=== PATIENT | female | born 1945 | race Caucasian/White ===

== ENCOUNTER 2017-08-09 11:50 | Observation (INO) | payer MEDICARE ==
[~2017-08-09] VITALS: Ht 165.1 cm; Wt 77.6 kg
[~2017-08-09 11:50] MED LIST: ALPRAZOLAM0.5 MG PO; ASPIRIN81 MG PO; CARVEDILOL12.5 MG PO; COUMADIN5 M1; DILTIAZEM 24HR120 MG PO; FISH OIL300 MG PO; FOSAMAX70 MG PO; GABAPENTIN300 MG PO; GLIPIZIDE5 MG PO; GLUCOPHAGE XR500 MG PO; IMDUR30 MG PO; LANOXIN125 MCG PO; METOCLOPRAMIDE10 MG PO; NITROSTAT0.4 MG SL; OMEPRAZOLE20 MG PO; PACERONE200 MG PO; PRAVASTATIN SOD40 MG PO; TOPAMAX50 MG PO; WARFARIN SODIUM3 MG PO
[2017-08-09] MEDS ORDERED: MECLIZINE HCL 12.5 MG TAB PO ONE (12:00)
[2017-08-09 12:20] LABS: BASOPHILS # (AUTO) 0.1 (0.0-0.1); BASOPHILS % 0.6 % (0.0-1.0); EOSINOPHILS # (AUTO) 0.1 (0.0-0.4); EOSINOPHILS % 0.6 % (0.0-6.0); HEMATOCRIT 47.3 % (34.2-44.1); HEMOGLOBIN 14.1 g/dL (12.0-16.0); LYMPHOCYTES # (AUTO) 2.5 (1.0-3.2); MEAN CORPUSCULAR HEMOGLOBIN 23.9 pg (28-32); MEAN CORPUSCULAR HGB CONC 29.8 g/dL (31-35); MEAN CORPUSCULAR VOLUME 80.3 fL (81-99); MONOCYTES # (AUTO) 0.9 (0.2-0.8); NEUTROPHILS # (AUTO) 9.1 (2.1-6.9); NEUTROPHILS % 71.5 % (38.7-80.0); PLATELET COUNT 412 x10e3/uL (140-360); RED BLOOD COUNT 5.89 x10e6/uL (3.6-5.1); RED CELL DISTRIBUTION WIDTH 23.4 % (11.7-14.4)
[2017-08-09 12:30] LABS: INR 1.88; PROTHROMBIN TIME 22.6 seconds (11.9-14.5)
[2017-08-09 12:37] LABS: ALBUMIN 3.6 g/dL (3.5-5.0); ALBUMIN/GLOBULIN RATIO 0.8 (0.8-2.0); ANION GAP 19.9 mmol/L (8-16); CALCIUM 9.1 mg/dL (8.4-10.2); CREATININE, SERUM 1.96 mg/dL (0.57-1.11)
--- NOTE | 2017-08-09 12:37 | Diagnostic Imaging Report ---
PROCEDURE: A single AP view of the chest. COMPARISON: Chest radiograph 12/02/2013 INDICATIONS: DIZZY FINDINGS: Lines/tubes: Left chest wall AICD with intact leads projecting over the right atrium and right ventricle. Lungs: The lungs are well inflated. Linear opacities in the left lung base likely represent atelectasis or scarring. There is no evidence of pneumonia or pulmonary edema. Pleura: There is no pleural effusion or pneumothorax. Heart and mediastinum: Multiple surgical clips overlie the right hilar region. Aortic arch calcifications. Stable borderline enlargement of the cardiac silhouette. Bones: No acute bony abnormality. Upper abdomen: No free air under the diaphragm. Stable elevation of the right hemidiaphragm. IMPRESSION: No acute cardiopulmonary disease. Dictated by: Serge Read M.D. on 08/09/2017 at 12:47 Electronically approved by: Serge Read M.D. on 08/09/2017 at 12:47
[2017-08-09 12:41] LABS: POTASSIUM 2.9 mmol/L (3.5-5.1)
--- NOTE | 2017-08-09 12:42 | Diagnostic Imaging Report ---
Exam: Head CT without contrast History: Dizziness, Comparison studies: None Technique: Axial images were obtained from the skull base to the vertex. Coronal and sagittal images reconstructed from the axial data. Intravenous contrast: None Findings: Scalp: No abnormalities. Bones: No fractures, blastic or lytic lesions. Brain sulci: Mildly prominent. Ventricles: Mild compensatory dilatation. No hydrocephalus. Extra-axial spaces: No masses, no fluid collection. Parenchyma: No mass, acute hemorrhage or acute or chronic cortical vascular insults. A few subtle hypodensities in the supratentorial white matter are nonspecific but most compatible with chronic small vessel ischemic changes. As a small chronic lacunar insult along the lateral margin of the left putamen superiorly. Sellar/suprasellar region: No abnormalities. Craniocervical junction: Patent foramen magnum. No Chiari one malformation. Incidental findings: Atherosclerotic calcifications in the carotid siphons. Small debris or cerumen in the bilateral external auditory canals. Mild chronic inflammatory changes in the right mastoids which are partially opacified. IMPRESSION: No acute abnormalities. Chronic findings: 1. Mild generalized volume loss. 2. Mild chronic microvascular ischemic changes. 3. Small chronic left putaminal lacunar infarct. Signed by: Dr. Yogesh Moore M.D. on 08/09/2017 12:38 PM
[2017-08-09] MEDS ORDERED: POTASSIUM CHLORIDE 10 MEQ TABCR PO NR (13:15)
[2017-08-09] MEDS ORDERED: SODIUM CHLORIDE 0.9% 1000ML 1,000 ML IV SCH (15:00)
[2017-08-09] MEDS ORDERED: MORPHINE SULFATE 2 MG/ML SYR IV PRN (16:00)
[2017-08-09] MEDS ORDERED: ONDANSETRON HCL INJ 2 MG/ML VIAL IV PRN (16:00)
[2017-08-09] MEDS ORDERED: DEXTROSE 50% SYRINGE 50 ML IV PRN (16:00)
[2017-08-09 16:08] LABS: BILIRUBIN,URINE NEGATIVE (NEGATIVE); CLARITY,URINE CLEAR (CLEAR); COLOR,URINE YELLOW (YELLOW); KETONES,URINE NEGATIVE (NEGATIVE); LEUKOCYTE ESTERASE ,URINE NEGATIVE (NEGATIVE); NITRITE,URINE NEGATIVE (NEGATIVE); PROTEIN,URINE DIPSTICK NEGATIVE (NEGATIVE); URINE UROBILINOGEN 0.2 mg/dL (0.2 - 1)
[2017-08-09 16:29] LABS: BACTERIA,URINE FEW /HPF; EPITHELIAL CELLS,URINE MODERATE /LPF
[2017-08-09] MEDS: INSULIN REGULAR, HUMAN 100 UNIT/1 ML 3ML VIAL SQ SCH ×2 (16:30→21:58)
--- OUTSIDE RECORDS SUMMARY | 2017-08-09 16:43 | XMS REPORT ---
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 Allergies, Adverse Reactions, Alerts This patient has no known allergies or adverse reactions. Medications This patient has no known medications. Results Test Description Test Time Test Comments Text Results Atomic Results Result Comments CHEST SINGLE (PORTABLE) [place] [address] Patient Name: MARGARITA EATON MR #: [id number] : 1945 Age/Sex: 71/F Req #: [id number] Adm Physician: Ordered by: GALLO MONTES MD Report #: [id number] Location: ER Room/Bed: Procedure: [id number] DX/CHEST SINGLE (PORTABLE) Exam Date: 08/09/17 Exam Time: 1215 REPORT STATUS: Signed PROCEDURE: A single AP view of the chest. COMPARISON: Chest radiograph 12/02/2013 INDICATIONS: DIZZY FINDINGS: Lines/tubes: Left chest wall AICD with intact leads projecting over the right atrium and right ventricle. Lungs: The lungs are well inflated. Linear opacities in the left lung base likely represent atelectasis or scarring. There is no evidence of pneumonia or pulmonary edema. Pleura: There is no pleural effusion or pneumothorax. Heart and mediastinum: Multiple surgical clips overlie the right hilar region. Aortic arch calcifications. Stable borderline enlargement of the cardiac silhouette. Bones: No acute bony abnormality. Upper abdomen: No free air under the diaphragm. Stable elevation of the right hemidiaphragm. IMPRESSION: No acute cardiopulmonary disease. Dictated by: Serge Beck M.D. on 2017 at 12:47 Electronically approved by: Serge Beck M.D. on 2017 at 12:47 Dictated By: SERGE BECK MD 124 Transcribed By: SASKIA on 08/09/17 1247 COPY TO: GALLO MONTES MD CT BRAIN WO [place] [address] Patient Name: MARGARITA EATON MR #: [id number] : 1945 Age/Sex: 71/F Req # : [id number] Adm Physician: Ordered by: GALLO MONTES MD Report #: [id number] Location: ER Room/Bed: Procedure: [id number] CT/CT BRAIN WO Exam Date: 08/09/17 Exam Time: 1215 REPORT STATUS: Signed Exam: Head CT without contrast History: Dizziness, Comparison studies: None Technique: Axial images were obtained from the skull base to the vertex. Coronal and sagittal images reconstructed from the axial data. Intravenous contrast: None Findings: Scalp: No abnormalities. Bones: No fractures, blastic or lytic lesions. Brain sulci: Mildly prominent. Ventricles: Mild compensatory dilatation. No hydrocephalus. Extra-axial spaces: No masses, no fluid collection. Parenchyma: No mass, acute hemorrhage or acute or chronic cortical vascular insults. A few subtle hypodensities in the supratentorial white matter are nonspecific but most compatible with chronic small vessel ischemic changes. As a small chronic lacunar insult along the lateral margin of the left putamen superiorly. Sellar/suprasellar region: No abnormalities. Craniocervical junction: Patent foramen magnum. No Chiari one malformation. Incidental findings: Atherosclerotic calcifications in the carotid siphons. Small debris or cerumen in the bilateral external auditory canals. Mild chronic inflammatory changes in the right mastoids which are partially opacified. IMPRESSION: No acute abnormalities. Chronic findings : 1. Mild generalized volume loss. 2. Mild chronic microvascular ischemic changes. 3. Small chronic left putaminal lacunar infarct. Signed by: Dr. Qasim Moore M.D. on 08/09/2017 12:38 PM Dictated By: QASIM MOORE MD 1238 Transcribed By: IZZY on 08/09/17 1238 COPY TO: GALLO MONTES MD
--- OUTSIDE RECORDS SUMMARY | 2017-08-09 16:43 | XMS REPORT | Continuity of Care Document ---
Author Author [facility] Organization 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 No 04/30/14 8:00pm If yes, is advance directive on file with [facility]? No 04/30/14 8:00pm If not on file with [facility] will patient provide a copy? No 01/17/17 8:35pm Do you have a Directive to Physician? No 08/09/17 11:54am Do you have a Medical Power of Claims Supervisor? No 08/09/17 11:54am Do you have an out of hospital Do Not Resuscitate Order? No 08/09/17 11:54am Do you have any special needs we should be aware of? No 08/09/17 11:54am Do you have a support person here with you today? Yes 08/09/17 11:54am Did patient receive Notice of Privacy Practices? Yes 08/09/17 11:54am Did patient receive patient rights and responsibilities? Yes 08/09/17 11:54am Problems Medical Problem Onset Date Status Abdominal pain 04/30/2014 Acute Dehydration Unknown Near syncope Unknown Medications Current Home Medications Medication Dose Units Route Directions Days Qty Instructions Start Date Alendronate Sodium (Fosamax) 70 Mg Tablet 70 Mg Oral Every Sunday Alprazolam 0.5 Mg Tablet 0.5 Mg Oral Every Evening Amiodarone Hcl (Pacerone) 200 Mg Tablet 200 Mg Oral Every Evening Carvedilol 12.5 Mg Tablet 12.5 Mg Oral Twice A Day Digoxin (Lanoxin) 125 Mcg Tablet 125 Mcg Oral Daily Diltiazem Hcl (Diltiazem 24HR Er) 120 Mg Cap.er.24h 120 Mg Oral Daily Gabapentin 300 Mg Capsule 300 Mg Oral Every Evening Glipizide 5 Mg Tablet 5 Mg Oral Daily Isosorbide Mononitrate (Imdur) 30 Mg Tabcr 30 Mg Oral Every Evening Metformin Hcl (Glucophage Xr) 500 Mg Tab.er.24h 500 Mg Oral Twice A Day Omeprazole 20 Mg Capsule.dr 20 Mg Oral Daily Pravastatin Sodium 40 Mg Tablet 40 Mg Oral Qhs Warfarin Sodium 3 Mg Tablet 3 Mg Oral Sun,Sun,Anjelica,Sat,Sun Warfarin Sodium 3 Mg Tablet 6 Mg Oral Every Wed & Fri Past Home Medications Medication Directions Ordered Status Aspirin 81 Mg Tab.chew, 81 Mg Oral Daily Discontinued Metoclopramide Hcl 10 Mg Tablet, 10 Mg Oral With Each Meal Discontinued Nitroglycerin (Nitrostat) 0.4 Mg Tab.subl, 0.4 Mg Sublingual As Needed Discontinued [place]-3 Fatty Acids (Fish Oil) 300 Mg Capsule, 300 Mg Oral Twice A Day Discontinued Topiramate (Topamax) 50 Mg Tablet, 50 Mg Oral Twice A Day Discontinued Warfarin Sodium (Coumadin) 5 Mg Vial, Discontinued Social History Social History Problem Response Recorded Date/Time Onset Date Status Hx Psychiatric Problems No 04/30/2014 8:00pm Not Applicable Not Applicable Hx Eating Disorder No 04/30/2014 8:00pm Not Applicable Not Applicable Hx Substance Use Disorder No 04/30/2014 8:00pm Not Applicable Not Applicable Hx Depression No 04/30/2014 8:00pm Not Applicable Not Applicable Hx Alcohol Use No 04/30/2014 8:00pm Not Applicable Not Applicable Hx Substance Use Treatment No 04/30/2014 8:00pm Not Applicable Not Applicable Hx Physical Abuse No 04/30/2014 8:00pm Not Applicable Not Applicable Smoking Status Start Date Stop Date Current every day smoker Hospital Discharge Instructions No hospital discharge instruction information available. Plan of Care Discharge Date 08/09/17 4:38pm Disposition ADMITTED Prescriptions See Medication Section Functional Status No functional status information available. Allergies, Adverse Reactions, Alerts Allergen Type Severity Reaction Status Last Updated Codeine Allergy Unknown VOMITING Active 01/17/17 Pineapple Allergy Unknown Active 01/17/17 coconut Allergy Unknown Active 08/09/17 Immunizations No immunization information available. Vital Signs Acute Vital Signs Vital Response Date/Time Temperature (Fahrenheit) 98.6 degrees F (97.6 - 99.5) 01/17/2017 9:31pm Pulse Pulse Rate (adult) 81 bpm (60 - 90) 08/09/2017 4:38pm Respiratory Rate 18 bpm (12 - 24) 08/09/2017 4:38pm Blood Pressure 152/74 mm Hg 01/17/2017 9:31pm Height 5 ft 5 in 08/09/2017 11:52am Weight 177 lb 08/09/2017 11:52am Body Mass Index 29.5 kg/m^2 08/09/2017 11:52am Results Laboratory Results Test Name Result Units Flags Reference Collection Date/Time Result Date/ Time Comments Urine Amorphous Sediment FEW FEW 01/17/2017 7:59pm 01/17/2017 8:21pm Urine Mucus RARE RARE 01/17/2017 7:59pm 01/17/2017 8:21pm White Blood Count 12.71 x10e3/uL H 4.8-10.8 08/09/2017 12:14pm 2017 12:33pm Red Blood Count 5.89 x10e6/uL H 3.6-5.1 08/09/2017 12:14pm 08/09/2017 12 :33pm Hemoglobin 14.1 g/dL 12.0-16.0 08/09/2017 12:14pm 08/09/2017 12:33pm Hematocrit 47.3 % H 34.2-44.1 08/09/2017 12:14pm 08/09/2017 12:33pm Mean Corpuscular Volume 80.3 fL L 81-99 08/09/2017 12:14pm 08/09/2017 12 :33pm Mean Corpuscular Hemoglobin 23.9 pg L 28-32 08/09/2017 12:14pm 2017 12:33pm Mean Corpuscular Hemoglobin Concent 29.8 g/dL L 31-35 08/09/2017 12:14pm 08/09/2017 12:33pm Red Cell Distribution Width 23.4 % H 11.7-14.4 08/09/2017 12:14pm 2017 12:33pm Platelet Count 412 x10e3/uL H 140-360 08/09/2017 12:14pm 08/09/2017 12: 33pm Neutrophils (%) (Auto) 71.5 % 38.7-80.0 08/09/2017 12:14pm 08/09/2017 12:33pm Lymphocytes (%) (Auto) 20.0 % 18.0-39.1 08/09/2017 12:14pm 08/09/2017 12:33pm Monocytes (%) (Auto) 7.0 % 4.4-11.3 08/09/2017 12:14pm 08/09/2017 12: 33pm Eosinophils (%) (Auto) 0.6 % 0.0-6.0 08/09/2017 12:14pm 08/09/2017 12: 33pm Basophils (%) (Auto) 0.6 % 0.0-1.0 08/09/2017 12:14pm 08/09/2017 12: 33pm IM GRANULOCYTES % 0.3 % 0.0-1.0 08/09/2017 12:14pm 08/09/2017 12:33pm Neutrophils # (Auto) 9.1 H 2.1-6.9 08/09/2017 12:14pm 08/09/2017 12: 33pm Lymphocytes # (Auto) 2.5 1.0-3.2 08/09/2017 12:14pm 08/09/2017 12: 33pm Monocytes # (Auto) 0.9 H 0.2-0.8 08/09/2017 12:14pm 08/09/2017 12: 33pm Eosinophils # (Auto) 0.1 0.0-0.4 08/09/2017 12:14pm 08/09/2017 12: 33pm Basophils # (Auto) 0.1 0.0-0.1 08/09/2017 12:14pm 08/09/2017 12:33pm Absolute Immature Granulocyte (auto 0.04 x10e3/uL 0-0.1 08/09/2017 12: 14pm 08/09/2017 12:33pm Prothrombin Time 22.6 seconds H 11.9-14.5 08/09/2017 12:14pm 08/09/2017 12:32pm Prothromb Time International Ratio 1.88 08/09/2017 12:14pm 2017 12:32pm Oral Anticoagulant Therapy INR Values: 1. Low Intensity Therapy 1.5 - 2.0 2. Moderate Intensity Therapy 2.0 - 3.0 3. High Intensity Therapy(1) 2.5 - 3.5 4. High Intensity Therapy(2) 3.0 - 4.0 5. Panic Value INR > 5.0 Activated Partial Thromboplast Time 34.0 seconds 23.8-35.5 08/09/2017 12 :14pm 08/09/2017 12:32pm Urine Color YELLOW YELLOW 08/09/2017 11:57am 08/09/2017 4:16pm Urine Clarity CLEAR CLEAR 08/09/2017 11:57am 08/09/2017 4:16pm Urine Specific [place] 1.010 1.010-1.025 08/09/2017 11:57am 2017 4:16pm Urine pH 5 5 - 7 08/09/2017 11:57am 08/09/2017 4:16pm Urine Leukocyte Esterase NEGATIVE NEGATIVE 08/09/2017 11:57am 2017 4:16pm Urine Nitrite NEGATIVE NEGATIVE 08/09/2017 11:57am 08/09/2017 4:16pm Urine Protein NEGATIVE NEGATIVE 08/09/2017 11:57am 08/09/2017 4:16pm Urine Glucose (UA) NEGATIVE NEGATIVE 08/09/2017 11:57am 08/09/2017 4: 16pm Urine Ketones NEGATIVE NEGATIVE 08/09/2017 11:57am 08/09/2017 4:16pm Urine Urobilinogen 0.2 mg/dL 0.2 - 1 08/09/2017 11:57am 08/09/2017 4: 16pm Urine Bilirubin NEGATIVE NEGATIVE 08/09/2017 11:57am 08/09/2017 4: 16pm Urine Blood NEGATIVE NEGATIVE 08/09/2017 11:57am 08/09/2017 4:16pm Urine WBC NONE /HPF 0-5 08/09/2017 11:57am 08/09/2017 4:29pm Urine RBC NONE /HPF 0-5 08/09/2017 11:57am 08/09/2017 4:29pm Urine Bacteria FEW /HPF NONE 08/09/2017 11:57am 08/09/2017 4:29pm Urine Epithelial Cells MODERATE /LPF NONE 08/09/2017 11:57am 2017 4:29pm Sodium Level 137 mmol/L 136-145 08/09/2017 12:14pm 08/09/2017 12:41pm Potassium Level 2.9 mmol/L *L 3.5-5.1 08/09/2017 12:14pm 08/09/2017 12: 41pm Results called to JANICE JON at 1240 on 08/09/17 by Aggie Lyles. RB OK. Chloride Level 92 mmol/L L 98-107 08/09/2017 12:14pm 08/09/2017 12:41pm Carbon Dioxide Level 28 mmol/L 22-29 08/09/2017 12:14pm 08/09/2017 12: 41pm Anion Gap 19.9 mmol/L H 8-16 08/09/2017 12:14pm 08/09/2017 12:41pm Blood Urea Nitrogen 23 mg/dL 7-26 08/09/2017 12:14pm 08/09/2017 12: 41pm Creatinine 1.96 mg/dL H 0.57-1.11 08/09/2017 12:14pm 08/09/2017 12:41pm BUN/Creatinine Ratio 12 6-25 08/09/2017 12:14pm 08/09/2017 12:41pm Estimat Glomerular Filtration Rate 25 ML/MIN L 60- 08/09/2017 12:14pm 12:41pm Ranges were taken from the National Kidney Disease Education Program and the National [employer] literature. Reference ranges: 60 or greater: Normal 16-59 (for 3 consecutive months): Chronic kidney disease 15 or less: Kidney failure Glucose Level 183 mg/dL H 74-118 08/09/2017 12:14pm 08/09/2017 12:41pm Calcium Level 9.1 mg/dL 8.4-10.2 08/09/2017 12:14pm 08/09/2017 12:41pm Total Bilirubin 0.4 mg/dL 0.2-1.2 08/09/2017 12:14pm 08/09/2017 12: 41pm Aspartate Amino Transf (AST/SGOT) 20 IU/L 5-34 08/09/2017 12:14pm 08/09 12:41pm Alanine Aminotransferase (ALT/SGPT) 18 IU/L 0-55 08/09/2017 12:14pm 01/2018 12:41pm Total Protein 8.0 g/dL 6.5-8.1 08/09/2017 12:14pm 08/09/2017 12:41pm Albumin 3.6 g/dL 3.5-5.0 08/09/2017 12:14pm 08/09/2017 12:41pm Globulin 4.4 g/dL H 2.3-3.5 08/09/2017 12:14pm 08/09/2017 12:41pm Albumin/Globulin Ratio 0.8 0.8-2.0 08/09/2017 12:14pm 08/09/2017 12: 41pm Alkaline Phosphatase 88 IU/L 40-150 08/09/2017 12:14pm 08/09/2017 12: 41pm Creatine Kinase 94 IU/L 29-168 08/09/2017 12:14pm 08/09/2017 12:41pm Creatine Kinase MB 2.00 ng/mL 0.00-5.00 08/09/2017 12:14pm 08/09/2017 12:45pm Troponin I 0.029 ng/mL 0-0.300 08/09/2017 12:14pm 08/09/2017 12:45pm Procedures Procedure Status Date Provider(s) CT of abdomen and pelvis without contrast Active 01/17/17 TRAE ENGLISH MD Computed tomography of brain without radiopaque contrast Active 08/09/17 GALLO MONTES MD Encounters Encounter Location Arrival/Admit Date Discharge/Depart Date Attending Provider Departed Emergency Room [facility] 08/09/17 11:50am 08/09 4:38pm GALLO MONTES MD Departed Emergency Room [facility] 01/17/17 6:55pm 10:00pm COLE COLLAZO MD
[2017-08-09 16:49] VITALS: BP 128/76
[2017-08-09] MEDS ORDERED: LASIX40 MG PO (16:51)
[2017-08-09] MEDS ORDERED: NITROGLYCERIN0.4 MG SL (16:51)
[2017-08-09] MEDS ORDERED: MULTI-VITAMIN1 EACH PO (16:51)
[2017-08-09] MEDS ORDERED: MONTELUKAST SOD10 MG PO (16:51)
[2017-08-09] MEDS ORDERED: ASPIRIN81 MG PO (16:51)
[2017-08-09] MEDS ORDERED: AMIODARONE HCL200 MG PO (16:51)
[2017-08-09] MEDS ORDERED: METOCLOPRAMIDE10 MG PO (16:51)
[2017-08-09] MEDS ORDERED: ZOFRAN ODT4 MG PO (16:51)
[2017-08-09] MEDS: SODIUM CHLORIDE 0.9% 1000ML 1,000 ML IV SCH (17:11)
[2017-08-09] MEDS ORDERED: SODIUM CHLORIDE 0.9% 1000ML 1,000 ML ONE (17:12)
[2017-08-09 18:16] VITALS: BP 130/60
[2017-08-09 19:20] VITALS: BP 133/60
[2017-08-09 19:50] VITALS: BP 133/60
[2017-08-10] VITALS: BP 149/70
[2017-08-10] MEDS ORDERED: SODIUM CHLORIDE 0.9% 1000ML 1,000 ML ONE (01:30)
[2017-08-10] MEDS: SODIUM CHLORIDE 0.9% 1000ML 1,000 ML IV SCH ×3 (01:33→15:54)
[2017-08-10 04:00] VITALS: BP 161/70
[2017-08-10 06:10] LABS: BASOPHILS # (AUTO) 0.1 (0.0-0.1); BASOPHILS % 0.7 % (0.0-1.0); EOSINOPHILS # (AUTO) 0.1 (0.0-0.4); EOSINOPHILS % 0.9 % (0.0-6.0); HEMATOCRIT 41.2 % (34.2-44.1); HEMOGLOBIN 12.4 g/dL (12.0-16.0); LYMPHOCYTES % 28.1 % (18.0-39.1); MEAN CORPUSCULAR HEMOGLOBIN 24.1 pg (28-32); MEAN CORPUSCULAR HGB CONC 30.1 g/dL (31-35); MEAN CORPUSCULAR VOLUME 80.2 fL (81-99); MONOCYTES # (AUTO) 0.8 (0.2-0.8); MONOCYTES % 7.8 % (4.4-11.3); NEUTROPHILS # (AUTO) 6.6 (2.1-6.9); NEUTROPHILS % 62.1 % (38.7-80.0); PLATELET COUNT 335 x10e3/uL (140-360); RED BLOOD COUNT 5.14 x10e6/uL (3.6-5.1); RED CELL DISTRIBUTION WIDTH 23.1 % (11.7-14.4)
[2017-08-10 06:53] LABS: ALBUMIN 3.1 g/dL (3.5-5.0); ALBUMIN/GLOBULIN RATIO 0.8 (0.8-2.0); ANION GAP 15.9 mmol/L (8-16); CALCIUM 8.4 mg/dL (8.4-10.2); CREATININE, SERUM 1.52 mg/dL (0.57-1.11)
[2017-08-10 07:05] LABS: POTASSIUM 2.9 mmol/L (3.5-5.1)
[2017-08-10] MEDS: INSULIN REGULAR, HUMAN 100 UNIT/1 ML 3ML VIAL SQ SCH ×3 (07:30→16:30)
[2017-08-10 08:13] VITALS: BP 143/61
[2017-08-10] MEDS ORDERED: POTASSIUM CHLORIDE 20 MEQ TAB CR PO NR (09:00)
[2017-08-10 11:00] VITALS: BP 143/61
[2017-08-10 12:29] VITALS: BP 131/63
[2017-08-10 16:41] VITALS: BP 128/58
== END 2017-08-10 17:20 | disposition home or self-care (01) ==
LOC: ER 11:50 → ERHOLD 16:00 → ER 16:38 → IMCU 16:39
PROVIDERS: ADMIT Internal Medicine; ATTEND Internal Medicine
DX: E86.0 Dehydration (principal); E11.22 Type 2 diabetes mellitus with diabetic chronic kidney disease; I12.9 Hypertensive chronic kidney disease with stage 1 through stage 4 chronic kidney disease, or unspecified chronic kidney disease; N18.3 Chronic kidney disease, stage 3 (moderate); F17.210 Nicotine dependence, cigarettes, uncomplicated; Z95.810 Presence of automatic (implantable) cardiac defibrillator
CPT/HCPCS: 36415 ×2; 70450; 71045; 80053 ×2; 81001; 82550; 82553; 82948 ×2; 83735; 84132; 84484; 85025 ×2; 85610; 85730; 87086; 93005; 99284; G0378 ×2; J7030 ×2

== ENCOUNTER 2017-12-05 16:14 | Inpatient (IN) | payer MEDICARE ==
[~2017-12-05] VITALS: Ht 165.1 cm; Wt 76.9 kg
[~2017-12-05 16:14] MED LIST changes: +AMIODARONE HCL200 MG PO; +LASIX40 MG PO; +MONTELUKAST SOD10 MG PO; +MULTI-VITAMIN1 EACH PO; +NITROGLYCERIN0.4 MG SL; +ZOFRAN ODT4 MG PO
--- OUTSIDE RECORDS SUMMARY | 2017-12-05 16:16 | XMS REPORT | Continuity of Care Document ---
Author Author [facility] Organization [facility] Address [address] [place] [address] Phone Unavailable Care Team Providers Care Emergency Medical Technician/Driver Name Role Phone WILLA LUIS MD PCP Insurance Providers Guarantor Harmony Cruz Address [address] [place] [address] Email N Payer [facility] Policy Number [id number] Subscriber's Name Harmony Cruz Relationship 18 Self / Same As Patient Group Number [id number] Group Name RETIRED Effective Date 17 Advance Directives Directive Response Recorded Date/Time Does the patient have an advance directive? No 08/09/17 5:01pm If yes, is advance directive on file with [facility]? No 08/09/17 5:01pm If not on file with [facility] will patient provide a copy? No 08/09/17 5:01pm Do you have a Directive to Physician? No 08/09/17 11:54am Do you have a Medical Power of Felt Checker? No 08/09/17 11:54am Do you have an [...] Mg Tablet 70 Mg Oral Every Sunday Amiodarone Hcl 200 Mg Tablet 200 Mg Oral Daily Aspirin 81 Mg Tab.chew 81 Mg Oral Daily Furosemide (Lasix) 40 Mg Tablet 40 Mg Oral Daily 30 Tab Metformin Hcl (Glucophage Xr) 500 Mg Tab.er.24h 500 Mg Oral Twice A Day Metoclopramide Hcl 10 Mg Tablet 10 Mg Oral Before Meals And At Bedtime Montelukast Sodium 10 Mg Tablet 10 Mg Oral Daily 30 Tab Multivitamin (Multi-Vitamin Daily) 1 Each Tablet 1 Tab Oral Daily Nitroglycerin 0.4 Mg Tab.subl 0.4 Mg Sublingual Every 5 Minutes Omeprazole 20 Mg Capsule.dr 20 Mg Oral Daily Ondansetron (Zofran Odt) 4 Mg Tab.rapdis 4 Mg Oral Every 6 Hours as needed for Nausea Pravastatin Sodium 40 Mg Tablet 40 Mg Oral Qhs Past Home Medications Medication Directions Ordered Status Alprazolam 0.5 Mg Tablet, 0.5 Mg Oral Every Evening Discontinued Amiodarone Hcl (Pacerone) 200 Mg Tablet, 200 Mg Oral Every Evening Discontinued Aspirin 81 Mg Tab.chew, 81 Mg Oral Daily Discontinued Carvedilol 12.5 Mg Tablet, 12.5 Mg Oral Twice A Day Discontinued Digoxin (Lanoxin) 125 Mcg Tablet, 125 Mcg Oral Daily Discontinued Diltiazem Hcl (Diltiazem 24HR Er) 120 Mg Cap.er.24h, 120 Mg Oral Daily Discontinued Gabapentin 300 Mg Capsule, 300 Mg Oral Every Evening Discontinued Glipizide 5 Mg Tablet, 5 Mg Oral Daily Discontinued Isosorbide Mononitrate (Imdur) 30 Mg Tabcr, 30 Mg Oral Every Evening Discontinued Metoclopramide Hcl 10 Mg Tablet, 10 Mg Oral With Each Meal Discontinued Nitroglycerin (Nitrostat) 0.4 Mg Tab.subl, 0.4 Mg Sublingual As Needed Discontinued Conway-3 Fatty Acids (Fish Oil) 300 Mg Capsule, 300 Mg Oral Twice A Day Discontinued Topiramate (Topamax) 50 Mg Tablet, 50 Mg Oral Twice A Day Discontinued Warfarin Sodium 3 Mg Tablet, 3 Mg Oral Mon,Tue,Anjelica,Sat,Sun Discontinued Warfarin Sodium 3 Mg Tablet, 6 Mg Oral Every Sun & Sun Discontinued Warfarin Sodium (Coumadin) 5 Mg Vial, Discontinued Social History Social History Problem Response Recorded Date/Time Onset Date Status Hx Psychiatric Problems No 08/09/2017 5:01pm Not Applicable Not Applicable Hx Eating Disorder No 08/09/2017 5:01pm Not Applicable Not Applicable Hx Substance Use Disorder No 08/09/2017 5:01pm Not Applicable Not Applicable Hx Depression No 08/09/2017 5:01pm Not Applicable Not Applicable Hx Alcohol Use No 08/09/2017 5:01pm Not Applicable Not Applicable Hx Substance Use Treatment No 08/09/2017 5:01pm Not Applicable Not Applicable Hx Physical Abuse No 08/09/2017 5:01pm Not Applicable Not Applicable Smoking Status Start Date Stop Date Current every day smoker Hospital Discharge Instructions No hospital discharge instruction information available. Plan of Care Discharge Date 08/10/17 5:20pm Disposition HOME, SELF-CARE Instructions/Education Provided Dehydration - Adult Prescriptions See Medication Section Referrals WILLA LUIS MD (Internal Medicine) Order Date: 1-2 Weeks Entered Date: 08/10/2017 4:48pm Address: [address] [place] [id number] Functional Status Query Response Date Recorded Assistive Devices None August 09, 2017 4:49pm Ambulation Ability Minimum Assistance August 09, 2017 4:49pm Toileting Ability Minimum Assistance August 09, 2017 4:49pm Allergies, Adverse Reactions, Alerts Allergen Type Severity Reaction Status Last Updated Codeine Allergy Unknown VOMITING Active 01/17/17 Pineapple Allergy Unknown Active 01/17/17 coconut Allergy Unknown Active 08/09/17 Immunizations No immunization information available. Vital Signs Acute Vital Signs Vital Response Date/Time Temperature (Fahrenheit) 98.6 degrees F (97.6 - 99.5) 08/10/2017 4:41pm Pulse Pulse Rate (adult) 72 bpm (60 - 90) 08/10/2017 4:41pm Respiratory Rate 18 bpm (12 - 24) 08/10/2017 4:41pm Blood Pressure 128/58 mm Hg 08/10/2017 4:41pm Height 5 ft 5 in 08/09/2017 11:52am Weight 171.01 lb 08/10/2017 8:14am Body Mass Index 28.5 kg/m^2 08/10/2017 8:14am Results Laboratory Results Test Name Result Units Flags Reference Collection Date/Time Result Date/ Time Comments Urine Amorphous Sediment FEW FEW 01/17/2017 7:59pm 01/17/2017 8:21pm Urine Mucus RARE RARE 01/17/2017 7:59pm 01/17/2017 8:21pm White Blood Count 10.67 x10e3/uL 4.8-10.8 08/10/2017 5:45am 08/10/2017 6:13am Red Blood Count 5.14 x10e6/uL H 3.6-5.1 08/10/2017 5:45am 08/10/2017 6: 13am Hemoglobin 12.4 g/dL 12.0-16.0 08/10/2017 5:45am 08/10/2017 6:13am Hematocrit 41.2 % 34.2-44.1 08/10/2017 5:45am 08/10/2017 6:13am Mean Corpuscular Volume 80.2 fL L 81-99 08/10/2017 5:45am 08/10/2017 6: 13am Mean Corpuscular Hemoglobin 24.1 pg L 28-32 08/10/2017 5:45am 2017 6:13am Mean Corpuscular Hemoglobin Concent 30.1 g/dL L 31-35 08/10/2017 5:45am 08/10/2017 6:13am Red Cell Distribution Width 23.1 % H 11.7-14.4 08/10/2017 5:45am 2017 6:13am Platelet Count 335 x10e3/uL 140-360 08/10/2017 5:45am 08/10/2017 6: 13am Neutrophils (%) (Auto) 62.1 % 38.7-80.0 08/10/2017 5:4508/10/2017 6: 13am Lymphocytes (%) (Auto) 28.1 % 18.0-39.1 08/10/2017 5:45am 08/10/2017 6: 13am Monocytes (%) (Auto) 7.8 % 4.4-11.3 08/10/2017 5:45am 08/10/2017 6: 13am Eosinophils (%) (Auto) 0.9 % 0.0-6.0 08/10/2017 5:4508/10/2017 6: 13am Basophils (%) (Auto) 0.7 % 0.0-1.0 08/10/2017 5:4508/10/2017 6:13am IM GRANULOCYTES % 0.4 % 0.0-1.0 08/10/2017 5:4508/10/2017 6:13am Neutrophils # (Auto) 6.6 2.1-6.9 08/10/2017 5:45am 08/10/2017 6:13am Lymphocytes # (Auto) 3.0 1.0-3.2 08/10/2017 5:45am 08/10/2017 6:13am Monocytes # (Auto) 0.8 0.2-0.8 08/10/2017 5:45am 08/10/2017 6:13am Eosinophils # (Auto) 0.1 0.0-0.4 08/10/2017 5:45am 08/10/2017 6:13am Basophils # (Auto) 0.1 0.0-0.1 08/10/2017 5:4508/10/2017 6:13am Absolute Immature Granulocyte (auto 0.04 x10e3/uL 0-0.1 08/10/2017 5: 4508/10/2017 6:13am Prothrombin Time 22.6 seconds H 11.9-14.5 08/09/2017 [...] CLEAR 08/09/2017 11:57am 08/09/2017 4:16pm Urine Specific Strong 1.010 1.010-1.025 08/09/2017 11:57am 2017 4:16pm Urine [...] NONE 08/09/2017 11:57am 2017 4:29pm Sodium Level 141 mmol/L 136-145 08/10/2017 5:52am 08/10/2017 7:05am Potassium Level 3.5 mmol/L # 3.5-5.1 08/10/2017 4:00pm 08/10/2017 4:15pm Chloride Level 99 mmol/L 98-107 08/10/2017 5:52am 08/10/2017 7:05am Carbon Dioxide Level 29 mmol/L 22-29 08/10/2017 5:52am 08/10/2017 7: 05am Anion Gap 15.9 mmol/L 8-16 08/10/2017 5:52am 08/10/2017 7:05am Blood Urea Nitrogen 20 mg/dL 7-26 08/10/2017 5:52am 08/10/2017 7:05am Creatinine 1.52 mg/dL H 0.57-1.11 08/10/2017 5:52am 08/10/2017 7:05am BUN/Creatinine Ratio 13 6-25 08/10/2017 5:52am 08/10/2017 7:05am Estimat Glomerular Filtration Rate 34 ML/MIN L 60- 08/10/2017 5:52am 03/2018 7:05am Ranges were taken from the National Kidney Disease Education Program and the National Kidney Foundation literature. Reference ranges: 60 or greater: Normal 16-59 (for 3 consecutive months): Chronic kidney disease 15 or less: Kidney failure Glucose Level 86 mg/dL 74-118 08/10/2017 5:52am 08/10/2017 7:05am Calcium Level 8.4 mg/dL 8.4-10.2 08/10/2017 5:52am 08/10/2017 7:05am Bedside Glucose 137 mg/dL H 70-120 08/10/2017 3:57pm 08/10/2017 4:15pm Meter ID: [id number] Magnesium Level 2.0 MG/DL 1.3-2.1 08/10/2017 5:52am 08/10/2017 7:05am Total Bilirubin 0.4 mg/dL 0.2-1.2 08/10/2017 5:52am 08/10/2017 7:05am Aspartate Amino Transf (AST/SGOT) 20 IU/L 5-34 08/10/2017 5:52am 2017 7:05am Alanine Aminotransferase (ALT/SGPT) 14 IU/L 0-55 08/10/2017 5:52am 03/2018 7:05am Total Protein 7.0 g/dL 6.5-8.1 08/10/2017 5:52am 08/10/2017 7:05am Albumin 3.1 g/dL L 3.5-5.0 08/10/2017 5:52am 08/10/2017 7:05am Globulin 3.9 g/dL H 2.3-3.5 08/10/2017 5:52am 08/10/2017 7:05am Albumin/Globulin Ratio 0.8 0.8-2.0 08/10/2017 5:52am 08/10/2017 7: 05am Alkaline Phosphatase 68 IU/L 40-150 08/10/2017 5:52am 08/10/2017 7: 05am Creatine Kinase 94 IU/L 29-168 08/09/2017 12:14pm [...] Location Arrival/Admit Date Discharge/Depart Date Attending Provider Discharged Inpatient (obs) [facility] 08/09/17 4:39pm 03/19 5:20pm WILLA LUIS MD Departed Emergency Room [facility] 01/17/17 6:55pm 10:00pm COLE COLLAZO MD
--- NOTE | 2017-12-05 17:15 | Diagnostic Imaging Report ---
PROCEDURE:HIP LEFT 2-3 VW (+/- PELVIS) COMPARISON:None. INDICATIONS:FALL, LEFT HIP PAIN TODAY FINDINGS: No acute displaced fracture or dislocation. Joint spaces are within normal limits. Pelvic phleboliths. Vascular calcifications. CONCLUSION: No acute fracture or dislocation of the left hip. Dictated by: Flex Cleveland M.D. on 12/05/2017 at 17:17 Electronically approved by: Flex Cleveland M.D. on 12/05/2017 at 17:17
--- NOTE | 2017-12-05 17:16 | Diagnostic Imaging Report ---
PROCEDURE: A single AP view of the chest. COMPARISON: 08/09/17 INDICATIONS: FALL TODAY, LEFT HIP PAIN FINDINGS: Lines/tubes: Stable left chest wall dual-lead cardiac device in place. Lungs: The lungs are well inflated and clear. There is no evidence of pneumonia or pulmonary edema. Mild left basilar atelectasis/scarring. Pleura: There is no pleural effusion or pneumothorax. Heart and mediastinum: The cardiac silhouette is mildly enlarged. Unchanged right hilar surgical clips. Aorta is calcified. Bones: No acute bony abnormality. IMPRESSION: 1. No acute cardiopulmonary disease. Dictated by: Flex Cleveland M.D. on 12/05/2017 at 17:19 Electronically approved by: Flex Cleveland M.D. on 12/05/2017 at 17:19
--- NOTE | 2017-12-05 18:52 | Diagnostic Imaging Report ---
PROCEDURE:CT PELVIS WITHOUT CONTRAST COMPARISON:Pelvic x-ray on the same day. INDICATIONS:POST FALL, LEFT HIP PAIN TECHNIQUE:CT images were created without intravenous contrast. DLP: 342.87 mGy-cm FINDINGS: Mildly displaced fracture of the left iliac crest (series 4, image 31). No evidence of left hip fracture. Visualized bowel loops showed no evidence of obstruction. Colonic diverticulosis without evidence of diverticulitis. No pelvic sidewall lymphadenopathy. Moderate aortoiliac atherosclerotic disease. Hysterectomy. Bladder is unremarkable. Pelvic phleboliths. CONCLUSION: Mildly displaced fracture of the left iliac crest. Dictated by: Flex Cleveland M.D. on 12/05/2017 at 18:54 Electronically approved by: Flex Cleveland M.D. on 12/05/2017 at 18:54
[2017-12-05 18:54] LABS: HEMATOCRIT 34.2 % (34.2-44.1); HEMOGLOBIN 10.9 g/dL (12.0-16.0); MEAN CORPUSCULAR HEMOGLOBIN 31.4 pg (28-32); MEAN CORPUSCULAR HGB CONC 31.9 g/dL (31-35); MEAN CORPUSCULAR VOLUME 98.6 fL (81-99); RED BLOOD COUNT 3.47 x10e6/uL (3.6-5.1); RED CELL DISTRIBUTION WIDTH 16.9 % (11.7-14.4)
[2017-12-05 18:55] LABS: BASOPHILS % 0.3 % (0.0-1.0); EOSINOPHILS % 0.2 % (0.0-6.0); LYMPHOCYTES # (AUTO) 1.7 (1.0-3.2); LYMPHOCYTES % 9.5 % (18.0-39.1); MONOCYTES % 5.1 % (4.4-11.3); NEUTROPHILS # (AUTO) 14.8 (2.1-6.9); NEUTROPHILS % 84.3 % (38.7-80.0); PLATELET COUNT 466 x10e3/uL (140-360)
[2017-12-05 18:56] LABS: BASOPHILS # (AUTO) 0.1 (0.0-0.1); INR 2.64; MONOCYTES # (AUTO) 0.9 (0.2-0.8); PARTIAL THROMBOPLASTIN TIME 35.3 seconds (23.8-35.5); PROTHROMBIN TIME 26.5 seconds (11.9-14.5)
[2017-12-05 19:16] LABS: ALBUMIN 2.6 g/dL (3.5-5.0); ALBUMIN/GLOBULIN RATIO 0.7 (0.8-2.0); ANION GAP 18.3 mmol/L (8-16); CALCIUM 8.8 mg/dL (8.4-10.2); CREATININE, SERUM 1.95 mg/dL (0.57-1.11); POTASSIUM 3.3 mmol/L (3.5-5.1)
[2017-12-05] MEDS ORDERED: MORPHINE SULFATE 2 MG/ML SYR IV STA (19:33)
[2017-12-05 19:44] LABS: COLOR,URINE YELLOW (YELLOW)
[2017-12-05 19:45] LABS: CLARITY,URINE SL CLOUDY (CLEAR); KETONES,URINE TRACE (NEGATIVE); LEUKOCYTE ESTERASE ,URINE TRACE (NEGATIVE); NITRITE,URINE POSITIVE (NEGATIVE); PROTEIN,URINE DIPSTICK TRACE (NEGATIVE); URINE UROBILINOGEN 0.2 mg/dL (0.2 - 1)
[2017-12-05] MEDS ORDERED: ONDANSETRON HCL 4 MG ORAL DISINTEGRATING TAB PO ONE (19:45)
[2017-12-05 19:46] LABS: BILIRUBIN,URINE 1+ (NEGATIVE)
[2017-12-05 20:07] LABS: EPITHELIAL CELLS,URINE RARE /LPF; RBC,URINE 0-5 /HPF (0-5); WBC,URINE (MAN) 21-50 /HPF (0-5)
[2017-12-05 20:08] LABS: BACTERIA,URINE MANY /HPF; HYALINE CASTS >15 (0-1)
[2017-12-05] MEDS ORDERED: ONDANSETRON HCL 4 MG ORAL DISINTEGRATING TAB PO PRN (20:15)
[2017-12-05] MEDS ORDERED: SODIUM CHLORIDE 0.9% 1000ML 1,000 ML ONE (20:18)
[2017-12-05] MEDS: CEFTRIAXONE SOD 1 GM VIAL IV SCH (20:27)
[2017-12-05] MEDS ORDERED: DEXTROSE 50% SYRINGE 50 ML IV PRN (20:30)
[2017-12-05] MEDS: SODIUM CHLORIDE 0.9% 1000ML 1,000 ML IV SCH (20:53)
[2017-12-05] MEDS: INSULIN REGULAR, HUMAN 100 UNIT/1 ML 3ML VIAL SQ SCH (20:53)
[2017-12-05 22:30] VITALS: BP 111/47
[2017-12-05] MEDS ORDERED: BENZONATATE 100 MG CAP PO PRN (23:15)
[2017-12-05] MEDS ORDERED: GUAIFENESIN/DEXTROMETHORPHAN LIQD 5 ML UDC NG PRN (23:15)
[2017-12-05 23:21] VITALS: BP 111/47
[2017-12-06] VITALS (7 sets, daily range): BP systolic 106–138; BP diastolic 47–60
[2017-12-06] MEDS ORDERED: GUAIFENESIN/DEXTROMETHORPHAN LIQD 5 ML UDC PO PRN (01:00)
[2017-12-06] MEDS ORDERED: WARFARIN SODIUM4 MG (01:28)
[2017-12-06] MEDS ORDERED: NITROGLYCERIN 0.4 MG SUBL SL SCH (04:45)
[2017-12-06] MEDS ORDERED: ONDANSETRON HCL 4 MG ORAL DISINTEGRATING TAB PO PRN (04:45)
[2017-12-06] MEDS: SODIUM CHLORIDE 0.9% 1000ML 1,000 ML IV SCH ×2 (06:34→15:57)
[2017-12-06] MEDS: INSULIN REGULAR, HUMAN 100 UNIT/1 ML 3ML VIAL SQ SCH ×4 (07:30→20:30)
[2017-12-06 07:34] LABS: BASOPHILS % 0.5 % (0.0-1.0); EOSINOPHILS # (AUTO) 0.1 (0.0-0.4); EOSINOPHILS % 1.4 % (0.0-6.0); HEMATOCRIT 29.4 % (34.2-44.1); HEMOGLOBIN 9.5 g/dL (12.0-16.0); LYMPHOCYTES # (AUTO) 2.2 (1.0-3.2); LYMPHOCYTES % 21.4 % (18.0-39.1); MEAN CORPUSCULAR HEMOGLOBIN 32.3 pg (28-32); MEAN CORPUSCULAR HGB CONC 32.3 g/dL (31-35); MONOCYTES # (AUTO) 0.7 (0.2-0.8); MONOCYTES % 7.4 % (4.4-11.3); NEUTROPHILS # (AUTO) 6.9 (2.1-6.9); PLATELET COUNT 384 x10e3/uL (140-360); RED BLOOD COUNT 2.94 x10e6/uL (3.6-5.1); RED CELL DISTRIBUTION WIDTH 16.9 % (11.7-14.4)
[2017-12-06 07:35] LABS: BASOPHILS # (AUTO) 0.1 (0.0-0.1)
[2017-12-06 07:42] LABS: ALBUMIN 2.2 g/dL (3.5-5.0); ALBUMIN/GLOBULIN RATIO 0.8 (0.8-2.0); CALCIUM 7.9 mg/dL (8.4-10.2); CREATININE, SERUM 1.51 mg/dL (0.57-1.11)
[2017-12-06] MEDS: METFORMIN HCL 500 MG TAB CR PO SCH ×2 (08:08→16:32)
[2017-12-06] MEDS: CEFTRIAXONE SOD 1 GM VIAL IV SCH ×2 (08:08→20:15)
[2017-12-06] MEDS: METOCLOPRAMIDE HCL 10 MG TAB PO SCH ×4 (08:08→20:30)
[2017-12-06] MEDS: AMIODARONE HCL 200 MG TAB PO SCH (08:08)
[2017-12-06] MEDS: ASPIRIN 81 MG CHEW TAB PO SCH (08:08)
[2017-12-06] MEDS: FUROSEMIDE 40 MG TAB PO SCH (08:09)
[2017-12-06] MEDS: PANTOPRAZOLE SOD 40 MG TABEC PO SCH (08:09)
[2017-12-06] MEDS: MULTIVITAMINS/MINERALS TAB PO SCH (08:09)
[2017-12-06] MEDS ORDERED: PANTOPRAZOLE SOD 40 MG TABEC PO SCH (09:00)
[2017-12-06] MEDS: MORPHINE SULFATE 2 MG/ML SYR IV PRN ×2 (13:18→20:31)
[2017-12-06] MEDS ORDERED: MORPHINE SULFATE 2 MG/ML SYR IV SCH (13:29)
[2017-12-06] MEDS ORDERED: MORPHINE SULFATE 2 MG/ML SYR IV ONE (15:45)
[2017-12-06] MEDS ORDERED: WARFARIN SOD 2 MG TAB PO SCH (17:00)
[2017-12-06] MEDS ORDERED: MONTELUKAST SODIUM 10 MG TAB PO SCH (21:00)
[2017-12-06] MEDS ORDERED: PRAVASTATIN 20 MG TAB PO SCH (21:00)
[2017-12-07 01:16] VITALS: BP 132/59
[2017-12-07] MEDS: SODIUM CHLORIDE 0.9% 1000ML 1,000 ML IV SCH ×2 (02:14→12:14)
[2017-12-07] MEDS: MORPHINE SULFATE 2 MG/ML SYR IV PRN ×3 (04:09→14:09)
[2017-12-07 06:07] VITALS: BP 121/56
[2017-12-07] MEDS: INSULIN REGULAR, HUMAN 100 UNIT/1 ML 3ML VIAL SQ SCH ×2 (07:30→11:30)
[2017-12-07 07:44] VITALS: BP 121/57
[2017-12-07 08:30] VITALS: BP 121/57
[2017-12-07] MEDS: PANTOPRAZOLE SOD 40 MG TABEC PO SCH (08:34)
[2017-12-07] MEDS: CEFTRIAXONE SOD 1 GM VIAL IV SCH (08:34)
[2017-12-07] MEDS: MULTIVITAMINS/MINERALS TAB PO SCH (08:34)
[2017-12-07] MEDS: METFORMIN HCL 500 MG TAB CR PO SCH (08:34)
[2017-12-07] MEDS: ASPIRIN 81 MG CHEW TAB PO SCH (08:34)
[2017-12-07] MEDS: AMIODARONE HCL 200 MG TAB PO SCH (08:34)
[2017-12-07] MEDS: FUROSEMIDE 40 MG TAB PO SCH (08:34)
[2017-12-07] MEDS: METOCLOPRAMIDE HCL 10 MG TAB PO SCH ×2 (08:34→11:30)
[2017-12-07 11:42] VITALS: BP 115/51
[2017-12-07 15:28] VITALS: BP 132/58
== END 2017-12-07 15:52 | DRG 536 ==
LOC: ER 16:14 → ERHOLD 20:14 → MED/SURG2 21:05
PROVIDERS: ADMIT Internal Medicine; ATTEND Internal Medicine
DX: S32.392A Other fracture of left ilium, initial encounter for closed fracture (principal); N39.0 Urinary tract infection, site not specified; I10 Essential (primary) hypertension; J44.9 Chronic obstructive pulmonary disease, unspecified; E11.9 Type 2 diabetes mellitus without complications; B96.20 Unspecified Escherichia coli [E. coli] as the cause of diseases classified elsewhere; W01.0XXA Fall on same level from slipping, tripping and stumbling without subsequent striking against object, initial encounter; Y93.01 Activity, walking, marching and hiking; Y92.019 Unspecified place in single-family (private) house as the place of occurrence of the external cause
CPT/HCPCS: 36415; 51700; 71045; 72192; 80053; 81001; 82550; 82553; 82948; 84484; 85025; 85610; 85730; 87086; 87186; 93005; 96361; 97139; 99285; J0696; J2270; J7030

== ENCOUNTER 2018-04-14 09:39 | Inpatient (IN) | payer MEDICARE ==
[~2018-04-14] VITALS: Ht 165.1 cm; Wt 65.5 kg
[2018-04-14] VITALS (34 sets, daily range): BP systolic 75–114; BP diastolic 35–74
[~2018-04-14 09:39] MED LIST changes: +WARFARIN SODIUM4 MG
[2018-04-14] MEDS: SODIUM CHLORIDE 0.9% 1000ML 1,000 ML IV SCH ×2 (10:08→17:57)
[2018-04-14] MEDS ORDERED: MIDAZOLAM HCL 2 MG/2 ML VIAL ONE (10:34)
[2018-04-14 10:37] LABS: BASOPHILS # (AUTO) 0.1 (0.0-0.1); BASOPHILS % 0.2 % (0.0-1.0); HEMATOCRIT 43.1 % (34.2-44.1); HEMOGLOBIN 13.6 g/dL (12.0-16.0); LYMPHOCYTES # (AUTO) 1.1 (1.0-3.2); LYMPHOCYTES % 5.1 % (18.0-39.1); MEAN CORPUSCULAR HEMOGLOBIN 30.4 pg (28-32); MEAN CORPUSCULAR HGB CONC 31.6 g/dL (31-35); MEAN CORPUSCULAR VOLUME 96.4 fL (81-99); MONOCYTES % 4.5 % (4.4-11.3); NEUTROPHILS # (AUTO) 19.7 (2.1-6.9); NEUTROPHILS % 88.9 % (38.7-80.0); PLATELET COUNT 382 x10e3/uL (140-360); RED BLOOD COUNT 4.47 x10e6/uL (3.6-5.1); RED CELL DISTRIBUTION WIDTH 17.2 % (11.7-14.4)
--- NOTE | 2018-04-14 10:37 | Diagnostic Imaging Report ---
EXAM: XR CHEST 1 VIEW DATE: 04/14/2018 10:19 AM INDICATION: Post code, intubated COMPARISON: None FINDINGS: Lines and Tubes: ET tube tip above keely. Left chest wall ICD present. Defibrillator pads obscure detail centrally. Heart and Mediastinum: Heart mildly enlarged. Aortic vascular calcifications. Lungs and Pleura: Mild edema. No definite pneumothorax within limitations of artifact. Bones and Soft Tissues: No acute findings. IMPRESSION: 1. Mild edema. 2. Lines and tubes as above. Signed by: Dr. Shalom Zamudio MD on 04/14/2018 10:33 AM
[2018-04-14 10:39] LABS: PARTIAL THROMBOPLASTIN TIME 83.2 seconds (23.8-35.5)
[2018-04-14 10:48] LABS: ALANINE AMINOTRANSFERASE 86 IU/L (0-55); ALBUMIN 2.7 g/dL (3.5-5.0); ALBUMIN/GLOBULIN RATIO 0.6 (0.8-2.0); ALKALINE PHOSPHATASE 111 IU/L (40-150); ANION GAP 47.1 mmol/L (8-16); BLOOD UREA NITROGEN 53 mg/dL (7-26); BUN/CREATININE RATIO 6 (6-25); CALCIUM 8.8 mg/dL (8.4-10.2); CHLORIDE 91 mmol/L (98-107); CREATINE KINASE 98 IU/L (29-168); CREATININE, SERUM 8.44 mg/dL (0.57-1.11); EST GLOMERULAR FILTRATION RATE 5 ML/MIN (60-); GLUCOSE 181 mg/dL (74-118); LIPASE 119 U/L (8-78); MAGNESIUM 2.8 MG/DL (1.3-2.1); POTASSIUM 5.1 mmol/L (3.5-5.1); SODIUM 138 mmol/L (136-145)
[2018-04-14 10:52] LABS: INR 15.5
[2018-04-14 10:57] LABS: CARBON DIOXIDE < 5 mmol/L (22-29)
[2018-04-14 11:02] LABS: B-TYPE NATRIURETIC PEPTIDE2 3438.6 pg/mL (0-100)
[2018-04-14] MEDS ORDERED: SODIUM CHLORIDE 0.9% 1000ML 1,000 ML ONE (11:05)
[2018-04-14 11:07] LABS: THYROID STIMULATING HORMONE 1.981 uIU/mL (0.350-4.940)
[2018-04-14] MEDS ORDERED: MIDAZOLAM HCL 2 MG/2 ML VIAL IV STA ×3 (11:08)
[2018-04-14] MEDS ORDERED: MIDAZOLAM HCL 2 MG/2 ML VIAL IV ONE (11:15)
[2018-04-14 11:19] LABS: BAND NEUTROPHILS % (MANUAL) 5 %; LYMPHOCYTES % (MANUAL) 7 % (19-48); MONOCYTES % (MANUAL) 4 % (3.4-9.0); NEUTROPHILS % (MANUAL) 84 % (40-74)
[2018-04-14 11:20] LABS: PLATELET ESTIMATE ADEQUATE; PLATELET MORPHOLOGY COMMENT NORMAL; RBC MORPHOLOGY COMMENT NORMAL
[2018-04-14] MEDS ORDERED: SODIUM CHLORIDE 0.9% 1000ML 1,000 ML IV STA (11:27)
--- NOTE | 2018-04-14 11:36 | Diagnostic Imaging Report ---
EXAMINATION: Head and cervical spine CT without contrast. HISTORY: Status post fall, altered mental status, weakness COMPARISON: Head CT 1 08/09/2017 TECHNIQUE: Multidetector axial images were obtained without contrast from the foramen magnum to the vertex and through the cervical spine. The images were reconstructed using brain and bone algorithms. Thin section brain images were reformatted into coronal and sagittal planes. Dose modulation, iterative reconstruction, and/or weight based adjustment of the mA/kV was utilized to reduce the radiation dose to as low as reasonably achievable. HEAD CT FINDINGS: Skull: No lytic or blastic lesions. No fractures. Parenchyma: Persistent mild chronic microvascular ischemic changes and a small chronic lacunar infarct in the left putamen. No mass, hemorrhage or CT evidence of acute vascular insult. Brain volume: Moderate generalized brain volume loss Ventricles: No hydrocephalus or displacement. Arteries: No density suggestive of thrombus. Dural sinuses: No abnormal density. Extra-axial spaces: No abnormal density. Foramen magnum: No mass, Chiari malformation, or basilar invagination. Sella: No obvious mass. Paranasal/mastoid sinuses: Imaged portions unremarkable. CERVICAL SPINE CT FINDINGS: Alignment:Normal alignment and lordosis. Minimal age indeterminate, likely chronic and degenerative anterolisthesis at C4-C5 and retrolisthesis at C6-C7. Soft tissues: Normal. Vertebrae: Normal height and density. No acute fracture, infection or neoplasm. Degenerative changes: C5-C6: Asymmetric to the right disc osteophyte, uncovertebral and facet arthrosis. Mild right foraminal stenoses. Otherwise no significant degenerative changes, no canal or foraminal stenosis. Incidental findings: Endotracheal tube is partially visualized IMPRESSION: Head CT: 1. No acute intracranial hemorrhage or cortical infarct. 2. Persistent mild chronic microvascular ischemic changes. Cervical spine CT: 1. No acute fractures or dislocations. 2. Mild chronic degenerative changes as described. Note: Acute post traumatic spinal cord, vascular or ligamentous injury cannot adequately be assessed with CT. Signed by: Dr. Janette Russell M.D. on 04/14/2018 11:31 AM
[2018-04-14] MEDS ORDERED: LACTATED RINGER'S 1,000 ML ONE (11:47)
[2018-04-14] MEDS ORDERED: PROPOFOL IV EMULSION 10MG/ML 100 ML ONE (11:47)
[2018-04-14] MEDS ORDERED: PROPOFOL IV EMULSION 10MG/ML 100 ML IV STA (12:02)
[2018-04-14] MEDS: LACTATED RINGER'S 1,000 ML IV SCH ×3 (12:05→21:55)
[2018-04-14 12:07] LABS: CLARITY,URINE CLOUDY (CLEAR); COLOR,URINE RED (YELLOW); KETONES,URINE TRACE (NEGATIVE); LEUKOCYTE ESTERASE ,URINE 1+ (NEGATIVE); NITRITE,URINE NEGATIVE (NEGATIVE); PROTEIN,URINE DIPSTICK 3+ (NEGATIVE)
[2018-04-14 12:08] LABS: BACTERIA,URINE MODERATE /HPF; BILIRUBIN,URINE 1+ (NEGATIVE); EPITHELIAL CELLS,URINE RARE /LPF; RBC,URINE >50 /HPF (0-5); URINE UROBILINOGEN 0.2 mg/dL (0.2 - 1)
[2018-04-14 12:09] LABS: ABG HCO3 9 mmol/L (23-28); ABG PCO2 22 mmHg (41-51); ABG PH 7.19 (7.31-7.41); ABG PO2 147 mmHg (80-105)
[2018-04-14 12:10] LABS: AMPHETAMINES SCREEN,URINE NEGATIVE (NEGATIVE); BENZODIAZEPINES SCREEN,URINE NEGATIVE (NEGATIVE); PHENCYCLIDINE SCREEN,URINE NEGATIVE (NEGATIVE)
[2018-04-14 12:30] LABS: ALBUMIN 2.2 g/dL (3.5-5.0); ALBUMIN/GLOBULIN RATIO 0.7 (0.8-2.0); ANION GAP 35.2 mmol/L (8-16); CALCIUM 7.4 mg/dL (8.4-10.2); CREATININE, SERUM 7.52 mg/dL (0.57-1.11); POTASSIUM 4.2 mmol/L (3.5-5.1)
[2018-04-14] MEDS ORDERED: VANCOMYCIN 1GM/NS 250 ML 250 ML IV STA (12:47)
[2018-04-14] MEDS: CEFTRIAXONE SOD 1 GM VIAL IV SCH (13:08)
--- NOTE | 2018-04-14 13:10 | Diagnostic Imaging Report ---
EXAM: CT Chest, Abdomen and Pelvis WITHOUT contrast INDICATION: Shortness of breath, abdominal pain COMPARISON: None. TECHNIQUE: Chest, Abdomen and Pelvis was scanned utilizing a multidetector helical scanner without the use of IV contrast. Coronal and sagittal reformations were obtained. Reformatted axial MIP images were obtained and reviewed. IV CONTRAST: None COMPLICATIONS: None RADIATION DOSE: Total DLP: 942 mGy*cm Estimated effective dose: (DLP x 0.015 x size factor) mSv CTDIvol has been reviewed. It is below the limits set by the Radiation Protocol Committee (RPC). Appropriate CT dose reduction techniques were utilized. FINDINGS: Chest: Lower Neck: ET tube present. Left chest wall ICD. Heart and Great Vessels: The aorta and main pulmonary artery measure 28 and 29 mm. respectively. No pericardial effusion. Advanced coronary artery vascular calcifications and probable PCI changes, poorly evaluated without contrast. Advanced aortic and left common carotid vascular calcifications. Lymph Nodes: Scattered small mediastinal lymph nodes, some of which are partially calcified. The hilar regions are sub-optimally evaluated given lack of IV contrast. Lungs: Scattered bilateral moderate areas of groundglass and alveolar opacities, most focally in the lingula and left lower lobe. Additional septal thickening present. There is biapical scarring with no pneumothorax or pleural effusion. Evaluation for small nodules limited by motion and underlying areas of consolidation. Mild emphysematous changes. Abdomen: Solid Organs: Cholecystectomy clips. Nonenhanced images of adrenals, spleen, and pancreas unremarkable. Nonobstructing calculus inferior left kidney measuring 4 mm. No hydroureter or hydronephrosis. Distal ureters poorly evaluated. Exophytic presumed simple cyst left kidney. Benign-appearing calcification right hepatic lobe. Upper GI Tract: No small bowel obstructive changes. Vascularity: Advanced aortic vascular calcifications. Lymph Nodes: No acute findings. Other: None. Pelvis: Bladder: Decompressed with Christine catheter. Other: Uterus absent. Colon: Moderate diverticulosis sigmoid colon with wall thickening. Minimal surrounding stranding possible. Bones: Superior endplate height loss L3 likely due to moderate to large Schmorl's node. Minimal superior height loss L2. IMPRESSION: 1. Scattered groundglass and alveolar opacities in the lungs, with most focal area of consolidation lingula and left lower lobe. Findings most consistent with multifocal pneumonia. Component of edema possible. 2. Moderate sigmoid diverticulosis with mild diverticulitis possible. 3. Nonobstructing left renal calculus. No definite ureteral calculus; however, distal ureters poorly evaluated. 4. Advanced vascular calcifications chest and abdomen as above. Signed by: Dr. Shalom Zamudio MD on 04/14/2018 1:07 PM
--- NOTE | 2018-04-14 13:10 | Diagnostic Imaging Report ---
EXAM: CT ABDOMEN/PELVIS WO DATE: 04/14/2018 12:05 PM INDICATION: \S\STONE PROTOCOL \[id number] \S\1244 \S\Y COMPARISON: None FINDINGS: Please see CT chest. IMPRESSION: As above. Signed by: Dr. Shalom Zamudio MD on 04/14/2018 1:07 PM
[2018-04-14] MEDS ORDERED: ONDANSETRON HCL INJ 2 MG/ML VIAL IV PRN (13:15)
[2018-04-14] MEDS ORDERED: PHYTONADIONE 10 MG/ML AMP SC ONE (14:00)
[2018-04-14] MEDS ORDERED: AZITHROMYCIN 500MG/NS 250 ML 250 ML IV SCH (14:30)
[2018-04-14 15:44] LABS: ALBUMIN 2.1 g/dL (3.5-5.0); ALBUMIN/GLOBULIN RATIO 0.6 (0.8-2.0); ANION GAP 31.2 mmol/L (8-16); CALCIUM 7.2 mg/dL (8.4-10.2); CREATININE, SERUM 7.13 mg/dL (0.57-1.11); POTASSIUM 4.2 mmol/L (3.5-5.1)
[2018-04-14] MEDS ORDERED: SODIUM BICARBONATE 8.4% INJ 50 ML SYR IV ONE (16:30)
[2018-04-14] MEDS ORDERED: SODIUM CHLORIDE 0.9% 250ML 250 ML ONE (16:39)
[2018-04-14] MEDS: SODIUM BICARBONATE 8.4% 150 ML in STERILE WATER IV SOLN 1,000 ML IV SCH (17:56)
[2018-04-14 19:41] LABS: ABG PCO2 30 mmHg (41-51); ABG PH 7.44 (7.31-7.41); ABG PO2 83 mmHg (80-105)
[2018-04-14 19:42] LABS: ABG HCO3 21 mmol/L (23-28)
[2018-04-14] MEDS ORDERED: ACETAMINOPHEN 1000 MG/100 ML IV PRN (20:00)
[2018-04-14] MEDS: AZITHROMYCIN 500MG/NS 250 ML 250 ML IV SCH (22:20)
[2018-04-15] VITALS (81 sets, daily range): BP systolic 73–119; BP diastolic 32–70
--- NOTE | 2018-04-15 00:17 | Consultation ---
DATE OF CONSULTATION: April 14, 2018 PULMONARY/CRITICAL CARE CONSULTATION CHIEF COMPLAINT: Diarrhea, decreased responsiveness, and malaise. HISTORY OF PRESENT ILLNESS: The patient is a 72-year-old woman. She has a history of COPD along with prior cardiac disease. She had a pacemaker previously. She was recently admitted to the hospital with a pelvic fracture and urinary tract infection, but was doing better and has been at home for the last 6 to 8 weeks. She came to the emergency department complaining of diarrhea for about 3 to 4 days. She had worsening malaise. Upon arrival in the emergency department, she was found to have a wide complex tachycardia. The emergency department used a magnet to neutralize her pacemaker and then cardioverted her. She returned to a narrow complex rhythm. Further evaluation showed new onset acute renal failure with BUN of 53 and creatinine of 8.44. Patient also had a lactic acid of 121. The patient subsequently went for a CT scan and was found to have multifocal pneumonia. Abdominal pelvic CT scan was negative and urinalysis was negative. PAST MEDICAL HISTORY 1. Coronary artery disease. 2. COPD. 3. Atrial fibrillation. PAST SURGICAL HISTORY 1. Status post pacemaker. 2. History of pelvic fracture. SOCIAL HISTORY: The patient was a prior smoker. She is not an active drinker. She lives with her fairly. ALLERGIES: SHE IS ALLERGIC TO CODEINE. FAMILY HISTORY: Noncontributory. REVIEW OF SYSTEMS: There is no history of fever or headache. She does not have neck pain. She did have some malaise. She had no chest pain. She did not complain of cough or phlegm production. She did not complain of difficulty breathing. She had some diarrhea, but no abdominal pain. She had no leg swelling or edema. She did not have any skin rashes. PHYSICAL EXAMINATION VITAL SIGNS: The patient is afebrile. Her blood pressure is now 105/51 with a pulse of 77. She is on an assist control mode of ventilation. HEENT: Shows no facial swelling or erythema. Oropharynx is normal. There is an endotracheal tube. LYMPHATIC: Shows no submandibular, cervical or supraclavicular adenopathy. CARDIAC: Exam reveals regular rate and rhythm with normal S1 and S2. LUNGS: Auscultation of lungs reveals decreased breath sounds at the bases. ABDOMEN: Soft and nontender. There is no rebound or guarding. EXTREMITIES: Shows no leg edema or calf tenderness. LABORATORY DATA: The BUN to creatinine ratio is 51 to 7.52 and the potassium is 5.2. Calcium is 7.4, and phosphorus is 14. The ALT is 430 and AST is 137. The BNP is 3438. Total protein is 5.5 and albumin is 2.2. The last blood gas is 7.19, 22, 147 . The PT and INR is 120 and 15.5. IMPRESSIONS 1. Multifocal pneumonia with septic shock. 2. Acute respiratory failure. 3. Acute renal failure. 4. Wide complex tachycardia of unclear etiology. 5. Hyperkalemia. 6. Chronic obstructive pulmonary disease. 7. Coagulopathy. PLAN 1. The patient will be started on antibiotics and pancultured. 2. Continue intravenous fluids. 3. Nephrology consultation. 4. Bicarb as needed. 5. Stool for C. diff. 6. Antral feedings. 7. Vitamin K for elevated INR. Continue to monitor INR. 8. Overall prognosis is guarded. Job#: [id number] VAS
[2018-04-15 01:23] LABS: CREATINE KINASE MB 2.8 ng/mL (0-5.0)
--- NOTE | 2018-04-15 02:04 | Consultation ---
DATE OF CONSULTATION: April 14, 2018 REQUESTING PHYSICIAN: Dr. Torres. REASON FOR CONSULTATION: Acute kidney disease. Thank you for allowing us to participate in Ms. Cruz's care. HISTORY OF PRESENT ILLNESS: This is a 72-year-old female, apparently has been somewhat debilitated lately after a pelvic fracture, originally did not even want physical therapy. She recently had a UTI, brought in apparently with weakness. During evaluation here, she went into ventricular tachycardia, she was shocked out of it. There is a history of prior pacemaker placement. Baseline creatinine appears to be between 1.5 to 1.8, so there may have been some underlying CKD. During evaluation here, it was noted that her serum CO2 was quite low at 8, creatinine was up to 7.5 and BUN of 51. Lactic acid level is elevated consistent with decreased perfusion. Her phosphorus was 14 and calcium was 7.4. BNP was elevated. CT scan of the chest is showing ground-glass opacities, pneumonia possibly versus fluid overload. Blood pressure remains low. She is currently intubated. Pressors have not yet been started. She is running lactated ringers at about 200 mL per minute. UA showed increased concentration of few wbc's and rbc's, 4+ blood and protein, this appears to be a catheterized specimen. Hemoglobin is 13, white count is 22,000, platelets are 382. PH was 7.19, pCO2 of 22, and pO2 of 147. PAST MEDICAL HISTORY 1. Prior baseline creatinines around 1.5 to 1.8. 2. Recent pelvic fracture. 3. Pacemaker placement. 4. Possibly dyspepsia. She is on omeprazole. 5. Dyslipidemia. 6. Atrial fibrillation. 7. Osteoporosis. HOME MEDICATIONS: Alendronate 70 mg a day, Lasix 40 mg a day, amiodarone 200 mg a day, metformin 500 mg b.i.d., metoprolol 10 mg h.s., nitroglycerin p.r.n., warfarin as directed by general medicine. SOCIAL HISTORY: Unable to obtain as she is intubated. REVIEW OF SYSTEMS: Unable to obtain as she is intubated. PHYSICAL EXAMINATION GENERAL: Lying in ICU bed. VITAL SIGNS: Last checked; temperature 99.3, pulse 78, blood pressure 105/51. HEENT: Orally intubated. NECK: Neck veins are flat. CHEST: Occasional rhonchi. CARDIAC: Normal heart tones. It sounds irregular. ABDOMEN: Appears soft and nontender. EXTREMITIES: No edema. SKIN: Dry. Skin is tenting. NEUROLOGIC: Appears sedated, occasionally will open her eyes (propofol is ongoing). : Christine catheter in place. CT scan is not showing any hydronephrosis, ground-glass opacities in the chest consistent with pneumonia. White count is elevated as noted above. Sodium 139, K 4.2, serum CO2 is up to 12, chloride of 100, creatinine 7.1 down from 7.5, BUN 51, calcium is 7.2, phosphorous is 14, albumin is 2.1. UA shows proteinuria. Urine drug screen was negative. ASSESSMENT 1. Possible CKD stage III, now with acute kidney injury, presumably she has acute tubular necrosis from the recent events and shock state. 2. Volume status appears decreased. 3. Severe metabolic acidosis. PLAN: Start with 2 amps of bicarb IV. Change IV fluids to sterile water with 150 mEq of sodium bicarbonate at 100 mL an hour. Monitor I's and O's. Get urine eosinophils and serum protein electrophoresis. Broad-spectrum antibiotics are ongoing. Await cardiology input. Hold the diuretics for now. At this point, we will try conservative management. If the renal function does not recover, we will need to consider dialysis. We will follow along. Job#: [id number] HIEU
[2018-04-15] MEDS: LACTATED RINGER'S 1,000 ML IV SCH (02:21)
[2018-04-15 03:49] LABS: BASOPHILS % 0.1 % (0.0-1.0); HEMATOCRIT 24.3 % (34.2-44.1); HEMOGLOBIN 8.2 g/dL (12.0-16.0); LYMPHOCYTES # (AUTO) 1.6 (1.0-3.2); LYMPHOCYTES % 11.5 % (18.0-39.1); MEAN CORPUSCULAR HEMOGLOBIN 30.5 pg (28-32); MEAN CORPUSCULAR HGB CONC 33.7 g/dL (31-35); MEAN CORPUSCULAR VOLUME 90.3 fL (81-99); MONOCYTES # (AUTO) 0.4 (0.2-0.8); MONOCYTES % 3.2 % (4.4-11.3); NEUTROPHILS # (AUTO) 11.4 (2.1-6.9); NEUTROPHILS % 83.5 % (38.7-80.0); PLATELET COUNT 228 x10e3/uL (140-360); RED BLOOD COUNT 2.69 x10e6/uL (3.6-5.1); RED CELL DISTRIBUTION WIDTH 16.3 % (11.7-14.4)
[2018-04-15 03:59] LABS: INR 2.99; PROTHROMBIN TIME 33.2 seconds (11.9-14.5)
[2018-04-15 04:06] LABS: ALBUMIN 2.4 g/dL (3.5-5.0); ALBUMIN/GLOBULIN RATIO 0.8 (0.8-2.0); ANION GAP 25.9 mmol/L (8-16); CALCIUM 7.1 mg/dL (8.4-10.2); CREATININE, SERUM 5.61 mg/dL (0.57-1.11)
[2018-04-15 04:16] LABS: POTASSIUM 2.9 mmol/L (3.5-5.1)
[2018-04-15 04:36] LABS: CREATINE KINASE MB 2.1 ng/mL (0-5.0)
[2018-04-15] MEDS ORDERED: POTASSIUM CHLORIDE 20MEQ/100ML 100 ML IV ONE (04:45)
[2018-04-15] MEDS: SODIUM BICARBONATE 8.4% 150 ML in STERILE WATER IV SOLN 1,000 ML IV SCH ×2 (04:54→16:00)
[2018-04-15] MEDS: SODIUM CHLORIDE 0.9% 1000ML 1,000 ML IV SCH (05:14)
[2018-04-15] MEDS ORDERED: POTASSIUM CHLORIDE 20MEQ/100ML 300 ML IV ONE (07:30)
--- NOTE | 2018-04-15 07:50 | Diagnostic Imaging Report ---
PROCEDURE: CHEST SINGLE (PORTABLE) COMPARISON: CT chest without contrast 04/14/2018, chest radiograph 04/14/2018. INDICATIONS: RESPIRATORY FAILURE, INTUBATED FINDINGS: Stable position of endotracheal tube. Stable position of left subclavian approach implantable cardiac device. . Patchy multifocal consolidations most notably affecting the perihilar left lung. No large pleural effusion. No acute osseous abnormality. Stable cardiomediastinal contour with post surgical changes of the right hilum and atherosclerotic calcification of the thoracic aorta. CONCLUSION: Stable position of endotracheal tube. Multifocal pneumonia predominantly affecting the left upper lobe seen to better advantage on comparison CT 04/14/2018. Dictated by: Yogesh Putnam M.D. on 04/15/2018 at 7:58 Electronically approved by: Yogesh Putnam M.D. on 04/15/2018 at 7:58
[2018-04-15] MEDS ORDERED: PROPOFOL IV EMULSION 10MG/ML 100 ML ONE (10:20)
--- NOTE | 2018-04-15 11:06 | Consultation ---
DATE OF CONSULTATION: April 14, 2018 CARDIOLOGY CONSULTATION REASON FOR CONSULTATION: Elevated troponin. HPI: This is a 72-year-old lady that presented with altered mental status. According to the family, she was not eating good for the last 4-5 days. She had diarrhea, shortness of breath and generalized weakness that she was brought to the emergency room for evaluation. In the ER, she was found to be in V-tach and she was shocked externally. She was also found to have elevated INR of 15. She received some vitamin K and FFP. She was transferred to the ICU intubated and sedated. Troponin was elevated, and EKG showed wide complex tachycardia. PAST MEDICAL HISTORY: AFib, hyperlipidemia, diabetes, COPD, [place], arthritis, osteoporosis, CKD, and pelvic fracture. PAST SURGICAL HISTORY: ICD placement and pelvic repair. FAMILY HISTORY: Noncontributory. SOCIAL HISTORY: She quit smoking and lives at home with family. MEDICATIONS: See med list. ALLERGIES: SHE IS ALLERGIC TO CODEINE, COCONUT AND PINEAPPLE. REVIEW OF SYSTEMS: Unable to obtain. She is intubated and sedated. PHYSICAL EXAMINATION VITAL SIGNS: Temperature 99, heart rate 70, blood pressure 90/61, respirations 16, oxygen saturation 97% on mechanical ventilator. GENERAL: She is sedated and intubated. HEENT: Mucous membranes dry. NECK: Supple. LUNGS: Bilateral with decreased breath sounds. CARDIOVASCULAR: Irregular. ABDOMEN: Soft. NEUROLOGICAL: She is intubated and sedated. EXTREMITIES: With no edema. LABS: Sodium 144, potassium 2.9, chloride 96, CO2 25, BUN 66, creatinine 5.61, glucose 93. White blood cells 13.6, hemoglobin 8.2, hematocrit 24.3, and platelets 228,000. PT 33.2, PTT 83.2, and INR 2.99. IMPRESSION 1. Altered mental status. 2. Respiratory distress. 3. Supratherapeutic INR. 4. Elevated troponin. 5. Coronary artery disease with implantable cardioverter defibrillator. 6. Ventricular tachycardia: Received some external shock. 7. Gastrointestinal bleed, lower. 8. Anemia. 9. History of atrial fibrillation. 10. Diabetic. 11. Chronic kidney disease. ASSESSMENT AND PLAN 1. She received some vitamin K and FFP for the elevated INR today. INR is 2.99. 2. She is intubated and sedated. 3. Will go ahead and interrogate the ICD since she received an external shock. 4. Will get an echocardiogram to assess the LV and the valve function. 5. For altered mental status, will get bilateral carotid Doppler. 6. Blood pressure is low. Will start low dose Levophed. 7. History of AFib. Heart rate is controlled. Potassium has been replaced. Renal is on board for the elevated creatinine. Further cardiac workup pending clinical course. Thank you for this consultation. DICTATED BY MANUEL QUEZADA NP Job#: [id number] EMERALD
[2018-04-15 12:34] LABS: CREATINE KINASE MB 1.5 ng/mL (0-5.0)
[2018-04-15] MEDS: CEFTRIAXONE SOD 1 GM VIAL IV SCH (12:49)
[2018-04-15] MEDS ORDERED: PROPOFOL IV EMULSION 10 MG/ML 50 ML VIAL IV PRN (13:00)
[2018-04-15] MEDS ORDERED: PROPOFOL IV EMULSION 10MG/ML 100 ML IV PRN (13:15)
[2018-04-15 14:52] LABS: BASOPHILS % 0.1 % (0.0-1.0); EOSINOPHILS % 0.1 % (0.0-6.0); HEMATOCRIT 23.5 % (34.2-44.1); HEMOGLOBIN 7.9 g/dL (12.0-16.0); LYMPHOCYTES # (AUTO) 1.4 (1.0-3.2); MEAN CORPUSCULAR HEMOGLOBIN 30.5 pg (28-32); MEAN CORPUSCULAR HGB CONC 33.6 g/dL (31-35); MEAN CORPUSCULAR VOLUME 90.7 fL (81-99); MONOCYTES # (AUTO) 0.3 (0.2-0.8); MONOCYTES % 2.7 % (4.4-11.3); NEUTROPHILS # (AUTO) 9.7 (2.1-6.9); NEUTROPHILS % 83.7 % (38.7-80.0); PLATELET COUNT 211 x10e3/uL (140-360); RED BLOOD COUNT 2.59 x10e6/uL (3.6-5.1); RED CELL DISTRIBUTION WIDTH 16.4 % (11.7-14.4)
[2018-04-15 14:55] LABS: INR 2.71; PROTHROMBIN TIME 30.7 seconds (11.9-14.5)
[2018-04-15 14:59] LABS: CREATININE, SERUM 4.68 mg/dL (0.57-1.11)
[2018-04-15 15:04] LABS: CALCIUM 6.9 mg/dL (8.4-10.2)
[2018-04-15] MEDS ORDERED: PROTONIX 200MG/SODIUM CHLORIDE 0.9% 250 ML BAG IV SCH (15:15)
[2018-04-15] MEDS ORDERED: SODIUM CHLORIDE 0.9% 1000ML 1,000 ML ONE (15:51)
[2018-04-15] MEDS ORDERED: SODIUM CHLORIDE 0.9% 50ML 50 ML ONE (16:08)
[2018-04-15] MEDS ORDERED: SODIUM CHLORIDE 0.9% 250ML 250 ML IV ONE (16:30)
--- NOTE | 2018-04-15 16:36 | Consultation ---
DATE OF CONSULTATION: April 15, 2018 GASTROENTEROLOGY CONSULTATION REASON FOR CONSULTATION: Possible GI bleed. HISTORY OF PRESENT ILLNESS: Patient is a 72-year-old female with a past medical history of AFib, hyperlipidemia, diabetes, COPD, arthritis, [place], osteoporosis, pelvic fracture and CKD, who was brought to the emergency room for altered mental status. According to the family, the patient had not been eating well and had been really weak. Family also stated that she had had some shortness of breath, some weakness and also some diarrhea, and she was also found to have a UTI. In the ER she was found to be in VTAC and she had undergone some shock treatments and also had an INR of 15. Currently she has been given some vitamin K and FFP and she is in the ICU, intubated and sedated. Her last Coumadin therapy was about 2 days ago. GI has been consulted because patient has been having dark stools. Fecal occult test was positive. Denies any hematemesis per nursing or any signs of abdominal pain. PAST MEDICAL HISTORY: See above. PAST SURGICAL HISTORY: Pelvic repair and ICD placement per records. FAMILY HISTORY: Noncontributory. SOCIAL HISTORY: Lives at home with family. Former smoker. No report on whether she currently drinks. MEDICATION LIST: See medical list in EMR. ALLERGIES: COCONUT, PINEAPPLE, CODEINE. REVIEW OF SYSTEMS: She is intubated, sedated. Unable to obtain. PHYSICAL EXAMINATION VITAL SIGNS: Temperature 98.7, pulse 69, respiratory rate 20, blood pressure 94/52, pulse ox 100. GENERAL: Intubated, sedated. HEENT: Mucous membranes dry. NECK: Nontender, supple. LUNGS: Decreased breath sounds bilaterally. CARDIOVASCULAR: Irregularly irregular rhythm. ABDOMEN: Soft, nontender. Bowel sounds active. NEUROLOGICAL: Disoriented. EXTREMITIES: No clubbing, no cyanosis, no edema. LABS: White count 13.6, hemoglobin 8.2. Creatinine 5.61, sodium 144, potassium 2.9. INR 2.9, PT 33.2. Platelets 228. IMAGING: Shows diverticulosis with possible mild diverticulitis. ASSESSMENT 1. Melena/rectal bleeding, rule out gastrointestinal bleed. 2. History of atrial fibrillation on blood thinners. 3. Supratherapeutic international normalized ratio. 4. Coronary artery disease. 5. Ventricular tachycardia. 6. Respiratory distress. PLAN 1. We will go ahead and repeat INR to check and see if it is therapeutic enough for possible EGD today. Consent has been ordered, and I have spoken to the family. 2. Protonix drip has been started. 3. We will go ahead and get cardiac clearance. Thank you for this consultation. We will continue to follow. Dictated by: Wanda Devlin PA-C Job#: [id number] EV
--- NOTE | 2018-04-15 16:49 | Operative Report ---
DATE OF PROCEDURE: April 15, 2018 PROCEDURE PERFORMED: Upper endoscopy. INDICATION: GI bleed. ANESTHESIA: IV general. POSTOPERATIVE DIAGNOSES 1. Reflux with hiatal hernia. 2. Gastritis. PROCEDURE IN DETAIL: Risks and benefits were discussed with the family prior to the procedure. The patient understands the risks of bleeding, infection, perforation and medication reaction. Consent was signed and secured. The patient is in the ICU. Procedure was done at bedside, and the patient was sedated comfortably. An Olympus gastroscope was inserted in the mouth. Evaluation of the vocal cords was normal. Evaluation of the esophagus showed evidence of nodularity likely secondary to reflux. Evaluation into the stomach in the forward and in the retroflex fashion showed evidence of hiatal hernia and also gastritis. Duodenum appeared to be normal. RECOMMENDATION: Follow H\T\H and laboratory as needed. Proton pump inhibitor at this point and consider colon when she is more stable. Job#: [id number] EV cc:WILLA LUIS MD
--- NOTE | 2018-04-15 17:16 | Progress Note ---
DATE: April 15, 2018 PULMONARY/CRITICAL CARE PROGRESS NOTE SUBJECTIVE: The patient received FFP last night. The patient also received some vitamin K. The patient remained on assist control mode of ventilation. This morning the patient's hemoglobin was 8. The nurse also noted some melanotic stool. GI was consulted. They did an upper endoscopy and noticed a gastritis. OBJECTIVE VITAL SIGNS: The blood pressure is 95/42, and the pulse is 71. The patient is on an assist control mode of ventilation. HEENT: Examination shows no facial swelling or erythema. The patient has an oral endotracheal tube in place. CARDIAC: Exam reveals a regular rate and rhythm with a normal S1 and S2. LUNGS: Auscultation reveals rhonchorous breath sounds bilaterally. There is no wheezing. ABDOMEN: Soft and nontender. There is no rebound or guarding. EXTREMITIES: Examination shows no leg edema or calf tenderness. There is no cyanosis or clubbing. SKIN: Examination shows no rashes. NEUROLOGICAL: Exam shows no focal abnormalities. LABORATORY DATA: The BAH-cm-vklkyusttw ratio is 56 to 4.68, and the sodium is 144. The chloride is 96, and the bicarb is 29. The lactic acid decreased to 37.5 yesterday. The white blood cell count is 11.6, and the hemoglobin is 7.9 with a platelet count of 211. RADIOGRAPHIC DATA: Chest x-ray shows findings consistent with multifocal pneumonia. IMPRESSION 1. Multifocal pneumonia with septic shock. 2. Acute respiratory failure. 3. Acute renal failure. 4. Ventricular tachycardia. 5. Hyperkalemia. 6. Coagulopathy. 7. Chronic obstructive pulmonary disease. PLAN 1. Patient will be continued on antibiotics. 2. Packed red blood cells. 3. Proton pump inhibitors for gastritis. 4. Pacemaker is to be interrogated and reprogrammed. 5. Continue to monitor INR. 6. Continue to monitor renal function. 7. Enteral feedings. 8. Case discussed with nursing staff, Dr. Jaimes and Dr. Antonio. 9. Case discussed with . 10. Greater than 35 minutes in direct critical care time. Job#: [id number] EV
[2018-04-15] MEDS: PANTOPRAZOL 40MG/SOD CHL 0.9% 50 ML IV SCH ×2 (17:28→20:48)
[2018-04-15] MEDS: AZITHROMYCIN 500MG/NS 250 ML 250 ML IV SCH (22:37)
[2018-04-16] VITALS (60 sets, daily range): BP systolic 88–131; BP diastolic 33–71
[2018-04-16] MEDS: PANTOPRAZOL 40MG/SOD CHL 0.9% 50 ML IV SCH ×5 (01:04→21:58)
[2018-04-16 05:10] LABS: BASOPHILS % 0.2 % (0.0-1.0); EOSINOPHILS % 0.3 % (0.0-6.0); HEMATOCRIT 26.7 % (34.2-44.1); LYMPHOCYTES # (AUTO) 1.3 (1.0-3.2); LYMPHOCYTES % 10.4 % (18.0-39.1); MEAN CORPUSCULAR HEMOGLOBIN 29.6 pg (28-32); MEAN CORPUSCULAR HGB CONC 33.7 g/dL (31-35); MEAN CORPUSCULAR VOLUME 87.8 fL (81-99); MONOCYTES # (AUTO) 0.5 (0.2-0.8); MONOCYTES % 4.1 % (4.4-11.3); NEUTROPHILS # (AUTO) 10.3 (2.1-6.9); NEUTROPHILS % 82.4 % (38.7-80.0); PLATELET COUNT 203 x10e3/uL (140-360); RED BLOOD COUNT 3.04 x10e6/uL (3.6-5.1); RED CELL DISTRIBUTION WIDTH 17.6 % (11.7-14.4)
[2018-04-16 05:25] LABS: INR 1.81; PROTHROMBIN TIME 22.4 seconds (11.9-14.5)
[2018-04-16 05:35] LABS: ALBUMIN 2.1 g/dL (3.5-5.0); ALBUMIN/GLOBULIN RATIO 0.7 (0.8-2.0); CREATININE, SERUM 3.35 mg/dL (0.57-1.11)
[2018-04-16 05:40] LABS: CALCIUM 6.8 mg/dL (8.4-10.2)
[2018-04-16 06:13] LABS: MAGNESIUM 1.3 MG/DL (1.3-2.1); PHOSPHORUS 2.7 MG/DL (2.3-4.7)
--- NOTE | 2018-04-16 06:39 | Diagnostic Imaging Report ---
EXAMINATION: CHEST SINGLE (PORTABLE) INDICATION: Respiratory failure COMPARISON: 04/15/2018 FINDINGS: TUBES and LINES: AICD is intact. Endotracheal tube 4.7 cm above the keely in good position. LUNGS: Lungs are not well inflated. Left lower lobe airspace opacity suggestive of pneumonia versus aspiration. Right hemithorax is clear. PLEURA: Trace of left pleural effusion. HEART AND MEDIASTINUM: Cardiac size is mildly enlarged. There are atherosclerotic calcifications within the aorta. BONES AND SOFT TISSUES: No acute osseous lesion. Soft tissues are unremarkable. UPPER ABDOMEN: No free air under the diaphragm. IMPRESSION: Left lower lobe airspace opacity is suspicious for developing pneumonia versus aspiration. Signed by: Dr. David Millard M.D. on 04/16/2018 6:35 AM
[2018-04-16 07:27] LABS: BAND NEUTROPHILS % (MANUAL) 1 %; EOSINOPHILS % (MANUAL) 1 % (0-7); LYMPHOCYTES % (MANUAL) 13 % (19-48); MONOCYTES % (MANUAL) 3 % (3.4-9.0); NEUTROPHILS % (MANUAL) 81 % (40-74); NUCLEATED RED BLOOD CELLS 1
[2018-04-16 07:28] LABS: PLATELET ESTIMATE ADEQUATE; PLATELET MORPHOLOGY COMMENT FEW LARGE; RBC MORPHOLOGY COMMENT ABNORMAL
[2018-04-16 07:29] LABS: ANISOCYTOSIS SLIGHT; POLYCHROMASIA FEW
[2018-04-16] MEDS: SODIUM BICARBONATE 8.4% 150 ML in STERILE WATER IV SOLN 1,000 ML IV SCH (07:47)
[2018-04-16 09:47] LABS: ABG HCO3 40 mmol/L (23-28); ABG PCO2 42 mmHg (41-51); ABG PH 7.59 (7.31-7.41); ABG PO2 80 mmHg (80-105)
[2018-04-16] MEDS: MUPIROCIN 2% OINT 22 GM TUBE TOP SCH (10:07)
[2018-04-16] MEDS ORDERED: SODIUM CHLORIDE 0.45% 1,000 ML IV ONE (10:45)
[2018-04-16] MEDS ORDERED: SODIUM CHLORIDE 0.9% 50ML 50 ML ONE (11:00)
[2018-04-16] MEDS ORDERED: CALCIUM CHLORIDE 13.6 MEQ in SODIUM CHLORIDE 0.9% 100 ML 100 ML IV ONE (11:15)
[2018-04-16] MEDS ORDERED: POTASSIUM CHLORIDE 20MEQ/100ML 100 ML IV ONE (11:45)
[2018-04-16] MEDS ORDERED: FUROSEMIDE INJ 10 MG/ML 2 ML VIAL IV NR (12:00)
[2018-04-16] MEDS: CEFTRIAXONE SOD 1 GM VIAL IV SCH (12:15)
[2018-04-16 13:54] LABS: BASOPHILS % 0.2 % (0.0-1.0); EOSINOPHILS % 0.3 % (0.0-6.0); HEMATOCRIT 28.1 % (34.2-44.1); HEMOGLOBIN 9.2 g/dL (12.0-16.0); LYMPHOCYTES # (AUTO) 1.7 (1.0-3.2); LYMPHOCYTES % 12.4 % (18.0-39.1); MEAN CORPUSCULAR HEMOGLOBIN 29.3 pg (28-32); MEAN CORPUSCULAR HGB CONC 32.7 g/dL (31-35); MEAN CORPUSCULAR VOLUME 89.5 fL (81-99); MONOCYTES # (AUTO) 0.5 (0.2-0.8); MONOCYTES % 3.9 % (4.4-11.3); NEUTROPHILS % 80.4 % (38.7-80.0); PLATELET COUNT 217 x10e3/uL (140-360); RED BLOOD COUNT 3.14 x10e6/uL (3.6-5.1); RED CELL DISTRIBUTION WIDTH 17.3 % (11.7-14.4)
--- NOTE | 2018-04-16 17:21 | Progress Note ---
DATE: April 16, 2018 PULMONARY CRITICAL CARE PROGRESS NOTE SUBJECTIVE: The patient underwent a spontaneous breathing trial. She did well but extubation was deferred because of the possibility of continued GI bleeding. Repeat hemoglobin has been stable. She remains on antibiotics. OBJECTIVE VITAL SIGNS: The patient is afebrile. The blood pressure is 114/53 and the pulse is 66. The saturation is 98%. HEENT: No facial swelling or erythema. The nasal mucosa is normal. There is an oral endotracheal tube in place. The patient is on assist-control ventilation. CARDIAC EXAM: Regular rate and rhythm with normal S1 and S2. There are no murmurs or rubs. LUNGS: Auscultation of the lungs reveals rhonchus breath sounds bilaterally. ABDOMEN: Soft and nontender. There is no rebound or guarding. EXTREMITIES: No leg edema or calf tenderness. No cyanosis or clubbing. SKIN: No rashes. LABORATORY DATA: The white blood cell count is 13.6, hemoglobin 9.2. The platelet count is 217,000. The potassium is 3 and the BUN to creatinine ratio is 48 to 3.35. AST is 453 and ALT is 215. Albumin is 2.1. Microbiological data: The sputum is growing out Klebsiella. Urine is growing out Enterobacter. Radiographic data: The chest x-ray shows persistent left lower lobe air space opacity consistent with pneumonia. IMPRESSION: 1. Klebsiella pneumonia with septic shock. 2. Acute respiratory failure. 3. Acute renal failure. 4. Coagulopathy. 5. Ventricular tachycardia. PLAN: 1. Continue current antibiotics. 2. Continued to monitor blood counts in the stools for any recurrent bleeding. 3. Repeat PT and INR in the a.m. 4. Continue enteral feedings. 5. Tentative extubation tomorrow. 6. The femoral line will need to be removed tomorrow and she will need peripheral access. Greater than 35 minutes in direct care. Case discussed with nursing and respiratory. Job#: [id number]
--- NOTE | 2018-04-16 17:25 | Diagnostic Imaging Report ---
EXAM: ABDOMEN-1VIEW (KUB), DATE: 04/16/2018 4:37 PM INDICATION: NG tube placement COMPARISON: Chest radiograph 04/16/2018 FINDINGS: LINES/TUBES: Nasogastric tube side hole and tip project below the expected gastroesophageal junction and over the expected gastric body. Partially visualized AICD leads project over the right atrium and right ventricle. BOWEL PATTERN: No evidence for obstruction. SOFT TISSUES: No abnormal calcifications. No mass effect. Cholecystectomy clips in the right upper quadrant. LUNG BASES: Persistent left basilar airspace opacity and trace left effusion. BONES: No acute findings. IMPRESSION: Nasogastric tube side port and tip project over the gastric body. Nonobstructive bowel gas pattern. Signed by: DR. Serge Read MD on 04/16/2018 5:22 PM
[2018-04-16] MEDS: AZITHROMYCIN 500MG/NS 250 ML 250 ML IV SCH (22:19)
[2018-04-17] VITALS (62 sets, daily range): BP systolic 78–139; BP diastolic 38–87
[2018-04-17] MEDS: PANTOPRAZOL 40MG/SOD CHL 0.9% 50 ML IV SCH ×2 (03:50→09:40)
[2018-04-17] MEDS: FLUCONAZOLE 200 MG/100 ML 100 ML IV SCH (05:00)
[2018-04-17 05:06] LABS: PHOSPHORUS 3.1 MG/DL (2.3-4.7)
[2018-04-17 05:11] LABS: BASOPHILS % 0.2 % (0.0-1.0); EOSINOPHILS # (AUTO) 0.1 (0.0-0.4); EOSINOPHILS % 0.6 % (0.0-6.0); HEMATOCRIT 28.2 % (34.2-44.1); HEMOGLOBIN 9.1 g/dL (12.0-16.0); LYMPHOCYTES # (AUTO) 1.5 (1.0-3.2); LYMPHOCYTES % 11.6 % (18.0-39.1); MEAN CORPUSCULAR HEMOGLOBIN 29.3 pg (28-32); MEAN CORPUSCULAR HGB CONC 32.3 g/dL (31-35); MEAN CORPUSCULAR VOLUME 90.7 fL (81-99); MONOCYTES # (AUTO) 0.6 (0.2-0.8); MONOCYTES % 4.4 % (4.4-11.3); NEUTROPHILS # (AUTO) 9.9 (2.1-6.9); NEUTROPHILS % 78.7 % (38.7-80.0); PLATELET COUNT 235 x10e3/uL (140-360); RED BLOOD COUNT 3.11 x10e6/uL (3.6-5.1); RED CELL DISTRIBUTION WIDTH 17.2 % (11.7-14.4)
--- NOTE | 2018-04-17 06:49 | Diagnostic Imaging Report ---
EXAMINATION: CHEST SINGLE (PORTABLE) INDICATION: Intubation COMPARISON: 04/16/2018 FINDINGS: TUBES and LINES: Interval placement of NG tube with tip beyond the films limited along the mediastinum. Endotracheal tube is stable. Left-sided ICD device is present LUNGS: Lungs are not well inflated. Predominantly left lung airspace opacity is stable. PLEURA: Small left pleural effusion. HEART AND MEDIASTINUM: Cardiac size is mildly enlarged. There are atherosclerotic calcifications within the aorta. BONES AND SOFT TISSUES: No acute osseous lesion. Soft tissues are unremarkable. UPPER ABDOMEN: No free air under the diaphragm. IMPRESSION: 1. Endotracheal, new NG tube and pacemaker/ICD are stable. 2. Stable airspace disease involving the left hemithorax suspicious for pneumonia versus aspiration Signed by: Dr. David Millard M.D. on 04/17/2018 6:45 AM
[2018-04-17 06:53] LABS: ALBUMIN 3.2 g/dL (3.5-5.0); ALBUMIN/GLOBULIN RATIO 1.2 (0.8-2.0); ANION GAP 17.3 mmol/L (8-16); CALCIUM 8.3 mg/dL (8.4-10.2); CREATININE, SERUM 1.02 mg/dL (0.57-1.11); POTASSIUM 4.3 mmol/L (3.5-5.1)
[2018-04-17] MEDS: MUPIROCIN 2% OINT 22 GM TUBE TOP SCH (09:00)
[2018-04-17] MEDS ORDERED: FUROSEMIDE INJ 10 MG/ML 2 ML VIAL IV ONE (11:15)
[2018-04-17 11:39] LABS: ABG HCO3 45 mmol/L (23-28); ABG PCO2 51 mmHg (41-51); ABG PH 7.54 (7.31-7.41); ABG PO2 66 mmHg (80-105)
[2018-04-17] MEDS: CEFTRIAXONE SOD 1 GM VIAL IV SCH (13:38)
[2018-04-17] MEDS ORDERED: ACETAZOLAMIDE SODIUM 500 MG/VIAL IV ONE (14:30)
--- NOTE | 2018-04-17 14:37 | Progress Note ---
DATE: April 17, 2018 PULMONARY/CRITICAL CARE PROGRESS NOTE SUBJECTIVE: The patient had a spontaneous breathing trial this morning. She tolerated a pressure support of 8 and CPAP of 3 well with a rapid shallow breathing index of 87. Her gas following the trial showed a severe metabolic alkalosis with incomplete respiratory compensation. The patient has not had any further bleeding. We were able to obtain a peripheral IV. The femoral line placed in the ER will be removed. OBJECTIVE VITAL SIGNS: The blood pressure is 129/53, and the temperature is 99.5. Patient is on an SIMV at a rate of 12 with a pressure support of 10. She tolerates this well. Her saturation is 99%. HEENT: Examination shows no facial swelling or erythema. There is an oral endotracheal tube in place. CARDIAC: Exam reveals a regular rate and rhythm with a normal S1 and S2. There are no murmurs or rubs. LUNGS: Auscultation reveals rhonchorous breath sounds bilaterally. There is no wheezing. ABDOMEN: Soft and nontender. There is no rebound or guarding. EXTREMITIES: There is no leg edema or calf tenderness. IMPRESSION 1. Klebsiella pneumoniae with septic shock. 2. Enterobacter urinary tract infection. 3. Acute respiratory failure. 4. Acute renal failure. 5. Coagulopathy. 6. Ventricular tachycardia. PLAN 1. Patient will receive Diamox now for the metabolic alkalosis. 2. She will remain on sedation overnight, and we will repeat the spontaneous breathing trial tomorrow with plans for extubation. 3. Continue enteral feedings. 4. Continue current antibiotics. Job#: [id number] EV
[2018-04-17] MEDS: PANTOPRAZOLE 40 MG 10ML VIAL IV SCH (18:50)
[2018-04-17] MEDS: AZITHROMYCIN 500MG/NS 250 ML 250 ML IV SCH (21:22)
[2018-04-18] VITALS (65 sets, daily range): BP systolic 79–165; BP diastolic 40–86
[2018-04-18 04:36] LABS: BASOPHILS # (AUTO) 0.1 (0.0-0.1); BASOPHILS % 0.5 % (0.0-1.0); EOSINOPHILS # (AUTO) 0.2 (0.0-0.4); EOSINOPHILS % 1.3 % (0.0-6.0); HEMATOCRIT 28.2 % (34.2-44.1); HEMOGLOBIN 9.3 g/dL (12.0-16.0); LYMPHOCYTES # (AUTO) 1.6 (1.0-3.2); LYMPHOCYTES % 13.2 % (18.0-39.1); MEAN CORPUSCULAR HEMOGLOBIN 29.8 pg (28-32); MEAN CORPUSCULAR VOLUME 90.4 fL (81-99); MONOCYTES # (AUTO) 0.6 (0.2-0.8); MONOCYTES % 4.6 % (4.4-11.3); NEUTROPHILS # (AUTO) 9.5 (2.1-6.9); NEUTROPHILS % 76.5 % (38.7-80.0); PLATELET COUNT 273 x10e3/uL (140-360); RED BLOOD COUNT 3.12 x10e6/uL (3.6-5.1); RED CELL DISTRIBUTION WIDTH 16.8 % (11.7-14.4)
[2018-04-18 04:56] LABS: ALBUMIN/GLOBULIN RATIO 0.6 (0.8-2.0); ANION GAP 15.8 mmol/L (8-16); CALCIUM 8.7 mg/dL (8.4-10.2)
[2018-04-18 05:03] LABS: CREATININE, SERUM 1.72 mg/dL (0.57-1.11); POTASSIUM 2.8 mmol/L (3.5-5.1)
[2018-04-18 05:07] LABS: MAGNESIUM 1.4 MG/DL (1.3-2.1); PHOSPHORUS 2.5 MG/DL (2.3-4.7)
[2018-04-18] MEDS: FLUCONAZOLE 200 MG/100 ML 100 ML IV SCH (05:13)
[2018-04-18] MEDS ORDERED: POTASSIUM CHLORIDE 20 MEQ TAB CR PO STA (05:24)
[2018-04-18] MEDS ORDERED: POTASSIUM CHLORIDE 20 MEQ TAB CR PO ONE ×2 (05:30→09:00)
[2018-04-18] MEDS: PANTOPRAZOLE 40 MG 10ML VIAL IV SCH ×2 (07:47→16:51)
[2018-04-18] MEDS ORDERED: POTASSIUM CHLORIDE 20MEQ/15ML UDC NG ONE (08:10)
[2018-04-18 08:25] LABS: ABG HCO3 41 mmol/L (23-28); ABG PCO2 49 mmHg (41-51); ABG PH 7.53 (7.31-7.41); ABG PO2 81 mmHg (80-105)
[2018-04-18] MEDS: MUPIROCIN 2% OINT 22 GM TUBE TOP SCH (11:31)
[2018-04-18] MEDS: CEFTRIAXONE SOD 1 GM VIAL IV SCH (11:41)
[2018-04-18] MEDS ORDERED: ACETAZOLAMIDE SODIUM 500 MG/VIAL ONE (12:13)
[2018-04-18] MEDS ORDERED: SODIUM CHLORIDE 0.9% 1000ML 1,000 ML ONE (12:14)
[2018-04-18] MEDS ORDERED: ACETAZOLAMIDE SODIUM 500 MG/VIAL IV ONE ×3 (12:20→22:00)
[2018-04-18] MEDS ORDERED: SODIUM CHLORIDE 0.9% 500ML 500 ML IV ONE (12:20)
[2018-04-18] MEDS: BALSAM PERU/CASTOR OIL 60 GM OINT...G. TP SCH (16:51)
[2018-04-18] MEDS: AZITHROMYCIN 500MG/NS 250 ML 250 ML IV SCH (21:54)
[2018-04-19] VITALS (36 sets, daily range): BP systolic 115–171; BP diastolic 54–86
[2018-04-19 04:40] LABS: BASOPHILS # (AUTO) 0.1 (0.0-0.1); BASOPHILS % 0.6 % (0.0-1.0); EOSINOPHILS # (AUTO) 0.3 (0.0-0.4); EOSINOPHILS % 1.7 % (0.0-6.0); HEMOGLOBIN 10.3 g/dL (12.0-16.0); LYMPHOCYTES # (AUTO) 1.7 (1.0-3.2); LYMPHOCYTES % 11.1 % (18.0-39.1); MEAN CORPUSCULAR HGB CONC 30.3 g/dL (31-35); MEAN CORPUSCULAR VOLUME 95.8 fL (81-99); MONOCYTES # (AUTO) 0.7 (0.2-0.8); MONOCYTES % 4.5 % (4.4-11.3); NEUTROPHILS # (AUTO) 11.8 (2.1-6.9); NEUTROPHILS % 78.4 % (38.7-80.0); PLATELET COUNT 308 x10e3/uL (140-360); RED BLOOD COUNT 3.55 x10e6/uL (3.6-5.1); RED CELL DISTRIBUTION WIDTH 17.4 % (11.7-14.4)
[2018-04-19 05:00] LABS: ANION GAP 15.3 mmol/L (8-16); CALCIUM 8.9 mg/dL (8.4-10.2); CREATININE, SERUM 1.43 mg/dL (0.57-1.11); MAGNESIUM 1.5 MG/DL (1.3-2.1); PHOSPHORUS 2.2 MG/DL (2.3-4.7); POTASSIUM 3.3 mmol/L (3.5-5.1)
[2018-04-19] MEDS: FLUCONAZOLE 200 MG/100 ML 100 ML IV SCH (05:25)
--- NOTE | 2018-04-19 06:48 | Diagnostic Imaging Report ---
EXAMINATION: CHEST SINGLE (PORTABLE) INDICATION: Pneumonia follow-up COMPARISON: 04/16/2018 FINDINGS: TUBES and LINES: AICD is intact. NG tube is visualized with tip at the level of the gastric body. Endotracheal tube has been removed LUNGS: Lungs are not well inflated. Interval improvement in left lung airspace opacity . Persistent left lower lobe atelectasis PLEURA: Trace of right and a small left pleural effusion HEART AND MEDIASTINUM: Cardiac size is mildly enlarged. There are atherosclerotic calcifications within the aorta. BONES AND SOFT TISSUES: No acute osseous lesion. Soft tissues are unremarkable. UPPER ABDOMEN: No free air under the diaphragm. IMPRESSION: 1. Findings are compatible with improvement of left lung pneumonia. 2. Persistent left lower lobe atelectasis and pleural effusion. 3. Endotracheal tube has been removed. Signed by: Dr. David Millard M.D. on 04/19/2018 6:45 AM
[2018-04-19 07:40] LABS: ALBUMIN 2.2 g/dL (3.5-5.0); ALBUMIN/GLOBULIN RATIO 0.6 (0.8-2.0); ANION GAP 18.4 mmol/L (8-16); CALCIUM 8.9 mg/dL (8.4-10.2); CREATININE, SERUM 1.45 mg/dL (0.57-1.11); POTASSIUM 3.4 mmol/L (3.5-5.1)
[2018-04-19] MEDS ORDERED: POTASSIUM CHLORIDE 10MEQ EA PO ONE (09:00)
[2018-04-19] MEDS ORDERED: BALSAM PERU/CASTOR OIL 60 GM OINT...G. TP SCH (09:00)
[2018-04-19] MEDS: MUPIROCIN 2% OINT 22 GM TUBE TOP SCH (09:40)
[2018-04-19] MEDS: PANTOPRAZOLE 40 MG 10ML VIAL IV SCH ×2 (09:40→18:16)
[2018-04-19] MEDS: BALSAM PERU/CASTOR OIL 60 GM OINT...G. TP SCH ×2 (09:40→18:01)
[2018-04-19] MEDS ORDERED: DEXTROSE 5%/0.225% SOD CHL 1,000 ML IV SCH (12:00)
[2018-04-19] MEDS ORDERED: POTASSIUM PHOSPHATE 20 MM in SODIUM CHLORIDE 0.9% 250ML 250 ML IV ONE (12:30)
[2018-04-19] MEDS: CEFTRIAXONE SOD 1 GM VIAL IV SCH (12:33)
[2018-04-19] MEDS: AZITHROMYCIN 500MG/NS 250 ML 250 ML IV SCH (22:11)
[2018-04-20] VITALS (9 sets, daily range): BP systolic 119–142; BP diastolic 55–75
[2018-04-20 05:27] LABS: MAGNESIUM 1.4 MG/DL (1.3-2.1); PHOSPHORUS 2.8 MG/DL (2.3-4.7)
[2018-04-20] MEDS: FLUCONAZOLE 200 MG/100 ML 100 ML IV SCH (05:28)
[2018-04-20 06:38] LABS: BASOPHILS # (AUTO) 0.1 (0.0-0.1); BASOPHILS % 0.7 % (0.0-1.0); EOSINOPHILS # (AUTO) 0.4 (0.0-0.4); EOSINOPHILS % 3.1 % (0.0-6.0); HEMATOCRIT 35.4 % (34.2-44.1); LYMPHOCYTES # (AUTO) 2.2 (1.0-3.2); LYMPHOCYTES % 18.4 % (18.0-39.1); MEAN CORPUSCULAR HEMOGLOBIN 29.8 pg (28-32); MEAN CORPUSCULAR HGB CONC 31.1 g/dL (31-35); MEAN CORPUSCULAR VOLUME 95.9 fL (81-99); MONOCYTES # (AUTO) 0.9 (0.2-0.8); MONOCYTES % 7.6 % (4.4-11.3); NEUTROPHILS % 66.5 % (38.7-80.0); PLATELET COUNT 321 x10e3/uL (140-360); RED BLOOD COUNT 3.69 x10e6/uL (3.6-5.1); RED CELL DISTRIBUTION WIDTH 17.7 % (11.7-14.4)
[2018-04-20 06:51] LABS: ALBUMIN 2.2 g/dL (3.5-5.0); ALBUMIN/GLOBULIN RATIO 0.6 (0.8-2.0); ANION GAP 16.6 mmol/L (8-16); CALCIUM 8.8 mg/dL (8.4-10.2); CREATININE, SERUM 1.31 mg/dL (0.57-1.11); POTASSIUM 3.6 mmol/L (3.5-5.1)
[2018-04-20 07:08] LABS: INR 1.1; PROTHROMBIN TIME 15.2 seconds (11.9-14.5)
[2018-04-20 07:11] LABS: ANISOCYTOSIS SLIGHT; EOSINOPHILS % (MANUAL) 2 % (0-7); LYMPHOCYTES % (MANUAL) 27 % (19-48); MONOCYTES % (MANUAL) 7 % (3.4-9.0); NEUTROPHILS % (MANUAL) 62 % (40-74); NUCLEATED RED BLOOD CELLS 2; PLATELET ESTIMATE ADEQUATE; PLATELET MORPHOLOGY COMMENT NORMAL; RBC MORPHOLOGY COMMENT ABNORMAL
[2018-04-20] MEDS: MUPIROCIN 2% OINT 22 GM TUBE TOP SCH (09:00)
[2018-04-20] MEDS: PANTOPRAZOLE 40 MG 10ML VIAL IV SCH ×2 (09:00→18:51)
[2018-04-20] MEDS ORDERED: POTASSIUM CHLORIDE 20 MEQ TAB CR PO NR ×2 (11:30→12:52)
[2018-04-20] MEDS: BALSAM PERU/CASTOR OIL 60 GM OINT...G. TP SCH ×2 (11:33→18:51)
[2018-04-20] MEDS: CEFTRIAXONE SOD 1 GM VIAL IV SCH (12:15)
[2018-04-20] MEDS: AZITHROMYCIN 500MG/NS 250 ML 250 ML IV SCH (21:49)
[2018-04-21] VITALS (8 sets, daily range): BP systolic 118–131; BP diastolic 51–63
[2018-04-21 04:33] LABS: BASOPHILS # (AUTO) 0.1 (0.0-0.1); BASOPHILS % 0.7 % (0.0-1.0); EOSINOPHILS # (AUTO) 0.3 (0.0-0.4); EOSINOPHILS % 2.6 % (0.0-6.0); HEMATOCRIT 32.8 % (34.2-44.1); HEMOGLOBIN 10.5 g/dL (12.0-16.0); LYMPHOCYTES # (AUTO) 2.9 (1.0-3.2); LYMPHOCYTES % 22.8 % (18.0-39.1); MEAN CORPUSCULAR HEMOGLOBIN 30.2 pg (28-32); MEAN CORPUSCULAR VOLUME 94.3 fL (81-99); MONOCYTES # (AUTO) 1.1 (0.2-0.8); MONOCYTES % 8.6 % (4.4-11.3); NEUTROPHILS # (AUTO) 7.8 (2.1-6.9); PLATELET COUNT 379 x10e3/uL (140-360); RED BLOOD COUNT 3.48 x10e6/uL (3.6-5.1); RED CELL DISTRIBUTION WIDTH 17.6 % (11.7-14.4)
[2018-04-21] MEDS: FLUCONAZOLE 200 MG/100 ML 100 ML IV SCH (05:18)
[2018-04-21] MEDS: PANTOPRAZOLE 40 MG 10ML VIAL IV SCH ×2 (08:06→16:12)
[2018-04-21] MEDS: BALSAM PERU/CASTOR OIL 60 GM OINT...G. TP SCH ×2 (08:07→16:02)
[2018-04-21] MEDS: MUPIROCIN 2% OINT 22 GM TUBE TOP SCH (08:07)
[2018-04-21] MEDS: ASPIRIN 81 MG CHEW TAB PO SCH (08:11)
[2018-04-21] MEDS: ATORVASTATIN 20 MG TAB PO SCH (20:25)
[2018-04-21] MEDS ORDERED: SODIUM CHLORIDE 0.9% 250ML 250 ML ONE (21:11)
[2018-04-22] VITALS (17 sets, daily range): BP systolic 111–142; BP diastolic 53–79
[2018-04-22] MEDS ORDERED: MAGNESIUM SULFATE 2GM/50ML 50 ML IV ONE (04:15)
[2018-04-22] MEDS: FLUCONAZOLE 200 MG/100 ML 100 ML IV SCH (04:36)
[2018-04-22 06:13] LABS: BASOPHILS # (AUTO) 0.1 (0.0-0.1); BASOPHILS % 0.7 % (0.0-1.0); EOSINOPHILS # (AUTO) 0.3 (0.0-0.4); EOSINOPHILS % 2.4 % (0.0-6.0); HEMATOCRIT 31.2 % (34.2-44.1); HEMOGLOBIN 10.2 g/dL (12.0-16.0); LYMPHOCYTES # (AUTO) 2.5 (1.0-3.2); LYMPHOCYTES % 23.2 % (18.0-39.1); MEAN CORPUSCULAR HEMOGLOBIN 29.8 pg (28-32); MEAN CORPUSCULAR HGB CONC 32.7 g/dL (31-35); MEAN CORPUSCULAR VOLUME 91.2 fL (81-99); MONOCYTES % 8.9 % (4.4-11.3); NEUTROPHILS # (AUTO) 6.7 (2.1-6.9); NEUTROPHILS % 62.7 % (38.7-80.0); PLATELET COUNT 386 x10e3/uL (140-360); RED BLOOD COUNT 3.42 x10e6/uL (3.6-5.1); RED CELL DISTRIBUTION WIDTH 17.9 % (11.7-14.4)
[2018-04-22 06:26] LABS: INR 0.98; PROTHROMBIN TIME 13.9 seconds (11.9-14.5)
[2018-04-22 06:35] LABS: ANION GAP 14.4 mmol/L (8-16); CALCIUM 8.6 mg/dL (8.4-10.2); CREATININE, SERUM 1.18 mg/dL (0.57-1.11); POTASSIUM 3.4 mmol/L (3.5-5.1)
[2018-04-22] MEDS ORDERED: HEPARIN SOD/SOD CHLORIDE 2,000 ML ONE (07:01)
[2018-04-22] MEDS ORDERED: LIDOCAINE HCL 1% LOCAL INJ 20 ML VIAL ONE (07:02)
[2018-04-22] MEDS ORDERED: IOPAMIDOL 370 MG/ML 200 ML INFUS..BTL INJ ONE (07:02)
[2018-04-22] MEDS ORDERED: MIDAZOLAM HCL 2 MG/2 ML VIAL ONE (07:08)
[2018-04-22] MEDS ORDERED: FENTANYL CITRATE/PF 100MCG/2 ML INJ ONE (07:09)
[2018-04-22] MEDS ORDERED: SODIUM CHLORIDE 0.9% 1000ML 1,000 ML ONE (07:13)
[2018-04-22] MEDS ORDERED: IOPAMIDOL 300MG/ML 50ML INFUS..BTL IV ONE (07:36)
[2018-04-22] MEDS ORDERED: POTASSIUM CHLORIDE 20MEQ/15ML UDC PO NR (10:30)
[2018-04-22] MEDS: MUPIROCIN 2% OINT 22 GM TUBE TOP SCH (11:30)
[2018-04-22] MEDS: BALSAM PERU/CASTOR OIL 60 GM OINT...G. TP SCH ×2 (11:30→17:07)
[2018-04-22] MEDS: SODIUM BICARBONATE 8.4% SYRING 150 ML in DEXTROSE 5% 1,000 ML IV SCH ×2 (11:55→23:32)
[2018-04-22] MEDS: ASPIRIN 81 MG CHEW TAB PO SCH (11:55)
[2018-04-22] MEDS: PANTOPRAZOLE 40 MG 10ML VIAL IV SCH ×2 (11:55→17:07)
--- NOTE | 2018-04-22 20:17 | Operative Report ---
DATE OF PROCEDURE: April 22, 2018 PROCEDURES PERFORMED 1. Left heart catheterization. 2. Selective coronary angiogram. 3. Arch aortogram. 4. Selective carotid angiogram. INDICATIONS: Elevated troponin, ventricular tachycardia, carotid stenosis, CHF. DESCRIPTION OF PROCEDURE: After informed consent, patient was brought to the cardiac catheterization laboratory and placed on the table. Both groins were painted and draped in a sterile fashion. Lidocaine was injected to the right groin for local anesthesia. The right femoral artery was accessed by Seldinger technique and a 5-[place] sheath was placed in the right femoral artery. The left main artery was cannulated using a JL-4.5-[place] catheter. Coronary angiogram was performed. Images were obtained in multiple views. The right coronary artery was cannulated using a 3DRC 5-[place] catheter. Coronary angiogram was performed. Images were obtained in multiple views. A pigtail catheter was introduced into the left ventricle. Patient had a short burst of nonsustained ventricular tachycardia and the catheter was removed. An arch aortogram was performed using a pigtail catheter. The right carotid artery was selectively engaged using a [employer] catheter. Carotid angiogram was performed. Images were obtained in multiple views. Attempts were made to cannulate the left common carotid artery using a [employer] Architect catheter, but not selectively engaged the common carotid artery. So, a 3DRC catheter was used to engage the left common carotid artery. Carotid angiogram was performed. Images were obtained in multiple views. The patient tolerated the procedure without any complications. REPORT: LEFT MAIN: Normal caliber with luminal irregularities. LEFT ANTERIOR DESCENDING: Normal caliber. It is tortuous with luminal irregularities and a 40% mid lesion. LEFT CIRCUMFLEX: Normal caliber. It has diffuse luminal irregularities with calcified 30% to 40% proximal lesion and 30% mid lesion. RIGHT CORONARY ARTERY: Normal caliber. It is tortuous with about 40% to 50% mid lesion. Ascending aortogram shows mild atherosclerotic plaquing of the aorta. CAROTID ANGIOGRAM: RIGHT SIDE COMMON CAROTID: No significant stenosis noted. INTERNAL CAROTID: Has severely calcified proximal lesion of about 50%. EXTERNAL CAROTID ARTERY: No significant stenosis noted. LEFT SIDE COMMON CAROTID ARTERY: Has no significant stenosis. INTERNAL CAROTID ARTERY: Has luminal irregularities. EXTERNAL CAROTID ARTERY: No significant stenosis. PLAN: Medical management. Job#: [id number] GE
[2018-04-22] MEDS: ATORVASTATIN 20 MG TAB PO SCH (21:00)
[2018-04-23] VITALS (7 sets, daily range): BP systolic 120–131; BP diastolic 52–60
[2018-04-23] MEDS: FLUCONAZOLE 200 MG/100 ML 100 ML IV SCH (05:47)
[2018-04-23 06:38] LABS: ANION GAP 12.6 mmol/L (8-16); CALCIUM 8.3 mg/dL (8.4-10.2); CREATININE, SERUM 1.15 mg/dL (0.57-1.11); POTASSIUM 3.6 mmol/L (3.5-5.1)
[2018-04-23] MEDS: BALSAM PERU/CASTOR OIL 60 GM OINT...G. TP SCH ×2 (08:20→17:01)
[2018-04-23] MEDS: TRIMETHOPRIM/SULFAMETHOXAZOLE 160-800 MG TAB PO SCH ×2 (08:20→20:30)
[2018-04-23] MEDS: ASPIRIN 81 MG CHEW TAB PO SCH (08:20)
[2018-04-23] MEDS: PANTOPRAZOLE 40 MG 10ML VIAL IV SCH ×2 (08:20→17:01)
--- NOTE | 2018-04-23 11:02 | Diagnostic Imaging Report ---
PROCEDURE: Frontal and lateral views of the chest. COMPARISON: Chest radiograph 04/19/18. INDICATIONS: PNEUMONIA, ACUTE RENAL FAILURE FINDINGS: TUBES and LINES: Left sided AICD is in unchanged position. Enteric tube has been removed. Clips project over the right hilum. LUNGS: Moderate lung volumes. Improving opacities in the left lung. Mild central vascular congestion without justus edema. PLEURA: Improving small left pleural effusion. No evidence of pneumothorax. HEART AND MEDIASTINUM: Cardiac size is mildly enlarged. There are atherosclerotic calcifications within the aorta. BONES AND SOFT TISSUES: No acute osseous lesion. Soft tissues are unremarkable. UPPER ABDOMEN: No free air under the diaphragm. IMPRESSION: Improving left lung opacities and decreased small left pleural effusion. No new consolidation. Dictated by: RASHAWN PEREZ M.D. on 04/23/2018 at 11:11 Electronically approved by: RASHAWN PEREZ M.D. on 04/23/2018 at 11:11
[2018-04-23] MEDS: SODIUM BICARBONATE 8.4% SYRING 150 ML in DEXTROSE 5% 1,000 ML IV SCH ×2 (11:15→22:37)
[2018-04-23] MEDS: ATORVASTATIN 20 MG TAB PO SCH (20:30)
[2018-04-24] VITALS (7 sets, daily range): BP systolic 113–131; BP diastolic 56–86
[2018-04-24 05:36] LABS: BASOPHILS # (AUTO) 0.1 (0.0-0.1); BASOPHILS % 0.8 % (0.0-1.0); EOSINOPHILS # (AUTO) 0.2 (0.0-0.4); EOSINOPHILS % 1.9 % (0.0-6.0); HEMATOCRIT 29.1 % (34.2-44.1); HEMOGLOBIN 9.4 g/dL (12.0-16.0); LYMPHOCYTES # (AUTO) 2.5 (1.0-3.2); LYMPHOCYTES % 27.3 % (18.0-39.1); MEAN CORPUSCULAR HEMOGLOBIN 29.6 pg (28-32); MEAN CORPUSCULAR HGB CONC 32.3 g/dL (31-35); MEAN CORPUSCULAR VOLUME 91.5 fL (81-99); MONOCYTES # (AUTO) 0.7 (0.2-0.8); MONOCYTES % 7.9 % (4.4-11.3); NEUTROPHILS # (AUTO) 5.6 (2.1-6.9); NEUTROPHILS % 61.4 % (38.7-80.0); PLATELET COUNT 346 x10e3/uL (140-360); RED BLOOD COUNT 3.18 x10e6/uL (3.6-5.1); RED CELL DISTRIBUTION WIDTH 18.1 % (11.7-14.4)
[2018-04-24 06:14] LABS: ANION GAP 10.4 mmol/L (8-16); CALCIUM 8.2 mg/dL (8.4-10.2); CREATININE, SERUM 1.22 mg/dL (0.57-1.11); MAGNESIUM 1.6 MG/DL (1.3-2.1); POTASSIUM 3.4 mmol/L (3.5-5.1)
[2018-04-24] MEDS ORDERED: POTASSIUM CHLORIDE 20 MEQ TAB CR PO ONE (08:25)
[2018-04-24] MEDS: PANTOPRAZOLE 40 MG 10ML VIAL IV SCH ×2 (09:24→17:56)
[2018-04-24] MEDS: TRIMETHOPRIM/SULFAMETHOXAZOLE 160-800 MG TAB PO SCH (09:24)
[2018-04-24] MEDS: BALSAM PERU/CASTOR OIL 60 GM OINT...G. TP SCH ×2 (09:24→17:56)
[2018-04-24] MEDS: ASPIRIN 81 MG CHEW TAB PO SCH (09:24)
[2018-04-24] MEDS: SODIUM BICARBONATE 8.4% SYRING 150 ML in DEXTROSE 5% 1,000 ML IV SCH (14:00)
[2018-04-24] MEDS ORDERED: METOPROLOL TARTRATE 25 MG TAB PO SCH (17:00)
[2018-04-24] MEDS: VANCOMYCIN 250MG/5ML ORAL SOLN PO SCH ×2 (18:53→23:35)
[2018-04-24] MEDS: ATORVASTATIN 20 MG TAB PO SCH (20:11)
[2018-04-24] MEDS: METRONIDAZOLE 500 MG TAB PO SCH (20:11)
[2018-04-25] VITALS (7 sets, daily range): BP systolic 112–129; BP diastolic 53–60
[2018-04-25] MEDS: VANCOMYCIN 250MG/5ML ORAL SOLN PO SCH ×4 (05:26→23:06)
[2018-04-25] MEDS: BALSAM PERU/CASTOR OIL 60 GM OINT...G. TP SCH ×2 (09:20→17:56)
[2018-04-25] MEDS: PANTOPRAZOLE 40 MG 10ML VIAL IV SCH ×2 (09:20→17:56)
[2018-04-25] MEDS: METRONIDAZOLE 500 MG TAB PO SCH ×3 (09:20→21:00)
[2018-04-25] MEDS: ASPIRIN 81 MG CHEW TAB PO SCH (09:20)
[2018-04-25] MEDS: ATORVASTATIN 20 MG TAB PO SCH (21:00)
[2018-04-26] VITALS: BP 119/53
[2018-04-26 04:00] VITALS: BP 115/75
[2018-04-26] MEDS: VANCOMYCIN 250MG/5ML ORAL SOLN PO SCH (05:23)
[2018-04-26 06:23] LABS: BASOPHILS # (AUTO) 0.1 (0.0-0.1); BASOPHILS % 0.9 % (0.0-1.0); EOSINOPHILS # (AUTO) 0.2 (0.0-0.4); EOSINOPHILS % 2.3 % (0.0-6.0); HEMATOCRIT 31.3 % (34.2-44.1); LYMPHOCYTES % 25.3 % (18.0-39.1); MEAN CORPUSCULAR HEMOGLOBIN 29.9 pg (28-32); MEAN CORPUSCULAR HGB CONC 31.9 g/dL (31-35); MEAN CORPUSCULAR VOLUME 93.4 fL (81-99); MONOCYTES # (AUTO) 0.6 (0.2-0.8); MONOCYTES % 7.7 % (4.4-11.3); NEUTROPHILS % 63.4 % (38.7-80.0); PLATELET COUNT 389 x10e3/uL (140-360); RED BLOOD COUNT 3.35 x10e6/uL (3.6-5.1); RED CELL DISTRIBUTION WIDTH 18.2 % (11.7-14.4)
[2018-04-26 06:51] LABS: ANION GAP 11.6 mmol/L (8-16); CALCIUM 8.9 mg/dL (8.4-10.2); CREATININE, SERUM 1.46 mg/dL (0.57-1.11); MAGNESIUM 1.7 MG/DL (1.3-2.1); POTASSIUM 4.6 mmol/L (3.5-5.1)
[2018-04-26 08:00] VITALS: BP 121/57
[2018-04-26] MEDS: METRONIDAZOLE 500 MG TAB PO SCH (08:41)
[2018-04-26] MEDS: ASPIRIN 81 MG CHEW TAB PO SCH (08:41)
[2018-04-26] MEDS: PANTOPRAZOLE 40 MG 10ML VIAL IV SCH (08:41)
[2018-04-26] MEDS ORDERED: FLAGYL500 MG (08:44)
[2018-04-26] MEDS ORDERED: CIPRO500 MG PO (08:45)
[2018-04-26] MEDS ORDERED: FLAGYL500 MG PO (08:45)
[2018-04-26 08:58] VITALS: BP 121/57
--- NOTE | 2018-05-17 23:27 | Discharge Summary ---
DISCHARGE DIAGNOSES 1. Sepsis secondary to urinary tract infection. 2. Sepsis secondary to pneumonia. 3. Acute renal failure on chronic kidney disease stage 3. 4. Metabolic acidosis. 5. Respiratory failure with ventilatory support. 6. Chronic obstructive pulmonary disease. 7. Anemia. HISTORY OF PRESENT ILLNESS AND HOSPITAL COURSE: See hospital chart for full details since this discharge summary is not all encompassing. Patient is a 72-year-old lady who presented with severe sepsis, metabolic acidosis, acute renal failure on chronic kidney disease, pneumonia, and from pneumonia, UTI, which required intubation and ventilatory support. She was seen by multiple sub-specialists where we did correction of her renal function and metabolic acidosis with IV antibiotics and IV fluids. She did have some evidence of diarrhea near the time of discharge that was positive for C. diff colitis. She was placed on Flagyl, which helped and that improved tremendously at the time of discharge. She was discharged home with Cipro for the pneumonia and UTI and then Flagyl for the C. diff colitis and to follow up with me in 1-2 weeks. Patient did refuse going to a longterm facility. Please see hospital chart for full details. Job#: [id number] RO
== END 2018-04-26 10:16 | disposition home or self-care (01) | DRG 871 ==
LOC: ER 09:39 → ERHOLD 13:14 → ICU 14:57 → IMCU 04-19 17:45 → MED/SURG3 04-21 20:56
PROVIDERS: ADMIT Internal Medicine; ATTEND Internal Medicine
PROC: 0DJ08ZZ Inspection of Upper Intestinal Tract, Via Natural or Artificial Opening Endoscopic (ICD-10-PCS; 2018-04-15)
PROC: 4A023N8 Measurement of Cardiac Sampling and Pressure, Bilateral, Percutaneous Approach (ICD-10-PCS; principal; 2018-04-22)
PROC: B3101ZZ Fluoroscopy of Thoracic Aorta using Low Osmolar Contrast (ICD-10-PCS; 2018-04-22)
PROC: B2151ZZ Fluoroscopy of Left Heart using Low Osmolar Contrast (ICD-10-PCS; 2018-04-22)
PROC: B2111ZZ Fluoroscopy of Multiple Coronary Arteries using Low Osmolar Contrast (ICD-10-PCS; 2018-04-22)
PROC: B3151ZZ Fluoroscopy of Bilateral Common Carotid Arteries using Low Osmolar Contrast (ICD-10-PCS; 2018-04-22)
DX: A41.89 Other specified sepsis (principal); J18.9 Pneumonia, unspecified organism; J96.21 Acute and chronic respiratory failure with hypoxia; N17.9 Acute kidney failure, unspecified; K92.2 Gastrointestinal hemorrhage, unspecified; I47.2 Ventricular tachycardia; D68.9 Coagulation defect, unspecified; E87.2 Acidosis; R65.20 Severe sepsis without septic shock; D64.9 Anemia, unspecified; J44.9 Chronic obstructive pulmonary disease, unspecified; I25.10 Atherosclerotic heart disease of native coronary artery without angina pectoris; E11.22 Type 2 diabetes mellitus with diabetic chronic kidney disease; I12.9 Hypertensive chronic kidney disease with stage 1 through stage 4 chronic kidney disease, or unspecified chronic kidney disease; N18.9 Chronic kidney disease, unspecified; I48.2 Chronic atrial fibrillation; Z79.01 Long term (current) use of anticoagulants; K29.70 Gastritis, unspecified, without bleeding; K44.9 Diaphragmatic hernia without obstruction or gangrene; B95.2 Enterococcus as the cause of diseases classified elsewhere; B96.89 Other specified bacterial agents as the cause of diseases classified elsewhere; B96.1 Klebsiella pneumoniae [K. pneumoniae] as the cause of diseases classified elsewhere
CPT/HCPCS: 36200; 36415; 36600; 43235; 51700; 70450; 71045; 71046; 71250; 72125; 74018; 74176; 80048; 80053; 80307; 81001; 81015; 82270; 82550; 82553; 82805; 82948; 83605; 83690; 83735; 83880; 84100; 84165; 84166; 84443; 84484; 85025; 85379; 85610; 85730; 86850; 86900; 86920; 87040; 87070; 87071; 87086; 87186; 87205; 87449; 87493; 93005; 93306; 93454; 93880; 94002; 94003; 94640; 96361; 97139; 99285; J0456; J0696; J1450; J1940; J2001; J2250; J3370; J3430; J3475; J3480; J7030; J7050; J7070; J7120; P9016; P9017; Q9967

== ENCOUNTER 2019-08-30 18:57 | Observation (INO) | payer MEDICARE ==
[~2019-08-30] VITALS: Ht 165.1 cm; Wt 65.3 kg
[~2019-08-30 18:57] MED LIST changes: +CIPRO500 MG PO; +FLAGYL500 MG; +FLAGYL500 MG PO; -WARFARIN SODIUM4 MG; +WARFARIN SODIUM4 MG PO
--- OUTSIDE RECORDS SUMMARY | 2019-08-30 19:01 | XMS REPORT ---
Author Author [facility] Address Unknown Phone Unavailable Care Team Providers Care [employer] Operator Name Role Phone WILLA LUIS Unavailable Unavailable Jake DENISE Unavailable Unavailable Jessica MONTES Unavailable Unavailable Problems This patient has no known problems. Allergies, Adverse Reactions, Alerts This patient has no known allergies or adverse reactions. Medications This patient has no known medications. Results Test Description Test Time Test Comments Text Results Atomic Results Result Comments CHEST 2 VIEWS 2018-04-23 11:11:00 [place] [address] Patient Name: MARGARITA EATON MR #: [id number] : 1945 Age/Sex: 72/F Req #: [id number] Adm Physician: WILLA LUIS MD Ordered by: DEONDRE ZIMMERMAN MD Report #: [id number] Location: MED/SURG3 Room/Bed: 293 Procedure: [id number] DX/CHEST 2 VIEWS Exam Date: 04/23/18 Exam Time: 1020 REPORT STATUS: Signed PROCEDURE: Frontal and lateral views of the chest. CO MPARISON: Chest radiograph 04/19/18. INDICATIONS: PNEUMONIA, ACUTE RENAL FAILURE FINDINGS: TUBES and LINES: Left sided AICD is in unchanged position. Enteric tube has been removed. Clips project over the right hilum. LUNGS: Moderate lung volumes. Improving opacities in the left lung. Mild central vascular congestion without justus edema. PLEURA: Improving small left pleural effusion. No evidence of pneumothorax. HEART AND MEDIASTINUM: Cardiac size is mildly enlarged. There are atherosclerotic calcifications within the aorta. BONES AND SOFT TISSUES: No acute osseous lesion. Soft tissues are unremarkable. UPPER ABDOMEN: No free air under the diaphragm. IMPRESSION: Improving left lung opacities and decreased small left pleural effusion. No new consolidation. Dictated by: RASHAWN PEREZ M.D. on 04/23/2018 at 11:11 Electronically approved by: RASHAWN PEREZ M.D. on 04/23/2018 at 11:11 Dictated By: RASHAWN PEREZ MD 1111 Transcribed By: SASKIA on 04/23/18 1111 COPY TO: DEONDRE ZIMMERMAN MD CHEST SINGLE (PORTABLE) 2018-04-19 06:43:00 [place] [address] Patient Name: MARGARITA EATON MR #: [id number] : 1945 Age/Sex: 72/F Req #: [id number] Adm Physician: WILLA LUIS MD Ordered by: SUSANNA CERDA MD Report #: [id number] Location: ICU Room/Bed: ICU [facility] Procedure: [id number] DX/CHEST SINGLE (PORTABLE) Exam Date: Exam Time: REPORT STATUS: Signed EXAMINATION: CHEST SINGLE (PORTABLE) INDICATION: Pneumonia follow-up COMPARISON: 04/16/2018 FINDINGS: TUBES and LINES: AICD is intact. NG tube is visualized with tip at the level of the gastric body. Endotracheal tube has been removed LUNGS: Lungs are not well inflated. Interval improvement in left lung airspace opacity . Persistent left lower lobe atelectasis PLEURA: Trace of right and a small left pleural effusion HEART AND MEDIASTINUM: Cardiac size is mildly enlarged. There are atherosclerotic calcifications within the aorta. BONES AND SOFT TISSUES: No acute osseous lesion. Soft tissues are unremarkable. UPPER ABDOMEN: No free air under the diaphragm. IMPRESSION: 1. Findings are compatible with improvement of left lung pneumonia. 2. Persistent left lower lobe atelectasis and pleural effusion. 3. Endotracheal tube has been removed. Signed by: Dr. David Millard M.D. on 04/19/2018 6:45 AM Dictated By: DAVID RANDALL MD 4 Transcribed By: IZZY on 04/19/18644 COPY TO: SUSANNA CERDA MD CHEST SINGLE (PORTABLE) 2018-04-17 06:43:00 [place] [address] Patient Name: MARGARITA EATON MR #: [id number] : 1945 Age/Sex: 72/F Req #: [id number] Adm Physician: WILLA LUIS MD Ordered by: WILLA LUIS MD Report #: [id number] Location: ICU Room/Bed: ICU [facility] Procedure: [id number] DX/CHEST SINGLE (PORTABLE) Exam Date: 04/17/18 Exam Time: 0515 REPORT STATUS: Signed EXAMINATION: CHEST SINGLE (PORTABLE) INDIC ATION: Intubation COMPARISON: 04/16/2018 FINDINGS: TUBES and LINES: Interval placement of NG tube with tip beyond the films limited along the mediastinum. Endotracheal tube is stable. Left-sided ICD device is present LUNGS: Lungs are not well inflated. Predominantly left lung airspace opacity is stable. PLEURA: Small left pleural effusion. HEART AND MEDIASTINUM: Cardiac size is mildly enlarged. There are atherosclerotic calcifications within the aorta. BONES AND SOFT TISSUES: No acute osseous lesion. Soft tissues are unremarkable. UPPER ABDOMEN: No free air under the diaphragm. IMPRESSION: 1. Endotracheal, new NG tube and pacemaker/ICD are stable. 2. Stable airspace disease involving the left hemithorax suspicious for pneumonia versus aspiration Signed by: Dr. David Millard M.D. on 04/17/2018 6:45 AM Dictated By: DAVID RANDALL MD 4 Transcribed By: IZZY on 04/17/18644 COPY TO: WILLA LUIS MD ABDOMEN-1VIEW (KUB) 2018-04-16 17:19:00 [place] [address] Patient Name: MARGARITA EATON MR #: [id number] : 1945 Age/Sex: 72/F Req #: [id number] Adm Physician: WILLA LUIS MD Ordered by: DEONDRE ZIMMERMAN MD Report #: [id number] Location: ICU Room/Bed: ICU [facility] Procedure: [id number] DX/ABDOMEN-1VIEW (KUB) Exam Date: 04/16/18 Exam Time: 1700 REPORT STATUS: Signed EXAM: ABDOMEN-1VIEW (KU), DATE: 04/16/2018 4:37 PM INDICATION: NG tube placement COMPARISON: Chest radiograph 04/16/2018 FINDINGS: LINES/TUBES: Nasogastric tube side hole and tip project below the expected gastroesophageal junction and over the expected gastric body. Partially visualized AICD leads project over the right atrium and right ventricle. BOWEL PATTERN: No evidence for obstruction. SOFT TISSUES: No abnormal calcifications. No mass effect. Cholecystectomy clips in the right upper quadrant. LUNG BASES: Persistent left basilar airspace opacity and trace left effusion. BONES: No acute findings. IMPRESSION: Nasogastric tube side port and tip project over the gastric body. Nonobstructive bowel gas pattern. Signed by: DR. Serge eBck MD on 04/16/2018 5:22 PM Dictated By: SERGE BECK MD 21 Transcribed By: IZZY on 04/16/181721 COPY TO: DEONDRE ZIMMERMAN MD CHEST SINGLE (PORTABLE) 2018-04-16 06:34:00 [place] [address] Patient Name: MARGARITA EATON MR #: [id number] : 1945 Age/Sex: 72/F Req #: [id number] Adm Physician: WILLA LUIS MD Ordered by: DEONDRE ZIMMERMAN MD Report #: [id number] Location: ICU Room/Bed: ICU [facility] Procedure: [id number] DX/CHEST SINGLE (PORTABLE) Exam Date: Exam Time: REPORT STATUS: Signed EXAMINATION: CHEST SINGLE (PORTABLE) INDICATION: Respiratory failure COMPARISON: 04/15/2018 FINDINGS: TUBES and LINES: AICD is intact. Endotracheal tube 4.7 cm above the keely in good position. LUNGS: Lungs are not well inflated. Left lower lobe airspace opacity suggestive of pneumonia versus aspiration. Right hemithorax is clear. PLEURA: Trace of left pleural effusion. HEART AND MEDIASTINUM: Cardiac size is mildly enlarged. There are atherosclerotic calcifications within the aorta. BONES AND SOFT TISSUES: No acute osseous lesion. Soft tissues are unremarkable. UPPER ABDOMEN: No free air under the diaphragm. IMPRESSION: Left lower lobe airspace opacity is suspicious for developing pneumonia versus aspiration. Signed by: Dr. David Millard M.D. on 04/16/2018 6:35 AM Dictated By: DAVID RANDALL MD 4 Transcribed By: IZZY on 04/16/18634 COPY TO: DEONDRE ZIMMERMAN MD CHEST SINGLE (PORTABLE) 2018-04-15 07:58:00 [place] [address] Patient Name: MARGARITA EATON MR #: [id number] : 1945 Age/Sex: 72/F Req #: [id number] Adm Physician: WILLA LUIS MD Ordered by: DEONDRE ZIMMERMAN MD Report #: [id number] Location: ICU Room/Bed: [place] [address] Procedure: [id number] DX/CHEST SINGLE (PORTABLE) Exam Date: 04/15/18 Exam Time: 0720 REPORT STATUS: Signed PROCEDURE: CHEST SINGLE (PORTABLE) COMPARISON: CT chest without contrast 04/14/2018, chest radiograph 04/14/2018. INDICATIONS: RESPIRATORY FAILURE, INTUBATED FINDINGS: Stable position of endotracheal tube. Stable position of left subclavian approach implantable cardiac device. . Patchy multifocal consolidations most notably affecting the perihilar left lung. No large pleural effusion. No acute osseous abnormality. Stable cardiomediastinal contour with post surgical changes of the right hilum and atherosclerotic calcification of the thoracic aorta. CONCLUSION: Stable position of endotracheal tube. Multifocal pneumonia predominantly affecting the left upper lobe seen to better advantage on comparison CT 04/14/2018. Dictated by: Qasim Putnam M.D. on 04/15/2018 at 7:58 Electronically approved by: Qasim Putnam M.D. on 04/15/2018 at 7:58 Dictated By: QASIM PUTNAM MD 7 Transcribed By: SASKIA on 04/15/18757 COPY TO: DEONDRE ZIMMERMAN MD CT ABDOMEN/PELVIS WO 2018-04-14 13:07:00 [place] [address] Patient Name: MARGARITA EATON MR #: [id number] : 1945 Age/Sex: 72/F Req #: [id number] Adm Physician: Ordered by: ASTRID AMTIAS MD Report #: [id number] Location: ER Room/Bed: Procedure: [id number] CT/CT ABDOMEN/PELVIS WO Exam Date: 04/14/18 Exam Time: 1244 REPORT STATUS: Signed EXAM: CT ABDOMEN/PELVIS WO DATE: 04/14/2018 12:05 PM INDICATION: COMPARISON: None FINDINGS: Please see CT chest. IMPRESSION: As above. Signed by: Dr. Gloria Zamudio MD on 04/14/2018 1:07 PM Dictated By: GLORIA ZAMUDIO MD 06 Transcribed By: IZZY on 04/14/181306 COPY TO: ASTRID MATIAS MD CT CHEST WO 2018-04-14 13:01:00 [place] [address] Patient Name: MARGARITA EATON MR #: [id number] : 1945 Age/Sex: 72/F Req #: [id number] [facility] Physician: Ordered by: ASTRID MATIAS MD Report #: [id number] Location: ER Room/Bed: Procedure: [id number] CT/CT CHEST WO Exam Date: 04/14/18 Exam Time: 1244 REPORT STATUS: Signed EXAM: CT Chest, Abdomen and Pelvis WITHOUT contrast INDICATION: Shortness of breath, abdominal pain COMPARISON: None. TECHNIQUE: Chest, Abdomen and Pelvis was scanned utilizing a multidetector helical scanner without the use of IV contrast. Coronal and sagittal reformations were obtained. Reformatted axial MIP images were obtained and reviewed. IV CONTRAST: None COMPLICATIONS: None RADIATION DOSE: Total DLP: 942 mGy*cm Estimated effective dose: (DLP x 0.015 x size factor) mSv CTDIvol has been reviewed. It is below the limits set by the Radiation Protocol Committee (RPC). Appropriate CT dose reduction techniques were utilized. FINDINGS: Chest: Lower Neck: ET tube present. Left chest wall ICD. Heart and Great Vessels: The aorta and main pulmonary artery measure 28 and 29 mm. respectively. No pericardial effusion. Advanced coronary artery vascular calcifications and probable PCI changes, poorly evaluated without contrast. Advanced aortic and left common carotid vascular calcifications. Lymph Nodes: Scattered small mediastinal lymph nodes, some of which are partially calcified. The hilar regions are sub-optimally evaluated given lack of IV contrast. Lungs: Scattered bilateral moderate areas of groundglass and alveolar opacities, most focally in the lingula and left lower lobe. Additional septal thickening present. There is biapical scarring with no pneumothorax or pleural effusion. Evaluation for small nodules limited by motion and underlying areas of consolidation. Mild emphysematous changes. Abdomen: Solid Organs: Cholecystectomy clips. Nonenhanced images of adrenals, spleen, and pancreas unremarkable. Nonobstructing calculus inferior left kidney measuring 4 mm. No hydroureter or hydronephrosis. Distal ureters poorly evaluated. Exophytic presumed simple cyst left kidney. Benign-appearing calcification right hepatic lobe. Upper GI Tract: No small bowel obstructive changes. Vascularity: Advanced aortic vascular calcifications. Lymph Nodes: No acute findings. Other: None. Pelvis: Bladder: Decompressed with Christine catheter. Other: Uterus absent. Colon: Moderate diverticulosis sigmoid colon with wall thickening. Minimal surrounding stranding possible. Bones: Superior endplate height loss L3 likely due to moderate to large Schmorl's node. Minimal superior height loss L2. IMPRESSION: 1. Scattered groundglass and alveolar opacities in the lungs, with most focal area of consolidation lingula and left lower lobe. Findings most consistent with multifocal pneumonia. Component of edema possible. 2. Moderate sigmoid diverticulosis with mild diverticulitis possible. 3. Nonobstructing left renal calculus. No definite ureteral calculus; however, distal ureters poorly evaluated. 4. Advanced vascular calcifications chest and abdomen as above. Signed by: Dr. Gloria Zamudio MD on 04/14/2018 1:07 PM Dictated By: GLORIA ZAMUDIO MD 06 Transcribed By: IZZY on 04/14/181306 COPY TO: ASTRID MATIAS MD CT CERVICAL SPINE WO 2018-04-14 11:27:00 [place] [address] Patient Name: MARGARITA EATON MR #: [id number] : 1945 Age/Sex: 72/F Req #: [id number] Adm Physician: Ordered by: ABHISHEK MENA DENTURE TECHNICIAN Report #: [id number] Location: ER Room/Bed: Procedure: [id number] CT/CT CERVICAL SPINE WO Exam Date: 04/14/18 Exam Time: 1030 REPORT STATUS: Signed EXAMINATION: Head and cervical spine CT without contrast. HISTORY: Status post fall, altered mental status, weakness COMPARISON: Head CT 1 08/09/2017 TECHNIQUE: Multidetector axial images were obtained without contrast from the foramen magnum to the vertex and through the cervical spine. The images were reconstructed using brain and bone algorithms. Thin section brain images were reformatted into coronal and sagittal planes. Dose modulation, iterative reconstruction, and/or weight based adjustment of the mA/kV was utilized to reduce the radiation dose to as low as reasonably achievable. HEAD CT FINDINGS: Skull: No lytic or blastic lesions. No fractures. Parenchyma: Persistent mild chronic microvascular ischemic changes and a small chronic lacunar infarct in the left putamen. No mass, hemorrhage or CT evidence of acute vascular insult. Brain volume: Moderate generalized brain volume loss Ventricles: No hydrocephalus or displacement. Arteries: No density suggestive of thrombus. Dural sinuses: No abnormal density. Extra-axial spaces: No abnormal density. Foramen magnum: No mass, Chiari malformation, or basilar invagination. Sella: No obvious mass. Paranasal/mastoid sinuses: Imaged portions unremarkable. CERVICAL SPINE CT FINDINGS: Alignment:Normal alignment and lordosis. Minimal age indeterminate, likely chronic and degenerative anterolisthesis at C4-C5 and retrolisthesis at C6-C7. Soft tissues: Normal. Vertebrae: Normal height and density. No acute fracture, infection or neoplasm. Degenerative changes: C5-C6: Asymmetric to the right disc osteophyte, uncovertebral and facet arthrosis. Mild right foraminal stenoses. Otherwise no significant degenerative changes, no canal or foraminal stenosis. Incidental findings: Endotracheal tube is partially visualized IMPRESSION: Head CT: 1. No acute intracranial hemorrhage or cortical infarct. 2. Persistent mild chronic microvascular ischemic changes. Cervical spine CT: 1. No acute fractures or dislocations. 2. Mild chronic degenerative changes as described. Note: Acute post traumatic spinal cord, vascular or ligamentous injury cannot adequately be assessed with CT. Signed by: Dr. Celia Russell M.D. on 04/14/2018 11:31 AM Dictated By: CELIA RUSSELL MD 1131 Transcribed By: IZZY on 04/14/18 1131 COPY TO: ABHISHEK MENA NP CT BRAIN WO 2018-04-14 11:27:00 [facility] [address] [place] [address] Patient Name: MARGARITA EATON MR #: [id number] : 1945 Age/Sex: 72/F Req #: [id number] Adm Physician: Ordered by: ABHISHEK MENA NP Report #: [id number] Location: ER Room/Bed: Procedure: [id number] CT/CT BRAIN WO Exam Date: 04/14/18 Exam Time: 1030 REPORT STATUS: Signed EXAMINATION: Head and cervical spine CT without contrast. HISTORY: Status post fall, altered mental status, weakness COMPARISON: Head CT 1 08/09/2017 TECHNIQUE: Multidetector axial images were obtained without contrast from the foramen magnum to the vertex and through the cervical spine. The images were reconstructed using brain and bone algorithms. Thin section brain images were reformatted into coronal and sagittal planes. Dose modulation, iterative reconstruction, and/or weight based adjustment of the mA/kV was utilized to reduce the radiation dose to as low as reasonably achievable. HEAD CT FINDINGS: Skull: No lytic or blastic lesions. No fractures. Parenchyma: Persistent mild chronic microvascular ischemic changes and a small chronic lacunar infarct in the left putamen. No mass, hemorrhage or CT evidence of acute vascular insult. Brain volume: Moderate generalized brain volume loss Ventricles: No hydrocephalus or displacement. Arteries: No density suggestive of thrombus. Dural sinuses: No abnormal density. Extra-axial spaces: No abnormal density. Foramen magnum: No mass, Chiari malformation, or basilar invagination. Sella: No obvious mass. Paranasal/mastoid sinuses: Imaged portions unremarkable. CERVICAL SPINE CT FINDINGS: Alignment:Normal alignment and lordosis. Minimal age indeterminate, likely chronic and degenerative anterolisthesis at C4-C5 and retrolisthesis at C6-C7. Soft tissues: Normal. Vertebrae: Normal height and density. No acute fracture, infection or neoplasm. Degenerative changes: C5-C6: Asymmetric to the right disc osteophyte, uncovertebral and facet arthrosis. Mild right foraminal stenoses. Otherwise no significant degenerative changes, no canal or foraminal stenosis. Incidental findings: Endotracheal tube is partially visualized IMPRESSION: Head CT: 1. No acute intracranial hemorrhage or cortical infarct. 2. Persistent mild chronic microvascular ischemic changes. Cervical spine CT: 1. No acute fractures or dislocations. 2. Mild chronic degenerative changes as described. Note: Acute post traumatic spinal cord, vascular or ligamentous injury cannot adequately be assessed with CT. Signed by: Dr. Celia Russell M.D. on 04/14/2018 11:31 AM Dictated By: CELIA RUSSELL MD 1131 Transcribed By: IZZY on 04/14/18 1131 COPY TO: ABHISHEK MENA DENTURE TECHNICIAN CHEST SINGLE (PORTABLE) 2018-04-14 10:33:00 [place] [address] Patient Name: MARGARITA EATON MR #: [id number] : 1945 Age/Sex: 72/F Req #: [id number] Adm Physician: Ordered by: ABHISHEK MENA DENTURE TECHNICIAN Report #: [id number] Location: ER Room/Bed: Procedure: [id number] DX/CHEST SINGLE (PORTABLE) Exam Date: 04/14/18 Exam Time: 1020 REPORT STATUS: Signed EXAM: XR CHEST 1 VIEW DATE: 04/14/2018 10:19 AM INDICATION: Post code, intubated COMPARISON: None FINDINGS: Lines and Tubes: ET tube tip above keely. Left chest wall ICD present. Defibrillator pads obscure detail centrally. Heart and Mediastinum: Heart mildly enlarged. Aortic vascular calcifications. Lungs and Pleura: Mild edema. No definite pneumothorax within limitations of artifact. Bones and Soft Tissues: No acute findings. IMPRESSION: 1. Mild edema. 2. Lines and tubes as above. Signed by: Dr. Gloria Zamudio MD on 04/14/2018 10:33 AM Dictated By: GLORIA ZAMUDIO MD 1033 Transcribed By: IZZY on 04/14/18 1033 COPY TO: ABHISHEK MENA NP CT PELVIS WO 2017-12-05 18:54:00 [place] [address] Patient Name: MARGARITA EATON MR #: [id number] : 1945 Age/Sex: 71/F Req #: [id number] Adm Physician: Ordered by: ABHISHEK MENA DENTURE TECHNICIAN Report #: [id number] Location: ER Room/Bed: Procedure: [id number] CT/CT PELVIS WO Exam Date: Exam Time: REPORT STATUS: Signed PROCEDURE: CT PELVIS WITHOUT CONTRAST COMPARISON: Pelvic x-ray on the same day. INDICATIONS: POST FALL, LEFT HIP PAIN TECHNIQUE: CT images were created without intravenous contrast. DLP: 342.87 mGy-cm FINDINGS: Mildly displaced fracture of the left iliac crest (series 4, image 31). No evidence of left hip fracture. Visualized bowel loops showed no evidence of obstruction. Colonic diverticulosis without evidence of diverticulitis. No pelvic sidewall lymphadenopathy. Moderate aortoiliac atherosclerotic disease. Hysterectomy. Bladder is unremarkable. Pelvic phleboliths. CONCLUSION: Mildly displaced fracture of the left iliac crest. Dictated by: Flex Villarreal M.D. on 12/05/2017 at 18:54 Electronically approved by: Flex Villarreal M.D. on 12/05/2017 at 18:54 Dictated By: FLEX VILLARREAL MD 53 Transcribed By: SASKIA on 12/05/171853 COPY TO: ABHISHEK MENA DENTURE TECHNICIAN CHEST SINGLE (PORTABLE) 2017-12-05 17:19:00 [place] [address] Patient Name: MARGARITA EATON MR #: [id number] : 1945 Age/Sex: 71/F Req #: [id number] Adm Physician: Ordered by: ABHISHEK MENA DENTURE TECHNICIAN Report #: [id number] Location: ER Room/Bed: Procedure: [id number] DX/CHEST SINGLE (PORTABLE) Exam Date: 12/05/17 Exam Time: 1630 REPORT STATUS: Signed PROCEDURE: A single AP view of the chest. COMPARISON: 08/09/17 INDICATIONS: FALL TODAY, LEFT HIP PAIN FINDINGS: Lines/tubes: Stable left chest wall dual-lead cardiac device in place. Lungs: The lungs are well inflated and clear. There is no evidence of pneumonia or pulmonary edema. Mild left basilar atelectasis/scarring. Pleura: There is no pleural effusion or pneumothorax. Heart and mediastinum: The cardiac silhouette is mildly enlarged. Unchanged right hilar surgical clips. Aorta is calcified. Bones: No acute bony abnormality. IMPRESSION: 1. No acute cardiopulmonary disease. Dictated by: Flex Villarreal M.D. on 12/05/2017 at 17:19 Electronically approved by: Flex Villarreal M.D. on 12/05/2017 at 17:19 Dictated By: FLEX VILLARREAL MD 18 Transcribed By: SASKIA on 12/05/171718 COPY TO: ABHISHEK MENA DENTURE TECHNICIAN HIP LEFT 2-3 VW (+/- PELVIS) 2017-12-05 17:17:00 [place] [address] Patient Name: MARGARITA EATON MR #: [id number] : 1945 Age/Sex: 71/F Req #: [id number] Adm Physician: Ordered by: ABHISHEK MENA DENTURE TECHNICIAN Report #: [id number] Location: ER Room/Bed: Procedure: [id number] DX/HIP LEFT 2-3 VW (+/- PELVIS) Exam Date: Exam Time: REPORT STATUS: Signed PROCEDURE: HIP LEFT 2-3 VW (+/- PELVIS) COMPARISON: None. INDICATIONS: FALL, LEFT HIP PAIN TODAY FINDINGS: No acute displaced fracture or dislocation. Joint spaces are within normal limits. Pelvic phleboliths. Vascular calcifications. CONCLUSION: No acute fracture or dislocation of the left hip. Dictated by: Flex Villarreal M.D. on 12/05/2017 at 17:17 Electronically approved by: Flex Villarreal M.D. on 12/05/2017 at 17:17 Dictated By: FLEX VILLARREAL MD 16 Transcribed By: SASKIA on 12/05/171716 COPY TO: ABHISHEK MENA NP CHEST SINGLE (PORTABLE) [place] [address] Patient Name: MARGARITA EATON MR #: [id number] : 1945 Age/Sex: 71/F Req #: [id number] Adm Physician: Ordered by: GALLO MONTES MD Report #: [id number] Location: ER Room/Bed: Procedure: [id number] DX/CHEST SINGLE (PORTABLE) Exam Date: 08/09/17 Exam [...] disease. Dictated by: Serge Beck M.D. on 08/09/2017 at 12:47 Electronically approved by: Serge Beck M.D. on 08/09/2017 at 12:47 Dictated By: SERGE BECK MD 1247 Transcribed By: SASKIA on 08/09/17 1247 COPY TO: GALLO MONTES MD CT BRAIN WO [place] [address] Patient Name: MARGAIRTA EATON MR #: [id number] : 1945 Age/Sex: 71/F Req #: [id number] Adm Physician: Ordered by: GALLO MONTES MD Report #: [id number] Location: ER Room/Bed: Procedure: [id number] CT/CT BRAIN WO Exam Date: 08/09/17 Exam [...] partially opacified. IMPRESSION: No acute abnormalities. Chronic findings: 1. Mild generalized volume loss. 2. Mild chronic microvascular ischemic changes. 3. Small chronic left putaminal lacunar infarct. Signed by: Dr. Qasim Bridges M.D. on 08/09/2017 12:38 PM Dictated By: QASIM BRIDGES MD 1238 Transcribed By: IZZY on 08/09/17 1238 COPY TO: GALLO MONTES MD
[2019-08-30] MEDS ORDERED: METOPROLOL SUCC50 MG PO (19:36)
[2019-08-30 19:44] LABS: BASOPHILS # (AUTO) 0.1 (0.0-0.1); BASOPHILS % 0.6 % (0.0-1.0); EOSINOPHILS # (AUTO) 0.3 (0.0-0.4); EOSINOPHILS % 1.7 % (0.0-6.0); HEMATOCRIT 33.2 % (34.2-44.1); HEMOGLOBIN 10.9 g/dL (12.0-16.0); LYMPHOCYTES # (AUTO) 4.2 (1.0-3.2); LYMPHOCYTES % 28.1 % (18.0-39.1); MEAN CORPUSCULAR HEMOGLOBIN 29.8 pg (28-32); MEAN CORPUSCULAR HGB CONC 32.8 g/dL (31-35); MEAN CORPUSCULAR VOLUME 90.7 fL (81-99); MONOCYTES # (AUTO) 0.9 (0.2-0.8); MONOCYTES % 5.9 % (4.4-11.3); NEUTROPHILS # (AUTO) 9.5 (2.1-6.9); NEUTROPHILS % 63.4 % (38.7-80.0); PLATELET COUNT 470 x10e3/uL (140-360); RED BLOOD COUNT 3.66 x10e6/uL (3.6-5.1); RED CELL DISTRIBUTION WIDTH 18.1 % (11.7-14.4)
--- NOTE | 2019-08-30 19:49 | Diagnostic Imaging Report ---
Examination: Single AP view of the chest. COMPARISON: 04/19/2018 INDICATION: Chest pain DISCUSSION: The lungs are well inflated. No focal consolidation, pleural effusion, or pneumothorax. Left subclavian approach implantable cardiac device body and leads are unchanged in position. Stable cardiomediastinal contour including atherosclerotic calcification of the thoracic aorta and borderline enlargement of the cardiac silhouette. Right hilar surgical clips are unchanged. No acute osseous abnormalities. IMPRESSION: 1. Borderline cardiomegaly without vascular decompensation. Signed by: Dr. Yogesh Putnam M.D. on 08/30/2019 7:46 PM
[2019-08-30 19:58] LABS: ALBUMIN 3.5 g/dL (3.5-5.0); ALBUMIN/GLOBULIN RATIO 0.9 (0.8-2.0); ANION GAP 14.8 mmol/L (8-16); CALCIUM 9.8 mg/dL (8.4-10.2); CREATININE, SERUM 2.34 mg/dL (0.57-1.11); POTASSIUM 3.8 mmol/L (3.5-5.1)
[2019-08-30 20:05] LABS: CREATINE KINASE MB 1.4 ng/mL (0-5.0)
[2019-08-30] MEDS ORDERED: CEFTRIAXONE SOD 1 GM/NS 50 ML 50 ML IV ONE (21:30)
[2019-08-30 21:36] LABS: CLARITY,URINE CLEAR (CLEAR); COLOR,URINE YELLOW (YELLOW)
[2019-08-30 21:37] LABS: BACTERIA,URINE FEW /HPF; BILIRUBIN,URINE NEGATIVE (NEGATIVE); EPITHELIAL CELLS,URINE FEW /LPF; KETONES,URINE NEGATIVE (NEGATIVE); LEUKOCYTE ESTERASE ,URINE NEGATIVE (NEGATIVE); NITRITE,URINE NEGATIVE (NEGATIVE); PROTEIN,URINE DIPSTICK TRACE (NEGATIVE); URINE UROBILINOGEN 0.2 mg/dL (0.2 - 1); WBC,URINE (MAN) 0-5 /HPF (0-5)
--- NOTE | 2019-08-30 23:51 | NUR ---
RECEIVED PATIENT FROM ED AT THIS TIME VIA STRETCHER, PATIENT AMBULATED WITH ASSISTANCE TO HOSPITAL BED. PATIENT USES WALKER AT HOME, THERE IS A WALKER AT BEDSIDE. PATIENT A&OX3. NO CHEST PAIN REPORTED AT THIS TIME, NO OTHER PAIN REPORTED. LUNG SOUNDS, EXP WHEEZING, ABSENT RUL D/T LOBECTOMY. TELE ACTIVE, RUNNING SR. BOWEL SOUNDS ACTIVE, LAST BM 08/29. NO EDEMA NOTED. PEDAL PULSES PALPABLE. SKIN INTACT. PATIENT VERBALIZED SHE WOULD CALL FOR ASSISTANCE TO TOILET, BED ALARM ACTIVE. NO S&S OF DISTRESS NOTED. BED LOCKED IN LOWEST POSITION, SIDE RAILS UPX2, CALL LIGHT IN REACH.
[2019-08-31] VITALS (9 sets, daily range): BP systolic 92–147; BP diastolic 53–67
--- NOTE | 2019-08-31 01:02 | NUR ---
PAGED MD HANCOCK CONCERNING PATIENT'S CHEST PAIN, 01/08. AWAITING CALL BACK.
[2019-08-31 06:40] LABS: CHOL/HDL RATIO 3.7 (3.0-3.6)
[2019-08-31] MEDS ORDERED: SODIUM CHLORIDE 0.9% 500ML 500 ML IV ONE (08:00)
--- NOTE | 2019-08-31 08:00 | NUR ---
PT RESTING QUIETLY ON ROUNDS
[2019-08-31 08:30] LABS: INR 1.07; PROTHROMBIN TIME 14.6 seconds (11.9-14.5)
[2019-08-31] MEDS ORDERED: FUROSEMIDE 40 MG TAB PO SCH (09:00)
[2019-08-31] MEDS ORDERED: AMIODARONE HCL 200 MG TAB PO SCH (09:00)
--- NOTE | 2019-08-31 09:10 | NUR ---
PT C/O CHEST PAIN. STAT EKG DONE AND RESULTS CALL TO DR WILKERSON. REORDERS RECEIVED.
--- NOTE | 2019-08-31 10:49 | History and Physical ---
CHIEF COMPLAINT: The patient came in with chest pain. HISTORY OF PRESENTING ILLNESS: Ms. Harmony Cruz with history of coronary artery disease, history of hypertension, diabetes, was in usual state of health until the patient experienced some chest pain yesterday, came to the emergency room, was admitted to the hospital to rule out acute coronary artery syndrome. The patient was also found to have acute elevated white count and also acute renal failure. PAST MEDICAL HISTORY: History of osteoporosis, history of atrial fibrillation, history of diabetes mellitus, history of hypertension, history of reflux esophagitis, history of coronary artery disease, history of hyperlipidemia. PAST SURGICAL HISTORY: History of hysterectomy, laparoscopic cholecystectomy, left knee replacement, history of right upper lobectomy of the lung and also history of defibrillator and pacemaker placement. The patient also has two stents placed in. The patient has a history of right eye glaucoma. FAMILY HISTORY: Positive for coronary artery disease, history of heart disease in the family. SOCIAL HISTORY: No EtOH. Positive for smoker. Smokes about a pack a day. No alcohol abuse or intake. REVIEW OF SYSTEMS: Positive for chest pain. Positive for some shortness of breath. No nausea, no vomiting. No diarrhea. No constipation. No rectal bleeding. No hematochezia. No hematemesis. Positive for some upper abdominal pain. ALLERGIES: THE PATIENT IS ALLERGIC TO COCONUT, CODEINE AND PINEAPPLE. PHYSICAL EXAMINATION: VITAL SIGNS: Temperature is 96.2, pulse of 78, respirations of 18, blood pressure is 147/67, pulse oximeter of 99%. HEENT: Normocephalic, atraumatic. Pupils are reactive to light and accommodation. CVS: S1 and S2. Regular. LUNGS: Decreased air entry. Positive for few inspiratory wheezes. ABDOMEN: Suprapubic tenderness present, otherwise nonspecific. EXTREMITIES: No clubbing, no cyanosis, no edema. LABORATORY VALUES: White count is 14,000, hemoglobin of 10.9, hematocrit of 33.2. Chemistry shows 138, sodium 130, potassium 3.9, BUN of 31, creatinine of 2.34. HDL, LDL are pending. The patient's CK, CK-MB x2 were negative. MICROBIOLOGY: Blood cultures are pending. Chest x-ray shows borderline cardiomegaly without vascular decompensation. ASSESSMENT: Ms. Harmony Cruz with chest pain, rule out acute coronary artery syndrome. PLAN: 1. Echocardiogram. Also Cardiology consult. 2. Acute renal failure, fluid resuscitation gently. Check a creatinine and hold off on metformin at this time. 3. History of atrial fibrillation. We will continue on warfarin. Check her PT and INRs daily. 4. History of smoking. The patient advised nonsmoking. 5. Coronary artery disease. Cardiology consult. 6. Hyperlipidemia and reflux esophagitis. Continue same. Further recommendation per clinical course. Consult with Cardiology and Renal will be done. We will continue to monitor the patient. MD FRANSICO LoJ/MODL /[id number]
--- NOTE | 2019-08-31 12:43 | NUR ---
CALL TO DR. HANCOCK REGARDING PT'S LOC STATUS. PT IS NOT MEETING INPT CRITERIA; OBS AT THIS POINT. SERIAL CARDIAC ENZYMES ALL NEG. NOTED WBC 14, BLD CULTURES PENDING. ALSO INFORMED DR. DAV THOMPSON [employer] [facility] PATIENTS. AWAITING CALL BACK.
--- NOTE | 2019-08-31 13:01 | NUR ---
Cardiology note dictated Impression: chest pain with h/o CAD Recs: check echo and stress test
[2019-08-31] MEDS: ONDANSETRON HCL 4 MG ORAL DISINTEGRATING TAB PO PRN (13:30)
--- NOTE | 2019-08-31 13:30 | NUR ---
DR WILKERSON TO SEE PT. NEW ORDERS RECEIVED.
[2019-08-31] MEDS ORDERED: SODIUM CHLORIDE 0.9% 1000ML 1,000 ML ONE (14:07)
--- NOTE | 2019-08-31 14:25 | Consultation ---
DATE OF CONSULTATION: 08/31/2019 Nephrology Consultation REQUESTING PHYSICIAN: Adan Dubon M.D. REASON FOR CONSULTATION: Acute kidney injury. HISTORY OF PRESENT ILLNESS: Thank you for allowing us to participate in Ms. Cruz's care. This is a 73-year-old female, who came with chest pain. During the evaluation it was noticed that baseline creatinine, which was about 1.4 about 2 years ago, is now up to 2.34. She has no swelling. Chest x-ray does not show any fluid overload. Potassium is 3.8 and serum CO2 of 27. She was not on any NSAIDs. She did not have any trouble urinating. She does have a history of type 2 diabetes and the metformin has now been stopped. It appears she was on Lasix at home, which she is not able to recall this. Denies any swelling in the legs. Currently, denying chest pain. Currently, denying any trouble breathing. PAST MEDICAL HISTORY: 1. CKD, stage 3. 2. History of prior acute kidney injury, possibly ATN about 2 years ago. She recalls having urinary tract infection at that time when the creatinine peaked around 4-5mg% 3. Underlying type 2 diabetes. 4. Hypertension. 5. Presumably, she has heart failure, although she is not entirely sure. 6. Coronary artery disease, with heart cath last year suggesting medical management. MEDICATIONS: 1. Alendronate 70 mg a day. 2. Amiodarone 200 daily. 3. Aspirin 81 mg daily. 4. Lasix 40 mg daily. 5. Metformin 500 b.i.d. 6. Reglan p.r.n. 7. Metoprolol 50 mg daily. 8. Multivitamin supplements. 9. Omeprazole 20 mg a day. 10. Pravastatin 40 at bedtime. 11. Warfarin, which appears to be on hold at this point. SOCIAL HISTORY: She lives with her . Not smoking or using alcohol. REVIEW OF SYSTEMS: CONSTITUTIONAL: Denies any fever or chills. CARDIAC: Chest pain is better. GI: Denying nausea or vomiting at this time. VASCULAR: No leg swelling. NEUROLOGIC: Denies headaches or seizures. ENDOCRINE: Not sure if she has lost or gained any weight. She thinks it is about stable, however. SKIN: Dry. Rest of review is negative. PHYSICAL EXAMINATION: GENERAL: Lying in bed, in no distress. VITAL SIGNS: Temperature 96.2, pulse 78, and blood pressure 147/67. HEENT: Atraumatic. NECK: No JVD. CHEST: Clear bilaterally. Breath sounds equal. CARDIAC: Normal heart tones. Rhythm sounds irregular. ABDOMEN: Benign. NEUROLOGIC: Alert, appropriate. Speech is normal. LABORATORY DATA: Sodium 138, K of 3.8, serum CO2 of 27, creatinine 2.3, BUN 31, lactic acid level is 0.8. She had serum protein electrophoresis done in 2018, which was negative. No TSH available. UA here shows trace protein, negative for blood, negative for cells. Hemoglobin is 10.9, white count 14,000, and platelets 470. ASSESSMENT: 1. Acute kidney injury, possibly from volume depletion, rule out obstruction. Underlying CKD stage 3 from diabetic/ hypertensive end-organ damage and potential nephrosclerosis from the last episode of acute kidney injury. 2. Satisfactory electrolytes. PLAN: Limited IV fluids. Recheck chemistries. Get renal ultrasound. Check urine eosinophils. She is on a PPI additionally. Avoid NSAIDs and other nephrotoxins. MD RADHA Eugene/ASH /[id number]
[2019-08-31] MEDS: HYDROCODONE/APAP 5MG-325MG TAB PO PRN ×2 (14:59→20:25)
--- NOTE | 2019-08-31 15:05 | Consultation ---
DATE OF CONSULTATION: Cardiology Consultation REASON FOR CONSULTATION: Chest pain. HISTORY OF PRESENT ILLNESS: This is a 73-year-old woman, who presented with chest discomfort. Her pain is centrally located and at one time, radiated to the right arm, moderate to severe in intensity, occasionally worse with food, not related to exertion. No other nausea, vomiting, or diaphoresis. She has a history of coronary artery disease, status post stent in 2011 along with a pacemaker placement. REVIEW OF SYSTEMS: A 12-point review of system was conducted, is negative except as stated above in the HPI. PAST MEDICAL HISTORY: Hypertension, coronary artery disease, atrial fibrillation, permanent pacemaker, gastroesophageal reflux disease. PAST SURGICAL HISTORY: Permanent pacemaker implantation and percutaneous coronary intervention. PAST FAMILY HISTORY: Significant history of coronary artery disease. SOCIAL HISTORY: Current smoker. No alcohol or drug abuse. ALLERGIES: CODEINE. MEDICATIONS: See medications reconciliation form. PHYSICAL EXAMINATION: VITAL SIGNS: Temperature is 96.2, heart rate 77, respiratory rate is 16, blood pressure is 115/57, oxygen saturation 98% on 2 L nasal cannula. GENERAL: Well-appearing elderly woman, lying comfortably in bed, no apparent distress. Alert and oriented x3. HEENT: Head is normocephalic and atraumatic. Eyes, extraocular muscles intact. Conjunctivae clear. NECK: No JVD. No bruits. CARDIOVASCULAR: She has regular rate and rhythm with ectopy. Tenderness with palpation over the precordium. LUNGS: Clear to auscultation. ABDOMEN: Soft, nontender, nondistended. EXTREMITIES: No clubbing, cyanosis or edema. VASCULAR: 2+ pulses. SKIN: Warm, dry and intact. NEUROLOGIC: No focal deficits noted. Cranial nerves grossly intact. PSYCHIATRIC: Normal mood and affect. LABORATORY DATA: Reviewed. Cardiac enzymes are within normal limits. A 12-lead electrocardiogram showed normal sinus rhythm with PACs. IMPRESSION: 1. Precordial pain. 2. Coronary artery disease. 3. Atrial fibrillation. 4. Paroxysmal atrial fibrillation. 5. Presence of a permanent pacemaker. 6. Tobacco abuse. 7. Hyperlipidemia. 8. Gastroesophageal reflux disease. RECOMMENDATIONS: The patient is ruled out for acute myocardial infarction. Check a 2D echocardiogram. We will keep her n.p.o. for a stress test in the morning to evaluate for ischemia. We will continue to follow along with you. Resume all current cardiovascular medications including anticoagulation. DO SIRIA Pineda /[id number]
[2019-08-31] MEDS: ASPIRIN 81 MG CHEW TAB PO SCH (16:30)
[2019-08-31] MEDS: MULTIVITAMINS/MINERALS TAB PO SCH (16:30)
[2019-08-31] MEDS: METOPROLOL SUCCINATE 50 MG TAB XL PO SCH (16:30)
[2019-08-31] MEDS: PANTOPRAZOLE SOD 40 MG TABEC PO SCH (16:30)
[2019-08-31] MEDS: MONTELUKAST SODIUM 10 MG TAB PO SCH (16:30)
[2019-08-31] MEDS: WARFARIN SOD 3 MG TAB PO SCH (16:35)
[2019-08-31] MEDS: METFORMIN HCL 500 MG TAB CR PO SCH (16:36)
--- NOTE | 2019-08-31 17:15 | NUR ---
PT UP TO TO BATHROOM WITH WALKER. MEDICATION GIVEN ORDERS.
--- NOTE | 2019-08-31 19:05 | NUR ---
REPORT GIVEN TO ON SHIFT NO NEW CHANGES AT THIS TIME.
--- NOTE | 2019-08-31 19:28 | Diagnostic Imaging Report ---
EXAM: Renal Ultrasound INDICATION: ^ARF ^[id number] ^[id number] COMPARISON: CT abdomen and pelvis 04/14/2018 TECHNIQUE: Transverse and longitudinal images of the kidneys and bladder were obtained. FINDINGS: Right Kidney: Size: 9.2 cm Echogenicity: Normal Parenchymal thickness: Normal Collecting system: No hydronephrosis Stones: None Cyst/Mass: None Left Kidney: Size: 8.1 cm Echogenicity: Normal Parenchymal thickness: Normal Collecting system: No hydronephrosis Stones: None. Left renal calculus described on the comparison CT is not visualized by sonography. Cyst/Mass: None Bladder: Collapsed and poorly evaluated. Ureteral jets not identified. IMPRESSION: Unremarkable sonographic appearance of the kidneys. Suboptimal evaluation of the bladder as above. Signed by: Dr. Yogesh Putnam M.D. on 08/31/2019 7:25 PM
--- NOTE | 2019-08-31 20:22 | NUR ---
SPOKE TO MD LUIS CONCERNING SCHEDULED PRAVASTATIN AND ATORVASTATIN AT BEDTIME, TOLD TO GIVE ATORVASTATIN ONLY.
[2019-08-31] MEDS ORDERED: PRAVASTATIN 20 MG TAB PO SCH (21:00)
[2019-08-31] MEDS: ATORVASTATIN 20 MG TAB PO SCH (21:17)
[2019-09-01] VITALS (8 sets, daily range): BP systolic 121–147; BP diastolic 56–65
[2019-09-01 05:48] LABS: BASOPHILS # (AUTO) 0.1 (0.0-0.1); BASOPHILS % 0.5 % (0.0-1.0); EOSINOPHILS # (AUTO) 0.2 (0.0-0.4); EOSINOPHILS % 1.6 % (0.0-6.0); HEMATOCRIT 32.7 % (34.2-44.1); LYMPHOCYTES # (AUTO) 2.7 (1.0-3.2); LYMPHOCYTES % 22.8 % (18.0-39.1); MEAN CORPUSCULAR HEMOGLOBIN 26.3 pg (28-32); MEAN CORPUSCULAR HGB CONC 30.6 g/dL (31-35); MEAN CORPUSCULAR VOLUME 86.1 fL (81-99); MONOCYTES # (AUTO) 0.7 (0.2-0.8); MONOCYTES % 5.5 % (4.4-11.3); NEUTROPHILS # (AUTO) 8.1 (2.1-6.9); NEUTROPHILS % 69.3 % (38.7-80.0); PLATELET COUNT 423 x10e3/uL (140-360)
[2019-09-01 05:59] LABS: INR 1.11
[2019-09-01 06:09] LABS: ANION GAP 14.1 mmol/L (8-16); CALCIUM 9.5 mg/dL (8.4-10.2); CREATININE, SERUM 2.03 mg/dL (0.57-1.11); POTASSIUM 4.1 mmol/L (3.5-5.1)
[2019-09-01] MEDS: METFORMIN HCL 500 MG TAB CR PO SCH ×2 (08:00→17:00)
[2019-09-01] MEDS: MULTIVITAMINS/MINERALS TAB PO SCH (08:29)
[2019-09-01] MEDS: ASPIRIN 81 MG CHEW TAB PO SCH (08:29)
[2019-09-01] MEDS: PANTOPRAZOLE SOD 40 MG TABEC PO SCH (08:29)
[2019-09-01] MEDS: MONTELUKAST SODIUM 10 MG TAB PO SCH (08:29)
[2019-09-01] MEDS: METOPROLOL SUCCINATE 50 MG TAB XL PO SCH (08:29)
--- NOTE | 2019-09-01 10:35 | NUR ---
pt sent for stress test
--- NOTE | 2019-09-01 11:23 | Progress Note ---
DATE: SUBJECTIVE: No dyspnea. No chest pain. Awaiting stress test. PHYSICAL EXAMINATION: GENERAL: No distress. VITAL SIGNS: Temperature 96.4, pulse 74, blood pressure 138/65. CHEST: Clear at this time. EXTREMITIES: No edema. SKIN: Remains dry. LABORATORY DATA: UA as noted was bland at admission. Creatinine 2.03, BUN 28. ASSESSMENT: 1. Acute kidney injury. 2. Chronic kidney disease stage 3, presumed nephrosclerosis, possible diabetic end-organ damage. 3. Volume depletion is improved and the acute kidney injury is improving. PLAN: Continue oral hydration. A.m. labs. No emergent. Avoid nephrotoxins. If renal function further recovers we could safely add back the metformin if needed. We will follow along. MD SHADIA EugeneK/MODL /[id number]
--- NOTE | 2019-09-01 11:50 | NUR ---
pt returned from stress test, unable to have test done due to nuclear med protocols. pt is upset, rasing her voice, stating she is hungry. at bedside talking in a voice raised that pt is hungry and demands for test to be done now. explain to pt and her why nuclear med is waiting on dr to approve test
--- NOTE | 2019-09-01 12:05 | NUR ---
pt states she is having chest pain in middle of chest, rates pain 8. pt states she takes nitro at home and it helps. nitro sl given times 3. pt states pain decreased to 1. pt appears more calmer and verbalizes understanding of why stress test has not been done yet
[2019-09-01] MEDS: NITROGLYCERIN 0.4 MG SUBL SL SCH ×3 (12:13→12:23)
[2019-09-01] MEDS ORDERED: PERFLUTREN LIPID MICROSPHERES 2 ML VIAL IV ONE (13:30)
[2019-09-01] MEDS ORDERED: REGADENOSON 0.4 MG/5 ML SYR IV ONE (14:59)
[2019-09-01] MEDS: WARFARIN SOD 3 MG TAB PO SCH (17:00)
[2019-09-01] MEDS: ONDANSETRON HCL 4 MG ORAL DISINTEGRATING TAB PO PRN (17:11)
--- NOTE | 2019-09-01 17:25 | NUR ---
pt returned from stress test, pt stated she vomited during the test and vomited, zofran given
--- NOTE | 2019-09-01 18:11 | NUR ---
pt sleeping in bed
--- NOTE | 2019-09-01 20:00 | NUR ---
REPORT RECEIVED FROM DAY NURSE. PT IS ALERT AND ORIENTED X3. PT CALLING FOR ASSISTANCE TO BATHROOM UNSTEADY AT TIMES. PT REPORTS SHE HAS GROWTH ON HER HEAL WHICH CAUSES PAIN WHEN SHE WALKS. RESPIRATIONS ARE EVEN AND UNLABORED.O2 AT 2L PER D/C. TELE ON. DENIES CHEST PAIN. VOIDING WITHOUT DIFFICULTY. 20 G SL IN LEFT AC INTACT BUT LEAK WHEN FLUSH. PT REFUSED TO HAVE RESTARTED.CALL LIGHT WITHIN REACH.BED IN LOW POSITION. WILL CONTINUE TO MONITOR FOR PAIN.
[2019-09-01] MEDS: ATORVASTATIN 20 MG TAB PO SCH (20:50)
--- NOTE | 2019-09-01 21:36 | Myoview Stress Test ---
DATE OF STUDY: 09/01/2019 09:10:00 Stress Test - Treadmill ONLY PROCEDURE TITLE: Rest/stress single isotope SPECT imaging with pharmacologic stress and gated SPECT imaging. INDICATION: Chest pain. PROCEDURE IN DETAIL: Pharmacologic stress testing was performed with regadenoson per protocol. The heart rate was 87 beats per minute at rest and increased to 109 beats per minute during the regadenoson infusion. The resting blood pressure was 151/56 mmHg and decreased to 91/65 mmHg, which is a normal response. The resting electrocardiogram demonstrated normal sinus rhythm with PACs. There were no ST-segment changes suggestive of myocardial ischemia. Myocardial perfusion imaging was performed at rest following the injection of 9.3 mCi of tetrofosmin. At peak pharmacologic effect, the patient was injected with 29 mCi of tetrofosmin. Gated post-stress tomographic imaging was performed. FINDINGS: The overall quality of study is fair. Left ventricular cavity is noted to be enlarged on rest and stress studies. SPECT images demonstrate a large severe perfusion defect in the distal anterior, distal septal, and distal inferior viera and apex on rest and stress. Gated SPECT imaging reveals akinesis of the distal inferior, distal septal, distal anterior wall and apex. The left ventricular ejection fraction was calculated to be 34%. IMPRESSION: Myocardial perfusion imaging is abnormal. There is a large area of transmural scar in the distal inferior, distal septal, distal anterior wall and apex. Overall, left ventricular systolic function was abnormal with regional wall motion abnormalities as above. Heavenly Baltazar MD ABS/MODL /[id number]
--- NOTE | 2019-09-01 21:41 | Progress Note ---
DATE: 09/01/2019 Cardiology Progress Note SUBJECTIVE: The patient continues to complain of chest pain. She denies any shortness of breath. OBJECTIVE: VITAL SIGNS: Temperature 97.8 degrees, pulse 78, respiratory rate 18, blood pressure 142/63, and oxygen saturation 98%. GENERAL: Chronically ill-appearing woman, awake and alert, no acute distress. LUNGS: Clear to auscultation bilaterally. No wheezes or crackles. CARDIOVASCULAR: Normal rate regular rhythm. No murmur. Normal S1, S2. Tender to palpation over the left chest. ABDOMEN: Soft, nontender, nondistended. EXTREMITIES: No edema. CARDIAC MEDICATIONS: Atorvastatin 20 mg p.o. at bedtime, warfarin 3 mg p.o. daily, metoprolol succinate 50 mg p.o. daily, aspirin 81 mg p.o. daily. LABORATORY DATA: WBC 11.76, hemoglobin 10, hematocrit 32.7, platelets 423. Sodium 141, potassium 4.1, chloride 102, CO2 29, BUN 28, creatinine 2.03. Telemetry was personally reviewed, interpreted revealing normal sinus rhythm. ASSESSMENT: 1. Chest pain. 2. Coronary artery disease. 3. Paroxysmal atrial fibrillation. 4. Status post permanent pacemaker. 5. Hyperlipidemia. 6. Tobacco abuse. RECOMMENDATIONS: The patient has ruled out for myocardial infarction with serial troponin. Her echocardiogram revealed severe systolic heart failure with evidence of prior myocardial infarction in the LAD territory. Her nuclear stress test corroborates this finding with a large severe perfusion defect in the distal anteroseptal inferior wall and apex without evidence of ischemia. Continue patient on optimal medical therapy. Start EDUAR if renal function tolerates and agreeable with Nephrology. Resume anticoagulation if no procedures are planned. Thank you for this consult. We will continue to follow. Heavenly Baltazar MD ABS/MODL /[id number]
[2019-09-02 00:17] VITALS: BP 136/62
[2019-09-02 04:00] VITALS: BP 129/63
[2019-09-02 06:04] LABS: BASOPHILS # (AUTO) 0.1 (0.0-0.1); BASOPHILS % 0.4 % (0.0-1.0); EOSINOPHILS # (AUTO) 0.1 (0.0-0.4); EOSINOPHILS % 0.9 % (0.0-6.0); HEMATOCRIT 31.5 % (34.2-44.1); HEMOGLOBIN 9.9 g/dL (12.0-16.0); LYMPHOCYTES # (AUTO) 2.4 (1.0-3.2); LYMPHOCYTES % 21.5 % (18.0-39.1); MEAN CORPUSCULAR HGB CONC 31.4 g/dL (31-35); MEAN CORPUSCULAR VOLUME 85.8 fL (81-99); MONOCYTES # (AUTO) 0.7 (0.2-0.8); NEUTROPHILS % 70.8 % (38.7-80.0); PLATELET COUNT 416 x10e3/uL (140-360); RED BLOOD COUNT 3.67 x10e6/uL (3.6-5.1); RED CELL DISTRIBUTION WIDTH 15.1 % (11.7-14.4)
[2019-09-02 06:12] LABS: ANION GAP 11.8 mmol/L (8-16); CALCIUM 9.2 mg/dL (8.4-10.2); CREATININE, SERUM 2.22 mg/dL (0.57-1.11); POTASSIUM 3.8 mmol/L (3.5-5.1)
[2019-09-02 07:30] VITALS: BP 137/58
[2019-09-02 08:11] VITALS: BP 137/58
[2019-09-02] MEDS: PANTOPRAZOLE SOD 40 MG TABEC PO SCH (09:09)
[2019-09-02] MEDS: MONTELUKAST SODIUM 10 MG TAB PO SCH (09:09)
[2019-09-02] MEDS: METFORMIN HCL 500 MG TAB CR PO SCH (09:09)
[2019-09-02] MEDS: MULTIVITAMINS/MINERALS TAB PO SCH (09:09)
[2019-09-02] MEDS: ASPIRIN 81 MG CHEW TAB PO SCH (09:09)
[2019-09-02] MEDS: METOPROLOL SUCCINATE 50 MG TAB XL PO SCH (09:10)
--- NOTE | 2019-09-02 11:21 | Progress Note ---
DATE: 09/02/2019 Cardiology Progress Note SUBJECTIVE: The patient denies chest pain or shortness of breath. OBJECTIVE: VITAL SIGNS: Temperature 97.4 degrees, pulse 81, respiratory rate 18, blood pressure 127/50, and oxygen saturation 93% on room air. GENERAL: Awake, alert, elderly, chronically ill-appearing woman, in no acute distress, frail. LUNGS: Clear to auscultation bilaterally. No wheezes or crackles. CARDIOVASCULAR: Normal rate. Regular rhythm. No murmur. Normal S1 and S2. ABDOMEN: Soft, nontender, and nondistended. EXTREMITIES: No edema. CARDIAC MEDICATIONS: Metoprolol succinate 50 mg p.o. daily, aspirin 81 mg p.o. daily, atorvastatin 20 mg p.o. at bedtime, and warfarin 3 mg p.o. daily. LABORATORY DATA: WBC 11.25, hemoglobin 9.9, hematocrit 31.5, and platelets 416. Sodium 138, potassium 3.8, chloride 101, CO2 29, BUN 29, and creatinine 2.22. Telemetry was personally reviewed and interpreted, revealing normal sinus rhythm. IMPRESSION: 1. Chest pain. 2. Coronary artery disease. 3. Paroxysmal atrial fibrillation. 4. Status post permanent pacemaker. 5. Hyperlipidemia. 6. Tobacco abuse. RECOMMENDATIONS: The patient ruled out for myocardial infarction with serial cardiac biomarkers. Echocardiogram revealed severe systolic heart failure with evidence of prior myocardial infarction in the LAD territory. Nuclear stress test corroborates this finding with a large severe transmural scar in the distal anteroseptal inferior wall and apex without evidence of ischemia. Continue the patient on optimal medical therapy. Not on EDUAR due to renal dysfunction and if stable, consider initiation of EDUAR inhibitor as outpatient. Resume anticoagulation if no procedures are planned. Thank you for this consult. We will continue to follow. Heavenly Baltazar MD ABS/MODL /[id number]
[2019-09-02 12:13] VITALS: BP 123/58
--- NOTE | 2019-09-02 12:46 | NUR ---
Nutrition Screen Note RD Recommendation for Physician: - Add 1800 ADA to current diet Plan of Care: RD following, monitoring for tolerance and adequacy Nutrition reason for involvement: Nutrition Risk Trigger- uncoded food allergies Primary Diagnose(s): chest pain PMH: Afib, DM, pacemaker, CAD refluc esophagitis, CAD, HTN, HLD Ht: 65 in Wt: 144 lb BMI: 24 kg/m2 IBW: [address] Assessment: (09/02/19) 73 YOF admitted for chest pain, seen today per food allergy screen for coconut and pineapple. Pt denies allergy to coconut in regards to food or medication, reports skin reaction to coconut scented sunscreen. Pt reports difficulty breathing if she consumes pineapple, states "I just take 2 benadryl if that happens" and denies any anaphylactic reaction. Food allergies confirmed in [facility] and reactions updated in [facility]. Pt reports good appetite and intake, current within UBW range of 141-146#, and denies any N/V/C/D. Chart reviewed. Labs and meds reviewed. Will continue to monitor. Current Diet: Cardiac Malnutrition Evaluation (09/02/19) The patient does not meet criteria for a specified degree of malnutrition at this time. Will re-evaluate at follow-up as appropriate. Diet Education Needs Assessment: Diet education not indicated. Diet tolerance: tolerating po Nutrition Care Level: low Signed: Meme Gama RD, LD, [facility]
--- NOTE | 2019-09-02 15:10 | NUR ---
aware discontinued metformin. Discharge orders received
--- NOTE | 2019-09-02 15:15 | NUR ---
Left AC IV discontinued. No signs of infiltration noted. 2x2 gauze and coban placed. Taken via wheelchair to personal car by PCT. Accompanied by daughter and . AAOX4 to time, person, place, situation. Respirations even and unlabored. Denies pain. Discharge instructions and all personal belongings taken with patient. No rx available.
--- NOTE | 2019-09-06 14:52 | Discharge Summary ---
DISCHARGE DIAGNOSES: 1. Chest pain, rule out myocardial infarction. 2. Chronic kidney disease stage 3. 3. Diabetes. 4. Chronic obstructive pulmonary disease. 5. Yltqt-li-uklbops systolic heart failure. HISTORY OF PRESENT ILLNESS AND HOSPITAL COURSE: The patient is a lady, well known to me, presented with some chest pain, who has risk factor with old AL, who continues to smoke despite my many concerns to get her to quit, who presented with chest pain. She was ruled out by serial enzymes. She had an echo done showed EF of 45%. She had a stress test done that showed negative new ischemic changes, but she did have old scarring, so she is medical management which I have discussed the patient and once again encouraged the patient that she needs to quit smoking. She is to continue with her home medication at the time of discharge. She said she was feeling good. No further chest pain. So, she was discharged, will follow up in 1 to 2 weeks with me. Please see hospital chart for full details. MD QUINN Carver/ASH /[id number]
== END 2019-09-02 15:15 | disposition home or self-care (01) ==
LOC: ER 18:57 → ERHOLD 22:48 → INTOOBSV 22:48 → MED/SURG 23:55
PROVIDERS: ADMIT Internal Medicine; ATTEND Internal Medicine
DX: R07.2 Precordial pain (principal); I13.0 Hypertensive heart and chronic kidney disease with heart failure and stage 1 through stage 4 chronic kidney disease, or unspecified chronic kidney disease; I50.23 Acute on chronic systolic (congestive) heart failure; N17.9 Acute kidney failure, unspecified; I25.10 Atherosclerotic heart disease of native coronary artery without angina pectoris; M81.0 Age-related osteoporosis without current pathological fracture; I48.91 Unspecified atrial fibrillation; K21.0 Gastro-esophageal reflux disease with esophagitis; E78.5 Hyperlipidemia, unspecified; Z95.0 Presence of cardiac pacemaker; I48.0 Paroxysmal atrial fibrillation; Z72.0 Tobacco use; K21.9 Gastro-esophageal reflux disease without esophagitis; E11.22 Type 2 diabetes mellitus with diabetic chronic kidney disease; N18.3 Chronic kidney disease, stage 3 (moderate); I25.2 Old myocardial infarction; I50.20 Unspecified systolic (congestive) heart failure
CPT/HCPCS: 36415 ×4; 71045; 76770; 78452; 80048 ×2; 80053; 80061; 81001; 81015; 82550 ×2; 82553 ×2; 82948 ×3; 83605; 84484 ×2; 85025 ×3; 85610 ×2; 87040; 93005; 93017; 93041; 93306; 99284; A9502; G0378 ×4; J0696; J2785; J7030; Q0162 ×2; Q9957; S0164 ×2

== ENCOUNTER 2019-10-16 11:05 | Observation (INO) | payer MEDICARE ==
[~2019-10-16] VITALS: Ht 165.1 cm; Wt 62.6 kg
[~2019-10-16 11:05] MED LIST changes: +METOPROLOL SUCC50 MG PO
--- OUTSIDE RECORDS SUMMARY | 2019-10-16 11:10 | XMS REPORT ---
Author Author [facility] Address Unknown Phone Unavailable Care Team Providers Care Sport Shoe Spike Assembler Name Role Phone WILLA LUIS MD PP WILLA LUIS Unavailable Unavailable Jake DENISE Unavailable Unavailable Jessica MONTES Unavailable Unavailable Payers Payer Name Policy Type Policy Number Effective Date Expiration Date Njuice [id number] 2017 00:00:00 Njuice [id number] 2017 00:00:00 Njuice [id number] 2017 00:00:00 Problems Condition Name Condition Details Condition Category Status Onset Date Resolution Date Last Treatment Date Treating Clinician Comments Abdominal pain Abdominal pain Problem Active 2014-04-30 00:00:00 Dehydration Dehydration Problem Active Pre-syncope Near syncope Problem Active Fracture of pelvis Pelvic fracture Problem Active Urinary tract infection Urinary tract infection Problem Active Acute renal failure Acute renal failure Problem Active Chest pain Chest pain Problem Active Diarrhea Diarrhea Problem Active Lactic acidosis Lactic acid acidosis Problem Active Sustained ventricular tachycardia Ventricular tachycardia, sustained Problem Active Allergies, Adverse Reactions, Alerts Allergy Name Allergy Type Status Severity Reaction(s) Onset Date Inactive Date Treating Clinician Comments 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 Ordering Clinician Indication Dosage Frequency Signature (SIG) Comments Components Alendronate Sodium (Fosamax) 70 Mg Tablet Alendronate Sodium (Fosamax) 70 Mg Tablet Yes 70 Every Sunday Aspirin 81 Mg Tab.chew Aspirin 81 Mg Tab.chew Yes 81 Daily Furosemide (Lasix) 40 Mg Tablet Furosemide (Lasix) 40 Mg Tablet Yes 40 Daily Metoprolol Succinate 50 Mg Tab.er.24h Metoprolol Succinate 50 Mg Tab.er.24h Yes 50 Daily Montelukast Sodium 10 Mg Tablet Montelukast Sodium 10 Mg Tablet Yes 10 Daily Multivitamin (Multi-Vitamin Daily) 1 Each Tablet Multivitamin (Multi-Vitamin Daily) 1 Each Tablet Yes 1 Daily Nitroglycerin 0.4 Mg Tab.subl Nitroglycerin 0.4 Mg Tab.subl Yes .4 Every 5 Minutes Omeprazole 20 Mg Capsule. Omeprazole 20 Mg Capsule. Yes 20 Daily Ondansetron (Zofran Odt) 4 Mg Tab.rapdis Ondansetron (Zofran Odt) 4 Mg Tab.rapdis Yes 4 Every 6 Hours as needed for Nausea Pravastatin Sodium 40 Mg Tablet Pravastatin Sodium 40 Mg Tablet Yes 40 Qhs Warfarin Sodium 4 Mg Tablet Warfarin Sodium 4 Mg Tablet Yes 3 Daily@1700 Metformin Hcl (Glucophage Xr) 500 Mg Tab.er.24h, 500 Mg Oral Metformin Hcl (Glucophage Xr) 500 Mg Tab.er.24h, 500 Mg Oral 2019-09-02 00:00:00 No 500 Twice A Day Amiodarone Hcl 200 Mg Tablet, 200 Mg Oral Amiodarone Hcl 200 Mg Tablet, 200 Mg Oral 2019-08-31 00:00:00 No 200 Daily Metoclopramide Hcl 10 Mg Tablet, 10 Mg Oral Metoclopramide Hcl 10 Mg Tablet, 10 Mg Oral 2019-08-31 00:00:00 No 10 Before Meals And At Bedtime Ciprofloxacin Hcl (Cipro) 500 Mg Tablet, 500 Mg Oral Ciprofloxacin Hcl (Cipro) 500 Mg Tablet, 500 Mg Oral 2019-08-30 00:00:00 No 500 Every 12 Hours Metronidazole (Flagyl) 500 Mg Tablet, Metronidazole (Flagyl) 500 Mg Tablet, 2019-08-30 00:00:00 No Metronidazole (Flagyl) 500 Mg Tablet, Oral Metronidazole (Flagyl) 500 Mg Tablet, Oral 2019-08-30 00:00:00 No Three Times A Day Alprazolam 0.5 Mg Tablet, 0.5 Mg Oral Alprazolam 0.5 Mg Tablet, 0.5 Mg Oral 2017-08-09 00:00:00 No .5 Every Evening Amiodarone Hcl (Pacerone) 200 Mg Tablet, 200 Mg Oral Amiodarone Hcl (Pacerone) 200 Mg Tablet, 200 Mg Oral 2017-08-09 00:00:00 No 200 Every Evening Carvedilol 12.5 Mg Tablet, 12.5 Mg Oral Carvedilol 12.5 Mg Tablet, 12.5 Mg Oral 2017-08-09 00:00:00 No 12.5 Twice A Day Digoxin (Lanoxin) 125 Mcg Tablet, 125 Mcg Oral Digoxin (Lanoxin) 125 Mcg Tablet, 125 Mcg Oral 2017-08-09 00:00:00 No 125 Daily Diltiazem Hcl (Diltiazem 24HR Er) 120 Mg Cap.er.24h, 120 Mg Oral Diltiazem Hcl (Diltiazem 24HR Er) 120 Mg Cap.er.24h, 120 Mg Oral 2017-08-09 00:00:00 No 120 Daily Gabapentin 300 Mg Capsule, 300 Mg Oral Gabapentin 300 Mg Capsule, 300 Mg Oral 2017-08-09 00:00:00 No 300 Every Evening Glipizide 5 Mg Tablet, 5 Mg Oral Glipizide 5 Mg Tablet, 5 Mg Oral 2017-08-09 00:00:00 No 5 Daily Isosorbide Mononitrate (Imdur) 30 Mg Tabcr, 30 Mg Oral Isosorbide Mononitrate (Imdur) 30 Mg Tabcr, 30 Mg Oral 2017-08-09 00:00:00 No 30 Every Evening Warfarin Sodium 3 Mg Tablet, 3 Mg Oral Warfarin Sodium 3 Mg Tablet, 3 Mg Oral 2017-08-09 00:00:00 No 3 Mon,Tue,Anjelica,Sat,Sun Warfarin Sodium 3 Mg Tablet, 6 Mg Oral Warfarin Sodium 3 Mg Tablet, 6 Mg Oral 2017-08-09 00:00:00 No 6 Every Sun & Sun Metoclopramide Hcl 10 Mg Tablet, 10 Mg Oral Metoclopramide Hcl 10 Mg Tablet, 10 Mg Oral 2014-04-30 00:00:00 No 10 With Each Meal Aspirin 81 Mg Tab.chew, 81 Mg Oral Aspirin 81 Mg Tab.chew, 81 Mg Oral 2013-09-03 00:00:00 No 81 Daily Nitroglycerin (Nitrostat) 0.4 Mg Tab.subl, 0.4 Mg Sublingual Nitroglycerin (Nitrostat) 0.4 Mg Tab.subl, 0.4 Mg Sublingual 2013-09-03 00:00:00 No .4 As Needed [place]-3 Fatty Acids (Fish Oil) 300 Mg Capsule, 300 Mg Oral [place]-3 Fatty Acids (Fish Oil) 300 Mg Capsule, 300 Mg Oral 2013-09-03 00:00:00 No 300 Twice A Day Topiramate (Topamax) 50 Mg Tablet, 50 Mg Oral Topiramate (Topamax) 50 Mg Tablet, 50 Mg Oral 2013-09-03 00:00:00 No 50 Twice A Day Warfarin Sodium (Coumadin) 5 Mg Vial, Warfarin Sodium (Coumadin) 5 Mg Vial, 2013-02-09 00:00:00 No Procedures and Interventions Procedure Date / Time Performed Performing Clinician Ultrasound, renal 2019-08-31 00:00:00 SUSANNA CERDA Encounters Start Date/Time End Date/Time Encounter Type Admission Type Attending [facility] Care Facility Care Department Encounter ID 2019-08-30 22:48:00 2019-09-02 15:15:00 Discharged Inpatient (obs) 1 WILLA LUIS [facility] [id number] 2017-12-05 20:14:00 2017-12-07 15:52:00 Discharged Inpatient 1 JAKUB DENISE [facility] [id number] 2017-08-09 16:39:00 2017-08-10 17:20:00 Discharged Inpatient (obs) ER GALLO MONTES [facility] [id number] 2017-01-17 18:55:00 2017-01-17 22:00:00 Departed Emergency Room [facility] [id number] Results Test Description Test Time Test Comments Text Results Atomic Results Result Comments Sodium Level 2019-09-02 06:16:00 Sodium Level (test fgnk=3495-0) 138 136-145 Potassium Kioic3769-07-40 06:16:00* Test Item Value Reference Range Comments Potassium Level (test cgss=7318-7) 3.8 3.5-5.1 Chloride Qqzsx4976-05-35 06:16:00* Test Item Value Reference Range Comments Chloride Level (test srht=0007-2) 101 98-107 Carbon Dioxide Tduyf7623-12-66 06:16:00* Test Item Value Reference Range Comments Carbon Dioxide Level (test zlhp=1997-2) 29 22-29 Anion Yjk2627-40-88 06:16:00* Test Item Value Reference Range Comments Anion Gap (test qieo=16957-8) 11.8 8-16 Blood Urea Tbmmbryi9940-06-19 06:16:00* Test Item Value Reference Range Comments Blood Urea Nitrogen (test dcxb=9971-7) 29 7-26 Hausyoidjh9764-14-89 06:16:00* Test Item Value Reference Range Comments Creatinine (test bqjs=8949-3) 2.22 0.57-1.11 BUN/Creatinine Dtdpv9224-83-99 06:16:00* Test Item Value Reference Range Comments BUN/Creatinine Ratio (test ijql=3452-1) 13 6-25 Estimat Glomerular Filtration Rymj0903-39-35 06:16:00* Test Item Value Reference Range Comments Estimat Glomerular Filtration Rate (test kscj=293716504) 22 >60 Ranges were taken from the National Kidney Disease Education Program and the [facility] literature.Reference ranges:60 or greater: Mcerrk64-67 ( for 3 consecutive months): Chronic kidney disease 15 or less: Kidney failure Glucose Ofhss0200-64-79 06:16:00* Test Item Value Reference Range Comments Glucose Level (test cftf=HBU9217) 168 74-118 Calcium Szriy2634-61-11 06:16:00* Test Item Value Reference Range Comments Calcium Level (test agqi=82674-0) 9.2 8.4-10.2 White Blood Gedag6476-45-94 06:07:00* Test Item Value Reference Range Comments White Blood Count (test cykz=6669-9) 11.25 4.8-10.8 Red Blood Uawph4643-87-38 06:07:00* Test Item Value Reference Range Comments Red Blood Count (test ddlc=029-2) 3.67 3.6-5.1 Mpbpshpyvf5989-22-54 06:07:00* Test Item Value Reference Range Comments Hemoglobin (test uylq=78747-4) 9.9 12.0-16.0 Srreaxkldu9555-09-95 06:07:00* Test Item Value Reference Range Comments Hematocrit (test bayn=6401-0) 31.5 34.2-44.1 Mean Corpuscular Xksgjj2985-36-90 06:07:00* Test Item Value Reference Range Comments Mean Corpuscular Volume (test bdfu=170-1) 85.8 81-99 Mean Corpuscular Ckpczcnzte3107-34-37 06:07:00* Test Item Value Reference Range Comments Mean Corpuscular Hemoglobin (test nuba=261-1) 27.0 28-32 Mean Corpuscular Hemoglobin Lnwtqag1722-17-85 06:07:00* Test Item Value Reference Range Comments Mean Corpuscular Hemoglobin Concent (test zird=580-8) 31.4 31-35 Red Cell Distribution Nburv2956-16-65 06:07:00* Test Item Value Reference Range Comments Red Cell Distribution Width (test srju=61969-1) 15.1 11.7-14.4 Platelet Yqpus9482-40-17 06:07:00* Test Item Value Reference Range Comments Platelet Count (test gyku=696-5) 416 140-360 Neutrophils (%) (Auto)2019-09-02 06:07:00* Test Item Value Reference Range Comments Neutrophils (%) (Auto) (test ffio=97741-6) 70.8 38.7-80.0 Lymphocytes (%) (Auto)2019-09-02 06:07:00* Test Item Value Reference Range Comments Lymphocytes (%) (Auto) (test xyzi=574-2) 21.5 18.0-39.1 Monocytes (%) (Auto)2019-09-02 06:07:00* Test Item Value Reference Range Comments Monocytes (%) (Auto) (test qjxw=7009-1) 6.0 4.4-11.3 Eosinophils (%) (Auto)2019-09-02 06:07:00* Test Item Value Reference Range Comments Eosinophils (%) (Auto) (test jrnn=347-6) 0.9 0.0-6.0 Basophils (%) (Auto)2019-09-02 06:07:00* Test Item Value Reference Range Comments Basophils (%) (Auto) (test zqpd=453-4) 0.4 0.0-1.0 IM GRANULOCYTES %2019-09-02 06:07:00* Test Item Value Reference Range Comments IM GRANULOCYTES % (test code=IM GRANULOCYTES %) 0.4 0.0-1.0 Neutrophils # (Auto)2019-09-02 06:07:00* Test Item Value Reference Range Comments Neutrophils # (Auto) (test pflm=316-5) 8.0 2.1-6.9 Lymphocytes # (Auto)2019-09-02 06:07:00* Test Item Value Reference Range Comments Lymphocytes # (Auto) (test fssl=19364-0) 2.4 1.0-3.2 Monocytes # (Auto)2019-09-02 06:07:00* Test Item Value Reference Range Comments Monocytes # (Auto) (test pfxr=548-3) 0.7 0.2-0.8 Eosinophils # (Auto)2019-09-02 06:07:00* Test Item Value Reference Range Comments Eosinophils # (Auto) (test znde=371-2) 0.1 0.0-0.4 Basophils # (Auto)2019-09-02 06:07:00* Test Item Value Reference Range Comments Basophils # (Auto) (test fmgj=850-0) 0.1 0.0-0.1 Absolute Immature Granulocyte (bwvq3286-43-35 06:07:00* Test Item Value Reference Range Comments Absolute Immature Granulocyte (auto (test code=Absolute Immature Granulocyte (auto) 0.05 0-0.1 Blood Gnneziv4033-23-88 21:14:00* Test Item Value Reference Range Comments Blood Culture (test fyur=63870067) NO GROWTH AFTER 48 HOURS Bedside Kolcdhj8592-43-17 19:59:00* Test Item Value Reference Range Comments Bedside Glucose (test ipnv=18830-2) 133 70-120 Meter ID: [id number] Test - Treadmill TELD9426-09-32 18:25:00 [facility] [address] [address] Patient Name : MARGARITA EATON MR #: [id number] : 1945 Age/Sex: 73/F Adm Physician : WILLA LUIS MD Admit Date : 08/30/19 Location : MED/SURG [place] [facility] [place] [facility] [place] REPORT: Melani dallas Stress Test DATE OF STUDY: 09/01/2019 09:10:00 Stress Test - Treadmi ll ONLY PROCEDURE TITLE: Rest/stress single isotope SPECT imaging with ph armacologic stress and gated SPECT imaging. INDICATION: Chest pain. PROCEDURE IN DETAIL: Pharmacologic stress testing was performed with regade noson per protocol. The heart rate was 87 beats per minute at rest and increa sed to 109 beats per minute during the regadenoson infusion. The resting bloo d pressure was 151/56 mmHg and decreased to 91/65 mmHg, which is a normal resp onse. The resting electrocardiogram demonstrated normal sinus rhythm with PAC s. There were no ST-segment changes suggestive of myocardial ischemia. Myocardial perfusion imaging was performed at rest following the injection of 9 .3 mCi of tetrofosmin. At peak pharmacologic effect, the patient was injected with 29 mCi of tetrofosmin. Gated post-stress tomographic imaging was perfor med. FINDINGS: The overall quality of study is fair. Left ventricular c avity is noted to be enlarged on rest and stress studies. SPECT images demons trate a large severe perfusion defect in the distal anterior, distal septal, a nd distal inferior viera and apex on rest and stress. Gated SPECT imaging rev eals akinesis of the distal inferior, distal septal, distal anterior wall and apex. The left ventricular ejection fraction was calculated to be 34%. IMPRESSION: Myocardial perfusion imaging is abnormal. There is a large area of transmural scar in the distal inferior, distal septal, distal anterior wall and apex. Overall, left ventricular systolic function was abnormal with region al wall motion abnormalities as above. Oscar Baltazar MD ABS/ASH T: 0 09/01/2019 21:21:11 /[id number] Signature Date Dictated By: OSCAR BALTAZAR MD Transcribed By: MODL on 09/01/19 < Electronically signed by OSCAR BALTAZAR MD><<Signature on File>>09/30/19 5857 COPY TO: Prothrombin Yhkk2532-45-62 05:59:00* Test Item Value Reference Range Comments Prothrombin Time (test uapr=0662-4) 15.0 11.9-14.5 Prothromb Time International Acfcr3010-56-11 05:59:00* Test Item Value Reference Range Comments Prothromb Time International Ratio (test wmda=9439-4) 1.11 Oral Anticoagulant Therapy INR Values:1. Low Intensity Therapy 1.5 - 2.02 . Moderate Intensity Therapy 2.0 - 3.03. High Intensity Therapy(1) 2.5 - 3. 54. High Intensity Therapy(2) 3.0 - 4.05. Panic Value INR > 5.0 US RENAL RETROPERITONEAL FSQX2129-81-66 19:24:[address] [address] Patient Name: MARGARITA EATON MR #: [id number] : 1945 Age/Sex: 73/F Req #: [id number] Adm Physician: WICHO HANCOCK MD Ordered by: SUSANNA CERDA MD Report #: [id number] Location: MED/SURG Room/Bed: [facility] [place] [facility] [place] Procedure: [id number] US/ US RENAL RETROPERITONEAL COMP Exam Date: 08/31/19 Ex am Time: 1826 REPORT STATUS: Signed EXAM: Renal Ultrasound INDICATION: [id number] COMPARISON: CT abdomen and pelvis 04/14/2018 TECHNIQUE: Transverse and longit udinal images of the kidneys and bladder were obtained. FINDINGS: Right Kidney: Size: 9.2 cm Echogenicity: Normal Pa renchymal thickness: Normal Collecting system: No hydronephrosis Stones: None Cyst/Mass: None Left Kidney: Size: 8.1 cm Echogenicity: Normal Parenchymal thickness: Normal Collecting system: No hydronephrosis Stones: None. Left renal calculus described on the comparison CT is not visualized by sonography. Cyst/Mass: None Bladder: Collapsed and poorly evaluated. Ureteral jets not identified. IMPRESSION: Unremarkable sonographic appearance of the kidneys. Subopti mal evaluation of the bladder as above. Signed by: Dr. Qasim Putnam M.D. on 08/31/2019 7:25 PM Dictated By: QASIM PUTNAM MD Electronically S igned By: QASIM PUTNAM MD on 08/31/191924 Transcribed By: IZZY on 08/31/191924 COPY TO: SUSANNA CERDA MD Urine Nitttfkzhwq9269-75-52 15:39:00 * Test Item Value Reference Range Comments Urine Eosinophils (test xadu=87865-7) NONE SEEN NONE SEEN Creatine Kinase NO5561-28-59 14:34:00* Test Item Value Reference Range Comments Creatine Kinase MB (test ddeq=41580-6) 1.00 0-5.0 Troponin P5750-00-85 14:34:00* Test Item Value Reference Range Comments Troponin I (test yokp=SMH1894) 0.016 0-0.300 Creatine Gnrarc1441-28-93 14:28:00* Test Item Value Reference Range Comments Creatine Kinase (test srey=2074-6) 32 29-168 Triglycerides Bibwa5259-94-21 06:56:00* Test Item Value Reference Range Comments Triglycerides Level (test ayzb=0651-0) 167 0-149 Cholesterol Uommg5847-33-23 06:56:00* Test Item Value Reference Range Comments Cholesterol Level (test invi=9104-5) 85 0-199 Less than 200 mg/dL Low Lmrz410 - 239 mg/dL Borderline Rwaj540 m g/dl and greater High Risk LDL Oioclwpgcgf2146-19-92 06:56:00* Test Item Value Reference Range Comments LDL Cholesterol (test zpyc=8064-1) 29 60-130 HDL Juzbgvhlhbp9379-67-53 06:56:00* Test Item Value Reference Range Comments HDL Cholesterol (test exsw=1022-3) 23 40-60 Cholesterol/HDL Duidv1371-11-35 06:56:00* Test Item Value Reference Range Comments Cholesterol/HDL Ratio (test gmhh=4794-0) 3.7 3.0-3.6 Urine Ngnfy4232-39-93 21:37:00* Test Item Value Reference Range Comments Urine Color (test eafo=7511-5) YELLOW YELLOW Urine Xxxejtu9372-54-85 21:37:00* Test Item Value Reference Range Comments Urine Clarity (test glwv=51813-0) CLEAR CLEAR Urine Specific Jnbubto0069-30-87 21:37:00* Test Item Value Reference Range Comments Urine Specific [place] (test fodl=7511-1) 1.015 1.010-1.025 Urine rS4899-54-46 21:37:00* Test Item Value Reference Range Comments Urine pH (test jbzo=84864-9) 7.5 5-7 Urine Leukocyte Dwswfxje1715-16-55 21:37:00* Test Item Value Reference Range Comments Urine Leukocyte Esterase (test doaq=7355-5) NEGATIVE NEGATIVE Urine Huhyixj3684-23-50 21:37:00* Test Item Value Reference Range Comments Urine Nitrite (test qkwf=13869-3) NEGATIVE NEGATIVE Urine Siqkzoh9530-83-77 21:37:00* Test Item Value Reference Range Comments Urine Protein (test hstt=6775-8) TRACE NEGATIVE Urine Glucose (UA)2019-08-30 21:37:00* Test Item Value Reference Range Comments Urine Glucose (UA) (test mtzo=5589-9) NEGATIVE NEGATIVE Urine Kxhucoc2216-14-37 21:37:00* Test Item Value Reference Range Comments Urine Ketones (test sjca=91013-5) NEGATIVE NEGATIVE Urine Wtumfthylczj0678-97-28 21:37:00* Test Item Value Reference Range Comments Urine Urobilinogen (test romx=66113-7) 0.2 0.2-1 Urine Pytmxyxyh2014-69-73 21:37:00* Test Item Value Reference Range Comments Urine Bilirubin (test yaxc=1489-2) NEGATIVE NEGATIVE Urine Mfxmu8499-69-07 21:37:00* Test Item Value Reference Range Comments Urine Blood (test ydhw=95389-4) NEGATIVE NEGATIVE Urine RUF8622-25-43 21:37:00* Test Item Value Reference Range Comments Urine WBC (test zcjf=1122-3) 0-5 0-5 Urine FOX9970-04-95 21:37:00* Test Item Value Reference Range Comments Urine RBC (test xdye=91556-2) NONE 0-5 Urine Hfkwiops8462-54-61 21:37:00* Test Item Value Reference Range Comments Urine Bacteria (test kjnr=98630-2) FEW NONE Urine Epithelial Hbxit9769-95-44 21:37:00* Test Item Value Reference Range Comments Urine Epithelial Cells (test yeym=56891-5) FEW NONE Lactic Acid Vnkrp1571-57-24 21:25:00* Test Item Value Reference Range Comments Lactic Acid Level (test code=Lactic Acid Level) 0.8 0.5-2.0 Total Mshqsvbjx0796-95-82 20:17:00* Test Item Value Reference Range Comments Total Bilirubin (test hfoi=8189-4) 0.3 0.2-1.2 Aspartate Amino Transf (AST/SGOT)2019-08-30 20:17:00* Test Item Value Reference Range Comments Aspartate Amino Transf (AST/SGOT) (test code=Aspartate Amino Transf (AST/SGOT)) 17 5-34 Alanine Aminotransferase (ALT/SGPT)2019-08-30 20:17:00* Test Item Value Reference Range Comments Alanine Aminotransferase (ALT/SGPT) (test qrfl=0662-3) 8 0-55 Total Tlbedev1143-03-48 20:17:00* Test Item Value Reference Range Comments Total Protein (test kvvn=3869-9) 7.6 6.5-8.1 Swondty7073-73-05 20:17:00* Test Item Value Reference Range Comments Albumin (test uqlg=9951-8) 3.5 3.5-5.0 Beizkkme9781-09-54 20:17:00* Test Item Value Reference Range Comments Globulin (test libn=14031-3) 4.1 2.3-3.5 Albumin/Globulin Ljszl4626-87-20 20:17:00* Test Item Value Reference Range Comments Albumin/Globulin Ratio (test ekdt=4492-0) 0.9 0.8-2.0 Alkaline Xfkexwwbrsc1543-10-41 20:17:00* Test Item Value Reference Range Comments Alkaline Phosphatase (test qbyy=6918-2) 103 40-150 CHEST SINGLE (PORTABLE)2019-08-30 19:44:00 [address] [address] Patient Name: MARGARITA EATON MR #: [id number] : 1945 Age/Sex: 73/F Req #: [id number] Adm Physician: Ordered by: CB CISNEROS DO Report #: [id number] Location: ER Room/Bed: Procedure: [id number] DX/CHEST SINGLE (PORTABLE) Exam Date: 08/30/19 Exam Time: 1929 REPORT STATUS: Signed Examination: Single AP view of the chest. COMPARISON: 04/19/2018 IND ICATION: Chest pain DISCUSSION: The lungs are well inflated. No focal consolidation, pleural effusion, or pneumothorax. Left subclavian approach implantable cardiac device body and leads are unchanged in position. Stable cardiomediastinal contour including atherosclerotic calcification of t he thoracic aorta and borderline enlargement of the cardiac silhouette. Right hilar surgical clips are unchanged. No acute osseous abnormalities. I MPRESSION: 1. Borderline cardiomegaly without vascular decompensation. Signed by: Dr. Qasim Putnam M.D. on 08/30/2019 7:46 PM Dictated By: QASIM PUTNAM MD 45 T ranscribed By: IZZY on 08/30/191945 COPY TO: STEPHENCLARENCE KYMDO CHRISTINA CHEST 2 AGOPU9605-32-06 11:11:00 [address] [address] Patient Name: MARGARITA EATON MR #: [id number] : 1945 Age/Sex: 72/F Req #: [id number] Adm Physician: WILLA LUIS MD Ordered by: DEONDRE ZIMMERMAN MD Report #: [id number] Location: MED/SURG3 Room/Bed: [facility] Procedure: [id number] DX/C HEST 2 VIEWS Exam Date: 04/23/18 Exam Time: 1020 REPORT STATUS: Signed PROCEDURE: Frontal and lateral views of the chest. COMPARISON: Chest radiograph 04/19. INDICATIONS: PNEUMONIA, ACUTE RENAL FAILURE FINDINGS: T UBES and LINES: Left sided AICD is in unchanged position. Enteric tube has be en removed. Clips project over the right hilum. LUNGS: Moderate lung volu mes. Improving opacities in the left lung. Mild central vascular congestion w ithout justus edema. PLEURA: Improving small left pleural effusion. No ron dence of pneumothorax. HEART AND MEDIASTINUM: Cardiac size is mildly e nlarged. There are atherosclerotic calcifications within the aorta. BONE S AND SOFT TISSUES: No acute osseous lesion. Soft tissues are unremarkable. UPPER ABDOMEN: No free air under the diaphragm. IMPRESSION: Improving left lung opacities and decreased small left pleural effusion. No new conso lidation. Dictated by: RASHAWN PREEZ M.D. on 04/23/2018 at 11:11 Electronically approved by: RASHAWN PEREZ M.D. on 04/23/2018 at 11:11 Dictated By: RASHAWN PEREZ MD 1111 Transcribed By: SASKIA on 04/23/18 1111 COPY TO: FEDE ZIMMERMAN MD CHEST SINGLE (PORTABLE)2018-04-19 06:43:00 [address] [address] Patient Name: MARGARITA EATON MR #: [id number] : 1945 Age/Sex: 72/F Req #: [id number] Adm Physician: WILLA LUIS MD Ordered by: SUSANNA CERDA MD Report #: [id number] Location: ICU Room/Bed: [address] [address] Procedure: [id number] DX/CH EST SINGLE (PORTABLE) Exam Date: Exam Time: REPORT STATUS: Signed EXAMINATION: CH EST SINGLE (PORTABLE) INDICATION: Pneumonia follow-up C OMPARISON: 04/16/2018 FINDINGS: TUBES and LINES: AICD is intact. N G tube is visualized with tip at the level of the gastric body. Endotracheal t ube has been removed LUNGS: Lungs are not well inflated. Interval improve ment in left lung airspace opacity . Persistent left lower lobe atelectasis PLEURA: Trace of right and a small left pleural effusion HEART AND ME DIASTINUM: Cardiac size is mildly enlarged. There are atherosclerotic calcifi cations within the aorta. BONES AND SOFT TISSUES: No acute osseous lesion. Soft tissues are unremarkable. UPPER ABDOMEN: No free air under the david phragm. IMPRESSION: 1. Findings are compatible with improvement of left lung pneumonia. 2. Persistent left lower lobe atelectasis and pleural ef fusion. 3. Endotracheal tube has been removed. Signed by: Dr. David grimm M.D. on 04/19/2018 6:45 AM Dictated By: DAVID RANDALL MD El ectronically Signed By: DAVID RANDALL MD on 04/19/18644 Transcribed By : IZZY on 04/19/18644 COPY TO: SUSANNA CERDA MD CHEST SINGLE (PORTABLE)2018-04-17 06:43:00 [address] [address] Patient Name: MARGARITA EATON MR #: [id number] : 1945 Age/Sex: 72/F Req #: [id number] Adm Physician: WILLA LUIS MD Ordered by: WILLA LUIS MD Report #: [id number] Location: ICU Room/Bed: [place] [address] Procedure: [id number] DX/ CHEST SINGLE (PORTABLE) Exam Date: 04/17/18 Exam Marcelino e: 0515 REPORT STATUS: Signed EX AMINATION: CHEST SINGLE (PORTABLE) INDICATION: Intubation COMPARISON: 04/16/2018 FINDINGS: TUBES and LINES: Interval dwayne cement of NG tube with tip beyond the films limited along the mediastinum. End otracheal tube is stable. Left-sided ICD device is present LUNGS: Lungs are not well inflated. Predominantly left lung airspace opacity is stable. PLEURA: Small left pleural effusion. HEART AND MEDIASTINUM: Card iac size is mildly enlarged. There are atherosclerotic calcifications within t he aorta. BONES AND SOFT TISSUES: No acute osseous lesion. Soft tissues a re unremarkable. UPPER ABDOMEN: No free air under the diaphragm. IMPRESSION: 1. Endotracheal, new NG tube and pacemaker/ICD are stable. 2. Stable airspace disease involving the left hemithorax suspicious for pneumonia versus aspiration Signed by: Dr. David Millard M.D. on 04/17/2018 6:45 AM Dictated By: DAVID RANDALL MD 4 Transcribed By: IZZY on 04/17/18644 COPY TO: WILLA LUIS MD ABDOMEN-1VIEW (KUB)2018-04-16 17:19:00 [place] [address] Patient Name: MARGARITA EATON MR #: [id number] : 1945 Age/Sex: 72/F Req #: [id number] Adm Physician: WILLA LUIS MD Ordered by: DEONDRE ZIMMERMAN MD Report #: [id number] Location: ICU Room/Bed: [place] [address] Procedure: [id number] DX/A BDOMEN-1VIEW (KUB) Exam Date: 04/16/18 Exam Time: 17 00 REPORT STATUS: Signed EXAM: ABDOMEN-1VIEW (KUB), DATE: 04/16/2018 4:37 PM INDICATION: NG tube plac ement COMPARISON: Chest radiograph 04/16/2018 FINDINGS: LINES/TUBES: Na sogastric tube side hole and tip project below the expected gastroesophageal j unction and over the expected gastric body. Partially visualized AICD leads pr oject over the right atrium and right ventricle. BOWEL PATTERN: No evidence for obstruction. SOFT TISSUES: No abnormal calcifications. No mass effect. Cholecystectomy clips in the right upper quadrant. LUNG BASES: Persistent left basilar airspace opacity and trace left effusion. BONES: No acute fi ndings. IMPRESSION: Nasogastric tube side port and tip project over the g astric body. Nonobstructive bowel gas pattern. Signed by: DR. Serge Beck MD on 04/16/2018 5:22 PM Dictated By: SREGE BECK MD E lectronically Signed By: SERGE BECK MD on 04/16/181721 Transcribed By: SANDRA HELLER on 04/16/181721 COPY TO: DEONDRE ZIMMERMAN MD CHEST SINGLE (PORTABLE)2018-04-16 06:34:00 [facility] [address] [place] [address] Patient Name: MARGARITA EATON MR #: [id number] : 1945 Age/Sex: 72/F Req #: [id number] Adm Physician: WILLA LUIS MD Ordered by: DEONDRE ZIMMERMAN MD Report #: [id number] Location: ICU Room/Bed: [place] [address] Procedure: [id number] DX/C HEST SINGLE (PORTABLE) Exam Date: Exam Time: REPORT STATUS: Signed EXAMINATION: C HEST SINGLE (PORTABLE) INDICATION: Respiratory failure COMPARISON: 04/15/2018 FINDINGS: TUBES and LINES: AICD is intact. Endotracheal tube 4.7 cm above the keely in good position. LUNGS: Lungs are not well inflated. Left lower lobe airspace opacity suggestive of pneumo rosalia versus aspiration. Right hemithorax is clear. PLEURA: Trace of left pleural effusion. HEART AND MEDIASTINUM: Cardiac size is mildly enlarged. There are atherosclerotic calcifications within the aorta. BONES AND SOFT TISSUES: No acute osseous lesion. Soft tissues are unremarkable. UPPER ABDOMEN: No free air under the diaphragm. IMPRESSION: Left lower lo be airspace opacity is suspicious for developing pneumonia versus aspiration. Signed by: Dr. David Millard M.D. on 04/16/2018 6:35 AM Dictated B y: DAVID RANDALL MD 4 Transcribed By: IZZY on 04/16/18634 COPY TO: DEONDRE ZIMMERMAN MD CHEST SINGLE (PORTABLE)2018-04-15 07:58:00 [place] [address] Patient Name: MARGARITA EATON MR #: [id number] : 1945 Age/Sex: 72/F Req #: [id number] Adm Physician: WILLA LUIS MD Ordered by: DEONDRE ZIMMERMAN MD Report #: [id number] Location: ICU Room/Bed: [place] [address] Procedure: [id number] DX/TEVIN ST SINGLE (PORTABLE) Exam Date: 04/15/18 Exam Time: 0720 REPORT STATUS: Signed PROCEDURE: CHEST SINGLE (PORTABLE) COMPARI SON: CT chest without contrast 04/14/2018, chest radiograph 04/14/2018. IND ICATIONS: RESPIRATORY FAILURE, INTUBATED FINDINGS: Stable position of endotracheal tube. Stable position of left subclavian approach implantable cardiac device. . Patchy multifocal consolidations most notably affect ing the perihilar left lung. No large pleural effusion. No acute osseou s abnormality. Stable cardiomediastinal contour with post surgical changes of the right hilum and atherosclerotic calcification of the thoracic aorta. CONCLUSION: Stable position of endotracheal tube. Multifocal pn eumonia predominantly affecting the left upper lobe seen to better advantage on comparison CT 04/14/2018. Dictated by: Qasim Putnam M.D. on 04/15/2018 at 7:58 Electronically approved by: Qasim Putnam M.D. on 04/15/2018 at 7 :58 Dictated By: QASIM PUTNAM MD 7 Transcribed By: SASKIA on 04/15/18757 COPY TO: DEONDRE ZMIMERMAN MD CT ABDOMEN/PELVIS [id number] 13:07:00 [place] [address] Patient Name: MARGARITA EATON MR #: [id number] : 1945 Age/Sex: 72/F Req #: [id number] Adm Physician: Ordered by: ASTRID MATIAS MD Report #: [id number] Location: ER Room/Bed: Procedure: [id number] CT/CT ABDOMEN/PELVIS WO E xam Date: 04/14/18 Exam Time: 1244 REPORT STATU S: Signed EXAM: CT ABDOMEN/PELVIS WO DATE: 04/14/2018 12:05 PM IND ICATION: COMPARISON: None FINDINGS: Please see CT [facility]. IMPRESSION: As above. Signed by: Dr. Gloria Zamudio MD on 2017 1:07 PM Dictated By: GLORIA ZAMUDIO MD 06 Transcribed By: IZZY on 04/14/181306 COPY TO: ASTRID MATIAS MD CT CHEST [id number] 13:01:00 [place] [address] Patient Name: MARGARITA EATON MR #: [id number] : 1945 Age/Sex: 72/F Req #: [id number] [facility] Physician: Ordered by: ASTIRD MATIAS MD Report #: [id number] Location: ER Room /Bed: Procedure: [id number] CT/CT CHEST WO Exam Date: 04/14/18 Exam Time: 1244 REPORT STATUS: Signed EXAM: CT Chest, Abdomen and Pelvis WITHOUT contrast INDICATION: Short ness of breath, abdominal pain COMPARISON: None. TECHNIQUE: Chest, Abdomen and Pelvis was scanned utilizing a multidetector helical scanner witho ut the use of IV contrast. Coronal and sagittal reformations were obtained. Re formatted axial MIP images were obtained and reviewed. IV CONTR AST: None COMPLICATIONS: None RADIATION DOSE: Total DLP: 942 mGy*cm Estimated effective dose: (DLP x 0.015 x size fact or) mSv CTDIvol has been reviewed. It is below the limits set by the Radi ation Protocol Committee (RPC). Appropriate CT dose reduction techniques were utilized. FINDINGS: Chest: Lower Neck: ET tube present. Le ft chest wall ICD. Heart and Great Vessels: The aorta and main pulmonary ar lj measure 28 and 29 mm. respectively. No pericardial effusion. Advanced co ronary artery vascular calcifications and probable PCI changes, poorly evaluat ed without contrast. Advanced aortic and left common carotid vascular calcific ations. Lymph Nodes: Scattered small mediastinal lymph nodes, some of whic h are partially calcified. The hilar regions are sub-optimally evaluated given lack of IV contrast. Lungs: Scattered bilateral moderate areas of groun dglass and alveolar opacities, most focally in the lingula and left lower lobe . Additional septal thickening present. There is biapical scarring with no pne umothorax or pleural effusion. Evaluation for small nodules limited by motion and underlying areas of consolidation. Mild emphysematous changes. Ab domen: Solid Organs: Cholecystectomy clips. Nonenhanced images of adren als, spleen, and pancreas unremarkable. Nonobstructing calculus inferior left kidney measuring 4 mm. No hydroureter or hydronephrosis. Distal ureters poorly evaluated. Exophytic presumed simple cyst left kidney. Benign-appearing barak cification right hepatic lobe. Upper GI Tract: No small bowel obstructive c hanges. Vascularity: Advanced aortic vascular calcifications. Lymph No gil: No acute findings. Other: None. Pelvis: Bladder: Deco mpressed with Christine catheter. Other: Uterus absent. Colon: Moderate di verticulosis sigmoid colon with wall thickening. Minimal surrounding stranding possible. Bones: Superior endplate height loss L3 likely due to moderate to large Schmorl's node. Minimal superior height loss L2. IMPRESSION: 1. Scattered groundglass and alveolar opacities in the lungs, with most focal area of consolidation lingula and left lower lobe. Findings most consistent with multifocal pneumonia. Component of edema possible. 2. Moderate sigmo id diverticulosis with mild diverticulitis possible. 3. Nonobstructing lef t renal calculus. No definite ureteral calculus; however, distal ureters poorl y evaluated. 4. Advanced vascular calcifications chest and abdomen as abov e. Signed by: Dr. Gloria Zamudio MD on 04/14/2018 1:07 PM Dictated By : GLORIA ZAMUDIO MD 130 7 Transcribed By: IZZY on 04/14/18 1307 COPY TO: ASTRID MATIAS MD CT CERVICAL SPINE [id number] 11:27:00 [place] [address] Patient Name: MARGARITA EATON MR #: [id number] : 1945 Age/Sex: 72/F Req #: [id number] Adm Physician: Ordered by: ABHISHEK MENA [employer]FINING [employer]ER Report #: [id number] Location: ER Room/Bed: Procedure: [id number] CT/CT CERVICAL SPINE WO Ex am Date: 04/14/18 Exam Time: 1030 REPORT STATUS : Signed EXAMINATION: Head and cervical spine CT without contrast. HIS TORY: Status post fall, altered mental status, weakness COMPARISON: Head CT 1 08/09/2017 TECHNIQUE: Multidetector axial images were obtained without contrast from the foramen magnum to the vertex and through the cervical spine. The imag es were reconstructed using brain and bone algorithms. Thin section brain blanche ges were reformatted into coronal and sagittal planes. Dose modulation, i terative reconstruction, and/or weight based adjustment of the mA/kV was utili zed to reduce the radiation dose to as low as reasonably achievable. H EAD CT FINDINGS: Skull: No lytic or blastic lesions. No fractures. Parenchyma: Persistent mild chronic microvascular ischemic changes and a sm all chronic lacunar infarct in the left putamen. No mass, hemorrhage or CT ron dence of acute vascular insult. Brain volume: Moderate generalized brai n volume loss Ventricles: No hydrocephalus or displacement. Art eries: No density suggestive of thrombus. Dural sinuses: No abnormal den sity. Extra-axial spaces: No abnormal density. Foramen magnum: N o mass, Chiari malformation, or basilar invagination. Sella: No obvious mass. Paranasal/mastoid sinuses: Imaged portions unremarkable. CE RVICAL SPINE CT FINDINGS: Alignment:Normal alignment and lordosis. Minimal age indeterminate, likely chronic and degenerative anterolisthesis at C4-C5 a nd retrolisthesis at C6-C7. Soft tissues: Normal. Vertebrae: Normal height and density. No acute fracture, infection or neoplasm. Degener ative changes: C5-C6: Asymmetric to the right disc osteophyte, uncovertebra l and facet arthrosis. Mild right foraminal stenoses. Otherwise no significant degenerative changes, no canal or foraminal stenosis. Incidental findi ngs: Endotracheal tube is partially visualized IMPRESSION: Head CT: 1. No acute intracranial hemorrhage or cortical infarct. 2. Persistent mild chronic microvascular ischemic changes. Cervical spine CT: 1. No acut e fractures or dislocations. 2. Mild chronic degenerative changes as describe d. Note: Acute post traumatic spinal cord, vascular or ligamentous injur y cannot adequately be assessed with CT. Signed by: Dr. Janette Russell M.D. on 04/14/2018 11:31 AM Dictated By: JANETTE RUSSELL MD 30 Transcribed By: IZZY on 04/14/18 113 COPY TO: ABHISHEK MENA [employer] REFINING FIRER CT BRAIN [id number] 11:27:00 [place] [address] Patient Name: MARGARITA EATON MR #: [id number] : 1945 Age/Sex: 72/F Req #: [id number] Adm Physician: Ordered by: ABHISHEK MEAN [employer]ER Report #: [id number] Location: ER Room/ Bed: Procedure: [id number] CT/CT BRAIN WO Exam Date: 04/14/18 Exam Time: 1030 REPORT STATUS: Signed EXAMINATION: Head and cervical spine CT without contrast. HISTORY: Sta tus post fall, altered mental status, weakness COMPARISON: [...] adjustment of the mA/kV was utilized to re duce the radiation dose to as low as reasonably achievable. HEAD CT FI NDINGS: Skull: No lytic or blastic lesions. No fractures. Parenc hyma: Persistent mild chronic microvascular ischemic changes and a small chron ic lacunar infarct in the left putamen. No mass, hemorrhage or CT evidence of acute vascular insult. Brain volume: Moderate generalized brain volume loss Ventricles: No hydrocephalus or displacement. Arteries: No density suggestive of thrombus. Dural sinuses: No abnormal density. Extra-axial spaces: No abnormal density. Foramen magnum: No mass, C hiari malformation, or basilar invagination. Sella: No obvious mass. Paranasal/mastoid sinuses: Imaged portions unremarkable. CERVICAL SP INE CT FINDINGS: Alignment:Normal alignment and lordosis. Minimal age inde terminate, likely chronic and degenerative anterolisthesis at C4-C5 and retrol isthesis at C6-C7. Soft tissues: Normal. Vertebrae: Normal height a nd density. No acute fracture, infection or neoplasm. Degenerative gal nges: C5-C6: Asymmetric to the right disc osteophyte, uncovertebral and fac et arthrosis. Mild right foraminal stenoses. Otherwise no significant degenera tive changes, no canal or foraminal stenosis. Incidental findings: Endo tracheal tube is partially visualized IMPRESSION: Head CT: 1. No ac kaitlin intracranial hemorrhage or cortical infarct. 2. Persistent mild chronic m icrovascular ischemic changes. Cervical spine CT: 1. No acute fractur es or dislocations. 2. Mild chronic degenerative changes as described. Note: Acute post traumatic spinal cord, vascular or ligamentous injury cannot adequately be assessed with CT. Signed by: Dr. Janette Russell M.D. on 04/14 11:31 AM Dictated By: JANETTE RUSSELL MD 113 Transcribed By: IZYZ on 04/14/18 1131 JIG FILLER Y TO: ABHISHEK MENA NP CHEST SINGLE (PORTABLE)2018-04-14 10:33:00 [place] [address] Patient Name: MARGARITA EATON MR #: [id number] : 1945 Age/Sex: 72/F Req #: [id number] Adm Physician: Ordered by: ABHISHEK MENA NP Report #: [id number] Location: ER Room/ Bed: Procedure: [id number] DX/CHEST SINGLE (PORTABLE) Exam Date: 04/14/18 Exam Time: 1020 REPORT STA TUS: Signed EXAM: XR CHEST 1 VIEW DATE: 04/14/2018 10:19 AM INDICAT ION: Post code, intubated COMPARISON: None FINDINGS: Lines and T ubes: ET tube tip above keely. Left chest wall ICD present. Defibrillator pad s obscure detail centrally. Heart and Mediastinum: Heart mildly enlarged. A ortic vascular calcifications. Lungs and Pleura: Mild edema. No definite pn eumothorax within limitations of artifact. Bones and Soft Tissues: No acu te findings. IMPRESSION: 1. Mild edema. 2. Lines and tubes as abo ve. Signed by: Dr. Gloria Zamudio MD on 04/14/2018 10:33 AM Dictated By: GLORIA ZAMUDIO MD 1 033 Transcribed By: IZZY on 04/14/18 1033 COPY TO: ABHISHEK MENA N P CT PELVIS [id number] 18:54:00 [place] [address] Patient Name: MARGARITA EATON MR #: [id number] : 1945 Age/Sex: 71/F Req #: [id number] Adm Physician: Ordered by: ABHISHEK MENA [employer]ER Report #: [id number] Location: ER Room/Bed: Procedure: CT/CT PELVIS WO Exam Date: Exam Time: REPORT STATUS: Signed PROCEDUR E: CT PELVIS WITHOUT CONTRAST COMPARISON: Pelvic x-ray on the same day . INDICATIONS: POST FALL, LEFT HIP PAIN TECHNIQUE: CT images wer e created without intravenous contrast. DLP: 342.87 mGy-cm FINDINGS: Mildly displaced fracture of the left iliac crest (series 4, image 31). No e vidence of left hip fracture. Visualized bowel loops [...] SASKIA on 12/05/171853 COPY TO: ABHISHEK MENA [employer]FINING FIRER CHEST SINGLE (PORTABLE)2017-12-05 17:19:00 [place] [address] Patient Name: MARGARITA EATON MR #: [id number] : 1945 Age/Sex: 71/F Req #: [id number] Adm Physician: Ordered by: ABHISHEK MENA NP Report #: [id number] Location: ER Room/Bed: Procedure: DX/CHEST SINGLE (PORTABLE) Exam Date: 12/05/17 Exam Time: 1630 REPORT STA TUS: Signed PROCEDURE: A single AP view of the chest. COMPARISON: 08/09 INDICATIONS: FALL TODAY, LEFT HIP PAIN FINDINGS: Lines/t ubes: Stable left chest wall dual-lead cardiac device in place. Lungs: Th e lungs are well inflated and clear. There is no evidence of pneumonia or pul monary edema. Mild left basilar atelectasis/scarring. Pleura: There is no pleural effusion or pneumothorax. Heart and mediastinum: The cardiac alexandra houette is mildly enlarged. Unchanged right hilar surgical clips. Aorta is ca lcified. Bones: No acute bony abnormality. IMPRESSION: 1. N o acute cardiopulmonary disease. Dictated by: Flex Villarreal M.D. on 12/05 at 17:19 Electronically approved by: Flex Villarreal M.D. on 018 at 17:19 Dictated By: FLEX VILLARREAL MD Electronically Sig jose By: FLEX VILLARREAL MD on 12/05/17 1719 Transcribed By: SASKIA on 12/05/17 171 9 COPY TO: ABHISHEK MENA [employer]ING [employer]ER HIP LEFT 2-3 VW (+/- PELVIS) 2017-12-05 17:17:00 [place] [address] Patient Name: MARGARITA EATON MR #: [id number] : 1945 Age/Sex: 71/F Req #: [id number] Adm Physician: Ordered by: ABHISHEK MENA [employer]FINING [employer]ER Report #: [id number] Location: ER Room/Bed: Procedure: DX/HIP LEFT 2-3 VW (+/- PEL VIS) Exam Date: Exam Time: REPORT STATUS: Si gned PROCEDURE: HIP LEFT 2-3 VW (+/- PELVIS) COMPARISON: None. INDICATIONS: FALL, LEFT HIP PAIN TODAY FINDINGS: No acute displac ed fracture or dislocation. Joint spaces are within normal limits. Pelvic p hleboliths. Vascular calcifications. CONCLUSION: No acute fractu re or dislocation of the left hip. Dictated by: Flex Villarreal M.D. o n 12/05/2017 at 17:17 Electronically approved by: Flex Villarreal M.D. on 12/05/2017 at 17:17 Dictated By: FLEX VILLARREAL MD Electronical ly Signed By: FLEX VILLARREAL MD on 12/05/171716 Transcribed By: SASKIA on 1716 COPY TO: ABHISHEK MENA [employer] REFINING FIRER CHEST SINGLE (PORTABLE) [place] [address] Patient Name: MARGARITA EATON MR #: [id number] : 1945 Age/Sex: 71/F Req #: [id number] Adm Physician: Ordered by: GALLO MONTES MD Report #: [id number] Location: [facility]/Bed: Procedure: [id number] DX/CHEST SINGLE (PORTABLE ) Exam Date: 08/09/17 Exam Time: 1215 REPORT S TATUS: Signed PROCEDURE: A single AP view of the chest. COMPARISON: C hest radiograph 12/02/2013 INDICATIONS: DIZZY FINDINGS: Lines/ tubes: Left chest wall AICD with intact leads projecting over the right atri um and right ventricle. Lungs: The lungs are well inflated. Linear opaci ties in the left lung base likely represent atelectasis or scarring. There is no evidence of pneumonia or pulmonary edema. Pleura: There is no pleu ral effusion or pneumothorax. Heart and mediastinum: Multiple surgical cl ips overlie the right hilar region. Aortic arch calcifications. Stable border line enlargement of the cardiac silhouette. Bones: No acute bony abno rmality. Upper abdomen: No free air under the diaphragm. Stable elevation of the right hemidiaphragm. IMPRESSION: No acute cardiopulmonary di sease. Dictated by: Serge Beck M.D. on 08/09/2017 at 12:47 Electronically approved by: Serge Beck M.D. on 08/09/2017 at 12:47 Dictated By: SEGRE BECK MD 1247 Transcribed By: SASKIA on 08/09/17 1247 COPY TO: GALLO OSBORNE MD CT BRAIN WO [place] [address] Patient Name: MARGARITA EATON MR #: [id number] : 1945 Age/Sex: 71/F Req #: [id number] Adm Physician: Ordered by: GALLO MONTES MD Report #: [id number] Location: ER Room/Bed: Procedure: [id number] CT/CT BRAIN WO Exam Date : 08/09/17 Exam Time: 1215 REPORT STATUS: Iva d Exam: Head CT without contrast History: Dizziness, Comparison studies: None Technique: Axial images were obtained from the skull base to the v ertex. Coronal and sagittal images reconstructed from the axial data. Intrav enous contrast: None Findings: Scalp: No abnormalities. Bones: No fr actures, blastic or lytic lesions. Brain sulci: Mildly prominent. Ventric les: Mild compensatory dilatation. No hydrocephalus. Extra-axial spaces: No ma sses, no fluid collection. Parenchyma: No mass, acute hemorrhage or acu te or chronic cortical vascular insults. A few subtle hypodensities in the sup ratentorial white matter are nonspecific but most compatible with chronic smal l vessel ischemic changes. As a small chronic lacunar insult along the lateral margin of the left putamen superiorly. Sellar/suprasellar region: No abnor malities. Craniocervical junction: Patent foramen magnum. No Chiari one malfor mation. Incidental findings: Atherosclerotic calcifications in the carot id siphons. Small debris or cerumen in the [...]
[2019-10-16] MEDS ORDERED: CEFEPIME HCL 1 GM VIAL IV SCH (11:30)
[2019-10-16] MEDS ORDERED: SODIUM CHLORIDE 0.9% 1000ML 1,000 ML IV STA (11:30)
[2019-10-16 12:08] LABS: BASOPHILS # (AUTO) 0.1 (0.0-0.1); BASOPHILS % 0.4 % (0.0-1.0); EOSINOPHILS # (AUTO) 0.2 (0.0-0.4); EOSINOPHILS % 1.5 % (0.0-6.0); HEMATOCRIT 36.6 % (34.2-44.1); HEMOGLOBIN 11.7 g/dL (12.0-16.0); LYMPHOCYTES # (AUTO) 3.3 (1.0-3.2); MEAN CORPUSCULAR HEMOGLOBIN 26.7 pg (28-32); MEAN CORPUSCULAR VOLUME 83.6 fL (81-99); MONOCYTES # (AUTO) 0.7 (0.2-0.8); MONOCYTES % 5.2 % (4.4-11.3); NEUTROPHILS # (AUTO) 9.4 (2.1-6.9); NEUTROPHILS % 68.5 % (38.7-80.0); PLATELET COUNT 361 x10e3/uL (140-360); RED BLOOD COUNT 4.38 x10e6/uL (3.6-5.1); RED CELL DISTRIBUTION WIDTH 18.6 % (11.7-14.4)
[2019-10-16 12:34] LABS: ALBUMIN 3.4 g/dL (3.5-5.0); ALBUMIN/GLOBULIN RATIO 0.8 (0.8-2.0); ANION GAP 13.9 mmol/L (8-16); CALCIUM 10.5 mg/dL (8.4-10.2); CREATININE, SERUM 2.14 mg/dL (0.57-1.11)
[2019-10-16] MEDS: CEFEPIME 1GM/NS 0.9% 50 ML 50 ML IV SCH (12:40)
[2019-10-16 12:41] LABS: POTASSIUM 2.9 mmol/L (3.5-5.1)
[2019-10-16] MEDS ORDERED: ONDANSETRON HCL INJ 2MG/ML 2ML 2 MG/ML VIAL IV STA (12:53)
[2019-10-16] MEDS ORDERED: KETOROLAC TROMETHAMINE 30 MG/ML VIAL IV STA (12:53)
[2019-10-16] MEDS ORDERED: POTASSIUM CHLORIDE 20 MEQ TAB CR PO STA (12:53)
[2019-10-16] MEDS ORDERED: POTASSIUM CHLORIDE 20MEQ/100ML 200 ML IV ONE (13:00)
[2019-10-16 14:02] LABS: BILIRUBIN,URINE NEGATIVE (NEGATIVE); CLARITY,URINE CLEAR (CLEAR); COLOR,URINE YELLOW (YELLOW); KETONES,URINE NEGATIVE (NEGATIVE); LEUKOCYTE ESTERASE ,URINE NEGATIVE (NEGATIVE); NITRITE,URINE NEGATIVE (NEGATIVE); PROTEIN,URINE DIPSTICK NEGATIVE (NEGATIVE); URINE UROBILINOGEN 0.2 mg/dL (0.2 - 1)
[2019-10-16 14:23] LABS: BACTERIA,URINE FEW /HPF; EPITHELIAL CELLS,URINE FEW /LPF
[2019-10-16] MEDS: SODIUM CHLORIDE 0.9% 1000ML 1,000 ML IV SCH (14:48)
--- NOTE | 2019-10-16 15:03 | Consultation ---
DATE OF CONSULTATION: 10/16/2019 HISTORY OF PRESENT ILLNESS: Ms. Harmony Cruz is known to our Nephrology Service, 73-year-old female, underlying history of chronic kidney disease stage 3, had a tele appointment with our office after her discharge in July that is because we right now have COVID-19 situation in the city. She presented with four-day history of pain in her left flank. She has had a prior pyelonephritis in the past with involving the same kidneys. She states she is familiar with the pain. She went to see her primary doctor, Brian, apparently had urine sample done, but there was some confusion as far as whether the sample was enough and was actually tested or not. Regardless, she contacted our office, my associates started her on cefuroxime twice a day, which she started on Sunday, but presents today because of pain. She is currently lying supine. She denies fever or chills, though denies any dysuria. She occasionally throws up if the pain is severe. She says her white count here is found to be 13.6, hemoglobin is 11.7, potassium is 2.9, bicarbonate 31, creatinine 2.4, lactic acid 1.4, calcium 10.5. Her albumin is 3.4. ALLERGIES: SHE IS ALLERGIC TO COCONUT, CODEINE, AND PINEAPPLE. CURRENT MEDICATIONS: Not reconciled yet and she is still in the process of being worked up, started on cefepime 1 g IV q.12 hours. She received one time dose of Ketoralac. She is on ondansetron p.r.n., received potassium supplement. SOCIAL HISTORY: The patient has quit smoking. Lives with . Denies any alcohol use. PAST MEDICAL HISTORY: History of chronic kidney disease stage 3, history of underlying COPD, hypertension, prior history of pyelonephritis. CT of abdomen and pelvis pending. PHYSICAL EXAMINATION: GENERAL: Awake, alert, oriented, lying supine, thin-build female, poor muscle mass. VITAL SIGNS: With a blood pressure of 130/56, pulse is 77, afebrile. HEAD AND NECK: Cornea clear. Mucosa moist. LUNGS: Rhonchi and expiratory bilateral. HEART: S1, S2 audible. ABDOMEN: Otherwise soft, nontender. EXTREMITIES: Lower extremity examination shows no edema. Some amount of tenderness noted in the left flank area. Past history; history of coronary artery disease, permanent pacemaker placement, history of PCI and stenting, history of atrial fibrillation, hypertension, coronary artery disease. History of chronic kidney disease stage 3 most likely, history of tobacco addiction in the past, history of COPD, GERD, hyperlipidemia, history of atrial fibrillation. IMPRESSION AND PLAN: Left-sided flank pain. CT scan pending. Must rule out kidney stone. Must rule out UTI. I have asked the nurse to straight cath and send the urine for culture and sensitivity. In the meantime, plan gentle IV hydration. Kidney ultrasound. Monitor the patient's kidney function, urine output with you. Further recommendations to follow. MD GERA Buckley/ASH /[id number]
--- NOTE | 2019-10-16 15:11 | NUR ---
Patient to CT scan via stretcher.
--- NOTE | 2019-10-16 15:46 | Diagnostic Imaging Report ---
EXAM: US RENAL RETROPERITONEAL COMP DATE: 10/16/2019 12:00 AM INDICATION: Acute kidney injury COMPARISON: 08/31/2019 FINDINGS: The right kidney is normal in size measuring 10.5 x 3.8 x 3.3 centers with cortical thickness of 1.2 cm. Cortical echogenicity is within normal limits. There is no evidence for solid renal mass, hydronephrosis, or shadowing calculi. The left kidney is normal in size measuring 9.9 x 4.7 x 3.7 cm with cortical thickness of 1.3 cm. Cortical echogenicity is within normal limits. There is no evidence for solid renal mass, hydronephrosis, or shadowing calculi. The partially distended urinary bladder demonstrates no significant abnormalities. Bilateral ureteral jets are noted. Prevoid volume is 43 cc. IMPRESSION: Unremarkable renal ultrasound examination. Signed by: Dr. Aden Schumacher MD on 10/16/2019 3:43 PM
--- NOTE | 2019-10-16 16:22 | Diagnostic Imaging Report ---
CT of the abdomen and pelvis, without contrast. History: Abdominal pain. Comparison: Renal ultrasound from earlier 10/16/2019, CT abdomen/pelvis from 04/14/2018. Technique: Multidetector CT scanning of the abdomen and pelvis was performed from the level of the lung bases to the inferior pubic rami without the use of contrast material. Coronal and sagittal multiplanar reformations were obtained. RADIATION DOSE: Total DLP: 285.44 mGy*cm Dose modulation, iterative reconstruction, and/or weight based adjustment of the mA/kV was utilized to reduce the radiation dose to as low as reasonably achievable. FINDINGS: The lung bases demonstrate areas of subsegmental atelectasis/scarring. Partially visualized pacing lead noted. The liver is normal in size and attenuation on this noncontrast enhanced examination. A suspected calcified granuloma is noted within the right hepatic lobe, unchanged from the prior examination. The gallbladder is surgically absent. There is no biliary ductal dilatation. The stomach, spleen, pancreas, and bilateral adrenal glands demonstrate an unremarkable noncontrast appearance. The kidneys are normal in size and location. Two subcentimeter nonobstructing stones are identified within the superior pole of the left kidney, measuring up to 5 mm. There is a 4-5 mm nonobstructing stone identified within the inferior pole of the left kidney. There is no evidence for hydronephrosis. There is no evidence for ureteral dilatation or definite ureteral stone. Numerous phleboliths are identified within the pelvis, none of which can be definitively localized to within the urinary system. The urinary bladder demonstrates no significant abnormalities. The uterus is surgically absent. No abnormal adnexal masses are identified. The abdominal aorta is normal in course and caliber with extensive atherosclerotic calcifications within its course and branch vessels. The IVC is normal in caliber. Please note evaluation the bowel is limited without the use of enteric contrast material. Extensive diverticula are noted involving the sigmoid colon. There is wall thickening of the sigmoid colon with mild adjacent inflammatory change. The remaining visualized loops of small and large bowel demonstrate no evidence of obstruction or inflammation. There is no ascites or peritoneal free air. No abnormally enlarged lymph nodes are identified within the abdomen or pelvis. There is a stable compression deformity involving the superior endplate of the L3 vertebral body. The osseous structures otherwise demonstrate degenerative changes without evidence for acute fracture or destructive process. The extraperitoneal soft tissues are unremarkable. IMPRESSION: Nonobstructive left-sided nephrolithiasis. No evidence of hydronephrosis or obstructive uropathy. Extensive sigmoid diverticulosis. There is mild wall thickening and adjacent inflammatory change involving the sigmoid colon which may represent findings of acute/early diverticulitis versus sequela from prior diverticulitis. Recommend correlation with symptomatology. No evidence for bowel obstruction, perforation, or abscess formation. Signed by: Dr. Aden Schumacher MD on 10/16/2019 4:19 PM
[2019-10-16] MEDS ORDERED: METRONIDAZOLE 500MG/NS 100ML 100 ML IV STA (17:52)
[2019-10-16] MEDS ORDERED: CIPROFLOXACIN 400 MG/D5W 200ML 200 ML IV STA (17:52)
--- NOTE | 2019-10-16 18:28 | NUR ---
Notified that pt is having muscle cramping in L arm and nausea.
--- NOTE | 2019-10-16 18:41 | NUR ---
Report attempted, asked to wait 10 minutes to give report to nightshift.
[2019-10-16] MEDS ORDERED: HYDROCODONE/APAP 7.5MG-325MG 1 EA TAB PO PRN ×2 (18:45→22:00)
--- NOTE | 2019-10-16 18:50 | NUR ---
Carlosdestiny Cruz is emergency contact: [phone]
--- NOTE | 2019-10-16 19:01 | NUR ---
2nd attempt at giving report.
[2019-10-16 20:00] VITALS: BP 109/62
--- NOTE | 2019-10-16 20:10 | NUR ---
Patient was brought from er in a stretcher with c/o left flank pain since 5 days.aaox3.ambulates with walker.assessment done.no rep distress.oriented to the unit.bed locked and in lowest position.phone and call light within reach.instructed to call for assistance as needed.
[2019-10-16 20:25] VITALS: BP 109/62
[2019-10-16 21:00] VITALS: BP 109/62
[2019-10-17] VITALS: BP 113/59
[2019-10-17] MEDS: CEFEPIME 1GM/NS 0.9% 50 ML 50 ML IV SCH ×3 (00:05→23:55)
[2019-10-17] MEDS ORDERED: GLIMEPIRIDE2 MG PO (01:02)
--- NOTE | 2019-10-17 01:13 | NUR ---
assisted to use bath room.voided.back to bed safely.
--- NOTE | 2019-10-17 02:04 | NUR ---
Patient is unable to provide home med list completely.some of the med list given that is updated.
[2019-10-17 04:00] VITALS: BP 102/50
[2019-10-17] MEDS ORDERED: TRAMADOL HCL 50 MG TAB PO PRN (05:30)
[2019-10-17 05:55] LABS: BASOPHILS % 0.4 % (0.0-1.0); EOSINOPHILS # (AUTO) 0.2 (0.0-0.4); HEMATOCRIT 33.9 % (34.2-44.1); HEMOGLOBIN 10.7 g/dL (12.0-16.0); LYMPHOCYTES # (AUTO) 2.7 (1.0-3.2); LYMPHOCYTES % 24.7 % (18.0-39.1); MEAN CORPUSCULAR HEMOGLOBIN 26.8 pg (28-32); MEAN CORPUSCULAR HGB CONC 31.6 g/dL (31-35); MONOCYTES # (AUTO) 0.6 (0.2-0.8); MONOCYTES % 5.5 % (4.4-11.3); NEUTROPHILS # (AUTO) 7.4 (2.1-6.9); PLATELET COUNT 328 x10e3/uL (140-360); RED BLOOD COUNT 3.99 x10e6/uL (3.6-5.1); RED CELL DISTRIBUTION WIDTH 18.8 % (11.7-14.4)
[2019-10-17] MEDS: SODIUM CHLORIDE 0.9% 1000ML 1,000 ML IV SCH ×3 (06:02→22:00)
[2019-10-17] MEDS: HYDROCODONE/APAP 10MG-325MG TAB PO PRN (06:15)
[2019-10-17 06:22] LABS: ALBUMIN/GLOBULIN RATIO 0.8 (0.8-2.0); ANION GAP 11.4 mmol/L (8-16); CALCIUM 9.3 mg/dL (8.4-10.2); CREATININE, SERUM 2.13 mg/dL (0.57-1.11); MAGNESIUM 2.1 MG/DL (1.3-2.1); POTASSIUM 3.4 mmol/L (3.5-5.1)
--- NOTE | 2019-10-17 07:00 | NUR ---
Bed side shift report given to oncoming Rn.stable condition.
[2019-10-17] MEDS: ONDANSETRON HCL INJ 2MG/ML 2ML 2 MG/ML VIAL IV PRN (07:38)
[2019-10-17 08:00] VITALS: BP 146/65
--- NOTE | 2019-10-17 08:00 | NUR ---
PT ASSESSED IN BED. AWAKE AND ALERT. ABDOMEN TENDER TO PALPATION. IV INFUSING WITHOUT PROBLEMS. TELEMETRY BOX #5 ON WITH NSR WITH HR 99. SEE CHART FOR ASSESSMENT.
[2019-10-17] MEDS: MONTELUKAST SODIUM 10 MG TAB PO SCH (09:00)
[2019-10-17] MEDS: METOPROLOL SUCCINATE 50 MG TAB XL PO SCH (09:00)
[2019-10-17] MEDS: PANTOPRAZOLE SOD 40 MG TABEC PO SCH (09:00)
[2019-10-17] MEDS: ASPIRIN 81 MG CHEW TAB PO SCH (09:33)
--- NOTE | 2019-10-17 10:15 | NUR ---
Pt sleeping soundly and no family present. [employer] left a card describing availability of plastics worker and instructions on how to contact a plastics worker. ARIADNE DAMON [employer] Spiritual Care Department O: [phone]
[2019-10-17] MEDS ORDERED: PROMETHAZINE 12.5MG/ NACL 0.9% 12.5 MG/50 ML BAG IV PRN (11:00)
[2019-10-17 11:06] VITALS: BP 135/62
[2019-10-17] MEDS ORDERED: POTASSIUM CHLORIDE 20MEQ/100ML 200 ML IV ONE (15:00)
[2019-10-17 16:47] VITALS: BP 130/56
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
[2019-10-17 20:00] VITALS: BP 138/50
--- NOTE | 2019-10-17 20:45 | NUR ---
Received report from nurse. Walking rounds completed.
[2019-10-18] VITALS (8 sets, daily range): BP systolic 129–152; BP diastolic 43–66
[2019-10-18] MEDS: HYDROCODONE/APAP 10MG-325MG TAB PO PRN ×2 (00:44→14:39)
[2019-10-18] MEDS: SODIUM CHLORIDE 0.9% 1000ML 1,000 ML IV SCH ×2 (04:46→17:04)
[2019-10-18 05:59] LABS: ALBUMIN/GLOBULIN RATIO 0.8 (0.8-2.0); CALCIUM 9.3 mg/dL (8.4-10.2); CREATININE, SERUM 1.85 mg/dL (0.57-1.11)
[2019-10-18 06:24] LABS: BASOPHILS # (AUTO) 0.1 (0.0-0.1); BASOPHILS % 0.5 % (0.0-1.0); EOSINOPHILS # (AUTO) 0.2 (0.0-0.4); EOSINOPHILS % 2.5 % (0.0-6.0); HEMATOCRIT 34.2 % (34.2-44.1); HEMOGLOBIN 11.5 g/dL (12.0-16.0); LYMPHOCYTES # (AUTO) 2.2 (1.0-3.2); LYMPHOCYTES % 22.4 % (18.0-39.1); MEAN CORPUSCULAR HEMOGLOBIN 29.9 pg (28-32); MEAN CORPUSCULAR HGB CONC 33.6 g/dL (31-35); MEAN CORPUSCULAR VOLUME 89.1 fL (81-99); MONOCYTES # (AUTO) 0.5 (0.2-0.8); MONOCYTES % 5.6 % (4.4-11.3); NEUTROPHILS # (AUTO) 6.7 (2.1-6.9); NEUTROPHILS % 68.7 % (38.7-80.0); PLATELET COUNT 289 x10e3/uL (140-360); RED BLOOD COUNT 3.84 x10e6/uL (3.6-5.1); RED CELL DISTRIBUTION WIDTH 19.7 % (11.7-14.4)
--- NOTE | 2019-10-18 07:00 | NUR ---
BEDSIDE SHIFT REPORT FROM COMPUGRAPH OPERATOR NURSE. PT DENIES NEEDS AT THIS TIME.
[2019-10-18] MEDS: MONTELUKAST SODIUM 10 MG TAB PO SCH (09:17)
[2019-10-18] MEDS: METOPROLOL SUCCINATE 50 MG TAB XL PO SCH (09:17)
[2019-10-18] MEDS: PANTOPRAZOLE SOD 40 MG TABEC PO SCH (09:17)
[2019-10-18] MEDS: ASPIRIN 81 MG CHEW TAB PO SCH (09:17)
[2019-10-18] MEDS: CEFEPIME 1GM/NS 0.9% 50 ML 50 ML IV SCH ×2 (12:20→23:19)
[2019-10-18] MEDS: ONDANSETRON HCL INJ 2MG/ML 2ML 2 MG/ML VIAL IV PRN ×2 (12:20→22:20)
[2019-10-18] MEDS: NICOTINE 14 MG/EA PATCH TOP SCH (22:23)
[2019-10-19 00:25] VITALS: BP 146/60
[2019-10-19] MEDS: HYDROCODONE/APAP 10MG-325MG TAB PO PRN (02:47)
[2019-10-19] MEDS: SODIUM CHLORIDE 0.9% 1000ML 1,000 ML IV SCH (03:44)
[2019-10-19 05:08] VITALS: BP 134/53
[2019-10-19 06:40] LABS: ANION GAP 11.7 mmol/L (8-16); CALCIUM 8.8 mg/dL (8.4-10.2); CREATININE, SERUM 1.67 mg/dL (0.57-1.11); POTASSIUM 3.7 mmol/L (3.5-5.1)
--- NOTE | 2019-10-19 07:00 | NUR ---
BEDSIDE SHIFT REPORT FROM SWITCH TECHNICIAN NURSE. PT DENIES NEEDS AT THIS TIME.
--- NOTE | 2019-10-19 07:28 | Discharge Summary ---
DISCHARGE DIAGNOSES: 1. Diverticulitis. 2. Urinary tract infection. HISTORY OF PRESENT ILLNESS AND HOSPITAL COURSE: The patient is a lady, who presented with severe abdominal pain where her outside urine culture did grow out some organisms the Enterococcus, but she was found on CT scan to have diverticulitis, so she was brought in and placed on IV antibiotics with significant improvement of her leukocytosis back to normal as well as her pain. At the time of discharge, she was pain free, ambulating well, using the restroom well, eating well and she really wanted to go home, so the patient was put on p.o. Levaquin 500 mg a day for 10 more days to complete her treatment. Follow up in 1 to 2 weeks with me. Please see hospital chart for full details. MD QUINN Carver/ASH /[id number]
[2019-10-19 07:47] VITALS: BP 134/71
[2019-10-19 08:14] VITALS: BP 134/71
--- NOTE | 2019-10-19 08:23 | NUR ---
STEFFANY FROM STANDPOINT OF DR. TENORIO FOR PT TO DISCHARGE HOME.
[2019-10-19] MEDS: METOPROLOL SUCCINATE 50 MG TAB XL PO SCH (08:24)
[2019-10-19] MEDS: PANTOPRAZOLE SOD 40 MG TABEC PO SCH (08:24)
[2019-10-19] MEDS: NICOTINE 14 MG/EA PATCH TOP SCH (08:24)
[2019-10-19] MEDS: MONTELUKAST SODIUM 10 MG TAB PO SCH (08:24)
[2019-10-19] MEDS: ASPIRIN 81 MG CHEW TAB PO SCH (08:24)
[2019-10-19] MEDS ORDERED: LIDOCAINE 4% PATCH TP SCH (09:00)
== END 2019-10-19 09:12 | disposition home or self-care (01) ==
LOC: ER 11:05 → ERHOLD 18:33 → MED/SURG2 20:19
PROVIDERS: ADMIT Internal Medicine; ATTEND Internal Medicine
DX: K57.92 Diverticulitis of intestine, part unspecified, without perforation or abscess without bleeding (principal); N39.0 Urinary tract infection, site not specified; E87.6 Hypokalemia; E11.22 Type 2 diabetes mellitus with diabetic chronic kidney disease; N18.3 Chronic kidney disease, stage 3 (moderate); I25.10 Atherosclerotic heart disease of native coronary artery without angina pectoris; I13.0 Hypertensive heart and chronic kidney disease with heart failure and stage 1 through stage 4 chronic kidney disease, or unspecified chronic kidney disease; I50.9 Heart failure, unspecified; N13.2 Hydronephrosis with renal and ureteral calculous obstruction; K21.9 Gastro-esophageal reflux disease without esophagitis; J44.9 Chronic obstructive pulmonary disease, unspecified; Z95.0 Presence of cardiac pacemaker; Z95.5 Presence of coronary angioplasty implant and graft; Z87.891 Personal history of nicotine dependence; Z88.5 Allergy status to narcotic agent; Z91.018 Allergy to other foods; Z79.82 Long term (current) use of aspirin; Z79.84 Long term (current) use of oral hypoglycemic drugs
CPT/HCPCS: 36415 ×4; 74176; 76770; 80048; 80053 ×3; 81001; 82948 ×4; 83605; 83735 ×2; 83970; 84550; 85025 ×3; 87040; 87086; 96360; 96361 ×2; 99284; G0378 ×4; J0692 ×3; J0744; J1885; J2405 ×3; J2550; J3480; J7030 ×4; S0164 ×3

== ENCOUNTER 2019-10-24 15:39 | Inpatient (IN) | payer MEDICARE ==
[~2019-10-24] VITALS: Ht 165.1 cm; Wt 64.4 kg
[~2019-10-24 15:39] MED LIST changes: +GLIMEPIRIDE2 MG PO
[2019-10-24] MEDS ORDERED: ONDANSETRON HCL INJ 2MG/ML 2ML 2 MG/ML VIAL IV STA ×2 (15:42→19:37)
[2019-10-24] MEDS ORDERED: SODIUM CHLORIDE 0.9% 1000ML 1,000 ML IV STA (15:42)
[2019-10-24] MEDS ORDERED: FENTANYL CITRATE/PF 100MCG/2 ML INJ IV ONE (15:45)
[2019-10-24] MEDS ORDERED: KETOROLAC TROMETHAMINE 30 MG/ML VIAL IV STA (16:25)
[2019-10-24 16:39] LABS: BASOPHILS % 0.3 % (0.0-1.0); EOSINOPHILS # (AUTO) 0.1 (0.0-0.4); HEMATOCRIT 35.1 % (34.2-44.1); HEMOGLOBIN 11.6 g/dL (12.0-16.0); LYMPHOCYTES # (AUTO) 2.5 (1.0-3.2); LYMPHOCYTES % 18.6 % (18.0-39.1); MEAN CORPUSCULAR HEMOGLOBIN 27.6 pg (28-32); MEAN CORPUSCULAR VOLUME 83.4 fL (81-99); MONOCYTES # (AUTO) 0.7 (0.2-0.8); MONOCYTES % 5.4 % (4.4-11.3); NEUTROPHILS % 74.4 % (38.7-80.0); PLATELET COUNT 389 x10e3/uL (140-360); RED BLOOD COUNT 4.21 x10e6/uL (3.6-5.1); RED CELL DISTRIBUTION WIDTH 20.2 % (11.7-14.4)
--- NOTE | 2019-10-24 16:55 | Diagnostic Imaging Report ---
EXAM: CT Abdomen and Pelvis WITHOUT intravenous contrast INDICATION: Flank pain COMPARISON: CT abdomen pelvis of 10/16/2019 TECHNIQUE: Abdomen and pelvis were scanned utilizing a multidetector helical scanner from the lung base to the pubic symphysis without administration of IV contrast. Coronal and sagittal reformations were obtained. IV CONTRAST: None ORAL CONTRAST: None COMPLICATIONS: None RADIATION DOSE: Total DLP: 303.5 mGy*cm Dose modulation, iterative reconstruction, and/or weight based adjustment of the mA/kV was utilized to reduce the radiation dose to as low as reasonably achievable. FINDINGS: LOWER THORAX: Mild bibasilar subsegmental atelectasis. Pacer leads partially visualized. Coronary artery atherosclerotic calcifications. HEPATOBILIARY: Unchanged calcified granulomas. No focal liver lesion. Status post cholecystectomy. SPLEEN: No splenomegaly. PANCREAS: No focal masses or ductal dilatation. ADRENALS: No adrenal nodules. KIDNEYS/URETERS: Unchanged 4 mm left lower pole renal calculus. No hydronephrosis. No right renal calculi. PELVIC ORGANS/BLADDER: Unremarkable. PERITONEUM / RETROPERITONEUM: No free air or fluid. LYMPH NODES: No lymphadenopathy. VESSELS: Diffuse atherosclerotic calcifications of the nonaneurysmal abdominal aorta and major branches. GI TRACT: Diverticulosis without CT evidence of diverticulitis. Compared to the prior CT of 10/16/2019, there has been interval decrease in mild fat stranding and wall thickening which was seen at the sigmoid colon. No bowel obstruction. Very redundant cecum filled with fecal material. BONES AND SOFT TISSUES: No acute osseous injury. Degenerative changes of the visualized spine. IMPRESSION: Diverticulosis with interval improvement in fat stranding and wall thickening associated with the sigmoid colon. Unchanged 4 mm left lower pole renal calculus without hydronephrosis. Redundant cecum filled with fecal material, new compared to 10/16/2019. Signed by: Cynthia Mortensen MD on 10/24/2019 4:51 PM
[2019-10-24 17:01] LABS: ALBUMIN 3.3 g/dL (3.5-5.0); ALBUMIN/GLOBULIN RATIO 0.9 (0.8-2.0); ANION GAP 14.6 mmol/L (8-16); CALCIUM 10.3 mg/dL (8.4-10.2); CREATININE, SERUM 2.72 mg/dL (0.57-1.11); POTASSIUM 3.6 mmol/L (3.5-5.1)
[2019-10-24] MEDS ORDERED: ALENDRONATE SOD70 MG PO (19:54)
[2019-10-24 20:00] VITALS: BP 136/63
[2019-10-24] MEDS ORDERED: HYDROCODONE/APAP 10MG-325MG TAB PO PRN (20:00)
[2019-10-24] MEDS ORDERED: DEXTROSE 50% SYRINGE 50 ML IV PRN (20:00)
--- NOTE | 2019-10-24 20:06 | NUR ---
patient is a new admit that arrived via wheelchair. patient is awake and talking. patient has been transferred into the bed. bed is in lowest position and call light is within reach. patient is complaining of low back pain 5/10.
[2019-10-24] MEDS ORDERED: PANTOPRAZOLE SO40 MG PO (20:38)
[2019-10-24] MEDS ORDERED: ATORVASTATIN CA40 MG PO (20:38)
[2019-10-24] MEDS ORDERED: METOLAZONE5 MG PO (20:38)
[2019-10-24] MEDS ORDERED: DONEPEZIL HCL10 MG PO (20:38)
[2019-10-24] MEDS ORDERED: ISOSORBIDE MONO30 MG PO (20:38)
--- NOTE | 2019-10-24 21:15 | NUR ---
received call from pharmacy regarding patient allergy to codeine. spoke with patients daughter that confirmed patient is allergic to hydrocodone. spoke with MD who gave orders to discontinue hydrocodone and start patient on 4mg Morphine q 4hours as needed for pain.
[2019-10-24] MEDS: ATORVASTATIN 40 MG TAB PO SCH (21:20)
[2019-10-24] MEDS: ONDANSETRON HCL INJ 2MG/ML 2ML 2 MG/ML VIAL IV PRN (21:55)
[2019-10-24] MEDS: MORPHINE SULFATE INJ 4 MG/ML INJ 1ML IV PRN (21:55)
[2019-10-25] VITALS (7 sets, daily range): BP systolic 114–134; BP diastolic 47–58
[2019-10-25] MEDS: MORPHINE SULFATE INJ 4 MG/ML INJ 1ML IV PRN ×5 (02:37→21:53)
[2019-10-25] MEDS: ONDANSETRON HCL INJ 2MG/ML 2ML 2 MG/ML VIAL IV PRN ×5 (02:37→21:52)
[2019-10-25 06:42] LABS: INR 1.05; PROTHROMBIN TIME 14.3 seconds (11.9-14.5)
--- NOTE | 2019-10-25 07:10 | NUR ---
report given to morning nurse. bedside shift report complete. patient is resting in bed. bed is in lowest position and call light is within reach.
[2019-10-25] MEDS: PANTOPRAZOLE SOD 40 MG TABEC PO SCH (08:54)
[2019-10-25] MEDS: METOPROLOL SUCCINATE 50 MG TAB XL PO SCH (08:55)
[2019-10-25] MEDS: GABAPENTIN 100 MG CAP PO SCH ×3 (08:55→21:52)
[2019-10-25] MEDS: ISOSORBIDE MONONITRATE 30 MG TAB CR PO SCH (08:55)
[2019-10-25] MEDS: GLIMEPIRIDE 2 MG TAB PO SCH (08:55)
[2019-10-25] MEDS: DONEPEZIL HCL 5 MG TAB PO SCH (08:55)
[2019-10-25] MEDS: METOLAZONE 5 MG TAB PO SCH (08:55)
[2019-10-25] MEDS: LIDOCAINE 4% PATCH TP SCH (08:56)
--- NOTE | 2019-10-25 09:42 | Diagnostic Imaging Report ---
Examination: CT LUMBAR SPINE WO CONTRAST History: Back pain Comparison studies: None Technique: Axial images were obtained through the lumbar spine from T9 from abdomen and pelvic CT performed yesterday October 24, 2019. Coronal and sagittal reconstructions obtained from the axial data. Dose modulation, iterative reconstruction, and/or weight based adjustment of the mA/kV was utilized to reduce the radiation dose to as low as reasonably achievable. Intravenous contrast: None Findings: The usual 5 non-rib bearing lumbar vertebral bodies are present. Alignment: Normal lordosis. No scoliosis. Soft tissues: Atherosclerotic calcification of the aorta. Paraspinal muscles: No abnormalities. Sacroiliac joints: No degenerative changes. Vertebrae: No infection or neoplasm. Compressions fractures of the T9, T10, L1, L3 vertebrae without canal compromise from posteriorly displaced endplate or fracture fragments. There is near vertebra plana deformity of T9 with sclerosis so chronic. The T10 superior endplate is sclerotic and also chronic. The L1 and L3 are age indeterminate with maximal height loss at L3 of 37%. Degenerative changes: L1-L2 through L2-L3: No disc herniation or canal or foraminal stenosis. L3-L4 through L5-S1: Mild diffuse disc bulges without canal stenosis. Mild bilateral foraminal stenosis at L3-L4 and L4-L5. IMPRESSION: 1. Age indeterminate L1 and L3 compression fractures. Chronic compression fractures of T9 and T10. 2. Mild degenerative change form L3-:4 through L5-S1 without canal stenosis. Signed by: Dr. Noemi Tran M.D. on 10/25/2019 9:39 AM
--- NOTE | 2019-10-25 10:26 | History and Physical ---
CHIEF COMPLAINT: This is a 73-year-old lady, who comes in with back pain and abdominal pain. HISTORY OF PRESENTING ILLNESS: Ms. Harmony Cruz was recently discharged from the hospital for apparent diverticulitis. The patient was discharged about 2 days ago and comes back with pain that is intractable and the patient presented with abdominal pain, admitted for the above symptoms. PAST MEDICAL HISTORY: 1. History of chronic kidney disease stage 3 to 4. 2. COPD. 3. History of hypertension. 4. History of smoking. Additional medical history includes history of atrial fibrillation, hyperlipidemia, and reflux esophagitis. CURRENT MEDICATIONS: The patient is on alendronate 70 mg for osteoporosis; atorvastatin 40 mg; donepezil 10 mg for dementia; isosorbide dinitrate for CAD, the patient has history of CAD; metolazone 5 mg daily; metoprolol ER 50 mg for CAD in ER. The patient has also montelukast, nitroglycerin, omeprazole, pantoprazole, pravastatin, and warfarin. PAST SURGICAL HISTORY: History of knee replacement, history of left lobectomy of the lung for apparent lung cancer, history of cholecystectomy, and also gallbladder surgery removal. The patient also has a history of STEMI and pacemaker and defibrillator placement, tonsillectomy, and stents x2 by Cardiology. REVIEW OF SYSTEMS: Negative for chest pain. Positive shortness of breath. No nausea. No vomiting. No diarrhea. Positive for abdominal pain. No constipation. No rectal bleeding. No hematochezia. No hematemesis. SOCIAL HISTORY: Positive for smoking, continues to smoke with COPD. PHYSICAL EXAMINATION: VITAL SIGNS: On arrival; temperature is 98.9, pulse of 96, respirations of 18, blood pressure is 114/64, pulse oximetry of 98%. HEENT: Normocephalic, atraumatic. Pupils are reactive to light and accommodation. CVS: S1 and S2 are regular at this time. ABDOMEN: Nontender, nondistended. BACK: Tenderness in the L4-L5 area. EXTREMITIES: No clubbing, no cyanosis, no edema. IMAGING STUDIES: Abdominal CT done in the ER shows diverticulosis with renal improvement and fat stranding and wall thickening associated with the sigmoid colon, unchanged 4 mm left lower renal calculus and hydronephrosis, redundant calcium with fecal material. LABORATORY VALUES: White count is still high at 13,000, hemoglobin of 11.6, hematocrit of 35.1. Chemistry shows sodium of 136, BUN of 33, creatinine 2.71, calcium is 10.3. ASSESSMENT: Ms. Harmony Cruz with: 1. Diverticulitis of the abdomen with resolution seen, but the patient has elevated white count. We will continue monitoring it. We will start her on antibiotics. 2. Possible lumbar radiculopathy. X-ray of the lumbar spine will be done. Pain medication has been started. 3. Hyperlipidemia. We will continue to monitor the patient. 4. Atrial fibrillation with normal sinus rhythm at this time. 5. Diabetes mellitus. We will hold by currently glimepiride 2 mg. The patient donepezil will be held back. Further recommendation per clinical course. We will continue to monitor the patient and follow up with the x-ray and keep on a clear liquid diet. MD VALENTINO Lo/MARIANNEL /[id number]
--- NOTE | 2019-10-25 14:09 | NUR ---
PT IN PAIN, DID NOT WANT TO PARTICIPATE IN DPA
[2019-10-25] MEDS: WARFARIN SOD 3 MG TAB PO SCH (16:55)
[2019-10-25] MEDS: ATORVASTATIN 40 MG TAB PO SCH (21:52)
[2019-10-26] VITALS (8 sets, daily range): BP systolic 112–133; BP diastolic 44–57
[2019-10-26] MEDS: ONDANSETRON HCL INJ 2MG/ML 2ML 2 MG/ML VIAL IV PRN ×2 (02:02→11:02)
[2019-10-26] MEDS: MORPHINE SULFATE INJ 4 MG/ML INJ 1ML IV PRN ×2 (02:02→11:02)
[2019-10-26] MEDS ORDERED: ALENDRONATE SODIUM 70 MG TAB PO SCH (06:00)
--- NOTE | 2019-10-26 06:41 | NUR ---
PATIENT IS RESTING IN BED. NO SIGNS OF DISTRESS NOTED. BED IS IN LOWEST POSITION AND CALL LIGHT IS WITHIN REACH.
[2019-10-26 06:58] LABS: BASOPHILS # (AUTO) 0.1 (0.0-0.1); BASOPHILS % 0.6 % (0.0-1.0); EOSINOPHILS # (AUTO) 0.4 (0.0-0.4); EOSINOPHILS % 4.1 % (0.0-6.0); HEMATOCRIT 35.9 % (34.2-44.1); LYMPHOCYTES # (AUTO) 2.5 (1.0-3.2); LYMPHOCYTES % 23.6 % (18.0-39.1); MEAN CORPUSCULAR HEMOGLOBIN 26.7 pg (28-32); MEAN CORPUSCULAR HGB CONC 30.6 g/dL (31-35); MEAN CORPUSCULAR VOLUME 87.1 fL (81-99); MONOCYTES # (AUTO) 0.7 (0.2-0.8); MONOCYTES % 6.3 % (4.4-11.3); NEUTROPHILS % 65.1 % (38.7-80.0); PLATELET COUNT 346 x10e3/uL (140-360); RED BLOOD COUNT 4.12 x10e6/uL (3.6-5.1); RED CELL DISTRIBUTION WIDTH 20.1 % (11.7-14.4)
[2019-10-26 07:16] LABS: ANION GAP 15.8 mmol/L (8-16); CALCIUM 9.3 mg/dL (8.4-10.2); CREATININE, SERUM 2.52 mg/dL (0.57-1.11); POTASSIUM 3.8 mmol/L (3.5-5.1)
[2019-10-26] MEDS: GABAPENTIN 100 MG CAP PO SCH ×3 (08:20→20:46)
[2019-10-26] MEDS: METOLAZONE 5 MG TAB PO SCH (08:20)
[2019-10-26] MEDS: METOPROLOL SUCCINATE 50 MG TAB XL PO SCH (08:20)
[2019-10-26] MEDS: DONEPEZIL HCL 5 MG TAB PO SCH (08:21)
[2019-10-26] MEDS: GLIMEPIRIDE 2 MG TAB PO SCH (08:21)
[2019-10-26] MEDS: PANTOPRAZOLE SOD 40 MG TABEC PO SCH (08:21)
[2019-10-26] MEDS: ISOSORBIDE MONONITRATE 30 MG TAB CR PO SCH (08:21)
[2019-10-26] MEDS: LIDOCAINE 4% PATCH TP SCH (08:21)
--- NOTE | 2019-10-26 08:22 | NUR ---
Patient refused clear liquid diet, she said she want some regular diet, notified Dr Dubon, new order received
--- NOTE | 2019-10-26 09:19 | Progress Note ---
DATE: SUBJECTIVE: A 73-year-old female, who comes in with abdominal pain, also back pain. The patient's x-ray was done yesterday of lumbar spine, which showed age-indeterminate fracture L1 and L3 compression, chronic compression at the T9 and T10, and mild degenerative disease from L3-L4 to L5-S1. Continues to have pain, but much better with medications. The patient was started on morphine and gabapentin 3 times a day yesterday. OBJECTIVE: VITAL SIGNS: Temperature is 98.2, pulse of 80, respirations of 17, blood pressure is 130/53, pulse oximetry of 95%. HEENT: Normocephalic and atraumatic. Pupils are reactive. CVS: S1 and S2 normal. Regular rate and rhythm. ABDOMEN: Soft and nontender. BACK: Tender. EXTREMITIES: No clubbing, no cyanosis, no edema. LABORATORY VALUES: White count is 10.71, hemoglobin of 11.0. Chemistry pending today. ASSESSMENT AND PLAN: Ms. Harmony Cruz with: 1. Diverticulitis, probably resolved and white count is normal. We will not start on antibiotics depending on white count. 2. Lumbar radiculopathy and fracture. We will have Dr. Torres look at her and decide on further treatment. 3. Hyperlipidemia. Continue medications. 4. Atrial fibrillation normal sinus at this time. 5. We will continue monitoring her blood work and diabetes mellitus. Continue on current medications glimepiride and donepezil. At this time, continue the same for dementia. 6. Check her PT/INR today. MD VALENTINO Lo/MODL /[id number]
[2019-10-26] MEDS: WARFARIN SOD 3 MG TAB PO SCH (16:54)
--- NOTE | 2019-10-26 18:34 | NUR ---
patient resting in bed, Alert with no distress, keep monitoring
--- NOTE | 2019-10-26 19:30 | NUR ---
RECEIVED REPORT FROM DAY NURSE. PATIENT IS RESTING COMFORTABLY IN THE BED. BED IS IN THE LOWEST POSITION AND CALL EVANS IS WITHIN REACH. WILL CONTINUE TO MONITOR PATIENT.
[2019-10-26] MEDS: ATORVASTATIN 40 MG TAB PO SCH (20:46)
[2019-10-27] VITALS (10 sets, daily range): BP systolic 100–132; BP diastolic 38–63
[2019-10-27 06:00] LABS: INR 1.05; PROTHROMBIN TIME 14.4 seconds (11.9-14.5)
[2019-10-27] MEDS: MORPHINE SULFATE INJ 4 MG/ML INJ 1ML IV PRN ×4 (06:26→22:59)
[2019-10-27] MEDS: ONDANSETRON HCL INJ 2MG/ML 2ML 2 MG/ML VIAL IV PRN (06:26)
--- NOTE | 2019-10-27 06:50 | NUR ---
PATIENT IS RESTING IN BED. NO SIGNS OF DISTRESS NOTED. BED IS IN LOWEST POSITION AND CALL LIGHT IS WITHIN REACH.
--- NOTE | 2019-10-27 07:10 | NUR ---
PATIENT IS AWAKE AND IN STABLE CONDITION WITH NO S/S OF RESPIRATORY DISTRESS. PATIENT C/O BACK PAIN 02/08- RECENTLY RECEIVED PAIN MEDICATION. TELEMETRY APPLIED. BED ALARM APPLIED; WALKER PROVIDED FOR PATIENT. CALL LIGHT IS WITHIN REACH- PATIENT INSTRUCTED TO CALL FOR ASSISTANCE NEEDED.
--- NOTE | 2019-10-27 07:11 | NUR ---
PATIENT REFUSING BED ALARM AND STATES SHE WILL CALL PRIOR TO NEEDING TO GET OUT OF BED. WALKER AVAILABLE IN ROOM.
[2019-10-27] MEDS: PANTOPRAZOLE SOD 40 MG TABEC PO SCH (09:05)
[2019-10-27] MEDS: DONEPEZIL HCL 5 MG TAB PO SCH (09:05)
[2019-10-27] MEDS: GLIMEPIRIDE 2 MG TAB PO SCH (09:05)
[2019-10-27] MEDS: METOPROLOL SUCCINATE 50 MG TAB XL PO SCH (09:06)
[2019-10-27] MEDS: GABAPENTIN 100 MG CAP PO SCH ×3 (09:06→21:03)
[2019-10-27] MEDS: METOLAZONE 5 MG TAB PO SCH (09:06)
[2019-10-27] MEDS: ISOSORBIDE MONONITRATE 30 MG TAB CR PO SCH (09:06)
[2019-10-27] MEDS: LIDOCAINE 4% PATCH TP SCH (09:08)
--- NOTE | 2019-10-27 10:16 | NUR ---
Pt. expressed no spiritual or emotional concerns at this time. Therapist Radiation provided hospitality and information about availability of Therapist Radiation services and how to reach fleet service manager, if needed. No need to follow at this time. ARIADNE DAMON Therapist Radiation Spiritual Care Department O: [phone]
--- NOTE | 2019-10-27 10:16 | NUR ---
INFORMED DR. LUIS THAT DR. HARTMAN, RADIOLOGIST, STATED PATIENT IS NOT A CANDIDATE FOR KYPHOPLASTY. PROVIDED DR. LUIS WITH A PHONE NUMBER TO REACH DR. HARTMAN. ASKED DR. LUIS FOR PT EVAL ORDER AND TO POSSIBLE CHANGE PAIN MEDICATION FOR PATIENT D/T DOSE AND PATIENT'S AGE. AWAITING CALLBACK.
[2019-10-27 10:21] LABS: BILIRUBIN,URINE NEGATIVE (NEGATIVE); CLARITY,URINE CLEAR (CLEAR); COLOR,URINE YELLOW (YELLOW); KETONES,URINE NEGATIVE (NEGATIVE); LEUKOCYTE ESTERASE ,URINE NEGATIVE (NEGATIVE); NITRITE,URINE NEGATIVE (NEGATIVE); PROTEIN,URINE DIPSTICK NEGATIVE (NEGATIVE); URINE UROBILINOGEN 0.2 mg/dL (0.2 - 1)
[2019-10-27 10:35] LABS: BACTERIA,URINE RARE /HPF; EPITHELIAL CELLS,URINE FEW /LPF; WBC,URINE (MAN) 0-5 /HPF (0-5)
--- NOTE | 2019-10-27 11:50 | NUR ---
RECEIVED ORDER FOR PT EVAL AND TO CONTINUE WITH PAIN MEDICATION ORDERED.
[2019-10-27] MEDS: WARFARIN SOD 3 MG TAB PO SCH (16:19)
--- NOTE | 2019-10-27 17:40 | NUR ---
Patient would benefit from outpatient PT services at [facility] for LBP. Addendum: 10/27/19 at 1125 by Bebeto Salinas PT Amended: Links added.
--- NOTE | 2019-10-27 19:10 | NUR ---
BEDSIDE SHIFT REPORT GIVEN BY DAY RN. PT IS ALERT AND ORIENTED X2. PT WALKS TO BATHRROM USING WALKER WITH ONE ASSIST. TELE ON. SL LT AC 20G. RESPIRATIONS EVEN AND UNLABORED. PT NOT CANDIDATE FOR KYPHOPLSTY BUT ABLE TO HAVE OUT PT PT. WILL NEED TO GET ORDERS FROM PCP.CALL LIGHT WITHIN REACH. LIDOCAINE PATCH FELL OFF LOWER BACK- PT REPORTS NOT HELP WITH PAIN. PT REPORT FELL AT HOME SUNDAY AND NOW HAS FX IN BACK. IV PAINFUL WHEN FLUSH WITH SALINE. IV RESTARTED 24 G IN LEFT WRIST.PT TOLERATED PROCEDURE WELL.
--- NOTE | 2019-10-27 19:29 | NUR ---
PATIENT RESTING IN BED-IN STABLE CONDITION WITH NO S/S OF RESPIRATORY DISTRESS. NO PAIN INDICATED AT THIS TIME. BED ALARM APPLIED. CALL LIGHT IS WITHIN REACH, INSTRUCTED TO CALL FOR ASSISTANCE NEEDED. BEDSIDE SHIFT REPORT GIVEN TO ONCOMING NURSE.
[2019-10-27] MEDS: ATORVASTATIN 40 MG TAB PO SCH (21:03)
[2019-10-28] VITALS (8 sets, daily range): BP systolic 101–119; BP diastolic 35–54
--- NOTE | 2019-10-28 07:00 | NUR ---
BEDSIDE SHIFT REPORT RECEIVED FROM THE BRUSH LOADER AND HANDLE ATTACHER RN. EDUCATED PT ABOUT FALL PRECAUTIONS. PT VERBALIZED UNDERSTANDING. CALL LIGHT WITH IN EASY REACH. INSTRUCTED PT TO USE CALL LIGHT FOR ALL THE NEEDS. BED IS LOW AND LOCKED. SIDE RAILS X2. BED ALARM IS ON. PT DENIES NEEDS AT THIS TIME.
[2019-10-28] MEDS: LIDOCAINE 4% PATCH TP SCH (09:55)
[2019-10-28] MEDS: DONEPEZIL HCL 5 MG TAB PO SCH (09:56)
[2019-10-28] MEDS: GLIMEPIRIDE 2 MG TAB PO SCH (09:56)
[2019-10-28] MEDS: GABAPENTIN 100 MG CAP PO SCH ×3 (09:57→21:24)
[2019-10-28] MEDS: METOLAZONE 5 MG TAB PO SCH (10:00)
[2019-10-28] MEDS: METOPROLOL SUCCINATE 50 MG TAB XL PO SCH (10:00)
[2019-10-28] MEDS: ISOSORBIDE MONONITRATE 30 MG TAB CR PO SCH ×2 (10:00→11:51)
[2019-10-28] MEDS: PANTOPRAZOLE SOD 40 MG TABEC PO SCH (10:01)
--- NOTE | 2019-10-28 12:05 | NUR ---
PAGED DR. LUIS AND REPORTED PT BLOOD SUGAR [id number].
[2019-10-28 15:54] LABS: BASOPHILS % 0.5 % (0.0-1.0); EOSINOPHILS # (AUTO) 0.2 (0.0-0.4); EOSINOPHILS % 2.5 % (0.0-6.0); HEMATOCRIT 32.8 % (34.2-44.1); HEMOGLOBIN 10.5 g/dL (12.0-16.0); LYMPHOCYTES # (AUTO) 1.5 (1.0-3.2); LYMPHOCYTES % 17.2 % (18.0-39.1); MEAN CORPUSCULAR HEMOGLOBIN 27.8 pg (28-32); MEAN CORPUSCULAR VOLUME 86.8 fL (81-99); MONOCYTES # (AUTO) 0.7 (0.2-0.8); MONOCYTES % 7.7 % (4.4-11.3); NEUTROPHILS # (AUTO) 6.3 (2.1-6.9); NEUTROPHILS % 71.9 % (38.7-80.0); PLATELET COUNT 263 x10e3/uL (140-360); RED BLOOD COUNT 3.78 x10e6/uL (3.6-5.1); RED CELL DISTRIBUTION WIDTH 19.9 % (11.7-14.4)
[2019-10-28 16:06] LABS: INR 1.11
[2019-10-28 16:09] LABS: ANION GAP 12.9 mmol/L (8-16); CREATININE, SERUM 2.45 mg/dL (0.57-1.11); POTASSIUM 3.9 mmol/L (3.5-5.1)
[2019-10-28] MEDS: WARFARIN SOD 3 MG TAB PO SCH (16:16)
[2019-10-28] MEDS ORDERED: ONDANSETRON HCL 4 MG ORAL DISINTEGRATING TAB PO PRN (19:15)
--- NOTE | 2019-10-28 19:15 | NUR ---
BEDSIDE SHIFT REPORT RECEIVED FROM DAY RN. PT ALERT AND ORIENTED X3. RESPIRATIONS ARE EVEN AND UNLABORED. TELE ON. 24 G SL IN LEFT WRIST. SITE HEALTHY. UP WITH ONE ASSIST TO BATHROOM. VOID WITHOUT DIFFICULTY. PT DENIES PAIN. NO BM TODAY. PT TOLERATING PO WELL. CALL LIGHT WITHIN REACH. BED LOCKED AND IN LOW POSITION. BED ALARM ON.
--- NOTE | 2019-10-28 19:19 | NUR ---
BEDSIDE SHIFT REPORT GIVEN TO THE BENEFITS ASSISTANT RN. PT DENIED FURTHER NEEDS.
[2019-10-28] MEDS: ATORVASTATIN 40 MG TAB PO SCH (21:24)
[2019-10-29] VITALS: BP 117/42
[2019-10-29 04:00] VITALS: BP 133/50
--- NOTE | 2019-10-29 05:18 | NUR ---
DR LUIS HERE TO SEE PT.PER DR LUIS FAMILY SAID THEY DID NOT WANT PT TO DO OUT PT PHYSICAL THERAPY.
[2019-10-29] MEDS ORDERED: FENTANYL 25 MCG/HR PATCH TOP SCH (05:30)
--- NOTE | 2019-10-29 06:49 | NUR ---
dr santoyo here. new order received for Duragesic patch. med placed left lower back.
[2019-10-29 08:24] VITALS: BP 111/55
[2019-10-29] MEDS: DONEPEZIL HCL 5 MG TAB PO SCH (09:52)
[2019-10-29] MEDS: GLIMEPIRIDE 2 MG TAB PO SCH (09:52)
[2019-10-29] MEDS: PANTOPRAZOLE SOD 40 MG TABEC PO SCH (09:52)
[2019-10-29] MEDS: ISOSORBIDE MONONITRATE 30 MG TAB CR PO SCH (09:53)
[2019-10-29] MEDS: LIDOCAINE 4% PATCH TP SCH (09:53)
[2019-10-29] MEDS: GABAPENTIN 100 MG CAP PO SCH (09:53)
[2019-10-29] MEDS: METOLAZONE 5 MG TAB PO SCH (09:53)
[2019-10-29] MEDS: METOPROLOL SUCCINATE 50 MG TAB XL PO SCH (09:53)
[2019-10-29 09:54] VITALS: BP 111/55
[2019-10-29 12:00] VITALS: BP 118/61
--- NOTE | 2019-10-29 15:34 | NUR ---
Patient recieved discharge order from Dr. Torres. Patient IV was discontinued at 1520. Patient discharged home with same home medications and a follow up appt for Dr. Torres in 2 weeks. Patient had no issues or complains. Patient discharged home at 1531.
--- NOTE | 2019-11-02 11:26 | Discharge Summary ---
DISCHARGE DIAGNOSES: 1. Compression fracture of L1, L3, subacute. 2. Urinary tract infection. HISTORY OF PRESENT ILLNESS: The patient is a lady, well known to me, who presented with worsening lower back pain, who failed outpatient treatment, who was found to have a subacute compression fracture of L1, L3, so she was brought in. She was given pain control. Interventional Radiology was consulted, who stated that due to her subacute nature, the intervention would not work, so I discussed with the patient. She wanted to go ahead and try with pain therapy. She refused outpatient physical therapy as a treatment option. So, she was then given a Duragesic patch 25 mcg q.72, which really helped with her pain significantly, so she was given a Rx for one month supply only and I told her this would not be a long-term treatment effect. She was then discharged home per her wishes and she will follow up in 1 to 2 weeks with me as an outpatient. Please see rest of chart for full details and she was also given a script for Macrobid for her urinary tract infection. MD QUINN Carver/ASH /[id number]
== END 2019-10-29 15:31 | disposition home or self-care (01) | DRG 543 ==
LOC: ER 15:39 → ERHOLD 17:08 → MED/SURG3 19:56 → INTOOBSV 10-26 11:28 → OBSVTOIN 10-26 11:28
PROVIDERS: ADMIT Internal Medicine; ATTEND Internal Medicine
DX: M48.56XA Collapsed vertebra, not elsewhere classified, lumbar region, initial encounter for fracture (principal); K57.32 Diverticulitis of large intestine without perforation or abscess without bleeding; N39.0 Urinary tract infection, site not specified; I48.91 Unspecified atrial fibrillation; E78.5 Hyperlipidemia, unspecified; M54.16 Radiculopathy, lumbar region; K21.9 Gastro-esophageal reflux disease without esophagitis; I12.9 Hypertensive chronic kidney disease with stage 1 through stage 4 chronic kidney disease, or unspecified chronic kidney disease; E11.22 Type 2 diabetes mellitus with diabetic chronic kidney disease; N18.3 Chronic kidney disease, stage 3 (moderate); Z79.4 Long term (current) use of insulin; I25.10 Atherosclerotic heart disease of native coronary artery without angina pectoris
CPT/HCPCS: 36415; 72131; 74176; 74470; 80048; 80053; 81001; 82948; 85025; 85610; 87086; 87186; 97139; 99284; G0378; J1885; J2270; J2405; J7030

== ENCOUNTER 2020-02-23 13:04 | Inpatient (IN) | payer MEDICARE, OTHER ==
[~2020-02-23] VITALS: Ht 165.1 cm; Wt 57.6 kg
[~2020-02-23 13:04] MED LIST changes: +ALENDRONATE SOD70 MG PO; +ATORVASTATIN CA40 MG PO; +DONEPEZIL HCL10 MG PO; +ISOSORBIDE MONO30 MG PO; +METOLAZONE5 MG PO; +PANTOPRAZOLE SO40 MG PO
--- NOTE | 2020-02-23 13:23 | NUR ---
[facility]S GAVE AMNIO 150MG IV OVER 10 MINS OFFSET PRESS OPERATOR HELPER AMNIO DRIP AT 1MG/HR AT 33.3CC/HR LIDO 100MG IVP FENTENYL 100 MCG IVP LR 150CC/HR PER DR HEIDY JURADO SWAB DONE BEDSIDE
[2020-02-23 13:26] LABS: BASOPHILS # (AUTO) 0.1 (0.0-0.1); BASOPHILS % 0.4 % (0.0-1.0); EOSINOPHILS % 0.2 % (0.0-6.0); HEMATOCRIT 38.3 % (34.2-44.1); HEMOGLOBIN 13.1 g/dL (12.0-16.0); LYMPHOCYTES # (AUTO) 2.3 (1.0-3.2); LYMPHOCYTES % 9.6 % (18.0-39.1); MEAN CORPUSCULAR HEMOGLOBIN 30.4 pg (28-32); MEAN CORPUSCULAR HGB CONC 34.2 g/dL (31-35); MEAN CORPUSCULAR VOLUME 88.9 fL (81-99); MONOCYTES # (AUTO) 1.5 (0.2-0.8); MONOCYTES % 6.3 % (4.4-11.3); NEUTROPHILS # (AUTO) 20.3 (2.1-6.9); NEUTROPHILS % 82.8 % (38.7-80.0); PLATELET COUNT 360 x10e3/uL (140-360); RED BLOOD COUNT 4.31 x10e6/uL (3.6-5.1); RED CELL DISTRIBUTION WIDTH 16.5 % (11.7-14.4)
[2020-02-23] MEDS ORDERED: AMIODARONE 900MG 500 ML IV SCH ×2 (13:30→19:31)
[2020-02-23] MEDS ORDERED: FENTANYL CITRATE/PF 100MCG/2 ML INJ IV ONE (13:30)
[2020-02-23] MEDS ORDERED: AMIODARONE HCL 900 MG in DEXTROSE 5% 500ML 500 ML IV SCH (13:30)
[2020-02-23] MEDS ORDERED: LACTATED RINGER'S 1,000 ML INJ ONE (13:30)
[2020-02-23] MEDS ORDERED: LIDOCAINE 1% 5ML-MPF INJ ONE ×2 (13:30→14:00)
--- NOTE | 2020-02-23 13:30 | NUR ---
PER DR MOODY, IF BACK IN VTACH (BACK IN VTACH, APPEARENCE OF POSSIBLE TORSODES) TO HAND AMINIO 150MG OVER TEN MINS. PT SHOCKED AGAIN BY DEFIB. 2ND AMNIO DRIP OF 150MG AT 1332 PER VORAlisia PER ER VORAlisia GIVE MAG 2 GRAMS IVPB WATCHING BP. MAG 2 GRAMS IVPB HUNG AND RUNNING. PER LIDO 100MG REPEAT AFTER AMNIO BOLUS
[2020-02-23] MEDS ORDERED: MIDAZOLAM HCL 2 MG/2 ML VIAL IV STA ×4 (13:35→14:55)
--- NOTE | 2020-02-23 13:40 | NUR ---
2ND LIDO BOLUS DONE 100MG IVP MAG RUNNING 2 GRAMS IVPB OVER ONE HOUR FILTER ON AMNIO PER POLICY
--- NOTE | 2020-02-23 13:41 | NUR ---
PT HAS HAD MULTIPLE SHOCKS FROM HER DEFIB WITH RUNS OF VTACH. PT ON PADS WELL IF NEEDED.
--- NOTE | 2020-02-23 13:41 | NUR ---
PT IN SINUS WITH UNIFOCAL PVCS NOTED INTERMITTANTLY TO BIGEMINY AND SR OCCASSIONAL.
[2020-02-23 13:47] LABS: ALBUMIN 3.3 g/dL (3.5-5.0); ALBUMIN/GLOBULIN RATIO 0.8 (0.8-2.0); ANION GAP 19.3 mmol/L (8-16); CALCIUM 9.4 mg/dL (8.4-10.2); CREATININE, SERUM 3.07 mg/dL (0.57-1.11)
[2020-02-23 13:48] LABS: POTASSIUM 2.3 mmol/L (3.5-5.1)
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
[2020-02-23] MEDS ORDERED: AMIODARONE HCL 150 MG/100 ML BAG IV ONE (14:00)
[2020-02-23] MEDS ORDERED: POTASSIUM CHLORIDE 20MEQ/100ML 200 ML IV ONE (14:00)
[2020-02-23] MEDS ORDERED: POTASSIUM CHLORIDE 10MEQ EA PO ONE (14:00)
[2020-02-23] MEDS ORDERED: LIDOCAINE 2GM/D5W 500ML 500 ML IV SCH (14:00)
[2020-02-23] MEDS ORDERED: MAGNESIUM SULFATE 2GM/50ML 50 ML IV ONE (14:00)
--- NOTE | 2020-02-23 14:02 | NUR ---
MED ORDERS PLACED PER ER MD MOODY. VORB TWICE.
--- NOTE | 2020-02-23 14:03 | NUR ---
1 AMP LIDOCAINE GIVEN
--- NOTE | 2020-02-23 14:06 | NUR ---
100 J SYNCRONIZED SHOCK. BP 106/91, HR 147
--- NOTE | 2020-02-23 14:08 | NUR ---
POST SYNC SHOCK HR 81, BP 123/56
[2020-02-23] MEDS ORDERED: SUCCINYLCHOLINE 200 MG/10 ML SYR IV STA (14:12)
[2020-02-23] MEDS ORDERED: ETOMIDATE 2 MG/ML 10 ML INJ IV STA ×2 (14:12→15:55)
[2020-02-23] MEDS ORDERED: PROPOFOL IV EMULSION 10MG/ML 100 ML ONE (14:15)
--- OUTSIDE RECORDS SUMMARY | 2020-02-23 14:16 | XMS REPORT | Continuity of Care Document ---
Author Author [facility] t Organization [facility] Address [address] [place] [address] Phone Unavailable Care Team Providers Care Technology Teacher Name Role Phone JANELLE KAPLAN, MD CROUCH PCP WILLA LUIS Attphys Unavailable CB CISNEROS Attphys Unavailable Jake DENISE Attphys Unavailable Jessica MONTES Attphys Unavailable WILLA LUIS Admphys Unavailable Payers Payer Name Policy Type Policy Number Effective Date Expiration Date Denisha Torres [facility] 2017 00:00:00 [facility] Problems Condition Name Condition Details Condition Category Status Onset Date Resolution Date Last Treatment Date Treating Clinician Comments Source Abdominal pain Abdominal pain Problem Active 2014-04-30 00:00:00 [facility] Dehydration Dehydration Problem Active [facility] Pre-syncope Near syncope Problem Active [facility] Fracture of pelvis Pelvic fracture Problem Active [facility] Urinary tract infection Urinary tract infection Problem Active [facility] Acute renal failure Acute renal failure Problem Active [facility] Chest pain Chest pain Problem Active [facility] Diarrhea Diarrhea Problem Active [facility] Lactic acidosis Lactic acid acidosis Problem Active [facility] Sustained ventricular tachycardia Ventricular tachycardia, susta ined Problem Active [facility] Diverticulitis Diverticulitis Problem Active [facility] Calculus of kidney Problem Active [facility] Allergies, Adverse Reactions, Alerts Allergy Name Allergy Type Status Severity Reaction(s) Onset Date Inacti ve Date Treating Clinician Comments Source 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 Ordering Clinician Indication Dosage Frequency Signature (SIG) Comments Components Source Alendronate Sodium (Fosamax) 70 Mg TABLET Alendronate Sodium (Fosamax) 70 Mg TABLET Yes 70 Every Sunday [facility] Alendronate Sodium Alendronate Sodium Yes 70 Us e As Directed [facility] Aspirin Aspirin Yes 81 Daily [facility] Atorvastatin Calcium Atorvastatin Calcium Yes 40 Daily [facility] Donepezil Hcl Donepezil Hcl Yes 10 Daily [facility] Furosemide (Lasix) 40 Mg TABLET Furosemide (Lasix) 40 Mg TABLET Yes 40 Daily [facility] Glimepiride Glimepiride Yes 2 Daily [facility] Isosorbide Mononitrate (Isosorbide Mononitrate Er) 30 Mg TAB.ER.24H Isosorbide Mononitrate (Isosorbide Mononitrate Er) 30 Mg TAB.ER.24H Yes 30 Daily [facility] Metolazone Metolazone Yes 5 Daily [facility] Metoprolol Succinate Metoprolol Succinate Yes 50 Daily [facility] Montelukast Sodium Montelukast Sodium Yes 10 Da margret [facility] Multivitamin (Multi-Vitamin Daily) 1 Each TABLET Multi vitamin (Multi-Vitamin Daily) 1 Each TABLET Yes 1 Daily [facility] Nitroglycerin Nitroglycerin Yes .4 Every 5 Anitra kehinde [facility] Omeprazole Omeprazole Yes 20 Daily [facility] Ondansetron (Zofran Odt) 4 Mg TAB.RAPDIS Ondansetron ( Zofran Odt) 4 Mg TAB.RAPDIS Yes 4 Every 6 Hours as needed for Nausea [facility] Pantoprazole Sodium (Protonix) 40 Mg TABLET. Pantopr azole Sodium (Protonix) 40 Mg TABLET. Yes 40 Daily [facility] Pravastatin Sodium Pravastatin Sodium Yes 40 Qh s [facility] Warfarin Sodium Warfarin Sodium Yes 3 Daily@17 00 [facility] Metformin Hcl (Glucophage Xr) 500 Mg TAB.ER.24H Metfor min Hcl (Glucophage Xr) 500 Mg TAB.ER.24H 2019-09-02 00:00:00 No 500 Twice A Day [facility] Amiodarone Hcl Amiodarone Hcl 2019-08-31 00:00:00 No 200 Daily [facility] Metoclopramide Hcl Metoclopramide Hcl 2019-08-31 00:00:00 No 10 Before Meals And At Bedtime [facility] Ciprofloxacin Hcl (Cipro) 500 Mg TABLET Ciprofloxacin Hcl (C ipro) 500 Mg TABLET 2019-08-30 00:00:00 No 500 Every 12 Hours [facility] Metronidazole (Flagyl) 500 Mg TABLET Metronidazole (Flagyl) 500 Mg TABLET 2019-08-30 00:00:00 No [facility] Metronidazole (Flagyl) 500 Mg TABLET Metronidazole (Flagyl) 500 Mg TABLET 2019-08-30 00:00:00 No Three Times A Day [facility] Alprazolam Alprazolam 2017-08-09 00:00:00 No .5 Jelena ry Evening [facility] Amiodarone Hcl (Pacerone) 200 Mg TABLET Amiodarone Hcl (Pace tiny) 200 Mg TABLET 2017-08-09 00:00:00 No 200 Every Evening [facility] Carvedilol Carvedilol 2017-08-09 00:00:00 No 12.5 Twi ce A Day [facility] Digoxin (Lanoxin) 125 Mcg TABLET Digoxin (Lanoxin) 125 Mcg TABLE T 2017-08-09 00:00:00 No 125 Daily [facility] Diltiazem Hcl (Diltiazem 24HR Er) 120 Mg CAP.ER.24H Di ltiazem Hcl (Diltiazem 24HR Er) 120 Mg CAP.ER.24H 2017-08-09 00:00:00 No 120 Daily [facility] Gabapentin Gabapentin 2017-08-09 00:00:00 No 300 Jelena ry Evening [facility] Glipizide Glipizide 2017-08-09 00:00:00 No 5 Daily [facility] Isosorbide Mononitrate (Imdur) 30 Mg TABCR Isosorbide Mononitrate (Imdur) 30 Mg TABCR 2017-08-09 00:00:00 No 30 Every Evening [facility] Warfarin Sodium Warfarin Sodium 2017-08-09 00:00:00 No 3 Mon,Tue,Anjelica,Sat,Sun [facility] Warfarin Sodium Warfarin Sodium 2017-08-09 00:00:00 No 6 Every Wed & Fri [facility] Metoclopramide Hcl Metoclopramide Hcl 2014-04-30 00:00:00 No 10 With Each Meal [facility] Aspirin Aspirin 2013-09-03 00:00:00 No 81 Daily [facility] Nitroglycerin (Nitrostat) 0.4 Mg TAB.SUBL Nitroglyceri n (Nitrostat) 0.4 Mg TAB.SUBL 2013-09-03 00:00:00 No .4 As Needed [facility] Prosperity-3 Fatty Acids (Fish Oil) 300 Mg CAPSULE Prosperity-3 Fatty Acids (Fish Oil) 300 Mg CAPSULE 2013-09-03 00:00:00 No 300 Twice A Day [facility] Topiramate (Topamax) 50 Mg TABLET Topiramate (Topamax) 50 Mg TAB LET 2013-09-03 00:00:00 No 50 Twice A Day [facility] Warfarin Sodium (Coumadin) 5 Mg VIAL Warfarin Sodium (Coumadin) 5 Mg VIAL 2013-02-09 00:00:00 No [facility] Vital Signs Vital Name Observation Time Observation Value Comments Source Body Temperature 2019-10-29 12:00:00 97.5 [degF] [facility] Weight 2019-10-29 00:46:00 142.06 [lb_av] [facility] BMI (Body Mass Index) 2019-10-29 00:46:00 23.6 kg/m2 [facility] Procedures Procedure Date / Time Performed Performing Clinician [facility] Computed tomography of lumbar spine without contrast 2019-10-25 00:00:00 [facility] CT of abdomen and pelvis without contrast 2019-10-24 00:00:00 [facility] Ultrasound, renal 2019-10-16 00:00:00 ALLISON CHEW [facility] CT of abdomen and pelvis without contrast 2019-10-16 00:00:00 [facility] Ultrasound, renal 2019-08-31 00:00:00 SUSANNA CERDA [facility] Plan of Care Planned Activity Planned Date Details Comments Source Instructions Back Pain [facility] Encounters Start Date/Time End Date/Time Encounter Type Admission Type Attendi [facility] Care Department Encounter ID Source 2019-10-26 11:28:00 2019-10-29 15:31:00 Discharged Inpatient 1 JANELLEWILLA AYALA [facility] [id number] [facility] 2019-10-16 18:33:00 2019-10-19 09:12:00 Discharged Inpatient (obs) 1 STEPHENCB LIMA [facility] [id number] [facility] 2019-08-30 21:48:00 2019-09-02 14:15:00 Discharged Inpatient (obs) 1 JANELLEWILLA AYALA [facility] [id number] [facility] 2017-12-05 20:14:00 2017-12-07 15:52:00 Discharged Inpatient 1 JAKUB DENISE [facility] [id number] [facility] 2017-08-09 16:39:00 2017-08-10 17:20:00 Discharged Inpatient (obs) GALLO LAWRECNE [facility] [id number] [facility] 2017-01-17 18:55:00 2017-01-17 22:00:00 Departed Emergency Room [facility] [id number] [facility] Results Test Description Test Time Test Comments Results Result Comments Source Capillary blood glucose measurement by glucometer (mas s/volume) 2019-10-29 19:51:00 Test Item Bedside Glucose (test code = 91444-5) 156 70-120 Meter ID: [id number] – [facility]villeBlood leukocytes automated count (number/volume)2019-10-28 15:20:00* Test Item Value Reference Range Interpretation Comments White Blood Count (test code = 6690-2) 8.78 4.8-10.8 [facility] erythrocytes automated count (number/volume)2019-10-28 15:20:00* Test Item Value Reference Range Interpretation Comments Red Blood Count (test code = 789-8) 3.78 3.6-5.1 [facility] hemoglobin measurement (moles/volume)2019-10-28 15:20:00* Test Item Value Reference Range Interpretation Comments Hemoglobin (test code = 54384-2) 10.5 12.0-16.0 [facility]villeAutomated blood hematocrit (volume fraction)2019-10-28 15:20:00* Test Item Value Reference Range Interpretation Comments Hematocrit (test code = 4544-3) 32.8 34.2-44.1 [facility]villeAutomated erythrocyte mean corpuscular ixzywc2022-06-56 15:20:00* Test Item Value Reference Range Interpretation Comments Mean Corpuscular Volume (test code = 787-2) 86.8 81-99 [facility]villeAutomated erythrocyte mean corpuscular hemoglobin (mass per erythrocyte)2019-10-28 15:20:00* Test Item Value Reference Range Interpretation Comments Mean Corpuscular Hemoglobin (test code = 785-6) 27.8 28-32 [facility]villeAutomated erythrocyte mean corpuscular hemoglobin concentration measurement (mass/volume)2019-10-28 15:20:00* Test Item Value Reference Range Interpretation Comments Mean Corpuscular Hemoglobin Concent (test code = 786-4) 32.0 31-35 [facility] BrownsvilleRDW PuxLc-[id number] 15:20:00* Test Item Value Reference Range Interpretation Comments Red Cell Distribution Width (test code = 47163-0) 19.9 11.7 -14.4 [facility]villeAutomated blood platelet count (count/volume)2019-10-28 15:20:00* Test Item Value Reference Range Interpretation Comments Platelet Count (test code = 777-3) 263 140-360 [facility]villeAutomated blood segmented neutrophil count as percentage of total uedxsrcjwe0152-70-55 15:20:00* Test Item Value Reference Range Interpretation Comments Neutrophils (%) (Auto) (test code = 97285-9) 71.9 38.7-80.0 [facility]villeAutomated blood lymphocyte count as percentage ot total dteicnzuud1197-62-10 15:20:00* Test Item Value Reference Range Interpretation Comments Lymphocytes (%) (Auto) (test code = 736-9) 17.2 18.0-39.1 [facility]villeAutomated blood monocyte count as percentage of total mwkwyktdag3906-67-52 15:20:00* Test Item Value Reference Range Interpretation Comments Monocytes (%) (Auto) (test code = 5905-5) 7.7 4.4-11.3 [facility]villeAutomated blood eosinophil count as percentage of total kxmrgoubnp3247-95-40 15:20:00* Test Item Value Reference Range Interpretation Comments Eosinophils (%) (Auto) (test code = 713-8) 2.5 0.0-6.0 [facility]villeAutomated blood basophil count as percentage of total ybeurakgyg0864-07-48 15:20:00* Test Item Value Reference Range Interpretation Comments Basophils (%) (Auto) (test code = 706-2) 0.5 0.0-1.0 [facility]villeFluoroscopic procedure less than one hour vmzmhbgv4802-40-00 15:20:00* Test Item Value Reference Range Interpretation Comments IM GRANULOCYTES % (test code = IM GRANULOCYTES %) 0.2 0.0- 1.0 [facility]villeAutomated blood neutrophil count 2019-10-28 15:20:00* Test Item Value Reference Range Interpretation Comments Neutrophils # (Auto) (test code = 751-8) 6.3 2.1-6.9 [facility] lymphocytes count (number/volume) 2019-10-28 15:20:00* Test Item Value Reference Range Interpretation Comments Lymphocytes # (Auto) (test code = 95140-6) 1.5 1.0-3.2 [facility] monocytes automated count (number/volume)2019-10-28 15:20:00* Test Item Value Reference Range Interpretation Comments Monocytes # (Auto) (test code = 742-7) 0.7 0.2-0.8 [facility]villeAutomated blood eosinophil count 2019-10-28 15:20:00* Test Item Value Reference Range Interpretation Comments Eosinophils # (Auto) (test code = 711-2) 0.2 0.0-0.4 [facility]villeAutomated blood basophil count (count/volume)2019-10-28 15:20:00* Test Item Value Reference Range Interpretation Comments Basophils # (Auto) (test code = 704-7) 0.0 0.0-0.1 [facility]villeFluoroscopic procedure less than one hour kewqpllm5598-44-95 15:20:00* Test Item Value Reference Range Interpretation Comments Absolute Immature Granulocyte (auto (kehinde t code = Absolute Immature Granulocyte (auto) 0.02 0-0.1 [facility]villeProthrombin time (PT) in platelet poor plasma by coagulation iezkc1129-96-95 15:20:00* Test Item Value Reference Range Interpretation Comments Prothrombin Time (test code = 5902-2) 15.0 11.9-14.5 [facility]villeINR in Platelet poor plasma by Coagulation odvsv4085-63-59 15:20:00* Test Item Value Reference Range Interpretation Comments Prothromb Time International Ratio (test code = 6301-6) 1.11 Oral Anticoagulant Therapy INR Values:1. Low Intensity Therapy 1.5 - 2.02 . Moderate Intensity Therapy 2.0 - 3.03. High Intensity Therapy(1) 2.5 - 3. 54. High Intensity Therapy(2) 3.0 - 4.05. Panic Value INR > 5.0 [facility] sodium measurement (moles/volume)2019-10-28 15:20:00* Test Item Value Reference Range Interpretation Comments Sodium Level (test code = 2951-2) 136 136-145 [facility] potassium measurement (moles/volume)2019-10-28 15:20:00* Test Item Value Reference Range Interpretation Comments Potassium Level (test code = 2823-3) 3.9 3.5-5.1 [facility] chloride measurement (moles/volume)2019-10-28 15:20:00* Test Item Value Reference Range Interpretation Comments Chloride Level (test code = 2075-0) 97 98-107 [facility]er[facility] plasma carbon dioxide, total measurement (moles/volume)2019-10-28 15:20:00* Test Item Value Reference Range Interpretation Comments Carbon Dioxide Level (test code = 2028-9) 30 22-29 [facility] or plasma anion ysj1075-26-88 15:20:00* Test Item Value Reference Range Interpretation Comments Anion Gap (test code = 08572-1) 12.9 8-16 [facility] urea nitrogen measurement (mass/volume)2019-10-28 15:20:00* Test Item Value Reference Range Interpretation Comments Blood Urea Nitrogen (test code = 3094-0) 29 7-26 [facility] creatinine measurement (mass/volume)2019-10-28 15:20:00* Test Item Value Reference Range Interpretation Comments Creatinine (test code = 2160-0) 2.45 0.57-1.11 [facility] plasma urea nitrogen/creatinine mass cdrcf4641-20-54 15:20:00* Test Item Value Reference Range Interpretation Comments BUN/Creatinine Ratio (test code = 3097-3) 12 6-25 [facility]villeEstimated glomerular filtration rate (GFR) esmfsdhvgwgos1277-52-37 15:20:00* Test Item Value Reference Range Interpretation Comments Estimat Glomerular Filtration Rate (test code = 508230760) 19 >60 Ranges were taken from the National Kidney Disease Education Program and the [facility] Kidney Foundation literature.Reference ranges:60 or greater: Ekecgl11-31 ( for 3 consecutive months): Chronic kidney disease 15 or less: Kidney failureValley [facility] Medical Center – BrownsvilleGlucose oxfxbdmcuox2638-43-80 15:20:00* Test Item Value Reference Range Interpretation Comments Glucose Level (test code = EZM1235) 120 74-118 [facility]er[facility] plasma calcium measurement (mass/volume)2019-10-28 15:20:00* Test Item Value Reference Range Interpretation Comments Calcium Level (test code = 00162-0) 9.0 8.4-10.2 [facility]villeUrine color mqnnwxoxyhcjg7244-44-93 09:45:00* Test Item Value Reference Range Interpretation Comments Urine Color (test code = 5778-6) YELLOW YELLOW [facility]villeUrine rhvlbzr4243-06-50 09:45:00* Test Item Value Reference Range Interpretation Comments Urine Clarity (test code = 45643-6) CLEAR CLEAR [facility] Hospitalpecific gravity of Urine by Test strip 2019-10-27 09:45:00* Test Item Value Reference Range Interpretation Comments Urine Specific [place] (test code = 5811-5) 1.005 1.010-1.02 5 [facility]villeUrine pH measurement by automated test epoax3099-02-63 09:45:00* Test Item Value Reference Range Interpretation Comments Urine pH (test code = 25115-4) 7 5-7 [facility]villeUrine leukocyte esterase detection by rdbwucgb5209-94-49 09:45:00* Test Item Value Reference Range Interpretation Comments Urine Leukocyte Esterase (test code = 5799-2) NEGATIVE NEGATIVE [facility]villeUrine nitrite ayorhjlcw2841-48-32 09:45:00* Test Item Value Reference Range Interpretation Comments Urine Nitrite (test code = 02406-9) NEGATIVE NEGATIVE [facility]villeUrine protein measurement by test strip (mass/volume)2019-10-27 09:45:00* Test Item Value Reference Range Interpretation Comments Urine Protein (test code = 5804-0) NEGATIVE NEGATIVE [facility]villeUrine glucose gluwkzigh2264-35-19 09:45:00* Test Item Value Reference Range Interpretation Comments Urine Glucose (UA) (test code = 2349-9) NEGATIVE NEGATIVE [facility]villeUrine ketones detection by automated test utsbe4243-45-07 09:45:00* Test Item Value Reference Range Interpretation Comments Urine Ketones (test code = 63014-2) NEGATIVE NEGATIVE [facility]villeUrine urobilinogen measurement by test strip (mass/volume)2019-10-27 09:45:00* Test Item Value Reference Range Interpretation Comments Urine Urobilinogen (test code = 12982-7) 0.2 0.2-1 [facility]villeUrine total bilirubin measurement (mass/volume)2019-10-27 09:45:00* Test Item Value Reference Range Interpretation Comments Urine Bilirubin (test code = 1978-6) NEGATIVE NEGATIVE [facility]villeUrine erythrocytes dgxghhurc6708-30-36 09:45:00* Test Item Value Reference Range Interpretation Comments Urine Blood (test code = 86206-1) NEGATIVE NEGATIVE [facility]villeAutomated urine sediment leukocyte count by microscopy (number/high power field)2019-10-27 09:45:00* Test Item Value Reference Range Interpretation Comments Urine WBC (test code = 5821-4) 0-5 0-5 [facility]villeErythrocytes detection in urine sediment by light mromptejnc2160-03-93 09:45:00* Test Item Value Reference Range Interpretation Comments Urine RBC (test code = 04588-3) NONE 0-5 [facility]villeBacteria detection in urine sediment by light yibbtahnjf1509-04-29 09:45:00* Test Item Value Reference Range Interpretation Comments Urine Bacteria (test code = 23240-7) RARE NONE [facility]villeEpithelial cells detection in urine sediment by light oujsicqthm2013-88-56 09:45:00* Test Item Value Reference Range Interpretation Comments Urine Epithelial Cells (test code = 80421-3) FEW NONE [facility] BrownsvilleBacterial urine tzrqsoz7048-53-62 09:45:00* Test Item Value Reference Range Interpretation Comments Urine Culture (test code = 630-4) STAPHYLOCOCCUS AUREUS-MRSA [facility] BrownsvilleCT LUMBAR SPINE [id number] 09:28:00 [facility] [address] [address] Patient Name: MARGARITA EATON MR #: [id number] : 1945 Age/Sex: 73/F Req #: [id number] Adm Physician: WILLA LUIS MD Ordered by: WICHO HANCOCK MD Report #: [id number] Location: [facility] Room/Bed: [facility], [facility] Procedure: [id number] C T/CT LUMBAR SPINE WO Exam Date: 10/25/19 Exam Time: 909 REPORT STATUS: Signed [place] nation: CT LUMBAR SPINE WO CONTRAST History: Back pain Comparison studies : None Technique: Axial images were obtained through the lumbar spine fr om T9 from abdomen and pelvic CT performed yesterday October 24, 2019. Coronal and sagittal reconstructions obtained from the axial data. Dose modulation, i terative reconstruction, and/or weight based adjustment of the mA/kV was utili zed to reduce the radiation dose to as low as reasonably achievable. Intrav enous contrast: None Findings: The usual 5 non-rib bearing lumbar vert ebral bodies are present. Alignment: Normal lordosis. No scoliosis. Soft ti ssues: Atherosclerotic calcification of the aorta. Paraspinal muscles: No abno rmalities. Sacroiliac joints: No degenerative changes. Vertebrae: No infection or neoplasm. Compressions fractures of the T9, T10, L1, L3 vertebrae without canal compromise from posteriorly displaced endplate or fracture frag ments. There is near vertebra plana deformity of T9 with sclerosis so chronic. The T10 superior endplate is sclerotic and also chronic. The L1 and L3 are ag e indeterminate with maximal height loss at L3 of 37%. Degenerative villalobos ges: L1-L2 through L2-L3: No disc herniation or canal or foraminal stenos is. L3-L4 through L5-S1: Mild diffuse disc bulges without canal stenosis. Mild bilateral foraminal stenosis at L3-L4 and L4-L5. IMPRESSION: 1. Age indeterminate L1 and L3 compression fractures. Chronic compression fra ctures of T9 and T10. 2. Mild degenerative change form L3-:4 through L5-S 1 without canal stenosis. Signed by: Dr. Noemi Tran M.D. on 10/24 9:39 AM Dictated By: NOEMI VIZCAINO MD Electronically Si gned By: NOEMI VIZCAINO MD on 10/25/19938 Transcribed By: IZZY cano 10/25/19938 COPY TO: WICHO HANCOCK MD CT ABDOMEN/PELVIS WO 2019-10-24 16:43:00 [place] [address] Patient Name: MARGARITA EATON MR #: [id number] : 1945 Age/Sex: 73/F Req #: [id number] Adm Physician: Ordered by: CB CISNEROS DO Report #: [id number] Location: ER Room/Bed: Procedure: [id number] CT/CT ABDOMEN/PELVIS WO Exam Date: 10/24/19 Exam Ti me: 1605 REPORT STATUS: Signed E XAM: CT Abdomen and Pelvis WITHOUT intravenous contrast INDICATION: Flank pain COMPARISON: CT abdomen pelvis of 10/16/2019 TECHNIQUE: Abdomen an d pelvis were scanned utilizing a multidetector helical scanner from the lung base to the pubic symphysis without administration of IV contrast. Coronal and sagittal reformations were obtained. IV CONTRAST: None ORAL CONTRA ST: None COMPLICATIONS: None RADIATION DOSE: Total DLP: 303.5 mGy*cm Dose modulation, iterative reconstruction, and/or weight base d adjustment of the mA/kV was utilized to reduce the radiation dose to as low as reasonably achievable. FINDINGS: LOWER THORAX: Mild bibasilar subse gmental atelectasis. Pacer leads partially visualized. Coronary artery atheros clerotic calcifications. HEPATOBILIARY: Unchanged calcified granulomas. No focal liver lesion. Status post cholecystectomy. SPLEEN: No splenomegaly. PANCREAS: No focal masses or ductal dilatation. ADRENALS: No adrenal nodules. KIDNEYS/URETERS: Unchanged 4 mm left lower pole renal calculus. No hydronephrosis. No right renal calculi. PELVIC ORGANS/BLADDER: Unremarkable. PERITONEUM / RETROPERITONEUM: No free air or fluid. LYMPH NODES: No lympha denopathy. VESSELS: Diffuse atherosclerotic calcifications of the nonaneurysma l abdominal aorta and major branches. GI TRACT: Diverticulosis without CT evidence of diverticulitis. Compared to the prior CT of 10/16/2019, there has been interval decrease in mild fat stranding and wall thickening which was see n at the sigmoid colon. No bowel obstruction. Very redundant cecum filled with fecal material. BONES AND SOFT TISSUES: No acute osseous injury. Degenerat bertin changes of the visualized spine. IMPRESSION: Diverticulosis with i nterval improvement in fat stranding and wall thickening associated with the s igmoid colon. Unchanged 4 mm left lower pole renal calculus without hydrone phrosis. Redundant cecum filled with fecal material, new compared to 020. Signed by: Umm Hartman MD on 10/24/2019 4:51 PM Dictated By: UMM HARTMAN MD 50 Transcr ibed By: IZZY on 10/24/191650 COPY TO: CB CISNEROS DO Serum or plasma total bilirubin measurement (mass/volume)2019-10-24 15:45:00* Test Item Value Reference Range Interpretation Comments Total Bilirubin (test code = 1975-2) 0.3 0.2-1.2 [facility]villeFluoroscopic procedure less than one hour udgmtaoc9464-69-54 15:45:00* Test Item Value Reference Range Interpretation Comments Aspartate Amino Transf (AST/SGOT) (test code = Aspartate Amino Transf (AST/SGOT)) 23 5-34 [facility] plasma alanine aminotransferase measurement (enzymatic activity/volume)2019-10-24 15:45:00* Test Item Value Reference Range Interpretation Comments Alanine Aminotransferase (ALT/SGPT) (test code = 1742-6) 15 0-55 [facility]er[facility] plasma protein measurement (mass/volume)2019-10-24 15:45:00* Test Item Value Reference Range Interpretation Comments Total Protein (test code = 2885-2) 7.1 6.5-8.1 [facility]er[facility] plasma albumin measurement (mass/volume)2019-10-24 15:45:00* Test Item Value Reference Range Interpretation Comments Albumin (test code = 1751-7) 3.3 3.5-5.0 [facility]villePlasma globulin measurement (mass/volume) 2019-10-24 15:45:00* Test Item Value Reference Range Interpretation Comments Globulin (test code = 26634-6) 3.8 2.3-3.5 [facility]er[facility] or plasma albumin/globulin mass revzt5701-64-48 15:45:00* Test Item Value Reference Range Interpretation Comments Albumin/Globulin Ratio (test code = 1759-0) 0.9 0.8-2.0 [facility]er[facility] plasma alkaline phosphatase measurement (enzymatic activity/volume)2019-10-24 15:45:00* Test Item Value Reference Range Interpretation Comments Alkaline Phosphatase (test code = 6768-6) 87 40-150 [facility]odium Biqwb6218-87-71 06:41:00* Test Item Value Reference Range Interpretation Comments Sodium Level (test code = 2951-2) 139 136-145 [facility]villePotassium Uycun7427-31-26 06:41:00* Test Item Value Reference Range Interpretation Comments Potassium Level (test code = 2823-3) 3.7 3.5-5.1 [facility]villeChloride Nvjyf7673-54-43 06:41:00* Test Item Value Reference Range Interpretation Comments Chloride Level (test code = 2075-0) 103 98-107 [facility] BrownsvilleCarbon Dioxide Xdrla0200-82-62 06:41:00* Test Item Value Reference Range Interpretation Comments Carbon Dioxide Level (test code = 2028-9) 28 22-29 [facility] BrownsvilleAnion Ofo6090-63-99 06:41:00* Test Item Value Reference Range Interpretation Comments Anion Gap (test code = 66064-7) 11.7 8-16 [facility] BrownsvilleBlood Urea Vcrrekgu3035-92-98 06:41:00* Test Item Value Reference Range Interpretation Comments Blood Urea Nitrogen (test code = 3094-0) 19 7-26 [facility]villeCreatinine2020-04-19 06:41:00* Test Item Value Reference Range Interpretation Comments Creatinine (test code = 2160-0) 1.67 0.57-1.11 H [facility]villeBUN/Creatinine Qikfj2085-48-16 06:41:00* Test Item Value Reference Range Interpretation Comments BUN/Creatinine Ratio (test code = 3097-3) 11 6-25 [facility] BrownsvilleEstimat Glomerular Filtration Rate 2019-10-19 06:41:00* Test Item Value Reference Range Interpretation Comments Estimat Glomerular Filtration Rate (test code = 679758413) 30 >60 L Ranges were taken from the National Kidney Disease Education Program and the [facility] hospital[facility] Kidney Foundation literature.Reference ranges:60 or greater: Eeyerk41-84 ( for 3 consecutive months): Chronic kidney disease 15 or less: Kidney failureVal[facility] – BrownsvilleGlucose Amqyw6958-31-53 06:41:00* Test Item Value Reference Range Interpretation Comments Glucose Level (test code = HQB0497) 100 74-118 [facility] BrownsvilleCalcium Zwgal9193-38-44 06:41:00* Test Item Value Reference Range Interpretation Comments Calcium Level (test code = 52123-4) 8.8 8.4-10.2 [facility] BrownsvilleBedside Uvedyco5342-58-65 19:56:00* Test Item Value Reference Range Interpretation Comments Bedside Glucose (test code = 67990-9) 112 70-120 Meter ID: [id number] Health Harris [facility] Fort WorthBlood Culture 2019-10-18 11:59:00* Test Item Value Reference Range Interpretation Comments Blood Culture (test code = 32364320) NO GROWTH AFTER 48 HOURS [facility] BrownsvillePlatelet Morphology Sqvfsqx8918-91-91 07:48:00* Test Item Value Reference Range Interpretation Comments Platelet Morphology Comment (test code = 14077-9) NO EDTA PLT CLUMP S SEEN [facility] BrownsvilleMagnesium Lsynw6858-60-54 06:36:00* Test Item Value Reference Range Interpretation Comments Magnesium Level (test code = 53246-6) 1.7 1.3-2.1 [facility] BrownsvilleWhite Blood Bjbjx9196-74-62 06:26:00* Test Item Value Reference Range Interpretation Comments White Blood Count (test code = 6690-2) 9.70 4.8-10.8 [facility] BrownsvilleRed Blood Sjdsr3365-17-12 06:26:00* Test Item Value Reference Range Interpretation Comments Red Blood Count (test code = 789-8) 3.84 3.6-5.1 [facility] BrownsvilleHemoglobin2020-04-18 06:26:00* Test Item Value Reference Range Interpretation Comments Hemoglobin (test code = 12440-6) 11.5 12.0-16.0 L [facility] BrownsvilleHematocrit2020-04-18 06:26:00* Test Item Value Reference Range Interpretation Comments Hematocrit (test code = 4544-3) 34.2 34.2-44.1 [facility] BrownsvilleMean Corpuscular Pwuvor1400-22-73 06:26:00* Test Item Value Reference Range Interpretation Comments Mean Corpuscular Volume (test code = 787-2) 89.1 81-99 [facility] BrownsvilleMean Corpuscular Ysgtusdesc3254-89-98 06:26:00* Test Item Value Reference Range Interpretation Comments Mean Corpuscular Hemoglobin (test code = 785-6) 29.9 28-32 [facility] BrownsvilleMean Corpuscular Hemoglobin Concent 2019-10-18 06:26:00* Test Item Value Reference Range Interpretation Comments Mean Corpuscular Hemoglobin Concent (test code = 786-4) 33.6 31-35 [facility] BrownsvilleRed Cell Distribution Jewkw0595-96-43 06:26:00* Test Item Value Reference Range Interpretation Comments Red Cell Distribution Width (test code = 59506-7) 19.7 11.7 -14.4 H [facility] BrownsvillePlatelet Zhgfh8916-92-98 06:26:00* Test Item Value Reference Range Interpretation Comments Platelet Count (test code = 777-3) 289 140-360 [facility] BrownsvilleNeutrophils (%) (Auto)2019-10-18 06:26:00 * Test Item Value Reference Range Interpretation Comments Neutrophils (%) (Auto) (test code = 85033-3) 68.7 38.7-80.0 [facility] BrownsvilleLymphocytes (%) (Auto)2019-10-18 06:26:00 * Test Item Value Reference Range Interpretation Comments Lymphocytes (%) (Auto) (test code = 736-9) 22.4 18.0-39.1 [facility]villeMonocytes (%) (Auto)2019-10-18 06:26:00* Test Item Value Reference Range Interpretation Comments Monocytes (%) (Auto) (test code = 5905-5) 5.6 4.4-11.3 [facility]villeEosinophils (%) (Auto)2019-10-18 06:26:00 * Test Item Value Reference Range Interpretation Comments Eosinophils (%) (Auto) (test code = 713-8) 2.5 0.0-6.0 [facility]villeBasophils (%) (Auto)2019-10-18 06:26:00* Test Item Value Reference Range Interpretation Comments Basophils (%) (Auto) (test code = 706-2) 0.5 0.0-1.0 [facility] BrownsvilleIM GRANULOCYTES %2019-10-18 06:26:00* Test Item Value Reference Range Interpretation Comments IM GRANULOCYTES % (test code = IM GRANULOCYTES %) 0.3 0.0- 1.0 [facility]villeNeutrophils # (Auto)2019-10-18 06:26:00* Test Item Value Reference Range Interpretation Comments Neutrophils # (Auto) (test code = 751-8) 6.7 2.1-6.9 [facility] BrownsvilleLymphocytes # (Auto)2019-10-18 06:26:00* Test Item Value Reference Range Interpretation Comments Lymphocytes # (Auto) (test code = 47286-0) 2.2 1.0-3.2 [facility]villeMonocytes # (Auto)2019-10-18 06:26:00* Test Item Value Reference Range Interpretation Comments Monocytes # (Auto) (test code = 742-7) 0.5 0.2-0.8 [facility]villeEosinophils # (Auto)2019-10-18 06:26:00* Test Item Value Reference Range Interpretation Comments Eosinophils # (Auto) (test code = 711-2) 0.2 0.0-0.4 [facility]villeBasophils # (Auto)2019-10-18 06:26:00* Test Item Value Reference Range Interpretation Comments Basophils # (Auto) (test code = 704-7) 0.1 0.0-0.1 [facility] BrownsvilleAbsolute Immature Granulocyte (auto 2019-10-18 06:26:00* Test Item Value Reference Range Interpretation Comments Absolute Immature Granulocyte (auto (kehinde t code = Absolute Immature Granulocyte (auto) 0.03 0-0.1 [facility] BrownsvilleTotal Rzbceeozw4442-16-90 06:08:00* Test Item Value Reference Range Interpretation Comments Total Bilirubin (test code = 1975-2) 0.3 0.2-1.2 [facility] BrownsvilleAspartate Amino Transf (AST/SGOT) 2019-10-18 06:08:00* Test Item Value Reference Range Interpretation Comments Aspartate Amino Transf (AST/SGOT) (test code = Aspartate Amino Transf (AST/SGOT)) 25 5-34 [facility] BrownsvilleAlanine Aminotransferase (ALT/SGPT) 2019-10-18 06:08:00* Test Item Value Reference Range Interpretation Comments Alanine Aminotransferase (ALT/SGPT) (test code = 1742-6) 15 0-55 [facility] BrownsvilleTotal Xezavef7103-36-90 06:08:00* Test Item Value Reference Range Interpretation Comments Total Protein (test code = 2885-2) 6.9 6.5-8.1 [facility] BrownsvilleAlbumin2020-04-18 06:08:00* Test Item Value Reference Range Interpretation Comments Albumin (test code = 1751-7) 3.0 3.5-5.0 L [facility] BrownsvilleGlobulin2020-04-18 06:08:00* Test Item Value Reference Range Interpretation Comments Globulin (test code = 99270-1) 3.9 2.3-3.5 H [facility] BrownsvilleAlbumin/Globulin Feshq4590-64-39 06:08:00 * Test Item Value Reference Range Interpretation Comments Albumin/Globulin Ratio (test code = 1759-0) 0.8 0.8-2.0 [facility]villeAlkaline Mhbgekgotrb4407-19-40 06:08:00* Test Item Value Reference Range Interpretation Comments Alkaline Phosphatase (test code = 6768-6) 106 40-150 [facility] BrownsvillePlatelet knredhgjel7043-09-90 05:01:00* Test Item Value Reference Range Interpretation Comments Platelet Morphology Comment (test code = 03820-3) See Comment NO EDTA PLT CLUMPS SEENEastland Memorial Hospitalerum or plasma magnesium measurement (mass/volume)2019-10-18 05:01:00* Test Item Value Reference Range Interpretation Comments Magnesium Level (test code = 82685-6) 1.7 1.3-2.1 [facility] Hospitalerum or plasma intact pararthyroid hormone measurement (mass/volume)2019-10-17 18:34:00* Test Item Value Reference Range Interpretation Comments Parathyroid Hormone (test code = 2731-8) 29 15-65 [facility] Hospitalerum or plasma calcium measurement (mass/volume)2019-10-17 18:34:00* Test Item Value Reference Range Interpretation Comments Calcium (Send out) (test code = 57705-5) 9.0 8.7-10.3 [facility] BrownsvilleFluoroscopic procedure less than one hour biftygqz1512-78-58 18:34:00* Test Item Value Reference Range Interpretation Comments Parathyroid Hormone Interpretation (test code = Parathyroid Hormone Interpretation) Comment . Interpretation Intact PTH Calcium (pg/mL) (mg/dL)Normal 15 - 65 8.6 - 10.2Pr imary Hyperparathyroidism >65 >10.2Secondary Hyperparathyroidism >65 <10.2Non-Parathyroid Hypercalcemia <65 >10.2Hypoparathyroidism <15 < 8.6Non- Parathyroid Hypocalcemia 15 - 65 < 8.6Performed at: - [facility] [address] [id number] Director: Kirt Domingo MD, Phone: [phone] at: - [facility] [address] [id number] Director: Vahid Kelley MD, Phone: [phone] – BrownsvilleUric Wtip1083-81-63 14:54:00* Test Item Value Reference Range Interpretation Comments Uric Acid (test code = 3084-1) 7.4 2.6-8.0 [facility] Hospitalerum or plasma uric acid measurement (mass/volume)2019-10-17 05:50:00* Test Item Value Reference Range Interpretation Comments Uric Acid (test code = 3084-1) 7.4 2.6-8.0 [facility] BrownsvilleCT ABDOMEN/PELVIS HF8192-24-91 16:07:00 [facility] [address] Patient Name: MARGARITA EATON MR #: [id number] : [birth year] Age/Sex: 73/F Req #: [id number] Adm Physician: Ordered by: CB CISNEROS DO Report #: [id number] Location: ER Room/Bed: Procedure: [id number] CT/CT ABDOMEN/PELVIS WO Exam Date: 10/16/19 Exam Ti me: 1535 REPORT STATUS: Signed C T of the abdomen and pelvis, without contrast. History: Abdominal pain. Comparison: Renal ultrasound from earlier 10/16/2019, CT abdomen/pelvis fro m 04/14/2018. Technique: Multidetector CT scanning of the abdomen and pel vis was performed from the level of the lung bases to the inferior pubic rami without the use of contrast material. Coronal and sagittal multiplanar reform ations were obtained. RADIATION DOSE: Total DLP: 285.44 mGy*cm Dose modulation, iterative reconstruction, and/or weight based adjustment of the mA/kV was utilized to reduce the radiation dose to as low as reasonably achievable. FINDINGS: The lung bases demonstrate areas of subsegmental atelectasis/scarring. Partially visualized pacing lead noted. The liver i s normal in size and attenuation on this noncontrast enhanced examination. A s uspected calcified granuloma is noted within the right hepatic lobe, unchanged from the prior examination. The gallbladder is surgically absent. There is no biliary ductal dilatation. The stomach, spleen, pancreas, and bilateral adren al glands demonstrate an unremarkable noncontrast appearance. The kidneys are normal in size and location. Two subcentimeter nonobstructing stones are identified within the superior pole of the left kidney, measuring up to 5 mm. There is a 4-5 mm nonobstructing stone identified within the inferior pole of the left kidney. There is no evidence for hydronephrosis. There is no evidence for ureteral dilatation or definite ureteral stone. Numerous phleboliths are identified within the pelvis, none of which can be definitively localized to w ithin the urinary system. The urinary bladder demonstrates no significant abno rmalities. The uterus is surgically absent. No abnormal adnexal masses are leida ntified. The abdominal aorta is normal in course and caliber with extensive atherosclerotic calcifications within its course and branch vessels. The IVC is normal in caliber. Please note evaluation the bowel is limited without the use of enteric contrast material. Extensive diverticula are noted involvi ng the sigmoid colon. There is wall thickening of the sigmoid colon with mild adjacent inflammatory change. The remaining visualized loops of small and larg e bowel demonstrate no evidence of obstruction or inflammation. There is no as cites or peritoneal free air. No abnormally enlarged lymph nodes are identifie d within the abdomen or pelvis. There is a stable compression deformity inv olving the superior endplate of the L3 vertebral body. The osseous structures otherwise demonstrate degenerative changes without evidence for acute fracture or destructive process. The extraperitoneal soft tissues are unremarkable. IMPRESSION: Nonobstructive left-sided nephrolithiasis. No evidence of hydronephrosis or obstructive uropathy. Extensive sigmoid diverticulosis . There is mild wall thickening and adjacent inflammatory change involving the sigmoid colon which may represent findings of acute/early diverticulitis vers us sequela from prior diverticulitis. Recommend correlation with symptomatolog y. No evidence for bowel obstruction, perforation, or abscess formation. Signed by: Dr. Aden Schumacher MD on 10/16/2019 4:19 PM Dictated By: Tessie SCHUMACHER MD 1619 Lara scribed By: IZZY on 10/16/19 1619 COPY TO: CB CISNEROS DO RENAL RETROPERITONEAL XGOY5052-78-96 15:41:00 [place] [id number] Patient Name: MARGARITA EATON MR #: [id number] : 1945 Age/Sex: 73/F Req #: [id number] Adm Physician: Ordered by: ALLISON CHEW MD, MD Report #: [id number] Location: ER Room/Bed: Procedure: [id number] U S/US RENAL RETROPERITONEAL COMP Exam Date: 10/16/19 Exam Time: 1509 REPORT STATUS: Sign ed EXAM: US RENAL RETROPERITONEAL COMP DATE: 10/16/2019 12:00 AM INDICATION: Acute kidney injury COMPARISON: 08/31/2019 FINDINGS: The right kidney is normal in size measuring 10.5 x 3.8 x 3.3 centers with cortic al thickness of 1.2 cm. Cortical echogenicity is within normal limits. There i s no evidence for solid renal mass, hydronephrosis, or shadowing calculi. The left kidney is normal in size measuring 9.9 x 4.7 x 3.7 cm with cortical thickness of 1.3 cm. Cortical echogenicity is within normal limits. There is no evidence for solid renal mass, hydronephrosis, or shadowing calculi. The partially distended urinary bladder demonstrates no significant abnormalities. Bilateral ureteral jets are noted. Prevoid volume is 43 cc. IMPRESSION: Unremarkable renal ultrasound examination. Signed by: Dr. Aden Figueroa i, MD on 10/16/2019 3:43 PM Dictated By: ADEN SCHUMACHER MD Electronically S igned By: ADEN SCHUMACHER MD on 10/16/19 8286 Transcribed By: IZZY on 10/16/19 3645 COPY TO: ALLISON CHEW Urine BQR7989-97-63 14:23:00* Test Item Value Reference Range Interpretation Comments Urine WBC (test code = 5821-4) NONE 0-5 [facility] ORU0054-92-86 14:23:00* Test Item Value Reference Range Interpretation Comments Urine RBC (test code = 97408-5) NONE 0-5 [facility]villeUrine Vjzhojys0920-47-98 14:23:00* Test Item Value Reference Range Interpretation Comments Urine Bacteria (test code = 09665-5) FEW NONE [facility]villeUrine Epithelial Humry6183-97-57 14:23:00 * Test Item Value Reference Range Interpretation Comments Urine Epithelial Cells (test code = 83111-0) FEW NONE [facility]villeUrine Qcgys4798-64-54 14:03:00* Test Item Value Reference Range Interpretation Comments Urine Color (test code = 5778-6) YELLOW YELLOW [facility]villeUrine Eiegycy7042-74-11 14:03:00* Test Item Value Reference Range Interpretation Comments Urine Clarity (test code = 30719-9) CLEAR CLEAR [facility]villeUrine Specific Xwbkzep3365-57-58 14:03:00 * Test Item Value Reference Range Interpretation Comments Urine Specific [place] (test code = 5811-5) 1.015 1.010-1.02 5 [facility]villeUrine oN4074-67-58 14:03:00* Test Item Value Reference Range Interpretation Comments Urine pH (test code = 24105-9) 5.5 5-7 [facility]villeU[facility] Leukocyte Ivyzjdea2842-36-81 14:03:00* Test Item Value Reference Range Interpretation Comments Urine Leukocyte Esterase (test code = 5799-2) NEGATIVE NEGATIVE [facility]villeUrine Rcwwvhf4333-64-14 14:03:00* Test Item Value Reference Range Interpretation Comments Urine Nitrite (test code = 79861-4) NEGATIVE NEGATIVE [facility]villeUrine Bxydwys1613-06-08 14:03:00* Test Item Value Reference Range Interpretation Comments Urine Protein (test code = 5804-0) NEGATIVE NEGATIVE [facility]villeUrine Glucose (UA)2019-10-16 14:03:00* Test Item Value Reference Range Interpretation Comments Urine Glucose (UA) (test code = 2349-9) NEGATIVE NEGATIVE [facility]villeUrine Sgxobln2362-55-57 14:03:00* Test Item Value Reference Range Interpretation Comments Urine Ketones (test code = 82436-2) NEGATIVE NEGATIVE [facility]villeUrine Wosqfkyipdbd4770-25-02 14:03:00* Test Item Value Reference Range Interpretation Comments Urine Urobilinogen (test code = 65716-0) 0.2 0.2-1 [facility]villeUrine Ahppnjsxz2543-26-21 14:03:00* Test Item Value Reference Range Interpretation Comments Urine Bilirubin (test code = 1978-6) NEGATIVE NEGATIVE [facility]villeUrine Pbtlz4622-66-44 14:03:00* Test Item Value Reference Range Interpretation Comments Urine Blood (test code = 74571-8) NEGATIVE NEGATIVE [facility] BrownsvilleLactic Acid Ofkxz5608-53-39 12:43:00* Test Item Value Reference Range Interpretation Comments Lactic Acid Level (test code = Lactic Acid Level) 1.4 0.5- 2.0 [facility] BrownsvilleFluoroscopic procedure less than one hour yxarcasc6873-67-63 12:00:00* Test Item Value Reference Range Interpretation Comments Lactic Acid Level (test code = Lactic Acid Level) 1.4 0.5- 2.0 [facility] BrownsvilleBlood whmlboj4377-10-16 11:55:00* Test Item Value Reference Range Interpretation Comments Blood Culture (test code = 45869696) NO GROWTH AFTER 5 DAYS, FINAL REPORT [facility]odium Wqrza0756-44-08 06:16:00* Test Item Value Reference Range Interpretation Comments Sodium Level (test code = 2951-2) 138 136-145 [facility]villePotassium Eytsk9453-80-81 06:16:00* Test Item Value Reference Range Interpretation Comments Potassium Level (test code = 2823-3) 3.8 3.5-5.1 [facility] BrownsvilleChloride Bdykz7056-00-84 06:16:00* Test Item Value Reference Range Interpretation Comments Chloride Level (test code = 2075-0) 101 98-107 [facility]villeCarbon Dioxide Shbff0310-98-66 06:16:00* Test Item Value Reference Range Interpretation Comments Carbon Dioxide Level (test code = 2028-9) 29 22-29 [facility]villeAnion Vlf6191-12-15 06:16:00* Test Item Value Reference Range Interpretation Comments Anion Gap (test code = 95722-0) 11.8 8-16 [facility]villeBlood Urea Xthmwwuf8096-66-11 06:16:00* Test Item Value Reference Range Interpretation Comments Blood Urea Nitrogen (test code = 3094-0) 29 7-26 H [facility]villeCreatinine2020-03-03 06:16:00* Test Item Value Reference Range Interpretation Comments Creatinine (test code = 2160-0) 2.22 0.57-1.11 H [facility]villeBUN/Creatinine Xdhln5498-03-06 06:16:00* Test Item Value Reference Range Interpretation Comments BUN/Creatinine Ratio (test code = 3097-3) 13 6-25 [facility] BrownsvilleEstimat Glomerular Filtration Rate 2019-09-02 06:16:00* Test Item Value Reference Range Interpretation Comments Estimat Glomerular Filtration Rate (test code = 773239216) 22 >60 L Ranges were taken from the National Kidney Disease Education Program and the [facility] [employer] literature.Reference ranges:60 or greater: Kodjmh38-39 ( for 3 consecutive months): Chronic kidney disease 15 or less: Kidney failureVal[facility] BrownsvilleGlucose Wziuh9674-45-28 06:16:00* Test Item Value Reference Range Interpretation Comments Glucose Level (test code = ALH6657) 168 74-118 H [facility]villeCalcium Zcwyx8494-49-63 06:16:00* Test Item Value Reference Range Interpretation Comments Calcium Level (test code = 25282-9) 9.2 8.4-10.2 [facility]villeWhite Blood Woqkg1544-10-96 06:07:00* Test Item Value Reference Range Interpretation Comments White Blood Count (test code = 6690-2) 11.25 4.8-10.8 H [facility]villeRed Blood Uyqxh9286-43-70 06:07:00* Test Item Value Reference Range Interpretation Comments Red Blood Count (test code = 789-8) 3.67 3.6-5.1 [facility]villeHemoglobin2020-03-03 06:07:00* Test Item Value Reference Range Interpretation Comments Hemoglobin (test code = 49673-6) 9.9 12.0-16.0 L [facility]villeHematocrit2020-03-03 06:07:00* Test Item Value Reference Range Interpretation Comments Hematocrit (test code = 4544-3) 31.5 34.2-44.1 L [facility]villeMean Corpuscular Gtzdgf0821-64-11 06:07:00* Test Item Value Reference Range Interpretation Comments Mean Corpuscular Volume (test code = 787-2) 85.8 81-99 [facility]villeMean Corpuscular Uihgxpmxew9060-44-21 06:07:00* Test Item Value Reference Range Interpretation Comments Mean Corpuscular Hemoglobin (test code = 785-6) 27.0 28-32 L [facility]villeMean Corpuscular Hemoglobin Concent 2019-09-02 06:07:00* Test Item Value Reference Range Interpretation Comments Mean Corpuscular Hemoglobin Concent (test code = 786-4) 31.4 31-35 [facility]villeRed Cell Distribution Mcufl6908-12-57 06:07:00* Test Item Value Reference Range Interpretation Comments Red Cell Distribution Width (test code = 42841-6) 15.1 11.7 -14.4 H [facility]villePlatelet Ftcst4605-54-80 06:07:00* Test Item Value Reference Range Interpretation Comments Platelet Count (test code = 777-3) 416 140-360 H [facility]villeNeutrophils (%) (Auto)2019-09-02 06:07:00 * Test Item Value Reference Range Interpretation Comments Neutrophils (%) (Auto) (test code = 00012-2) 70.8 38.7-80.0 [facility]villeLymphocytes (%) (Auto)2019-09-02 06:07:00 * Test Item Value Reference Range Interpretation Comments Lymphocytes (%) (Auto) (test code = 736-9) 21.5 18.0-39.1 [facility]villeMonocytes (%) (Auto)2019-09-02 06:07:00* Test Item Value Reference Range Interpretation Comments Monocytes (%) (Auto) (test code = 5905-5) 6.0 4.4-11.3 [facility]villeEosinophils (%) (Auto)2019-09-02 06:07:00 * Test Item Value Reference Range Interpretation Comments Eosinophils (%) (Auto) (test code = 713-8) 0.9 0.0-6.0 [facility]villeBasophils (%) (Auto)2019-09-02 06:07:00* Test Item Value Reference Range Interpretation Comments Basophils (%) (Auto) (test code = 706-2) 0.4 0.0-1.0 [facility]villeIM GRANULOCYTES %2019-09-02 06:07:00* Test Item Value Reference Range Interpretation Comments IM GRANULOCYTES % (test code = IM GRANULOCYTES %) 0.4 0.0- 1.0 [facility]villeNeutrophils # (Auto)2019-09-02 06:07:00* Test Item Value Reference Range Interpretation Comments Neutrophils # (Auto) (test code = 751-8) 8.0 2.1-6.9 H [facility]villeLymphocytes # (Auto)2019-09-02 06:07:00* Test Item Value Reference Range Interpretation Comments Lymphocytes # (Auto) (test code = 85238-9) 2.4 1.0-3.2 [facility]villeMonocytes # (Auto)2019-09-02 06:07:00* Test Item Value Reference Range Interpretation Comments Monocytes # (Auto) (test code = 742-7) 0.7 0.2-0.8 [facility]villeEosinophils # (Auto)2019-09-02 06:07:00* Test Item Value Reference Range Interpretation Comments Eosinophils # (Auto) (test code = 711-2) 0.1 0.0-0.4 [facility]villeBasophils # (Auto)2019-09-02 06:07:00* Test Item Value Reference Range Interpretation Comments Basophils # (Auto) (test code = 704-7) 0.1 0.0-0.1 [facility]villeAbsolute Immature Granulocyte (auto 2019-09-02 06:07:00* Test Item Value Reference Range Interpretation Comments Absolute Immature Granulocyte (auto (kehinde t code = Absolute Immature Granulocyte (auto) 0.05 0-0.1 [facility]villeBlood Pndxflu3823-41-08 21:14:00* Test Item Value Reference Range Interpretation Comments Blood Culture (test code = 33972748) NO GROWTH AFTER 48 HOURS [facility] BrownsvilleBedside Kdcfcwc0694-42-27 19:59:00* Test Item Value Reference Range Interpretation Comments Bedside Glucose (test code = 35250-9) 133 70-120 H Meter ID: [id number] Memorial Hospitaltress Test - Treadmill QMOS9470-38-95 18:25:00 [place] [address] Patient Name : MARGARITA EATON MR #: [id number] : 1945 Age/Sex: 73/F Adm Physician : WILLA LUIS MD Admit Date : 08/30/19 Location : MED/SURG Room/Bed : [facility] REPORT: Melani dallas Stress Test DATE OF STUDY: 09/01/2019 09:10:00 Stress Test - Treadmi ll ONLY PROCEDURE TITLE: Rest/stress single isotope SPECT imaging with ph armacologic stress and gated SPECT imaging. INDICATION: Chest pain. PROCEDURE IN DETAIL: Pharmacologic stress testing was performed with estuardo jimenes per protocol. The heart rate was 87 [...] is abnormal. There is a large area o f transmural scar in the distal inferior, distal septal, distal anterior wall and apex. Overall, left ventricular systolic function was abnormal with region al wall motion abnormalities as above. Heavenly Baltazar MD ABS/ASH T: 0 09/01/2019 21:21:11 /[id number] Signature Date Dictated By: HEAVENLY BALTAZAR MD Transcribed By: ASH on 09/01/19 < Electronically signed by HEAVENLY BALTAZAR MD><<Signature on File>>09/30/19 9711 COPY TO: Prothrombin Depj4967-02-69 05:59:00* Test Item Value Reference Range Interpretation Comments Prothrombin Time (test code = 5902-2) 15.0 11.9-14.5 H [facility] BrownsvilleProthromb Time International Ratio 2019-09-01 05:59:00* Test Item Value Reference Range Interpretation Comments Prothromb Time International Ratio (test code = 6301-6) 1.11 Oral Anticoagulant Therapy INR Values:1. Low Intensity Therapy 1.5 - 2.02 . Moderate Intensity Therapy 2.0 - 3.03. High Intensity Therapy(1) 2.5 - 3. 54. High Intensity Therapy(2) 3.0 - 4.05. Panic Value INR > 5.0 [facility]villeProthrombin Lukh1396-09-51 05:59:00* Test Item Value Reference Range Interpretation Comments Prothrombin Time (test code = 5902-2) 15.0 11.9-14.5 H [facility]villeProthromb Time International Ratio 2019-09-01 05:59:00* Test Item Value Reference Range Interpretation Comments Prothromb Time International Ratio (test code = 6301-6) 1.11 Oral Anticoagulant Therapy INR Values:1. Low Intensity Therapy 1.5 - 2.02 . Moderate Intensity Therapy 2.0 - 3.03. High Intensity Therapy(1) 2.5 - 3. 54. High Intensity Therapy(2) 3.0 - 4.05. Panic Value INR > 5.0 [facility]villeUS RENAL RETROPERITONEAL VWZD3283-04-97 19:24:00 [place] [address] Patient Name: MARGARITA EATON MR #: [id number] : 1945 Age/Sex: 73/F Req #: [id number] Adm Physician: WICHO HANCOCK MD Ordered by: SUSANNA CERDA MD Report #: [id number] Location: MED/SURG Room/Bed: [facility] Procedure: [id number] US/ US RENAL RETROPERITONEAL COMP Exam Date: 08/31/19 Ex am Time: 1827 REPORT STATUS: Signed EXAM: Renal Ultrasound INDICATION: [id number] COMPARISON: CT abdomen and pelvis 04/14/2018 TECHNIQUE: Transverse and longit udinal images of the kidneys and bladder were obtained. FINDINGS: Right Kidney: Size: 9.2 cm Echogenicity: Normal Pa renchymal thickness: Normal Collecting system: No hydronephrosis Stones: None Cyst/Mass: None Left Kidney: Size: 8.1 cm Echogenicity: Normal Parenchymal thickness: Normal Collectin g system: No hydronephrosis Stones: None. Left renal calculus described o n the comparison CT is not visualized by [...] 08/31/191924 COPY TO: SUSANNA CERDA MD Urine Ecfkxtmzrbl2870-48-61 15:39:00* Test Item Value Reference Range Interpretation Comments Urine Eosinophils (test code = 30992-2) NONE SEEN NONE SEEN [facility]villeUrine Moortnvebrd6836-02-10 15:39:00* Test Item Value Reference Range Interpretation Comments Urine Eosinophils (test code = 42031-5) NONE SEEN NONE SEEN [facility]villeCreatine Kinase JM4421-18-60 14:34:00* Test Item Value Reference Range Interpretation Comments Creatine Kinase MB (test code = 41483-0) 1.00 0-5.0 [facility]villeTroponin X4871-14-72 14:34:00* Test Item Value Reference Range Interpretation Comments Troponin I (test code = FHT9164) 0.016 0-0.300 [facility]villeCreatine Kinase QY6664-42-71 14:34:00* Test Item Value Reference Range Interpretation Comments Creatine Kinase MB (test code = 75917-0) 1.00 0-5.0 [facility]villeTrmadelia community hospital M7236-75-13 14:34:00* Test Item Value Reference Range Interpretation Comments Troponin I (test code = 29788-1) 0.016 0-0.300 [facility]villeCreatine Qvggcw5570-03-73 14:28:00* Test Item Value Reference Range Interpretation Comments Creatine Kinase (test code = 2157-6) 32 29-168 [facility]villeCreatine Rifzdf9916-87-09 14:28:00* Test Item Value Reference Range Interpretation Comments Creatine Kinase (test code = 2157-6) 32 29-168 [facility]er[facility] or plasma creatine kinase measurement (enzymatic activity/volume)2019-08-31 12:35:00* Test Item Value Reference Range Interpretation Comments Creatine Kinase (test code = 2157-6) 32 29-168 [facility] Hospitalerum or plasma creatine kinase MB measurement (mass/volume)2019-08-31 12:35:00* Test Item Value Reference Range Interpretation Comments Creatine Kinase MB (test code = 41679-5) 1.00 0-5.0 [facility]villeTroponin I measurement by highly sensitive enzyme nbkcrqdjkvn4843-88-01 12:35:00* Test Item Value Reference Range Interpretation Comments Troponin I (test code = 07341-7) 0.016 0-0.300 [facility]villeTriglycerides Btrsp0979-79-51 06:56:00* Test Item Value Reference Range Interpretation Comments Triglycerides Level (test code = 2571-8) 167 0-149 H [facility]villeCholesterol Drcib1671-60-25 06:56:00* Test Item Value Reference Range Interpretation Comments Cholesterol Level (test code = 2093-3) 85 0-199 Less than 200 mg/dL Low Exnk120 - 239 mg/dL Borderline Mrfl482 m g/dl and greater High Risk [facility]villeLDL Brtargigldq8426-51-73 06:56:00* Test Item Value Reference Range Interpretation Comments LDL Cholesterol (test code = 2089-1) 29 60-130 L [facility]villeHDL Klsrowwfclg5380-70-61 06:56:00* Test Item Value Reference Range Interpretation Comments HDL Cholesterol (test code = 2085-9) 23 40-60 L [facility]villeCholesterol/HDL Poqkv6285-65-70 06:56:00 * Test Item Value Reference Range Interpretation Comments Cholesterol/HDL Ratio (test code = 9830-1) 3.7 3.0-3.6 H [facility]villeTriglycerides Jgbfd6295-97-88 06:56:00* Test Item Value Reference Range Interpretation Comments Triglycerides Level (test code = 2571-8) 167 0-149 H [facility]villeCholesterol Hcfxa3066-64-44 06:56:00* Test Item Value Reference Range Interpretation Comments Cholesterol Level (test code = 2093-3) 85 0-199 Less than 200 mg/dL Low Fkqz150 - 239 mg/dL Borderline Xdyg990 m g/dl and greater High Risk [facility]villeLDL Xoynrxnzfel1868-09-52 06:56:00* Test Item Value Reference Range Interpretation Comments LDL Cholesterol (test code = 2089-1) 29 60-130 L [facility] BrownsvilleHDL Poxlfoywfvl0880-69-02 06:56:00* Test Item Value Reference Range Interpretation Comments HDL Cholesterol (test code = 2085-9) 23 40-60 L [facility]villeCholesterol/HDL Wjdzq0306-86-95 06:56:00 * Test Item Value Reference Range Interpretation Comments Cholesterol/HDL Ratio (test code = 9830-1) 3.7 3.0-3.6 H [facility] Hospitalerum or plasma triglyceride measurement (mass/volume)2019-08-31 04:30:00* Test Item Value Reference Range Interpretation Comments Triglycerides Level (test code = 2571-8) 167 0-149 [facility] Hospitalerum or plasma cholesterol measurement (mass/volume)2019-08-31 04:30:00* Test Item Value Reference Range Interpretation Comments Cholesterol Level (test code = 2093-3) 85 0-199 Less than 200 mg/dL Low Mczo251 - 239 mg/dL Borderline Ktvf605 m g/dl and greater High Risk [facility] Hospitalerum or plasma cholesterol in LDL measurement (mass/volume) 2019-08-31 04:30:00* Test Item Value Reference Range Interpretation Comments LDL Cholesterol (test code = 2089-1) 29 60-130 [facility] Hospitalerum or plasma cholesterol in HDL measurement (mass/volume)2019-08-31 04:30:00* Test Item Value Reference Range Interpretation Comments HDL Cholesterol (test code = 2085-9) 23 40-60 [facility] Hospitalerum or plasma total cholesterol/cholesterol in HDL mass bpazz6888-65-46 04:30:00* Test Item Value Reference Range Interpretation Comments Cholesterol/HDL Ratio (test code = 9830-1) 3.7 3.0-3.6 [facility]villeUrine Bqrlw2247-07-64 21:37:00* Test Item Value Reference Range Interpretation Comments Urine Color (test code = 5778-6) YELLOW YELLOW [facility]villeUrine Gudhttu7996-16-31 21:37:00* Test Item Value Reference Range Interpretation Comments Urine Clarity (test code = 46074-6) CLEAR CLEAR [facility]villeUrine Specific Eajqsey7540-74-90 21:37:00 * Test Item Value Reference Range Interpretation Comments Urine Specific [place] (test code = 5811-5) 1.015 1.010-1.02 5 [facility]villeUrine nD4890-70-87 21:37:00* Test Item Value Reference Range Interpretation Comments Urine pH (test code = 65147-5) 7.5 5-7 [facility]villeUrine Leukocyte Sojmzkpa5216-80-24 21:37:00* Test Item Value Reference Range Interpretation Comments Urine Leukocyte Esterase (test code = 5799-2) NEGATIVE NEGATIVE [facility]villeUrine Mposuxc6219-25-85 21:37:00* Test Item Value Reference Range Interpretation Comments Urine Nitrite (test code = 86684-5) NEGATIVE NEGATIVE [facility]villeUrine Mcvacye4251-16-26 21:37:00* Test Item Value Reference Range Interpretation Comments Urine Protein (test code = 5804-0) TRACE NEGATIVE H [facility] BrownsvilleUrine Glucose (UA)2019-08-30 21:37:00* Test Item Value Reference Range Interpretation Comments Urine Glucose (UA) (test code = 2349-9) NEGATIVE NEGATIVE [facility]villeUrine Fviukrb8339-91-82 21:37:00* Test Item Value Reference Range Interpretation Comments Urine Ketones (test code = 28797-3) NEGATIVE NEGATIVE [facility]villeUrine Jzrwrvxreddw3356-91-74 21:37:00* Test Item Value Reference Range Interpretation Comments Urine Urobilinogen (test code = 64427-7) 0.2 0.2-1 [facility]villeUrine Ptympynng2074-25-93 21:37:00* Test Item Value Reference Range Interpretation Comments Urine Bilirubin (test code = 1978-6) NEGATIVE NEGATIVE [facility]villeUrine Mtrtr2641-62-20 21:37:00* Test Item Value Reference Range Interpretation Comments Urine Blood (test code = 29096-4) NEGATIVE NEGATIVE [facility]villeUrine BCL8097-15-68 21:37:00* Test Item Value Reference Range Interpretation Comments Urine WBC (test code = 5821-4) 0-5 0-5 [facility]villeUrine CZM5686-53-71 21:37:00* Test Item Value Reference Range Interpretation Comments Urine RBC (test code = 36342-2) NONE 0-5 [facility]villeUrine Jcjmpywd6681-75-70 21:37:00* Test Item Value Reference Range Interpretation Comments Urine Bacteria (test code = 70280-3) FEW NONE [facility]villeUrine Epithelial Gsvwz7912-78-87 21:37:00 * Test Item Value Reference Range Interpretation Comments Urine Epithelial Cells (test code = 03948-6) FEW NONE [facility] BrownsvilleLactic Acid Zlnmp5463-42-34 21:25:00* Test Item Value Reference Range Interpretation Comments Lactic Acid Level (test code = Lactic Acid Level) 0.8 0.5- 2.0 [facility] BrownsvilleTotal Giuprugxk0437-77-22 20:17:00* Test Item Value Reference Range Interpretation Comments Total Bilirubin (test code = 1975-2) 0.3 0.2-1.2 [facility] BrownsvilleAspartate Amino Transf (AST/SGOT) 2019-08-30 20:17:00* Test Item Value Reference Range Interpretation Comments Aspartate Amino Transf (AST/SGOT) (test code = Aspartate Amino Transf (AST/SGOT)) 17 5-34 [facility]villeAlanine Aminotransferase (ALT/SGPT) 2019-08-30 20:17:00* Test Item Value Reference Range Interpretation Comments Alanine Aminotransferase (ALT/SGPT) (test code = 1742-6) 8 0-55 [facility] BrownsvilleTotal Pudwwpp3434-79-05 20:17:00* Test Item Value Reference Range Interpretation Comments Total Protein (test code = 2885-2) 7.6 6.5-8.1 [facility] BrownsvilleAlbumin2020-02-29 20:17:00* Test Item Value Reference Range Interpretation Comments Albumin (test code = 1751-7) 3.5 3.5-5.0 [facility] BrownsvilleGlobulin2020-02-29 20:17:00* Test Item Value Reference Range Interpretation Comments Globulin (test code = 62662-5) 4.1 2.3-3.5 H [facility] BrownsvilleAlbumin/Globulin Iwbxn4648-68-23 20:17:00 * Test Item Value Reference Range Interpretation Comments Albumin/Globulin Ratio (test code = 1759-0) 0.9 0.8-2.0 [facility]villeAlkaline Riyfxaneqpj0229-34-65 20:17:00* Test Item Value Reference Range Interpretation Comments Alkaline Phosphatase (test code = 6768-6) 103 40-150 [facility]villeCHEST SINGLE (PORTABLE)2019-08-30 19:44:00 [place] [address] Patient Name: MARGARITA EATON MR #: [id number] : 1945 Age/Sex: 73/F Req #: [id number] Adm Physician: Ordered by: CB CISNEROS DO Report #: [id number] Location: ER Room/Bed: Procedure: [id number] DX/CHEST SINGLE (PORTABLE) Exam Date: 08/30/19 Exam [...] ranscribed By: IZZY on 08/30/191945 COPY TO: CB CISNEROS, CHEST 2 PZWSF1047-33-30 11:11:00 [place] [address] Patient Name: MARGARITA EATON MR #: [id number] : 1945 Age/Sex: 72/F Req #: [id number] [facility] Physician: WILLA LUIS MD Ordered by: DEONDRE ZIMMERMAN MD Report #: [id number] Location: MED/SURG3 Room/Bed: 293-1 Procedure: [id number] DX/C HEST 2 VIEWS Exam Date: 04/23/18 [...] No free air under the diaphragm. IMPRESSION: Improvin g left lung opacities and decreased small left pleural effusion. No new conso lidation. Dictated by: RASHAWN PEREZ M.D. on 04/23/2018 at 11:11 Electronically approved by: RASHAWN PEREZ M.D. on 04/23/2018 at 11:11 Dictated By: RASHAWN PEREZ MD 1111 Transcribed By: SASKIA on 04/23/18 1111 COPY TO: FEDE ZIMMERMAN MD CHEST SINGLE (PORTABLE)2018-04-19 06:43:00 [place] [address] Patient Name: MARGARITA EATON MR #: [id number] : 1945 Age/Sex: 72/F Req #: [id number] Adm Physician: WILLA LUIS MD Ordered by: SUSANNA CERDA MD Report #: [id number] Location: ICU Room/Bed: ICU [facility] Procedure: [id number] DX/CH EST SINGLE (PORTABLE) Exam Date: Exam [...] SUSANNA CERDA MD CHEST SINGLE (PORTABLE)2018-04-17 06:43:00 [place] [address] Patient Name: MARGARITA EATON MR #: [id number] : 1945 Age/Sex: 72/F Req #: [id number] Adm Physician: WILLA LUIS MD Ordered by: WILLA LUIS MD Report #: [id number] Location: ICU Room/Bed: ICU [facility] Procedure: [id number] DX/ CHEST SINGLE (PORTABLE) Exam Date: 04/17/18 [...] disease involving the left hemithorax suspicious for pneumon ia versus aspiration Signed by: Dr. David Millard M.D. on 04/17/2018 6:45 AM Dictated By: DAVID RANDALL MD Transcribed By: IZZY on 04/17/18 0645 COPY TO: WILLA LUIS MD ABDOMEN-1VIEW (KUB)2018-04-16 17:19:00 [place] [address] Patient Name: MARGARITA EATON MR #: [id number] : 1945 Age/Sex: 72/F Req #: [id number] Adm Physician: WILLA LUIS MD Ordered by: DEONDRE ZIMMERMAN MD Report #: [id number] Location: ICU Room/Bed: ICU [facility] Procedure: [id number] DX/A BDOMEN-1VIEW (KUB) Exam Date: 04/16/18 Exam [...] in the right upper quadrant. LUNG BASES: Persisten t left basilar airspace opacity and trace left effusion. BONES: No acute fi ndings. IMPRESSION: Nasogastric tube side port and tip project over the g astric body. Nonobstructive bowel gas pattern. Signed by: DR. Serge Beck MD on 04/16/2018 5:22 PM Dictated By: SERGE BECK MD E lectronically Signed By: SERGE BECK MD on 04/16/181721 Transcribed By: SANDRA HELLER on 04/16/181721 COPY TO: DEONDRE ZIMMERMAN MD CHEST SINGLE (PORTABLE)2018-04-16 06:34:00 [place] [address] Patient Name: MARGARITA EATON MR #: [id number] : 1945 Age/Sex: 72/F Req #: [id number] Adm Physician: WILLA LUIS MD Ordered by: DEONDRE ZIMMERMAN MD Report #: [id number] Location: ICU Room/Bed: ICU [facility] Procedure: [id number] DX/C HEST SINGLE (PORTABLE) Exam Date: Exam [...] DEONDRE ZIMMERMAN MD CHEST SINGLE (PORTABLE)2018-04-15 07:58:00 [place] [address] Patient Name: MARGARITA EATON MR #: [id number] : 1945 Age/Sex: 72/F Req #: [id number] Adm Physician: WILLA LUIS MD Ordered by: DEONDRE ZIMMERMAN MD Report #: [id number] Location: ICU Room/Bed: ICU [facility] Procedure: [id number] DX/OTTONIEL ST SINGLE (PORTABLE) Exam Date: 04/15/18 Exam Time: 07 REPORT STATUS: Signed PROCEDURE: CHEST SINGLE (PORTABLE) COMPARI SON: CT chest without contrast 04/14/2018, chest radiograph 04/14/2018. IND ICATIONS: RESPIRATORY FAILURE, INTUBATED FINDINGS: Stable position of endotracheal tube. Stable position of left subclavian approach implantabl e cardiac device. . Patchy multifocal consolidations most [...] COPY TO: DEONDRE ZIMMERMAN MD CT ABDOMEN/PELVIS YZ7776-94-79 13:07:00 [place] [address] Patient Name: MARGARITA EATON MR #: [id number] : 1945 Age/Sex: 72/F Req #: [id number] Adm Physician: Ordered by: ASTRID MATIAS MD Report #: [id number] Location: ER Room /Bed: Procedure: [id number] CT/CT ABDOMEN/PELVIS WO E xam Date: 04/14/18 Exam Time: 1244 REPORT STATU S: Signed EXAM: CT ABDOMEN/PELVIS WO DATE: 04/14/2018 12:05 PM IND ICATION: COMPARISON: None FINDINGS: Please see CT [address] IMPRESSION: As above. Signed by: Dr. Gloria Zamudio MD on 2017 1:07 PM Dictated By: GLORIA ZAMUDIO MD 06 Transcribed By: IZZY on 04/14/181306 COPY TO: ASTRID MATIAS MD CT CHEST QP7701-04-09 13:01:00 [place] [address] Patient Name: MARGARITA EATON MR #: [id number] : 1945 Age/Sex: 72/F Req #: [id number] Adm Physician: Ordered by: ASTRID MATIAS MD Report #: [id number] Location: ER Room /Bed: Procedure: [id number] CT/CT CHEST WO Exam Date: 04/14/18 Exam [...] height loss L3 likely due to moderate t o large Schmorl's node. Minimal superior height loss [...] TO: ASTRID MATIAS MD CT CERVICAL SPINE [id number] 11:27:00 [place] [address] Patient Name: MARGARITA EATON MR #: [id number] : 1945 Age/Sex: 72/F Req #: [id number] Adm Physician: Ordered by: ABHISHEK MENA NP Report #: [id number] Location: ER Room/Bed: Procedure: [id number] CT/CT CERVICAL SPINE WO Ex am Date: [...] 11:31 AM Dictated By: CELIA RUSSELL MD Electronically Iva d By: CELIA RUSSELL MD on 04/14/18 1131 Transcribed By: IZZY on 04/14/18 1131 COPY TO: ABHISHEK MENA NP CT BRAIN VC2928-16-48 11:27:00 [place] [address] Patient Name: MARGARITA EATON MR #: [id number] : 1945 Age/Sex: 72/F Req #: [id number] Adm Physician: Ordered by: ABHISHEK MENA REAL PROPERTY APPRAISER Report #: [id number] Location: ER Room/ Bed: Procedure: [id number] CT/CT BRAIN WO Exam Date: 04/14/18 Exam [...] visualized IMPRESSION: Head CT: 1. No ac eek intracranial hemorrhage or cortical infarct. 2. Persistent mild chronic m icrovascular ischemic changes. Cervical spine CT: 1. No acute fractur es or dislocations. 2. Mild chronic degenerative changes as described. Note: Acute post traumatic spinal cord, vascular or ligamentous injury cannot adequately be assessed with CT. Signed by: Dr. Celia Russell M.D. 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 Y TO: ABHISHEK MENA REAL PROPERTY APPRAISER CHEST SINGLE (PORTABLE)2018-04-14 10:33:00 [place] [address] Patient Name: MARGARITA EATON MR #: [id number] : 1945 Age/Sex: 72/F Req #: [id number] Adm Physician : Ordered by: ABHISHEK MENA REAL PROPERTY APPRAISER Report #: [id number] Location: ER Room/ Bed: Procedure: [id number] DX/CHEST SINGLE (PORTABLE) Exam Date: 04/14/18 Exam [...] on 04/14/18 1033 COPY TO: ABHISHEK MENA Bedside Fmdmako5688-46-93 16:05:00* Test Item Value Reference Range Interpretation Comments Bedside Glucose (test code = 65753-2) 108 70-120 Meter ID: [id number] BrownsvilleUrine Culture 2017-12-07 09:00:00* Test Item Value Reference Range Interpretation Comments Urine Culture (test code = 630-4) Organism: ESCHERICHIA COLI [facility] Cnqpd7228-09-15 07:42:00* Test Item Value Reference Range Interpretation Comments Sodium Level (test code = 2951-2) 142 136-145 [facility]villePotassium Jytul9646-47-17 07:42:00* Test Item Value Reference Range Interpretation Comments Potassium Level (test code = 2823-3) 3.0 3.5-5.1 L [facility]villeChloride Agtvv7806-05-18 07:42:00* Test Item Value Reference Range Interpretation Comments Chloride Level (test code = 2075-0) 104 98-107 [facility]villeCarbon Dioxide Aqxnc7177-05-26 07:42:00* Test Item Value Reference Range Interpretation Comments Carbon Dioxide Level (test code = 2028-9) 30 22-29 H [facility] BrownsvilleAnion Ukp5021-00-39 07:42:00* Test Item Value Reference Range Interpretation Comments Anion Gap (test code = 94366-4) 11.0 8-16 [facility]villeBlood Urea Tvrdrmwn7395-87-48 07:42:00* Test Item Value Reference Range Interpretation Comments Blood Urea Nitrogen (test code = 3094-0) 14 7-26 [facility]villeCreatinine2018-06-07 07:42:00* Test Item Value Reference Range Interpretation Comments Creatinine (test code = 2160-0) 1.51 0.57-1.11 H [facility]villeBUN/Creatinine Mysdg9303-18-39 07:42:00* Test Item Value Reference Range Interpretation Comments BUN/Creatinine Ratio (test code = 3097-3) 9 6-25 [facility] BrownsvilleEstimat Glomerular Filtration Rate 2017-12-06 07:42:00* Test Item Value Reference Range Interpretation Comments Estimat Glomerular Filtration Rate (test code = 33791-9) 34 >60 L Ranges were taken from the National Kidney Disease Education Program and the [facility] Kidney Foundation literature.Reference ranges:60 or greater: Qfqwug10-81 ( for 3 consecutive months): Chronic kidney disease 15 or less: Kidney failureCHI Driscoll Children'S HospitalGlucose Vvauc3779-01-86 07:42:00* Test Item Value Reference Range Interpretation Comments Glucose Level (test code = SJL9408) 86 74-118 [facility]villeCalcium Cxrth9221-65-90 07:42:00* Test Item Value Reference Range Interpretation Comments Calcium Level (test code = 30881-1) 7.9 8.4-10.2 L [facility] BrownsvilleTotal Qxrtqidpb1152-33-07 07:42:00* Test Item Value Reference Range Interpretation Comments Total Bilirubin (test code = 1975-2) 0.3 0.2-1.2 [facility] BrownsvilleAspartate Amino Transf (AST/SGOT) 2017-12-06 07:42:00* Test Item Value Reference Range Interpretation Comments Aspartate Amino Transf (AST/SGOT) (test code = Aspartate Amino Transf (AST/SGOT)) 17 5-34 [facility] BrownsvilleAlanine Aminotransferase (ALT/SGPT) 2017-12-06 07:42:00* Test Item Value Reference Range Interpretation Comments Alanine Aminotransferase (ALT/SGPT) (test code = 1742-6) 15 0-55 [facility] BrownsvilleTotal Lxzjakv3614-73-89 07:42:00* Test Item Value Reference Range Interpretation Comments Total Protein (test code = 2885-2) 5.0 6.5-8.1 L [facility] BrownsvilleAlbumin2018-06-07 07:42:00* Test Item Value Reference Range Interpretation Comments Albumin (test code = 1751-7) 2.2 3.5-5.0 L [facility] BrownsvilleGlobulin2018-06-07 07:42:00* Test Item Value Reference Range Interpretation Comments Globulin (test code = 22450-9) 2.8 2.3-3.5 [facility]villeAlbumin/Globulin Zkyet3264-86-24 07:42:00 * Test Item Value Reference Range Interpretation Comments Albumin/Globulin Ratio (test code = 1759-0) 0.8 0.8-2.0 [facility] BrownsvilleAlkaline Covrnghcmxr9962-99-97 07:42:00* Test Item Value Reference Range Interpretation Comments Alkaline Phosphatase (test code = 6768-6) 74 40-150 [facility] BrownsvilleWhite Blood Ulhru2577-23-49 07:35:00* Test Item Value Reference Range Interpretation Comments White Blood Count (test code = 6690-2) 10.05 4.8-10.8 [facility] BrownsvilleRed Blood Jmalo4574-31-40 07:35:00* Test Item Value Reference Range Interpretation Comments Red Blood Count (test code = 789-8) 2.94 3.6-5.1 L [facility] BrownsvilleHemoglobin2018-06-07 07:35:00* Test Item Value Reference Range Interpretation Comments Hemoglobin (test code = 07609-8) 9.5 12.0-16.0 L [facility] BrownsvilleHematocrit2018-06-07 07:35:00* Test Item Value Reference Range Interpretation Comments Hematocrit (test code = 4544-3) 29.4 34.2-44.1 L [facility] BrownsvilleMean Corpuscular Mbbjiw1876-45-36 07:35:00* Test Item Value Reference Range Interpretation Comments Mean Corpuscular Volume (test code = 787-2) 100.0 81-99 H [facility] BrownsvilleMean Corpuscular Btuafevuje0075-94-00 07:35:00* Test Item Value Reference Range Interpretation Comments Mean Corpuscular Hemoglobin (test code = 785-6) 32.3 28-32 H [facility] BrownsvilleMean Corpuscular Hemoglobin Concent 2017-12-06 07:35:00* Test Item Value Reference Range Interpretation Comments Mean Corpuscular Hemoglobin Concent (test code = 786-4) 32.3 31-35 [facility] BrownsvilleRed Cell Distribution Fbnpe9032-45-47 07:35:00* Test Item Value Reference Range Interpretation Comments Red Cell Distribution Width (test code = 94840-6) 16.9 11.7 -14.4 H [facility] BrownsvillePlatelet Hyplw9133-82-98 07:35:00* Test Item Value Reference Range Interpretation Comments Platelet Count (test code = 777-3) 384 140-360 H [facility] BrownsvilleNeutrophils (%) (Auto)2017-12-06 07:35:00 * Test Item Value Reference Range Interpretation Comments Neutrophils (%) (Auto) (test code = 29629-9) 69.0 38.7-80.0 [facility] BrownsvilleLymphocytes (%) (Auto)2017-12-06 07:35:00 * Test Item Value Reference Range Interpretation Comments Lymphocytes (%) (Auto) (test code = 736-9) 21.4 18.0-39.1 [facility] BrownsvilleMonocytes (%) (Auto)2017-12-06 07:35:00* Test Item Value Reference Range Interpretation Comments Monocytes (%) (Auto) (test code = 5905-5) 7.4 4.4-11.3 [facility]villeEosinophils (%) (Auto)2017-12-06 07:35:00 * Test Item Value Reference Range Interpretation Comments Eosinophils (%) (Auto) (test code = 713-8) 1.4 0.0-6.0 [facility] BrownsvilleBasophils (%) (Auto)2017-12-06 07:35:00* Test Item Value Reference Range Interpretation Comments Basophils (%) (Auto) (test code = 706-2) 0.5 0.0-1.0 [facility] BrownsvilleIM GRANULOCYTES %2017-12-06 07:35:00* Test Item Value Reference Range Interpretation Comments IM GRANULOCYTES % (test code = IM GRANULOCYTES %) 0.3 0.0- 1.0 [facility] BrownsvilleNeutrophils # (Auto)2017-12-06 07:35:00* Test Item Value Reference Range Interpretation Comments Neutrophils # (Auto) (test code = 751-8) 6.9 2.1-6.9 [facility] BrownsvilleLymphocytes # (Auto)2017-12-06 07:35:00* Test Item Value Reference Range Interpretation Comments Lymphocytes # (Auto) (test code = 22755-6) 2.2 1.0-3.2 [facility] BrownsvilleMonocytes # (Auto)2017-12-06 07:35:00* Test Item Value Reference Range Interpretation Comments Monocytes # (Auto) (test code = 742-7) 0.7 0.2-0.8 [facility] BrownsvilleEosinophils # (Auto)2017-12-06 07:35:00* Test Item Value Reference Range Interpretation Comments Eosinophils # (Auto) (test code = 711-2) 0.1 0.0-0.4 [facility] BrownsvilleBasophils # (Auto)2017-12-06 07:35:00* Test Item Value Reference Range Interpretation Comments Basophils # (Auto) (test code = 704-7) 0.1 0.0-0.1 [facility] BrownsvilleAbsolute Immature Granulocyte (auto 2017-12-06 07:35:00* Test Item Value Reference Range Interpretation Comments Absolute Immature Granulocyte (auto (kehinde t code = Absolute Immature Granulocyte (auto) 0.03 0-0.1 [facility] BrownsvilleUrine SVH2811-53-66 20:09:00* Test Item Value Reference Range Interpretation Comments Urine WBC (test code = 5821-4) 21-50 0-5 H [facility] BrownsvilleUrine UVY8720-77-04 20:09:00* Test Item Value Reference Range Interpretation Comments Urine RBC (test code = 33673-6) 0-5 0-5 [facility] BrownsvilleUrine Kcvrrcvq3173-85-01 20:09:00* Test Item Value Reference Range Interpretation Comments Urine Bacteria (test code = 88773-7) MANY NONE H [facility] BrownsvilleUrine Epithelial Nfuah1802-36-18 20:09:00 * Test Item Value Reference Range Interpretation Comments Urine Epithelial Cells (test code = 32871-1) RARE NONE [facility] BrownsvilleUrine Hyaline Abbxs1353-62-20 20:09:00* Test Item Value Reference Range Interpretation Comments Urine Hyaline Casts (test code = 75839-0) 15- 0-1 H [facility] BrownsvilleUrine Abqhc0577-70-57 19:47:00* Test Item Value Reference Range Interpretation Comments Urine Color (test code = 5778-6) YELLOW YELLOW [facility] BrownsvilleUrine Huowned7129-50-05 19:47:00* Test Item Value Reference Range Interpretation Comments Urine Clarity (test code = 12825-0) SL CLOUDY CLEAR [facility] BrownsvilleUrine Specific Iebcfsx9189-48-23 19:47:00 * Test Item Value Reference Range Interpretation Comments Urine Specific [place] (test code = 5811-5) 1.030 1.010-1.02 5 H [facility] BrownsvilleUrine yY4757-07-05 19:47:00* Test Item Value Reference Range Interpretation Comments Urine pH (test code = 15999-8) 6 5-7 [facility] BrownsvilleUrine Leukocyte Bkspiwkd7744-47-47 19:47:00* Test Item Value Reference Range Interpretation Comments Urine Leukocyte Esterase (test code = 5799-2) TRACE NEGATIVE [facility] Lmuywub4425-15-87 19:47:00* Test Item Value Reference Range Interpretation Comments Urine Nitrite (test code = 02340-5) POSITIVE NEGATIVE [facility] CenterU[facility] Iiktkdu5140-23-71 19:47:00* Test Item Value Reference Range Interpretation Comments Urine Protein (test code = 5804-0) TRACE NEGATIVE [facility] CenterU[facility] Glucose (UA)2017-12-05 19:47:00* Test Item Value Reference Range Interpretation Comments Urine Glucose (UA) (test code = 2349-9) NEGATIVE NEGATIVE [facility] BrownsvilleUrine Nhuidfe8167-67-70 19:47:00* Test Item Value Reference Range Interpretation Comments Urine Ketones (test code = 10645-2) TRACE NEGATIVE H [facility] BrownsvilleUrine Qeifnjuabcez1403-24-96 19:47:00* Test Item Value Reference Range Interpretation Comments Urine Urobilinogen (test code = 81815-9) 0.2 0.2-1 [facility] BrownsvilleUrine Lplbqomkk9159-30-68 19:47:00* Test Item Value Reference Range Interpretation Comments Urine Bilirubin (test code = 1978-6) 1+ NEGATIVE H [facility] BrownsvilleUrine Gmwql6457-04-56 19:47:00* Test Item Value Reference Range Interpretation Comments Urine Blood (test code = 55645-9) NEGATIVE NEGATIVE [facility] BrownsvilleCreatine Tolgzy9477-62-41 19:16:00* Test Item Value Reference Range Interpretation Comments Creatine Kinase (test code = 2157-6) 72 29-168 [facility] BrownsvilleCreatine Kinase RT6930-95-25 19:16:00* Test Item Value Reference Range Interpretation Comments Creatine Kinase MB (test code = 81370-0) 2.00 0-5.0 [facility] BrownsvilleTroponin G8166-05-77 19:16:00* Test Item Value Reference Range Interpretation Comments Troponin I (test code = GFS2091) 0.018 0-0.300 [facility] BrownsvilleProthrombin Fanh8037-98-62 18:56:00* Test Item Value Reference Range Interpretation Comments Prothrombin Time (test code = 5902-2) 26.5 11.9-14.5 H [facility] BrownsvilleProthromb Time International Ratio 2017-12-05 18:56:00* Test Item Value Reference Range Interpretation Comments Prothromb Time International Ratio (test code = 6301-6) 2.64 Oral Anticoagulant Therapy INR Values:1. Low Intensity Therapy 1.5 - 2.02 . Moderate Intensity Therapy 2.0 - 3.03. High Intensity Therapy(1) 2.5 - 3. 54. High Intensity Therapy(2) 3.0 - 4.05. Panic Value INR > 5.0 [facility] BrownsvilleActivated Partial Thromboplast Time 2017-12-05 18:56:00* Test Item Value Reference Range Interpretation Comments Activated Partial Thromboplast Time (test code = 65492-5) 35.3 23.8-35.5 [facility] HospitalCT PELVIS SR1604-74-86 18:54:00 [facility] [address] [place] [address] Patient Name: MARGARITA EATON MR #: [id number] : 1945 Age/Sex: 71/F Req #: [id number] Adm Physician: Ordered by: ABHISHEK MENA REAL PROPERTY APPRAISER Report #: [id number] Location: ER Room/ Bed: Procedure: [id number] CT/CT PELVIS WO Exam Date: Exam Time: [...] of the left iliac crest. Dictated by: Baba mason Villarreal M.D. on 12/05/2017 at 18:54 Electronically approved by: Dominique Villarreal M.D. on 12/05/2017 at 18:54 Dictated By: DOMINIQUE VILLARREAL MD 53 Transcribed By : SASKIA on 12/05/171853 COPY TO: ABHISHEK MENA REAL PROPERTY APPRAISER CHEST SINGLE (PORTABLE)2017-12-05 17:19:00 [place] [address] Patient Name: MARGARITA EATON MR #: [id number] : 1945 Age/Sex: 71/F Req #: [id number] Adm Physician: Ordered by: ABHISHEK MENA REAL PROPERTY APPRAISER Report #: [id number] Location: ER Room/Bed: Procedure: [id number] DX/CHEST SINGLE (PORTABLE) Exam Date: 12/05/17 Exam [...] N o acute cardiopulmonary disease. Dictated by: Dominique Villarreal M.D. on 12/05 at 17:19 Electronically approved by: Dominique Villarreal M.D. on 018 at 17:19 Dictated By: DOMINIQUE VILLARREAL MD Electronically Sig jose By: DOMINIQUE VILLARREAL MD on 12/05/17 1719 Transcribed By: SASKIA on 12/05/17 171 9 COPY TO: ABHISHEK MENA REAL [employer]ERTY APPRAISER HIP LEFT 2-3 VW (+/- PELVIS) 2017-12-05 17:17:00 [facility] [address] [place] [address] Patient Name: MARGARITA EATON MR #: [id number] : 1945 Age/Sex: 71/F Req #: [id number] Adm Physician: Ordered by: ABHISHEK MENA REAL PROPERTY APPRAISER Report #: [id number] Location: ER Room/Bed: Procedure: [id number] DX/HIP LEFT 2-3 VW (+/- PEL VIS) Exam Date: Exam Time: REPORT STATUS: Si gned PROCEDURE: HIP LEFT 2-3 VW (+/- PELVIS) COMPARISON: None. INDICATIONS: FALL, LEFT HIP PAIN TODAY FINDINGS: No acute displac ed fracture or dislocation. Joint spaces are within normal limits. Pelvic p hleboliths. Vascular calcifications. CONCLUSION: No acute fractu re or dislocation of the left hip. Dictated by: Dominique Villarreal M.D. o n 12/05/2017 at 17:17 Electronically approved by: Dominique Villarreal M.D. on 12/05/2017 at 17:17 Dictated By: DOMINIQUE VILLARREAL MD Electronical ly Signed By: DOMINIQUE VILLARREAL MD on 12/05/171716 Transcribed By: SASKIA on 1716 COPY TO: ABHISHEK MENA REAL PROPERTY APPRAISER Potassium Xrfdg3310-79-13 16:15:00* Test Item Value Reference Range Interpretation Comments Potassium Level (test code = 2823-3) 3.5 3.5-5.1 [facility] BrownsvilleBedside Xnkwkbs2037-86-08 16:15:00* Test Item Value Reference Range Interpretation Comments Bedside Glucose (test code = 99810-3) 137 70-120 H Meter ID: [id number] [facility] Patients Medical Centerodium Level 2017-08-10 07:05:00* Test Item Value Reference Range Interpretation Comments Sodium Level (test code = 2951-2) 141 136-145 [facility] BrownsvilleChloride Upamm4118-00-20 07:05:00* Test Item Value Reference Range Interpretation Comments Chloride Level (test code = 2075-0) 99 98-107 [facility] BrownsvilleCarbon Dioxide Ypkat1706-57-13 07:05:00* Test Item Value Reference Range Interpretation Comments Carbon Dioxide Level (test code = 2028-9) 29 22-29 [facility] BrownsvilleAnion Vxq6830-46-54 07:05:00* Test Item Value Reference Range Interpretation Comments Anion Gap (test code = 25006-4) 15.9 8-16 [facility] BrownsvilleBlood Urea Jmkzemyd4437-76-02 07:05:00* Test Item Value Reference Range Interpretation Comments Blood Urea Nitrogen (test code = 3094-0) 20 7-26 [facility] BrownsvilleCreatinine2018-02-09 07:05:00* Test Item Value Reference Range Interpretation Comments Creatinine (test code = 2160-0) 1.52 0.57-1.11 H [facility] BrownsvilleBUN/Creatinine Bqodd5730-64-77 07:05:00* Test Item Value Reference Range Interpretation Comments BUN/Creatinine Ratio (test code = 3097-3) 13 6-25 [facility] BrownsvilleEstimat Glomerular Filtration Rate 2017-08-10 07:05:00* Test Item Value Reference Range Interpretation Comments Estimat Glomerular Filtration Rate (test code = 04707-3) 34 >60 L Ranges were taken from the National Kidney Disease Education Program and the [facility] Kidney Foundation literature.Reference ranges:60 or greater: Zturqh68-14 ( for 3 consecutive months): Chronic kidney disease 15 or less: Kidney failureVal[facility] – BrownsvilleGlucose Yumty9716-14-90 07:05:00* Test Item Value Reference Range Interpretation Comments Glucose Level (test code = ECM3717) 86 74-118 [facility] BrownsvilleCalcium Isqak9145-97-42 07:05:00* Test Item Value Reference Range Interpretation Comments Calcium Level (test code = 90079-4) 8.4 8.4-10.2 [facility] BrownsvilleMagnesium Zfuqu2272-44-99 07:05:00* Test Item Value Reference Range Interpretation Comments Magnesium Level (test code = 84167-3) 2.0 1.3-2.1 [facility] BrownsvilleTotal Gdffdamav0428-00-03 07:05:00* Test Item Value Reference Range Interpretation Comments Total Bilirubin (test code = 1975-2) 0.4 0.2-1.2 [facility] BrownsvilleAspartate Amino Transf (AST/SGOT) 2017-08-10 07:05:00* Test Item Value Reference Range Interpretation Comments Aspartate Amino Transf (AST/SGOT) (test code = Aspartate Amino Transf (AST/SGOT)) 20 5-34 [facility] BrownsvilleAlanine Aminotransferase (ALT/SGPT) 2017-08-10 07:05:00* Test Item Value Reference Range Interpretation Comments Alanine Aminotransferase (ALT/SGPT) (test code = 1742-6) 14 0-55 [facility] Nfjzgpw2039-51-42 07:05:00* Test Item Value Reference Range Interpretation Comments Total Protein (test code = 2885-2) 7.0 6.5-8.1 [facility] BrownsvilleAlbumin2018-02-09 07:05:00* Test Item Value Reference Range Interpretation Comments Albumin (test code = 1751-7) 3.1 3.5-5.0 L [facility] BrownsvilleGlobulin2018-02-09 07:05:00* Test Item Value Reference Range Interpretation Comments Globulin (test code = 32160-4) 3.9 2.3-3.5 H [facility] BrownsvilleAlbumin/Globulin Ssela4010-90-93 07:05:00 * Test Item Value Reference Range Interpretation Comments Albumin/Globulin Ratio (test code = 1759-0) 0.8 0.8-2.0 [facility] BrownsvilleAlkaline Yzzeydkbnkc7473-80-21 07:05:00* Test Item Value Reference Range Interpretation Comments Alkaline Phosphatase (test code = 6768-6) 68 40-150 [facility] BrownsvilleMagnesium Goozf4294-36-57 07:05:00* Test Item Value Reference Range Interpretation Comments Magnesium Level (test code = 63873-3) 2.0 1.3-2.1 [facility] BrownsvilleWhite Blood Bzrvu2171-84-70 06:13:00* Test Item Value Reference Range Interpretation Comments White Blood Count (test code = 6690-2) 10.67 4.8-10.8 [facility] BrownsvilleRed Blood Jzvsx0649-28-70 06:13:00* Test Item Value Reference Range Interpretation Comments Red Blood Count (test code = 789-8) 5.14 3.6-5.1 H [facility] BrownsvilleHemoglobin2018-02-09 06:13:00* Test Item Value Reference Range Interpretation Comments Hemoglobin (test code = 04605-2) 12.4 12.0-16.0 [facility] BrownsvilleHematocrit2018-02-09 06:13:00* Test Item Value Reference Range Interpretation Comments Hematocrit (test code = 4544-3) 41.2 34.2-44.1 [facility] BrownsvilleMean Corpuscular Xapkwi5398-01-60 06:13:00* Test Item Value Reference Range Interpretation Comments Mean Corpuscular Volume (test code = 787-2) 80.2 81-99 L [facility] BrownsvilleMean Corpuscular Fjolanmkqg0048-97-24 06:13:00* Test Item Value Reference Range Interpretation Comments Mean Corpuscular Hemoglobin (test code = 785-6) 24.1 28-32 L [facility] BrownsvilleMean Corpuscular Hemoglobin Concent 2017-08-10 06:13:00* Test Item Value Reference Range Interpretation Comments Mean Corpuscular Hemoglobin Concent (test code = 786-4) 30.1 31-35 L [facility] BrownsvilleRed Cell Distribution Dqpcn8134-59-39 06:13:00* Test Item Value Reference Range Interpretation Comments Red Cell Distribution Width (test code = 66542-8) 23.1 11.7 -14.4 H [facility] BrownsvillePlatelet Mvepp1740-13-04 06:13:00* Test Item Value Reference Range Interpretation Comments Platelet Count (test code = 777-3) 335 140-360 [facility]villeNeutrophils (%) (Auto)2017-08-10 06:13:00 * Test Item Value Reference Range Interpretation Comments Neutrophils (%) (Auto) (test code = 76259-4) 62.1 38.7-80.0 [facility]villeLymphocytes (%) (Auto)2017-08-10 06:13:00 * Test Item Value Reference Range Interpretation Comments Lymphocytes (%) (Auto) (test code = 736-9) 28.1 18.0-39.1 [facility]Monocytes (%) (Auto)2017-08-10 06:13:00* Test Item Value Reference Range Interpretation Comments Monocytes (%) (Auto) (test code = 5905-5) 7.8 4.4-11.3 [facility]Eosinophils (%) (Auto)2017-08-10 06:13:00 * Test Item Value Reference Range Interpretation Comments Eosinophils (%) (Auto) (test code = 713-8) 0.9 0.0-6.0 [facility]Basophils (%) (Auto)2017-08-10 06:13:00* Test Item Value Reference Range Interpretation Comments Basophils (%) (Auto) (test code = 706-2) 0.7 0.0-1.0 [facility]villeIM GRANULOCYTES %2017-08-10 06:13:00* Test Item Value Reference Range Interpretation Comments IM GRANULOCYTES % (test code = IM GRANULOCYTES %) 0.4 0.0- 1.0 [facility]villeNeutrophils # (Auto)2017-08-10 06:13:00* Test Item Value Reference Range Interpretation Comments Neutrophils # (Auto) (test code = 751-8) 6.6 2.1-6.9 [facility]villeLymphocytes # (Auto)2017-08-10 06:13:00* Test Item Value Reference Range Interpretation Comments Lymphocytes # (Auto) (test code = 64212-5) 3.0 1.0-3.2 [facility]Monocytes # (Auto)2017-08-10 06:13:00* Test Item Value Reference Range Interpretation Comments Monocytes # (Auto) (test code = 742-7) 0.8 0.2-0.8 [facility]Eosinophils # (Auto)2017-08-10 06:13:00* Test Item Value Reference Range Interpretation Comments Eosinophils # (Auto) (test code = 711-2) 0.1 0.0-0.4 [facility]Basophils # (Auto)2017-08-10 06:13:00* Test Item Value Reference Range Interpretation Comments Basophils # (Auto) (test code = 704-7) 0.1 0.0-0.1 [facility]villeAbsolute Immature Granulocyte (auto 2017-08-10 06:13:00* Test Item Value Reference Range Interpretation Comments Absolute Immature Granulocyte (auto (kehinde t code = Absolute Immature Granulocyte (auto) 0.04 0-0.1 [facility]villeUrine [id number] 16:29:00* Test Item Value Reference Range Interpretation Comments Urine WBC (test code = 5821-4) NONE 0-5 [facility]villeUrine RCM7174-04-18 16:29:00* Test Item Value Reference Range Interpretation Comments Urine RBC (test code = 48083-3) NONE 0-5 [facility]villeUrine Lqyqksnx1849-84-20 16:29:00* Test Item Value Reference Range Interpretation Comments Urine Bacteria (test code = 63477-9) FEW NONE [facility]villeU[facility] Epithelial Qkcwk0496-48-21 16:29:00 * Test Item Value Reference Range Interpretation Comments Urine Epithelial Cells (test code = 64896-8) MODERATE NONE [facility]villeU[facility] QZW3432-45-72 16:29:00* Test Item Value Reference Range Interpretation Comments Urine WBC (test code = 5821-4) NONE 0-5 [facility]villeU[facility] LBJ7814-84-60 16:29:00* Test Item Value Reference Range Interpretation Comments Urine RBC (test code = 06578-8) NONE 0-5 [facility]villeU[facility] Vgjokuov2628-91-42 16:29:00* Test Item Value Reference Range Interpretation Comments Urine Bacteria (test code = 28294-9) FEW NONE [facility]villeU[facility] Epithelial Bcwwi1174-37-35 16:29:00 * Test Item Value Reference Range Interpretation Comments Urine Epithelial Cells (test code = 16003-3) MODERATE NONE [facility]villeU[facility] Ihftx5443-91-92 16:16:00* Test Item Value Reference Range Interpretation Comments Urine Color (test code = 5778-6) YELLOW YELLOW [facility]villeU[facility] Qbdlmwj8542-03-00 16:16:00* Test Item Value Reference Range Interpretation Comments Urine Clarity (test code = 15582-9) CLEAR CLEAR [facility]villeU[facility] Specific Rnnmwhr8334-14-16 16:16:00 * Test Item Value Reference Range Interpretation Comments Urine Specific [place] (test code = 5811-5) 1.010 1.010-1.02 5 [facility]villeU[facility] cR1627-94-09 16:16:00* Test Item Value Reference Range Interpretation Comments Urine pH (test code = 98723-4) 5 5-7 [facility] Leukocyte Voukjvxd4226-52-54 16:16:00* Test Item Value Reference Range Interpretation Comments Urine Leukocyte Esterase (test code = 5799-2) NEGATIVE NEGATIVE [facility]villeU[facility] Oaztlgn3116-99-60 16:16:00* Test Item Value Reference Range Interpretation Comments Urine Nitrite (test code = 90904-6) NEGATIVE NEGATIVE [facility]villeU[facility] Gkclxig4151-13-26 16:16:00* Test Item Value Reference Range Interpretation Comments Urine Protein (test code = 5804-0) NEGATIVE NEGATIVE [facility]villeU[facility] Glucose (UA)2017-08-09 16:16:00* Test Item Value Reference Range Interpretation Comments Urine Glucose (UA) (test code = 2349-9) NEGATIVE NEGATIVE [facility]villeU[facility] Omdtauw9909-98-67 16:16:00* Test Item Value Reference Range Interpretation Comments Urine Ketones (test code = 09650-2) NEGATIVE NEGATIVE [facility]villeU[facility] Mjjqftowufmp9726-02-26 16:16:00* Test Item Value Reference Range Interpretation Comments Urine Urobilinogen (test code = 65238-9) 0.2 0.2-1 [facility]villeU[facility] Dddtojazu8251-48-47 16:16:00* Test Item Value Reference Range Interpretation Comments Urine Bilirubin (test code = 1978-6) NEGATIVE NEGATIVE [facility]villeU[facility] Vgvpp1011-44-93 16:16:00* Test Item Value Reference Range Interpretation Comments Urine Blood (test code = 71609-0) NEGATIVE NEGATIVE [facility]villeU[facility] Expxy6715-48-45 16:16:00* Test Item Value Reference Range Interpretation Comments Urine Color (test code = 5778-6) YELLOW YELLOW [facility]villeU[facility] Hqnhzwj3122-52-47 16:16:00* Test Item Value Reference Range Interpretation Comments Urine Clarity (test code = 53812-3) CLEAR CLEAR [facility]villeU[facility] Specific Drwohuz2761-79-33 16:16:00 * Test Item Value Reference Range Interpretation Comments Urine Specific [place] (test code = 5811-5) 1.010 1.010-1.02 5 [facility]villeUrine oV5577-63-98 16:16:00* Test Item Value Reference Range Interpretation Comments Urine pH (test code = 04881-2) 5 5-7 [facility]villeU[facility] Leukocyte Ymmpcjlx6792-23-86 16:16:00* Test Item Value Reference Range Interpretation Comments Urine Leukocyte Esterase (test code = 5799-2) NEGATIVE NEGATIVE [facility]villeU[facility] Ykzvncu9622-84-33 16:16:00* Test Item Value Reference Range Interpretation Comments Urine Nitrite (test code = 04924-1) NEGATIVE NEGATIVE [facility]villeU[facility] Bnwzmlc2540-47-98 16:16:00* Test Item Value Reference Range Interpretation Comments Urine Protein (test code = 5804-0) NEGATIVE NEGATIVE [facility]villeU[facility] Glucose (UA)2017-08-09 16:16:00* Test Item Value Reference Range Interpretation Comments Urine Glucose (UA) (test code = 2349-9) NEGATIVE NEGATIVE [facility]villeU[facility] Dlxfggp0652-98-32 16:16:00* Test Item Value Reference Range Interpretation Comments Urine Ketones (test code = 97445-2) NEGATIVE NEGATIVE [facility]villeU[facility] Awrpytdmueac4053-79-57 16:16:00* Test Item Value Reference Range Interpretation Comments Urine Urobilinogen (test code = 88750-6) 0.2 0.2-1 [facility]villeU[facility] Gbacfmpoo1576-25-02 16:16:00* Test Item Value Reference Range Interpretation Comments Urine Bilirubin (test code = 1978-6) NEGATIVE NEGATIVE [facility]villeU[facility] Rarqh6311-42-47 16:16:00* Test Item Value Reference Range Interpretation Comments Urine Blood (test code = 85968-7) NEGATIVE NEGATIVE [facility]villeCreatine Kinase [id number] 12:45:00* Test Item Value Reference Range Interpretation Comments Creatine Kinase MB (test code = 44620-6) 2.00 0.00-5.00 [facility]villeTroponin Z2628-30-62 12:45:00* Test Item Value Reference Range Interpretation Comments Troponin I (test code = 56966-9) 0.029 0-0.300 [facility]villeCreatine Kinase QX1711-31-08 12:45:00* Test Item Value Reference Range Interpretation Comments Creatine Kinase MB (test code = 93386-9) 2.00 0.00-5.00 [facility]villeTroponin I4822-58-15 12:45:00* Test Item Value Reference Range Interpretation Comments Troponin I (test code = 59775-7) 0.029 0-0.300 [facility] Hcjrv0937-61-87 12:41:00* Test Item Value Reference Range Interpretation Comments Sodium Level (test code = 2951-2) 137 136-145 [facility]villePotassium Rzduz1936-59-82 12:41:00* Test Item Value Reference Range Interpretation Comments Potassium Level (test code = 2823-3) 2.9 3.5-5.1 LL Results called to JANICE JON at 1240 on 08/09/17 by Aggie Lyles. [place].[facility]villeChloride Itctt9259-04-80 12:41:00* Test Item Value Reference Range Interpretation Comments Chloride Level (test code = 2075-0) 92 98-107 L [facility]villeCarbon Dioxide Mrczh6353-51-64 12:41:00* Test Item Value Reference Range Interpretation Comments Carbon Dioxide Level (test code = 2028-9) 28 22-29 [facility]villeAnion Gfw3874-10-88 12:41:00* Test Item Value Reference Range Interpretation Comments Anion Gap (test code = 11653-5) 19.9 8-16 H [facility]villeBlood Urea Kmmbccyx8865-31-19 12:41:00* Test Item Value Reference Range Interpretation Comments Blood Urea Nitrogen (test code = 3094-0) 23 7-26 [facility]villeCreatinine2018-02-08 12:41:00* Test Item Value Reference Range Interpretation Comments Creatinine (test code = 2160-0) 1.96 0.57-1.11 H [facility]villeBUN/Creatinine Vxvor6695-73-48 12:41:00* Test Item Value Reference Range Interpretation Comments BUN/Creatinine Ratio (test code = 3097-3) 12 6-25 [facility]villeEstimat Glomerular Filtration Rate 2017-08-09 12:41:00* Test Item Value Reference Range Interpretation Comments Estimat Glomerular Filtration Rate (test code = 29575-2) 25 >60 L Ranges were taken from the National Kidney Disease Education Program and the [facility] Kidney Foundation literature.Reference ranges:60 or greater: Jxmzcb49-86 ( for 3 consecutive months): Chronic kidney disease 15 or less: Kidney failureVal[facility]villeGlucose Fxyqa5363-98-99 12:41:00* Test Item Value Reference Range Interpretation Comments Glucose Level (test code = IQV1473) 183 74-118 H [facility]villeCalcium Hgnwn8103-45-50 12:41:00* Test Item Value Reference Range Interpretation Comments Calcium Level (test code = 62239-5) 9.1 8.4-10.2 [facility]villeTotal Qblmuojyl2306-60-55 12:41:00* Test Item Value Reference Range Interpretation Comments Total Bilirubin (test code = 1975-2) 0.4 0.2-1.2 [facility]villeAspartate Amino Transf (AST/SGOT) 2017-08-09 12:41:00* Test Item Value Reference Range Interpretation Comments Aspartate Amino Transf (AST/SGOT) (test code = Aspartate Amino Transf (AST/SGOT)) 20 5-34 [facility]villeAlanine Aminotransferase (ALT/SGPT) 2017-08-09 12:41:00* Test Item Value Reference Range Interpretation Comments Alanine Aminotransferase (ALT/SGPT) (test code = 1742-6) 18 0-55 [facility]villeTotal Hrxvezh4104-53-18 12:41:00* Test Item Value Reference Range Interpretation Comments Total Protein (test code = 2885-2) 8.0 6.5-8.1 [facility]villeAlbumin2018-02-08 12:41:00* Test Item Value Reference Range Interpretation Comments Albumin (test code = 1751-7) 3.6 3.5-5.0 [facility]villeGlobulin2018-02-08 12:41:00* Test Item Value Reference Range Interpretation Comments Globulin (test code = 68804-7) 4.4 2.3-3.5 H [facility]villeAlbumin/Globulin Crjkz0329-40-26 12:41:00 * Test Item Value Reference Range Interpretation Comments Albumin/Globulin Ratio (test code = 1759-0) 0.8 0.8-2.0 [facility]villeAlkaline Uacbdvujesx6540-58-32 12:41:00* Test Item Value Reference Range Interpretation Comments Alkaline Phosphatase (test code = 6768-6) 88 40-150 [facility]villeCreatine Twyghp3793-96-54 12:41:00* Test Item Value Reference Range Interpretation Comments Creatine Kinase (test code = 2157-6) 94 29-168 [facility]villeCreatine Uzrwde4334-07-36 12:41:00* Test Item Value Reference Range Interpretation Comments Creatine Kinase (test code = 2157-6) 94 29-168 [facility]villeWhite Blood Zpztu3554-12-46 12:33:00* Test Item Value Reference Range Interpretation Comments White Blood Count (test code = 6690-2) 12.71 4.8-10.8 H [facility]villeRed Blood Ccfij0928-64-82 12:33:00* Test Item Value Reference Range Interpretation Comments Red Blood Count (test code = 789-8) 5.89 3.6-5.1 H [facility]villeHemoglobin2018-02-08 12:33:00* Test Item Value Reference Range Interpretation Comments Hemoglobin (test code = 30330-6) 14.1 12.0-16.0 [facility]villeHematocrit2018-02-08 12:33:00* Test Item Value Reference Range Interpretation Comments Hematocrit (test code = 4544-3) 47.3 34.2-44.1 H [facility]villeMean Corpuscular Aehtsy6494-92-23 12:33:00* Test Item Value Reference Range Interpretation Comments Mean Corpuscular Volume (test code = 787-2) 80.3 81-99 L [facility]villeMean Corpuscular Ytrpsxuziw2108-37-20 12:33:00* Test Item Value Reference Range Interpretation Comments Mean Corpuscular Hemoglobin (test code = 785-6) 23.9 28-32 L [facility]villeMean Corpuscular Hemoglobin Concent 2017-08-09 12:33:00* Test Item Value Reference Range Interpretation Comments Mean Corpuscular Hemoglobin Concent (test code = 786-4) 29.8 31-35 L [facility] [place]villeRed Cell Distribution Tvqts8244-26-53 12:33:00* Test Item Value Reference Range Interpretation Comments Red Cell Distribution Width (test code = 20814-1) 23.4 11.7 -14.4 H [facility]villePlatelet Sijlb1170-19-87 12:33:00* Test Item Value Reference Range Interpretation Comments Platelet Count (test code = 777-3) 412 140-360 H [facility]villeNeutrophils (%) (Auto)2017-08-09 12:33:00 * Test Item Value Reference Range Interpretation Comments Neutrophils (%) (Auto) (test code = 34103-7) 71.5 38.7-80.0 [facility]villeLymphocytes (%) (Auto)2017-08-09 12:33:00 * Test Item Value Reference Range Interpretation Comments Lymphocytes (%) (Auto) (test code = 736-9) 20.0 18.0-39.1 [facility]villeMonocytes (%) (Auto)2017-08-09 12:33:00* Test Item Value Reference Range Interpretation Comments Monocytes (%) (Auto) (test code = 5905-5) 7.0 4.4-11.3 [facility]villeEosinophils (%) (Auto)2017-08-09 12:33:00 * Test Item Value Reference Range Interpretation Comments Eosinophils (%) (Auto) (test code = 713-8) 0.6 0.0-6.0 [facility]Basophils (%) (Auto)2017-08-09 12:33:00* Test Item Value Reference Range Interpretation Comments Basophils (%) (Auto) (test code = 706-2) 0.6 0.0-1.0 [facility]villeIM GRANULOCYTES %2017-08-09 12:33:00* Test Item Value Reference Range Interpretation Comments IM GRANULOCYTES % (test code = IM GRANULOCYTES %) 0.3 0.0- 1.0 [facility]villeNeutrophils # (Auto)2017-08-09 12:33:00* Test Item Value Reference Range Interpretation Comments Neutrophils # (Auto) (test code = 751-8) 9.1 2.1-6.9 H [facility]villeLymphocytes # (Auto)2017-08-09 12:33:00* Test Item Value Reference Range Interpretation Comments Lymphocytes # (Auto) (test code = 31947-5) 2.5 1.0-3.2 [facility]villeMonocytes # (Auto)2017-08-09 12:33:00* Test Item Value Reference Range Interpretation Comments Monocytes # (Auto) (test code = 742-7) 0.9 0.2-0.8 H [facility]villeEosinophils # (Auto)2017-08-09 12:33:00* Test Item Value Reference Range Interpretation Comments Eosinophils # (Auto) (test code = 711-2) 0.1 0.0-0.4 [facility]villeBasophils # (Auto)2017-08-09 12:33:00* Test Item Value Reference Range Interpretation Comments Basophils # (Auto) (test code = 704-7) 0.1 0.0-0.1 [facility]villeAbsolute Immature Granulocyte (auto 2017-08-09 12:33:00* Test Item Value Reference Range Interpretation Comments Absolute Immature Granulocyte (auto (kehinde t code = Absolute Immature Granulocyte (auto) 0.04 0-0.1 [facility]villeProthrombin Ysin6671-12-44 12:32:00* Test Item Value Reference Range Interpretation Comments Prothrombin Time (test code = 5902-2) 22.6 11.9-14.5 H [facility]villeProthromb Time International Ratio 2017-08-09 12:32:00* Test Item Value Reference Range Interpretation Comments Prothromb Time International Ratio (test code = 6301-6) 1.88 Oral Anticoagulant Therapy INR Values:1. Low Intensity Therapy 1.5 - 2.02 . Moderate Intensity Therapy 2.0 - 3.03. High Intensity Therapy(1) 2.5 - 3. 54. High Intensity Therapy(2) 3.0 - 4.05. Panic Value INR > 5.0 [facility]villeActivated Partial Thromboplast Time 2017-08-09 12:32:00* Test Item Value Reference Range Interpretation Comments Activated Partial Thromboplast Time (test code = 21852-2) 34.0 23.8-35.5 [facility]villeProthrombin Ewor1600-83-68 12:32:00* Test Item Value Reference Range Interpretation Comments Prothrombin Time (test code = 5902-2) 22.6 11.9-14.5 H [facility]villeProthromb Time International Ratio 2017-08-09 12:32:00* Test Item Value Reference Range Interpretation Comments Prothromb Time International Ratio (test code = 6301-6) 1.88 Oral Anticoagulant Therapy INR Values:1. Low Intensity Therapy 1.5 - 2.02 . Moderate Intensity Therapy 2.0 - 3.03. High Intensity Therapy(1) 2.5 - 3. 54. High Intensity Therapy(2) 3.0 - 4.05. Panic Value INR > 5.0 [facility]villeActivated Partial Thromboplast Time 2017-08-09 12:32:00* Test Item Value Reference Range Interpretation Comments Activated Partial Thromboplast Time (test code = 72136-4) 34.0 23.8-35.5 [facility]villeUrine Amorphous Yivzmnyf8167-07-61 20:21:00* Test Item Value Reference Range Interpretation Comments Urine Amorphous Sediment (test code = 8246-1) FEW FEW [facility]villeUrine Qyodg3082-39-65 20:21:00* Test Item Value Reference Range Interpretation Comments Urine Mucus (test code = 8247-9) RARE RARE [facility]villeUrine Amorphous Fdcnphsy3955-93-84 20:21:00* Test Item Value Reference Range Interpretation Comments Urine Amorphous Sediment (test code = 8246-1) FEW FEW [facility]villeUrine Pbtfj9883-32-10 20:21:00* Test Item Value Reference Range Interpretation Comments Urine Mucus (test code = 8247-9) RARE RARE [facility] (PORTABLE) [place] [address] Patient Name: MARGARITA EATON MR #: [id number] : 1945 Age/Sex: 71/F Req #: [id number] Adm Physician: Ordered by: GALLO MONTES MD Report #: [id number] Location: ER Room/Bed: Procedure: [id number] DX/CHEST SINGLE (PORTABLE ) Exam Date: 08/09/17 [...] TO: GALLO OSBORNE MD CT BRAIN WO [place] [address] Patient Name: MARGARITA EATON MR #: [id number] : 1945 Age/Sex: 71/F Req #: [id number] Adm Physician: Ordered by: GALLO MONTES MD Report #: [id number] Location: ER Room/Bed: Procedure: [id number] CT/CT BRAIN WO Exam Date : 08/09/17 [...]
[2020-02-23 14:18] LABS: THYROID STIMULATING HORMONE 1.266 uIU/mL (0.350-4.940)
--- NOTE | 2020-02-23 14:18 | Diagnostic Imaging Report ---
TECHNIQUE: Frontal view of the chest. INDICATION: ^VT, CP ^[id number] ^1340 COMPARISON: 08/30/2019 DISCUSSION: Limited evaluation due to portable technique. Lines and hardware: Stable left chest wall pacemaker device and leads. Overlying EKG leads are noted. Heart and mediastinum: Cardiomediastinal silhouette is mildly enlarged. Central vascular Jentsch is mildly prominent. Tortuosity and calcifications of the aortic knob are noted. Tracheobronchial calcifications are noted. Lungs and pleura: Prominent interstitial markings are noted. Blunting of the right costophrenic angle is noted. Negative for large pneumothorax or mediastinal shift. Soft tissues and bones: No acute abnormality. IMPRESSION: Cardiomegaly, vascular congestion and prominent interstitial markings with small right pleural effusion are noted. Findings are concerning for fluid overload/edema. Signed by: Anibal Li MD on 02/23/2020 2:14 PM
--- OUTSIDE RECORDS SUMMARY | 2020-02-23 14:48 | XMS REPORT | Continuity of Care Document ---
Author Author [facility] t Organization [facility] Address [address] [place] [address] [address] [place] [address] Phone Unavailable Care Team Providers Care Dispatcher Maintenance Name Role Phone JANELLE KAPLAN, MD CROUCH PCP Yuliet MOODY Attphys Unavailable WILLA LUIS Attphys Unavailable CB CISNEROS Attphys Unavailable Jake DENISE Attphys Unavailable Jessica MONTES Attphys Unavailable WILLA LUIS Admphys Unavailable Payers Payer Name Policy Type Policy Number Effective Date Expiration Date Denisha eid [facility] 2017 00:00:00 [facility] Problems Condition Name Condition Details Condition Category Status Onset Date Resolution Date Last Treatment Date Treating Clinician Comments Source Abdominal pain Abdominal pain Problem Active 2014-04-30 00:00:00 [facility] Dehydration Dehydration Problem Active [facility] Pre-syncope Near syncope Problem Active [facility] Fracture of pelvis Pelvic fracture Problem Active [facility] Urinary tract infection Urinary tract infection Problem Active [facility] Acute renal failure Acute renal failure Problem Active [facility] Chest pain Chest pain Problem Active [facility] Diarrhea Diarrhea Problem Active [facility] Lactic acidosis Lactic acid acidosis Problem Active [facility] Sustained ventricular tachycardia Ventricular tachycardia, susta ined Problem Active [facility] Diverticulitis Diverticulitis Problem Active [facility] Calculus of kidney Problem Active [facility] Allergies, Adverse Reactions, Alerts Allergy Name Allergy Type Status Severity Reaction(s) Onset Date Inacti ve Date Treating Clinician Comments Source 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 Ordering Clinician Indication Dosage Frequency Signature (SIG) Comments Components Source Alendronate Sodium (Fosamax) 70 Mg TABLET Alendronate Sodium (Fosamax) 70 Mg TABLET Yes 70 Every Sunday [facility] Alendronate Sodium Alendronate Sodium Yes 70 Us e As Directed [facility] Aspirin Aspirin Yes 81 Daily [facility] Atorvastatin Calcium Atorvastatin Calcium Yes 40 Daily [facility] Donepezil Hcl Donepezil Hcl Yes 10 Daily [facility] Furosemide (Lasix) 40 Mg TABLET Furosemide (Lasix) 40 Mg TABLET Yes 40 Daily [facility] Glimepiride Glimepiride Yes 2 Daily [facility] Isosorbide Mononitrate (Isosorbide Mononitrate Er) 30 Mg TAB.ER.24H Isosorbide Mononitrate (Isosorbide Mononitrate Er) 30 Mg TAB.ER.24H Yes 30 Daily [facility] Metolazone Metolazone Yes 5 Daily [facility] Metoprolol Succinate Metoprolol Succinate Yes 50 Daily [facility] Montelukast Sodium Montelukast Sodium Yes 10 Da margret [facility] Multivitamin (Multi-Vitamin Daily) 1 Each TABLET Multi vitamin (Multi-Vitamin Daily) 1 Each TABLET Yes 1 Daily [facility] Nitroglycerin Nitroglycerin Yes .4 Every 5 Anitra kehinde [facility] Omeprazole Omeprazole Yes 20 Daily [facility] Ondansetron (Zofran Odt) 4 Mg TAB.RAPDIS Ondansetron ( Zofran Odt) 4 Mg TAB.RAPDIS Yes 4 Every 6 Hours as needed for Nausea [facility] Pantoprazole Sodium (Protonix) 40 Mg TABLET.DR Hall azole Sodium (Protonix) 40 Mg TABLET. Yes 40 Daily [facility] Pravastatin Sodium Pravastatin Sodium Yes 40 Qh s [facility] Warfarin Sodium Warfarin Sodium Yes 3 Daily@17 00 [facility] Metformin Hcl (Glucophage Xr) 500 Mg TAB.ER.24H Metfor min Hcl (Glucophage Xr) 500 Mg TAB.ER.24H 2019-09-02 00:00:00 No 500 Twice A Day [facility] Amiodarone Hcl Amiodarone Hcl 2019-08-31 00:00:00 No 200 Daily [facility] Metoclopramide Hcl Metoclopramide Hcl 2019-08-31 00:00:00 No 10 Before Meals And At Bedtime [facility] Ciprofloxacin Hcl (Cipro) 500 Mg TABLET Ciprofloxacin Hcl (C ipro) 500 Mg TABLET 2019-08-30 00:00:00 No 500 Every 12 Hours [facility] Metronidazole (Flagyl) 500 Mg TABLET Metronidazole (Flagyl) 500 Mg TABLET 2019-08-30 00:00:00 No [facility] Metronidazole (Flagyl) 500 Mg TABLET Metronidazole (Flagyl) 500 Mg TABLET 2019-08-30 00:00:00 No Three Times A Day [facility] Alprazolam Alprazolam 2017-08-09 00:00:00 No .5 Jelena ry Evening [facility] Amiodarone Hcl (Pacerone) 200 Mg TABLET Amiodarone Hcl (Pace tiny) 200 Mg TABLET 2017-08-09 00:00:00 No 200 Every Evening [facility] Carvedilol Carvedilol 2017-08-09 00:00:00 No 12.5 Twi ce A Day [facility] Digoxin (Lanoxin) 125 Mcg TABLET Digoxin (Lanoxin) 125 Mcg TABLE T 2017-08-09 00:00:00 No 125 Daily [facility] Diltiazem Hcl (Diltiazem 24HR Er) 120 Mg CAP.ER.24H Di ltiazem Hcl (Diltiazem 24HR Er) 120 Mg CAP.ER.24H 2017-08-09 00:00:00 No 120 Daily [facility] Gabapentin Gabapentin 2017-08-09 00:00:00 No 300 Jelena ry Evening [facility] Glipizide Glipizide 2017-08-09 00:00:00 No 5 Daily [facility] Isosorbide Mononitrate (Imdur) 30 Mg TABCR Isosorbide Mononitrate (Imdur) 30 Mg TABCR 2017-08-09 00:00:00 No 30 Every Evening [facility] Warfarin Sodium Warfarin Sodium 2017-08-09 00:00:00 No 3 Mon,Tue,Anjelica,Sat,Sun [facility] Warfarin Sodium Warfarin Sodium 2017-08-09 00:00:00 No 6 Every Wed & Fri [facility] Metoclopramide Hcl Metoclopramide Hcl 2014-04-30 00:00:00 No 10 With Each Meal [facility] Aspirin Aspirin 2013-09-03 00:00:00 No 81 Daily [facility] Nitroglycerin (Nitrostat) 0.4 Mg TAB.SUBL Nitroglyceri n (Nitrostat) 0.4 Mg TAB.SUBL 2013-09-03 00:00:00 No .4 As Needed [facility] Meridian-3 Fatty Acids (Fish Oil) 300 Mg CAPSULE Meridian-3 Fatty Acids (Fish Oil) 300 Mg CAPSULE 2013-09-03 00:00:00 No 300 Twice A Day [facility] Topiramate (Topamax) 50 Mg TABLET Topiramate (Topamax) 50 Mg TAB LET 2013-09-03 00:00:00 No 50 Twice A Day [facility] Warfarin Sodium (Coumadin) 5 Mg VIAL Warfarin Sodium (Coumadin) 5 Mg VIAL 2013-02-09 00:00:00 No [facility] Vital Signs Vital Name Observation Time Observation Value Comments Source Body Temperature 2019-10-29 12:00:00 97.5 [degF] [facility] Weight 2019-10-29 00:46:00 142.06 [lb_av] [facility] BMI (Body Mass Index) 2019-10-29 00:46:00 23.6 kg/m2 [facility] Procedures Procedure Date / Time Performed Performing Clinician [facility] e Computed tomography of lumbar spine without contrast 2019-10-25 00:00:00 [facility] CT of abdomen and pelvis without contrast 2019-10-24 00:00:00 [facility] Ultrasound, renal 2019-10-16 00:00:00 ALLISON CHEW [facility] CT of abdomen and pelvis without contrast 2019-10-16 00:00:00 [facility] Ultrasound, renal 2019-08-31 00:00:00 SUSANNA CERDA [facility] Plan of Care Planned Activity Planned Date Details Comments Source Instructions Back Pain [facility] Encounters Start Date/Time End Date/Time En[facility] ID Source 2019-10-26 11:28:00 2019-10-29 15:31:00 Discharged Inpatient 1 JANELLE WILLA [facility] [id number] [facility] 2019-10-16 18:33:00 2019-10-19 09:12:00 Discharged Inpatient (obs) 1 BLAYNECB [facility] [id number] [facility] 2019-08-30 21:48:00 2019-09-02 14:15:00 Discharged Inpatient (obs) 1 JANELLEWILLA AYALA [facility] [id number] [facility] 2017-12-05 20:14:00 2017-12-07 15:52:00 Discharged Inpatient [address] [facility] [id number] [facility] 2017-08-09 16:39:00 2017-08-10 17:20:00 Discharged Inpatient (obs) ER GALLO MONTES [facility] [id number] [facility] 2017-01-17 18:55:00 2017-01-17 22:00:[address] [facility] [id number] [facility] Results Test Description Test Time Test Comments Results Result Comments Source CHEST SINGLE (PORTABLE) 2020-02-23 14:13:00 [place] [address] Patient Name: MARGARITA EATON MR #: [id number] : 1945 Age/Sex: 74/F Req #: [id number] Adm Physician: Ordered by: NATALIE MOODY MD Report #: [id number] Location: ER Room/Bed: Procedure: [id number] DX/CHEST SINGLE (PORTABLE) Exam Date: 02/23/20 Exam Time: 1340 REPORT STATUS: Signed TECHNIQUE: Frontal view of the chest. INDICATION: VT, CP [id number] COMPARISON: 08/30/2019 DISCUSSION: Limited evaluation due to portable technique. Lines and hardware: Stable left chest wall pacemaker device and leads. [place] ing EKG leads are noted. Heart and mediastinum: Cardiomediastinal silhouette is mildly enlarged. Central vascular Jentsch is mildly prominent. Tortuosity and calcifications of the aortic knob are noted. Tracheobronchial calcifications are noted. Lungs and pleura: Prominent interstitial markings are noted. Blunting of the right costophrenic angle is noted. Negative for large pneumothorax or mediastinal shift. Soft tissues and bones: No acute abnormality. IMPRESSION: Cardiomegaly, vascular congestion and prominent interstitial markings with small right pleural effusion are noted. Findings are concerning for fluid overload/edema. Signed by: Anibal Li MD on 02/23/2020 2:14 PM Dictated By: ANIBAL LI MD 141 Transcribed By: IZZY on 02/23/20 141 COPY TO: NATALIE MOODY MD Capillary blood glucose measurement by glucometer (mas s/volume) 2019-10-29 19:51:00 Test Item Bedside Glucose (test code = 12881-1) 156 70-120 Meter ID: [id number] leukocytes automated count (number/volume)2019-10-28 15:20:00* Test Item Value Reference Range Interpretation Comments White Blood Count (test code = 6690-2) 8.78 4.8-10.8 [facility] erythrocytes automated count (number/volume)2019-10-28 15:20:00* Test Item Value Reference Range Interpretation Comments Red Blood Count (test code = 789-8) 3.78 3.6-5.1 [facility]ano[facility] hemoglobin measurement (moles/volume)2019-10-28 15:20:00* Test Item Value Reference Range Interpretation Comments Hemoglobin (test code = 34753-3) 10.5 12.0-16.0 [facility]anoAutomated blood hematocrit (volume fraction)2019-10-28 15:20:00* Test Item Value Reference Range Interpretation Comments Hematocrit (test code = 4544-3) 32.8 34.2-44.1 [facility]anoAutomated erythrocyte mean corpuscular [id number] 15:20:00* Test Item Value Reference Range Interpretation Comments Mean Corpuscular Volume (test code = 787-2) 86.8 81-99 [facility]anoAutomated erythrocyte mean corpuscular hemoglobin (mass per erythrocyte)2019-10-28 15:20:00* Test Item Value Reference Range Interpretation Comments Mean Corpuscular Hemoglobin (test code = 785-6) 27.8 28-32 [facility]anoAutomated erythrocyte mean corpuscular hemoglobin concentration measurement (mass/volume)2019-10-28 15:20:00* Test Item Value Reference Range Interpretation Comments Mean Corpuscular Hemoglobin Concent (test code = 786-4) 32.0 31-35 [facility] PlanoRDW [id number]-[id number] 15:20:00* Test Item Value Reference Range Interpretation Comments Red Cell Distribution Width (test code = 22651-6) 19.9 11.7 -14.4 [facility]anoAutomated blood platelet count (count/volume)2019-10-28 15:20:00* Test Item Value Reference Range Interpretation Comments Platelet Count (test code = 777-3) 263 140-360 [facility] PlanoAutomated blood segmented neutrophil count as percentage of total rtjgrhqbzm4956-33-04 15:20:00* Test Item Value Reference Range Interpretation Comments Neutrophils (%) (Auto) (test code = 52638-1) 71.9 38.7-80.0 [facility]anoAutomated blood lymphocyte count as percentage ot total [id number] 15:20:00* Test Item Value Reference Range Interpretation Comments Lymphocytes (%) (Auto) (test code = 736-9) 17.2 18.0-39.1 [facility]anoAutomated blood monocyte count as percentage of total kqqfhsjezd4321-85-25 15:20:00* Test Item Value Reference Range Interpretation Comments Monocytes (%) (Auto) (test code = 5905-5) 7.7 4.4-11.3 [facility]anoAutomated blood eosinophil count as percentage of total gxlcvfylml5750-63-99 15:20:00* Test Item Value Reference Range Interpretation Comments Eosinophils (%) (Auto) (test code = 713-8) 2.5 0.0-6.0 [facility]anoAutomated blood basophil count as percentage of total fsykzeuwtm4361-68-48 15:20:00* Test Item Value Reference Range Interpretation Comments Basophils (%) (Auto) (test code = 706-2) 0.5 0.0-1.0 [facility] PlanoFluoroscopic procedure less than one hour [id number] 15:20:00* Test Item Value Reference Range Interpretation Comments IM GRANULOCYTES % (test code = IM GRANULOCYTES %) 0.2 0.0- 1.0 [facility]anoAutomated blood neutrophil count 2019-10-28 15:20:00* Test Item Value Reference Range Interpretation Comments Neutrophils # (Auto) (test code = 751-8) 6.3 2.1-6.9 [facility]ano[facility] lymphocytes count (number/volume) 2019-10-28 15:20:00* Test Item Value Reference Range Interpretation Comments Lymphocytes # (Auto) (test code = 51208-0) 1.5 1.0-3.2 [facility] monocytes automated count (number/volume)2019-10-28 15:20:00* Test Item Value Reference Range Interpretation Comments Monocytes # (Auto) (test code = 742-7) 0.7 0.2-0.8 [facility]anoAutomated blood eosinophil count 2019-10-28 15:20:00* Test Item Value Reference Range Interpretation Comments Eosinophils # (Auto) (test code = 711-2) 0.2 0.0-0.4 [facility]anoAutomated blood basophil count (count/volume)2019-10-28 15:20:00* Test Item Value Reference Range Interpretation Comments Basophils # (Auto) (test code = 704-7) 0.0 0.0-0.1 [facility] PlanoFluoroscopic procedure less than one hour [id number] 15:20:00* Test Item Value Reference Range Interpretation Comments Absolute Immature Granulocyte (auto (kehinde t code = Absolute Immature Granulocyte (auto) 0.02 0-0.1 [facility]anoProthrombin time (PT) in platelet poor plasma by coagulation [id number] 15:20:00* Test Item Value Reference Range Interpretation Comments Prothrombin Time (test code = 5902-2) 15.0 11.9-14.5 [facility] PlanoINR in Platelet poor plasma by Coagulation [id number] 15:20:00* Test Item Value Reference Range Interpretation Comments Prothromb Time International Ratio (test code = 6301-6) 1.11 Oral Anticoagulant Therapy INR Values:1. Low Intensity Therapy 1.5 - 2.02 . Moderate Intensity Therapy 2.0 - 3.03. High Intensity Therapy(1) 2.5 - 3. 54. High Intensity Therapy(2) 3.0 - 4.05. Panic Value INR > 5.0 [facility] sodium measurement (moles/volume)2019-10-28 15:20:00* Test Item Value Reference Range Interpretation Comments Sodium Level (test code = 2951-2) 136 136-145 [facility]ererum or plasma potassium measurement (moles/volume)2019-10-28 15:20:00* Test Item Value Reference Range Interpretation Comments Potassium Level (test code = 2823-3) 3.9 3.5-5.1 [facility]ererum or plasma chloride measurement (moles/volume)2019-10-28 15:20:00* Test Item Value Reference Range Interpretation Comments Chloride Level (test code = 2075-0) 97 98-107 [facility]ererum or plasma carbon dioxide, total measurement (moles/volume)2019-10-28 15:20:00* Test Item Value Reference Range Interpretation Comments Carbon Dioxide Level (test code = 2028-9) 30 22-29 [facility]ererum or plasma anion hee0104-68-56 15:20:00* Test Item Value Reference Range Interpretation Comments Anion Gap (test code = 08030-3) 12.9 8-16 [facility]ererum or plasma urea nitrogen measurement (mass/volume)2019-10-28 15:20:00* Test Item Value Reference Range Interpretation Comments Blood Urea Nitrogen (test code = 3094-0) 29 7-26 [facility]ererum or plasma creatinine measurement (mass/volume)2019-10-28 15:20:00* Test Item Value Reference Range Interpretation Comments Creatinine (test code = 2160-0) 2.45 0.57-1.11 [facility]ererum or plasma urea nitrogen/creatinine mass [id number] 15:20:00* Test Item Value Reference Range Interpretation Comments BUN/Creatinine Ratio (test code = 3097-3) 12 6-25 [facility]anoEstimated glomerular filtration rate (GFR) ouyjrfniinkbw7929-29-74 15:20:00* Test Item Value Reference Range Interpretation Comments Estimat Glomerular Filtration Rate (test code = 239867356) 19 >60 Ranges were taken from the National Kidney Disease Education Program and the Critical access hospital Kidney Foundation literature.Reference ranges:60 or greater: Prcpoi33-18 ( for 3 consecutive months): Chronic kidney disease 15 or less: Kidney failureBaylor Scott & White Medical Center – PlanoGlucose tomzrpgetsc2418-95-95 15:20:00* Test Item Value Reference Range Interpretation Comments Glucose Level (test code = LWX0324) 120 74-118 [facility]ererum or plasma calcium measurement (mass/volume)2019-10-28 15:20:00* Test Item Value Reference Range Interpretation Comments Calcium Level (test code = 33597-4) 9.0 8.4-10.2 [facility] PlanoUrine color wfijblbddvauk0941-32-18 09:45:00* Test Item Value Reference Range Interpretation Comments Urine Color (test code = 5778-6) YELLOW YELLOW [facility] PlanoUrine [id number] 09:45:00* Test Item Value Reference Range Interpretation Comments Urine Clarity (test code = 92299-8) CLEAR CLEAR [facility] Centerpecific gravity of Urine by Test strip 2019-10-27 09:45:00* Test Item Value Reference Range Interpretation Comments Urine Specific [place] (test code = 5811-5) 1.005 1.010-1.02 5 [facility] PlanoUrine pH measurement by automated test vepiw9408-79-97 09:45:00* Test Item Value Reference Range Interpretation Comments Urine pH (test code = 49624-4) 7 5-7 [facility] PlanoUrine leukocyte esterase detection by nfigejds5664-31-15 09:45:00* Test Item Value Reference Range Interpretation Comments Urine Leukocyte Esterase (test code = 5799-2) NEGATIVE NEGATIVE [facility] PlanoUrine nitrite fhalypsmm7417-75-93 09:45:00* Test Item Value Reference Range Interpretation Comments Urine Nitrite (test code = 95255-3) NEGATIVE NEGATIVE [facility] PlanoUrine protein measurement by test strip (mass/volume)2019-10-27 09:45:00* Test Item Value Reference Range Interpretation Comments Urine Protein (test code = 5804-0) NEGATIVE NEGATIVE [facility] PlanoUrine glucose tzblefkcc3244-51-04 09:45:00* Test Item Value Reference Range Interpretation Comments Urine Glucose (UA) (test code = 2349-9) NEGATIVE NEGATIVE [facility] PlanoUrine ketones detection by automated test gqvjq0385-89-20 09:45:00* Test Item Value Reference Range Interpretation Comments Urine Ketones (test code = 91604-1) NEGATIVE NEGATIVE [facility] PlanoUrine urobilinogen measurement by test strip (mass/volume)2019-10-27 09:45:00* Test Item Value Reference Range Interpretation Comments Urine Urobilinogen (test code = 03755-8) 0.2 0.2-1 [facility]anoUrine total bilirubin measurement (mass/volume)2019-10-27 09:45:00* Test Item Value Reference Range Interpretation Comments Urine Bilirubin (test code = 1978-6) NEGATIVE NEGATIVE [facility] PlanoUrine erythrocytes bemfggkec3578-62-91 09:45:00* Test Item Value Reference Range Interpretation Comments Urine Blood (test code = 72149-6) NEGATIVE NEGATIVE [facility] PlanoAutomated urine sediment leukocyte count by microscopy (number/high power field)2019-10-27 09:45:00* Test Item Value Reference Range Interpretation Comments Urine WBC (test code = 5821-4) 0-5 0-5 [facility] PlanoErythrocytes detection in urine sediment by light xnrwvugtbl3680-44-84 09:45:00* Test Item Value Reference Range Interpretation Comments Urine RBC (test code = 23485-2) NONE 0-5 [facility] PlanoBacteria detection in urine sediment by light [id number] 09:45:00* Test Item Value Reference Range Interpretation Comments Urine Bacteria (test code = 15162-4) RARE NONE [facility] PlanoEpithelial cells detection in urine sediment by light yixiovzdcb7165-20-22 09:45:00* Test Item Value Reference Range Interpretation Comments Urine Epithelial Cells (test code = 95877-6) FEW NONE [facility] PlanoBacterial urine mjuarex3540-36-22 09:45:00* Test Item Value Reference Range Interpretation Comments Urine Culture (test code = 630-4) STAPHYLOCOCCUS AUREUS-MRSA [facility] PlanoCT LUMBAR SPINE [id number] 09:28:00 [facility] [address] [address] Patient Name: MARGARITA EATON MR #: [id number] : 1945 Age/Sex: 73/F Req #: [id number] Adm Physician: WILLA LUIS MD Ordered by: WICHO HANCOCK MD Report #: [id number] Location: [facility] Procedure: [id number] C T/CT LUMBAR SPINE WO Exam Date: [...] HANCOCK MD CT ABDOMEN/PELVIS WO 2019-10-24 16:43:00 [place] [address] Patient Name: MARGARITA EATON MR #: [id number] : 1945 Age/Sex: 73/F Req #: [id number] Adm Physician: Ordered by: CB CISNEROS DO Report #: [id number] Location: ER Room/Bed: Procedure: [id number] CT/CT ABDOMEN/PELVIS WO Exam Date: 10/24/19 Exam [...] Bilirubin (test code = 1975-2) 0.3 0.2-1.2 [facility]anoFluoroscopic procedure less than one hour shdrrijb2727-49-79 15:45:00* Test Item Value Reference Range Interpretation Comments Aspartate Amino Transf (AST/SGOT) (test code = Aspartate Amino Transf (AST/SGOT)) 23 5-34 [facility]ererum or plasma alanine aminotransferase measurement (enzymatic activity/volume)2019-10-24 15:45:00* Test Item Value Reference Range Interpretation Comments Alanine Aminotransferase (ALT/SGPT) (test code = 1742-6) 15 0-55 [facility]ererum or plasma protein measurement (mass/volume)2019-10-24 15:45:00* Test Item Value Reference Range Interpretation Comments Total Protein (test code = 2885-2) 7.1 6.5-8.1 [facility]ererum or plasma albumin measurement (mass/volume)2019-10-24 15:45:00* Test Item Value Reference Range Interpretation Comments Albumin (test code = 1751-7) 3.3 3.5-5.0 [facility] PlanoPlasma globulin measurement (mass/volume) 2019-10-24 15:45:00* Test Item Value Reference Range Interpretation Comments Globulin (test code = 21744-6) 3.8 2.3-3.5 [facility]ererum or plasma albumin/globulin mass ywfud9196-07-62 15:45:00* Test Item Value Reference Range Interpretation Comments Albumin/Globulin Ratio (test code = 1759-0) 0.9 0.8-2.0 [facility]ererum or plasma alkaline phosphatase measurement (enzymatic activity/volume)2019-10-24 15:45:00* Test Item Value Reference Range Interpretation Comments Alkaline Phosphatase (test code = 6768-6) 87 40-150 [facility] Centerodium Jjroh5102-17-44 06:41:00* Test Item Value Reference Range Interpretation Comments Sodium Level (test code = 2951-2) 139 136-145 [facility]anoPotassium Npcuj2127-08-76 06:41:00* Test Item Value Reference Range Interpretation Comments Potassium Level (test code = 2823-3) 3.7 3.5-5.1 [facility] PlanoChloride Zuzez7599-82-56 06:41:00* Test Item Value Reference Range Interpretation Comments Chloride Level (test code = 2075-0) 103 98-107 [facility] PlanoCarbon Dioxide Pdjah0105-53-64 06:41:00* Test Item Value Reference Range Interpretation Comments Carbon Dioxide Level (test code = 2028-9) 28 22-29 [facility] PlanoAnion Ytx6305-32-09 06:41:00* Test Item Value Reference Range Interpretation Comments Anion Gap (test code = 72905-6) 11.7 8-16 [facility] PlanoBlood Urea Mgmsnbta3804-27-69 06:41:00* Test Item Value Reference Range Interpretation Comments Blood Urea Nitrogen (test code = 3094-0) 19 7-26 [facility] PlanoCreatinine2020-04-19 06:41:00* Test Item Value Reference Range Interpretation Comments Creatinine (test code = 2160-0) 1.67 0.57-1.11 H [facility] PlanoBUN/Creatinine Ljknu4338-82-51 06:41:00* Test Item Value Reference Range Interpretation Comments BUN/Creatinine Ratio (test code = 3097-3) 11 6-25 [facility] PlanoEstimat Glomerular Filtration Rate 2019-10-19 06:41:00* Test Item Value Reference Range Interpretation Comments Estimat Glomerular Filtration Rate (test code = 114626757) 30 >60 L Ranges were taken from the National Kidney Disease Education Program and the [facility] Kidney Foundation literature.Reference ranges:60 or greater: Sfrffy67-34 ( for 3 consecutive months): Chronic kidney disease 15 or less: Kidney failureBaylor Scott & White Medical Center – PlanoGlucose Cvgnh9145-92-51 06:41:00* Test Item Value Reference Range Interpretation Comments Glucose Level (test code = LPD7870) 100 74-118 [facility] PlanoCalcium Ktylc4479-58-79 06:41:00* Test Item Value Reference Range Interpretation Comments Calcium Level (test code = 24599-1) 8.8 8.4-10.2 [facility] PlanoBedside Tovwnzh1823-79-30 19:56:00* Test Item Value Reference Range Interpretation Comments Bedside Glucose (test code = 47218-6) 112 70-120 Meter ID: [id number] [facility] McAllenBlood Culture 2019-10-18 11:59:00* Test Item Value Reference Range Interpretation Comments Blood Culture (test code = 13151449) NO GROWTH AFTER 48 HOURS [facility] PlanoPlatelet Morphology Fiqfhfg9213-72-85 07:48:00* Test Item Value Reference Range Interpretation Comments Platelet Morphology Comment (test code = 03119-7) NO EDTA PLT CLUMP S SEEN [facility] PlanoMagnesium Sjklo8530-85-34 06:36:00* Test Item Value Reference Range Interpretation Comments Magnesium Level (test code = 19324-4) 1.7 1.3-2.1 [facility] PlanoWhite Blood Ncfdj9289-27-78 06:26:00* Test Item Value Reference Range Interpretation Comments White Blood Count (test code = 6690-2) 9.70 4.8-10.8 [facility] PlanoRed Blood Bgvao5462-89-75 06:26:00* Test Item Value Reference Range Interpretation Comments Red Blood Count (test code = 789-8) 3.84 3.6-5.1 [facility] PlanoHemoglobin2020-04-18 06:26:00* Test Item Value Reference Range Interpretation Comments Hemoglobin (test code = 73684-1) 11.5 12.0-16.0 L [facility] PlanoHematocrit2020-04-18 06:26:00* Test Item Value Reference Range Interpretation Comments Hematocrit (test code = 4544-3) 34.2 34.2-44.1 [facility] PlanoMean Corpuscular Otzrgy0528-42-78 06:26:00* Test Item Value Reference Range Interpretation Comments Mean Corpuscular Volume (test code = 787-2) 89.1 81-99 [facility] PlanoMean Corpuscular Adyyyuecun3455-37-80 06:26:00* Test Item Value Reference Range Interpretation Comments Mean Corpuscular Hemoglobin (test code = 785-6) 29.9 28-32 [facility] PlanoMean Corpuscular Hemoglobin Concent 2019-10-18 06:26:00* Test Item Value Reference Range Interpretation Comments Mean Corpuscular Hemoglobin Concent (test code = 786-4) 33.6 31-35 [facility] PlanoRed Cell Distribution Lgucx0897-64-83 06:26:00* Test Item Value Reference Range Interpretation Comments Red Cell Distribution Width (test code = 26810-3) 19.7 11.7 -14.4 H [facility] PlanoPlatelet Hnvbb0781-55-36 06:26:00* Test Item Value Reference Range Interpretation Comments Platelet Count (test code = 777-3) 289 140-360 [facility] PlanoNeutrophils (%) (Auto)2019-10-18 06:26:00 * Test Item Value Reference Range Interpretation Comments Neutrophils (%) (Auto) (test code = 77251-3) 68.7 38.7-80.0 [facility] PlanoLymphocytes (%) (Auto)2019-10-18 06:26:00 * Test Item Value Reference Range Interpretation Comments Lymphocytes (%) (Auto) (test code = 736-9) 22.4 18.0-39.1 [facility] PlanoMonocytes (%) (Auto)2019-10-18 06:26:00* Test Item Value Reference Range Interpretation Comments Monocytes (%) (Auto) (test code = 5905-5) 5.6 4.4-11.3 [facility] PlanoEosinophils (%) (Auto)2019-10-18 06:26:00 * Test Item Value Reference Range Interpretation Comments Eosinophils (%) (Auto) (test code = 713-8) 2.5 0.0-6.0 [facility] PlanoBasophils (%) (Auto)2019-10-18 06:26:00* Test Item Value Reference Range Interpretation Comments Basophils (%) (Auto) (test code = 706-2) 0.5 0.0-1.0 [facility] PlanoIM GRANULOCYTES %2019-10-18 06:26:00* Test Item Value Reference Range Interpretation Comments IM GRANULOCYTES % (test code = IM GRANULOCYTES %) 0.3 0.0- 1.0 [facility] PlanoNeutrophils # (Auto)2019-10-18 06:26:00* Test Item Value Reference Range Interpretation Comments Neutrophils # (Auto) (test code = 751-8) 6.7 2.1-6.9 [facility] PlanoLymphocytes # (Auto)2019-10-18 06:26:00* Test Item Value Reference Range Interpretation Comments Lymphocytes # (Auto) (test code = 42370-4) 2.2 1.0-3.2 [facility] PlanoMonocytes # (Auto)2019-10-18 06:26:00* Test Item Value Reference Range Interpretation Comments Monocytes # (Auto) (test code = 742-7) 0.5 0.2-0.8 [facility] PlanoEosinophils # (Auto)2019-10-18 06:26:00* Test Item Value Reference Range Interpretation Comments Eosinophils # (Auto) (test code = 711-2) 0.2 0.0-0.4 [facility] PlanoBasophils # (Auto)2019-10-18 06:26:00* Test Item Value Reference Range Interpretation Comments Basophils # (Auto) (test code = 704-7) 0.1 0.0-0.1 [facility] PlanoAbsolute Immature Granulocyte (auto 2019-10-18 06:26:00* Test Item Value Reference Range Interpretation Comments Absolute Immature Granulocyte (auto (kehinde t code = Absolute Immature Granulocyte (auto) 0.03 0-0.1 [facility] PlanoTotal Fiqwqlpuu8394-87-26 06:08:00* Test Item Value Reference Range Interpretation Comments Total Bilirubin (test code = 1975-2) 0.3 0.2-1.2 [facility] PlanoAspartate Amino Transf (AST/SGOT) 2019-10-18 06:08:00* Test Item Value Reference Range Interpretation Comments Aspartate Amino Transf (AST/SGOT) (test code = Aspartate Amino Transf (AST/SGOT)) 25 5-34 [facility] PlanoAlanine Aminotransferase (ALT/SGPT) 2019-10-18 06:08:00* Test Item Value Reference Range Interpretation Comments Alanine Aminotransferase (ALT/SGPT) (test code = 1742-6) 15 0-55 [facility] PlanoTotal Yxivumx3411-31-28 06:08:00* Test Item Value Reference Range Interpretation Comments Total Protein (test code = 2885-2) 6.9 6.5-8.1 [facility] PlanoAlbumin2020-04-18 06:08:00* Test Item Value Reference Range Interpretation Comments Albumin (test code = 1751-7) 3.0 3.5-5.0 L [facility] PlanoGlobulin2020-04-18 06:08:00* Test Item Value Reference Range Interpretation Comments Globulin (test code = 91199-4) 3.9 2.3-3.5 H [facility] PlanoAlbumin/Globulin Pxgwe3851-30-76 06:08:00 * Test Item Value Reference Range Interpretation Comments Albumin/Globulin Ratio (test code = 1759-0) 0.8 0.8-2.0 [facility] PlanoAlkaline Rhlmxqfktix7055-37-46 06:08:00* Test Item Value Reference Range Interpretation Comments Alkaline Phosphatase (test code = 6768-6) 106 40-150 [facility] PlanoPlatelet htjfbaohmd4958-73-06 05:01:00* Test Item Value Reference Range Interpretation Comments Platelet Morphology Comment (test code = 88382-4) See Comment NO EDTA PLT CLUMPS SEENEnnis [facility] Medical Centererum or plasma magnesium measurement (mass/volume)2019-10-18 05:01:00* Test Item Value Reference Range Interpretation Comments Magnesium Level (test code = 32388-7) 1.7 1.3-2.1 [facility] Centererum or plasma intact pararthyroid hormone measurement (mass/volume)2019-10-17 18:34:00* Test Item Value Reference Range Interpretation Comments Parathyroid Hormone (test code = 2731-8) 29 15-65 [facility] Centererum or plasma calcium measurement (mass/volume)2019-10-17 18:34:00* Test Item Value Reference Range Interpretation Comments Calcium (Send out) (test code = 79861-1) 9.0 8.7-10.3 [facility] PlanoFluoroscopic procedure less than one hour pvkolwnm0567-93-59 18:34:00* Test Item Value Reference Range Interpretation Comments Parathyroid Hormone Interpretation (test code = Parathyroid Hormone Interpretation) Comment . Interpretation Intact PTH Calcium (pg/mL) (mg/dL)Normal 15 - 65 8.6 - 10.2Pr imary Hyperparathyroidism >65 >10.2Secondary Hyperparathyroidism >65 <10.2Non-Parathyroid Hypercalcemia <65 >10.2Hypoparathyroidism <15 < 8.6Non- Parathyroid Hypocalcemia 15 - 65 < 8.6Performed at: - [facility] [address] [id number] Director: Kirt Domingo MD, Phone: [phone] at: - [facility] [address] [id number] Director: Vahid Kelley MD, Phone: [phone] Scott & White [facility] Center – PlanoUric Obzp7335-18-90 14:54:00* Test Item Value Reference Range Interpretation Comments Uric Acid (test code = 3084-1) 7.4 2.6-8.0 [facility]ererum or plasma uric acid measurement (mass/volume)2019-10-17 05:50:00* Test Item Value Reference Range Interpretation Comments Uric Acid (test code = 3084-1) 7.4 2.6-8.0 [facility] PlanoCT ABDOMEN/PELVIS SJ9363-96-72 16:07:00 [facility] [address] Patient Name: MARGARITA EATON MR #: [id number] : 9[birth year] Age/Sex: 73/F Req #: [id number] Adm Physician: Ordered by: CB CISNEROS DO Report #: [id number] Location: ER Room/Bed: Procedure: [id number] CT/CT ABDOMEN/PELVIS WO Exam Date: 10/16/19 Exam [...] COPY TO: CB CISNEROS DO RENAL RETROPERITONEAL LTDP8065-81-48 15:41:00 [place] [id number] Patient Name: MARGARITA EATON MR #: [id number] : 1945 Age/Sex: 73/F Req #: [id number] Adm Physician: Ordered by: ALLISON CHEW MD, MD Report #: [id number] Location: ER Room/Bed: Procedure: [id number] U S/US RENAL RETROPERITONEAL COMP Exam Date: [...] igned By: ADEN SCHUMACHER MD on 10/16/19 9228 Transcribed By: IZZY on 10/16/19 7476 COPY TO: ALLISON CHEW Urine [id number] 14:23:00* Test Item Value Reference Range Interpretation Comments Urine WBC (test code = 5821-4) NONE 0-5 [facility] ChildrenU[facility] ESZ6231-51-96 14:23:00* Test Item Value Reference Range Interpretation Comments Urine RBC (test code = 42337-0) NONE 0-5 [facility] PlanoUrine Gmyjwkpp2626-37-18 14:23:00* Test Item Value Reference Range Interpretation Comments Urine Bacteria (test code = 37313-6) FEW NONE [facility] PlanoUrine Epithelial Nejly3655-96-34 14:23:00 * Test Item Value Reference Range Interpretation Comments Urine Epithelial Cells (test code = 40037-4) FEW NONE [facility] PlanoUrine Temcx8229-98-76 14:03:00* Test Item Value Reference Range Interpretation Comments Urine Color (test code = 5778-6) YELLOW YELLOW [facility] PlanoUrine Ytenptf6602-09-71 14:03:00* Test Item Value Reference Range Interpretation Comments Urine Clarity (test code = 44149-1) CLEAR CLEAR [facility] PlanoUrine Specific Kzcjqej9744-98-64 14:03:00 * Test Item Value Reference Range Interpretation Comments Urine Specific [place] (test code = 5811-5) 1.015 1.010-1.02 5 [facility] PlanoUrine vK1343-78-51 14:03:00* Test Item Value Reference Range Interpretation Comments Urine pH (test code = 70784-6) 5.5 5-7 [facility] PlanoUrine Leukocyte Eglvbqhp4540-21-56 14:03:00* Test Item Value Reference Range Interpretation Comments Urine Leukocyte Esterase (test code = 5799-2) NEGATIVE NEGATIVE [facility] PlanoUrine Dyuzmgj6500-66-64 14:03:00* Test Item Value Reference Range Interpretation Comments Urine Nitrite (test code = 59596-5) NEGATIVE NEGATIVE [facility] PlanoUrine Nyaadsx1640-88-40 14:03:00* Test Item Value Reference Range Interpretation Comments Urine Protein (test code = 5804-0) NEGATIVE NEGATIVE [facility] PlanoUrine Glucose (UA)2019-10-16 14:03:00* Test Item Value Reference Range Interpretation Comments Urine Glucose (UA) (test code = 2349-9) NEGATIVE NEGATIVE [facility] PlanoUrine Ipsijhj3510-15-03 14:03:00* Test Item Value Reference Range Interpretation Comments Urine Ketones (test code = 03638-2) NEGATIVE NEGATIVE [facility] PlanoUrine Gkgfoygvgfgt9618-62-97 14:03:00* Test Item Value Reference Range Interpretation Comments Urine Urobilinogen (test code = 67031-8) 0.2 0.2-1 [facility] PlanoUrine Lptfcnrbp0518-53-77 14:03:00* Test Item Value Reference Range Interpretation Comments Urine Bilirubin (test code = 1978-6) NEGATIVE NEGATIVE [facility] PlanoUrine Poovb3356-98-24 14:03:00* Test Item Value Reference Range Interpretation Comments Urine Blood (test code = 19199-8) NEGATIVE NEGATIVE [facility] PlanoLactic Acid Rcrkf0549-61-35 12:43:00* Test Item Value Reference Range Interpretation Comments Lactic Acid Level (test code = Lactic Acid Level) 1.4 0.5- 2.0 [facility] PlanoFluoroscopic procedure less than one hour fzxogpaq4462-07-25 12:00:00* Test Item Value Reference Range Interpretation Comments Lactic Acid Level (test code = Lactic Acid Level) 1.4 0.5- 2.0 [facility] PlanoBlood mwdlqfx2826-29-47 11:55:00* Test Item Value Reference Range Interpretation Comments Blood Culture (test code = 57945633) NO GROWTH AFTER 5 DAYS, FINAL REPORT [facility] Centerodium Ngnuu0218-28-41 06:16:00* Test Item Value Reference Range Interpretation Comments Sodium Level (test code = 2951-2) 138 136-145 [facility] PlanoPotassium Qamfa2062-16-72 06:16:00* Test Item Value Reference Range Interpretation Comments Potassium Level (test code = 2823-3) 3.8 3.5-5.1 [facility] PlanoChloride Rvddt1050-67-62 06:16:00* Test Item Value Reference Range Interpretation Comments Chloride Level (test code = 2075-0) 101 98-107 [facility] PlanoCarbon Dioxide Tjegx2233-36-20 06:16:00* Test Item Value Reference Range Interpretation Comments Carbon Dioxide Level (test code = 2028-9) 29 22-29 [facility] PlanoAnion Ban0887-54-61 06:16:00* Test Item Value Reference Range Interpretation Comments Anion Gap (test code = 65332-1) 11.8 8-16 [facility] PlanoBlood Urea Evpoisws3328-42-10 06:16:00* Test Item Value Reference Range Interpretation Comments Blood Urea Nitrogen (test code = 3094-0) 29 7-26 H [facility] PlanoCreatinine2020-03-03 06:16:00* Test Item Value Reference Range Interpretation Comments Creatinine (test code = 2160-0) 2.22 0.57-1.11 H [facility] PlanoBUN/Creatinine Uxhsq5996-24-66 06:16:00* Test Item Value Reference Range Interpretation Comments BUN/Creatinine Ratio (test code = 3097-3) 13 6-25 [facility] PlanoEstimat Glomerular Filtration Rate 2019-09-02 06:16:00* Test Item Value Reference Range Interpretation Comments Estimat Glomerular Filtration Rate (test code = 514800838) 22 >60 L Ranges were taken from the National Kidney Disease Education Program and the [facility] Kidney Foundation literature.Reference ranges:60 or greater: Ugtnls68-90 ( for 3 consecutive months): Chronic kidney disease 15 or less: Kidney failureBaylor Scott & White Medical Center – PlanoGlucose Gtomy4618-03-05 06:16:00* Test Item Value Reference Range Interpretation Comments Glucose Level (test code = POE1517) 168 74-118 H [facility] PlanoCalcium Jpeof2331-66-18 06:16:00* Test Item Value Reference Range Interpretation Comments Calcium Level (test code = 13571-5) 9.2 8.4-10.2 [facility] PlanoWhite Blood Tlewu4455-57-89 06:07:00* Test Item Value Reference Range Interpretation Comments White Blood Count (test code = 6690-2) 11.25 4.8-10.8 H [facility] PlanoRed Blood Jxwbd7697-40-23 06:07:00* Test Item Value Reference Range Interpretation Comments Red Blood Count (test code = 789-8) 3.67 3.6-5.1 [facility] PlanoHemoglobin2020-03-03 06:07:00* Test Item Value Reference Range Interpretation Comments Hemoglobin (test code = 87861-0) 9.9 12.0-16.0 L [facility] PlanoHematocrit2020-03-03 06:07:00* Test Item Value Reference Range Interpretation Comments Hematocrit (test code = 4544-3) 31.5 34.2-44.1 L [facility] PlanoMean Corpuscular Zieinz6893-15-95 06:07:00* Test Item Value Reference Range Interpretation Comments Mean Corpuscular Volume (test code = 787-2) 85.8 81-99 [facility] PlanoMean Corpuscular Nnpxsjrzsh0250-94-19 06:07:00* Test Item Value Reference Range Interpretation Comments Mean Corpuscular Hemoglobin (test code = 785-6) 27.0 28-32 L [facility] PlanoMean Corpuscular Hemoglobin Concent 2019-09-02 06:07:00* Test Item Value Reference Range Interpretation Comments Mean Corpuscular Hemoglobin Concent (test code = 786-4) 31.4 31-35 [facility] PlanoRed Cell Distribution Qaqdr1306-59-90 06:07:00* Test Item Value Reference Range Interpretation Comments Red Cell Distribution Width (test code = 89474-2) 15.1 11.7 -14.4 H [facility] PlanoPlatelet Gozud0237-38-73 06:07:00* Test Item Value Reference Range Interpretation Comments Platelet Count (test code = 777-3) 416 140-360 H [facility] PlanoNeutrophils (%) (Auto)2019-09-02 06:07:00 * Test Item Value Reference Range Interpretation Comments Neutrophils (%) (Auto) (test code = 86808-9) 70.8 38.7-80.0 [facility] PlanoLymphocytes (%) (Auto)2019-09-02 06:07:00 * Test Item Value Reference Range Interpretation Comments Lymphocytes (%) (Auto) (test code = 736-9) 21.5 18.0-39.1 [facility] PlanoMonocytes (%) (Auto)2019-09-02 06:07:00* Test Item Value Reference Range Interpretation Comments Monocytes (%) (Auto) (test code = 5905-5) 6.0 4.4-11.3 [facility] PlanoEosinophils (%) (Auto)2019-09-02 06:07:00 * Test Item Value Reference Range Interpretation Comments Eosinophils (%) (Auto) (test code = 713-8) 0.9 0.0-6.0 [facility] PlanoBasophils (%) (Auto)2019-09-02 06:07:00* Test Item Value Reference Range Interpretation Comments Basophils (%) (Auto) (test code = 706-2) 0.4 0.0-1.0 [facility] PlanoIM GRANULOCYTES %2019-09-02 06:07:00* Test Item Value Reference Range Interpretation Comments IM GRANULOCYTES % (test code = IM GRANULOCYTES %) 0.4 0.0- 1.0 [facility] PlanoNeutrophils # (Auto)2019-09-02 06:07:00* Test Item Value Reference Range Interpretation Comments Neutrophils # (Auto) (test code = 751-8) 8.0 2.1-6.9 H [facility] PlanoLymphocytes # (Auto)2019-09-02 06:07:00* Test Item Value Reference Range Interpretation Comments Lymphocytes # (Auto) (test code = 70635-7) 2.4 1.0-3.2 [facility] PlanoMonocytes # (Auto)2019-09-02 06:07:00* Test Item Value Reference Range Interpretation Comments Monocytes # (Auto) (test code = 742-7) 0.7 0.2-0.8 [facility] PlanoEosinophils # (Auto)2019-09-02 06:07:00* Test Item Value Reference Range Interpretation Comments Eosinophils # (Auto) (test code = 711-2) 0.1 0.0-0.4 [facility] PlanoBasophils # (Auto)2019-09-02 06:07:00* Test Item Value Reference Range Interpretation Comments Basophils # (Auto) (test code = 704-7) 0.1 0.0-0.1 [facility] PlanoAbsolute Immature Granulocyte (auto 2019-09-02 06:07:00* Test Item Value Reference Range Interpretation Comments Absolute Immature Granulocyte (auto (kehinde t code = Absolute Immature Granulocyte (auto) 0.05 0-0.1 [facility] PlanoBlood Chfzbvl0286-43-94 21:14:00* Test Item Value Reference Range Interpretation Comments Blood Culture (test code = 49265476) NO GROWTH AFTER 48 HOURS [facility] PlanoBedside Dairkja2476-31-41 19:59:00* Test Item Value Reference Range Interpretation Comments Bedside Glucose (test code = 27737-8) 133 70-120 H Meter ID: [id number] Regional Medical Centertress Test - Treadmill WXRT6450-55-38 18:25:00 [place] [address] Patient Name : MARGARITA EATON MR #: [id number] : 1945 Age/Sex: 73/F Adm Physician : WILLA LUIS MD Admit Date : 08/30/19 Location : MED/SURG Room/Bed : [facility] REPORT: Melani d[facility] Stress Test DATE OF [...] Baltazar MD ABS/ASH T: 0 09/01/2019 21:21:11 /[id number] Signature Date Dictated By: HEAVENLY BALTAZAR MD Transcribed By: ASH on 09/01/19 < Electronically signed by HEAVENLY BALTAZAR MD><<Signature on File>>09/30/19 7987 COPY TO: Prothrombin Ascq8136-47-75 05:59:00* Test Item Value Reference Range Interpretation Comments Prothrombin Time (test code = 5902-2) 15.0 11.9-14.5 [facility]anoProthromb Time International Ratio 2019-09-01 05:59:00* Test Item Value Reference Range Interpretation Comments Prothromb Time International Ratio (test code = 6301-6) 1.11 Oral Anticoagulant Therapy INR Values:1. Low Intensity Therapy 1.5 - 2.02 . Moderate Intensity Therapy 2.0 - 3.03. High Intensity Therapy(1) 2.5 - 3. 54. High Intensity Therapy(2) 3.0 - 4.05. Panic Value INR > 5.0 [facility] PlanoProthrombin Xnhd0675-57-37 05:59:00* Test Item Value Reference Range Interpretation Comments Prothrombin Time (test code = 5902-2) 15.0 11.9-14.5 H [facility]anoProthromb Time International Ratio 2019-09-01 05:59:00* Test Item Value Reference Range Interpretation Comments Prothromb Time International Ratio (test code = 6301-6) 1.11 Oral Anticoagulant Therapy INR Values:1. Low Intensity Therapy 1.5 - 2.02 . Moderate Intensity Therapy 2.0 - 3.03. High Intensity Therapy(1) 2.5 - 3. 54. High Intensity Therapy(2) 3.0 - 4.05. Panic Value INR > 5.0 [facility] PlanoUS RENAL RETROPERITONEAL COJB6211-68-40 19:24:00 [place] [address] Patient Name: MARGARITA EATON MR #: [id number] : 1945 Age/Sex: 73/F Req #: [id number] Adm Physician: WICHO HANCOCK MD Ordered by: SUSANNA CERDA MD Report #: [id number] Location: MED/SURG Room/Bed: [facility] Procedure: [id number] US/ US RENAL RETROPERITONEAL COMP Exam Date: 08/31/19 Ex am Time: 1827 REPORT STATUS: Signed EXAM: Renal Ultrasound INDICATION: [id number] COMPARISON: CT abdomen and pelvis 04/14/2018 [...] 08/31/191924 COPY TO: SUSANNA CERDA MD Urine Xgxlemvdyrf1988-72-71 15:39:00* Test Item Value Reference Range Interpretation Comments Urine Eosinophils (test code = 95655-4) NONE SEEN NONE SEEN [facility] PlanoUrine Tuzmecxrbsl7188-82-39 15:39:00* Test Item Value Reference Range Interpretation Comments Urine Eosinophils (test code = 10873-6) NONE SEEN NONE SEEN [facility] PlanoCreatine Kinase NR2826-63-94 14:34:00* Test Item Value Reference Range Interpretation Comments Creatine Kinase MB (test code = 82959-6) 1.00 0-5.0 [facility] PlanoTroponin O5795-24-65 14:34:00* Test Item Value Reference Range Interpretation Comments Troponin I (test code = VMT1247) 0.016 0-0.300 [facility] PlanoCreatine Kinase VI3884-91-95 14:34:00* Test Item Value Reference Range Interpretation Comments Creatine Kinase MB (test code = 32335-5) 1.00 0-5.0 [facility]Tr[facility] Y3666-45-89 14:34:00* Test Item Value Reference Range Interpretation Comments Troponin I (test code = 77683-5) 0.016 0-0.300 [facility] PlanoCreatine Aehvdy9081-00-78 14:28:00* Test Item Value Reference Range Interpretation Comments Creatine Kinase (test code = 2157-6) 32 29-168 [facility] PlanoCreatine Ztegkl9311-39-59 14:28:00* Test Item Value Reference Range Interpretation Comments Creatine Kinase (test code = 2157-6) 32 29-168 [facility] or plasma creatine kinase measurement (enzymatic activity/volume)2019-08-31 12:35:00* Test Item Value Reference Range Interpretation Comments Creatine Kinase (test code = 2157-6) 32 29-168 [facility] Centererum or plasma creatine kinase MB measurement (mass/volume)2019-08-31 12:35:00* Test Item Value Reference Range Interpretation Comments Creatine Kinase MB (test code = 97108-1) 1.00 0-5.0 [facility] PlanoTroponin I measurement by highly sensitive enzyme vmkebwmbgji5511-20-84 12:35:00* Test Item Value Reference Range Interpretation Comments Troponin I (test code = 84519-4) 0.016 0-0.300 [facility] PlanoTriglycerides Inruf5744-37-39 06:56:00* Test Item Value Reference Range Interpretation Comments Triglycerides Level (test code = 2571-8) 167 0-149 H [facility] PlanoCholesterol Rkjxk2696-42-66 06:56:00* Test Item Value Reference Range Interpretation Comments Cholesterol Level (test code = 2093-3) 85 0-199 Less than 200 mg/dL Low Ucke028 - 239 mg/dL Borderline Uxuw073 m g/dl and greater High Risk [facility] PlanoLDL Lwnmcejpxqf1072-07-51 06:56:00* Test Item Value Reference Range Interpretation Comments LDL Cholesterol (test code = 2089-1) 29 60-130 L [facility] PlanoHDL Bfkcxgieteu7619-37-62 06:56:00* Test Item Value Reference Range Interpretation Comments HDL Cholesterol (test code = 2085-9) 23 40-60 L [facility] PlanoCholesterol/HDL Aindc9846-09-00 06:56:00 * Test Item Value Reference Range Interpretation Comments Cholesterol/HDL Ratio (test code = 9830-1) 3.7 3.0-3.6 H [facility] PlanoTriglycerides Vfyzj2046-93-79 06:56:00* Test Item Value Reference Range Interpretation Comments Triglycerides Level (test code = 2571-8) 167 0-149 H [facility] PlanoCholesterol Elbtt5215-31-13 06:56:00* Test Item Value Reference Range Interpretation Comments Cholesterol Level (test code = 2093-3) 85 0-199 Less than 200 mg/dL Low Gnto409 - 239 mg/dL Borderline Cmwq401 m g/dl and greater High Risk [facility] PlanoLDL Bggquwyrzcl0508-66-66 06:56:00* Test Item Value Reference Range Interpretation Comments LDL Cholesterol (test code = 2089-1) 29 60-130 L [facility] PlanoHDL Lzqwsuoglqu8042-82-76 06:56:00* Test Item Value Reference Range Interpretation Comments HDL Cholesterol (test code = 2085-9) 23 40-60 L [facility] PlanoCholesterol/HDL Vpnks5239-31-66 06:56:00 * Test Item Value Reference Range Interpretation Comments Cholesterol/HDL Ratio (test code = 9830-1) 3.7 3.0-3.6 H [facility]ererum or plasma triglyceride measurement (mass/volume)2019-08-31 04:30:00* Test Item Value Reference Range Interpretation Comments Triglycerides Level (test code = 2571-8) 167 0-149 [facility] Centererum or plasma cholesterol measurement (mass/volume)2019-08-31 04:30:00* Test Item Value Reference Range Interpretation Comments Cholesterol Level (test code = 2093-3) 85 0-199 Less than 200 mg/dL Low Xxab490 - 239 mg/dL Borderline Vmkm407 m g/dl and greater High Risk [facility] Centererum or plasma cholesterol in LDL measurement (mass/volume) 2019-08-31 04:30:00* Test Item Value Reference Range Interpretation Comments LDL Cholesterol (test code = 2089-1) 29 60-130 [facility] Centererum or plasma cholesterol in HDL measurement (mass/volume)2019-08-31 04:30:00* Test Item Value Reference Range Interpretation Comments HDL Cholesterol (test code = 2085-9) 23 40-60 [facility] Centererum or plasma total cholesterol/cholesterol in HDL mass qvikn1545-39-90 04:30:00* Test Item Value Reference Range Interpretation Comments Cholesterol/HDL Ratio (test code = 9830-1) 3.7 3.0-3.6 [facility] PlanoUrine Ovojj4265-70-10 21:37:00* Test Item Value Reference Range Interpretation Comments Urine Color (test code = 5778-6) YELLOW YELLOW [facility] PlanoUrine Fctljyk5071-64-09 21:37:00* Test Item Value Reference Range Interpretation Comments Urine Clarity (test code = 38170-9) CLEAR CLEAR [facility] PlanoUrine Specific Ncraabd9819-04-90 21:37:00 * Test Item Value Reference Range Interpretation Comments Urine Specific [place] (test code = 5811-5) 1.015 1.010-1.02 5 [facility] PlanoUrine bO3913-84-86 21:37:00* Test Item Value Reference Range Interpretation Comments Urine pH (test code = 58915-4) 7.5 5-7 [facility] PlanoUrine Leukocyte Gquozqzd5115-12-24 21:37:00* Test Item Value Reference Range Interpretation Comments Urine Leukocyte Esterase (test code = 5799-2) NEGATIVE NEGATIVE [facility] PlanoUrine Yoglblj0383-86-13 21:37:00* Test Item Value Reference Range Interpretation Comments Urine Nitrite (test code = 56817-5) NEGATIVE NEGATIVE [facility] PlanoUrine Dresohf6723-06-52 21:37:00* Test Item Value Reference Range Interpretation Comments Urine Protein (test code = 5804-0) TRACE NEGATIVE H [facility] PlanoUrine Glucose (UA)2019-08-30 21:37:00* Test Item Value Reference Range Interpretation Comments Urine Glucose (UA) (test code = 2349-9) NEGATIVE NEGATIVE [facility] PlanoUrine Flpyjdf9675-86-80 21:37:00* Test Item Value Reference Range Interpretation Comments Urine Ketones (test code = 18531-8) NEGATIVE NEGATIVE [facility] PlanoUrine Twhopvplcdzf7885-53-21 21:37:00* Test Item Value Reference Range Interpretation Comments Urine Urobilinogen (test code = 26663-3) 0.2 0.2-1 [facility] PlanoUrine Phzticrva9138-42-99 21:37:00* Test Item Value Reference Range Interpretation Comments Urine Bilirubin (test code = 1978-6) NEGATIVE NEGATIVE [facility] PlanoUrine Xwfnw7257-30-79 21:37:00* Test Item Value Reference Range Interpretation Comments Urine Blood (test code = 69231-8) NEGATIVE NEGATIVE [facility] PlanoUrine FPY0271-95-00 21:37:00* Test Item Value Reference Range Interpretation Comments Urine WBC (test code = 5821-4) 0-5 0-5 [facility] PlanoUrine ZOL9207-49-77 21:37:00* Test Item Value Reference Range Interpretation Comments Urine RBC (test code = 91023-2) NONE 0-5 [facility] PlanoUrine Bdfuxqbf3800-98-58 21:37:00* Test Item Value Reference Range Interpretation Comments Urine Bacteria (test code = 46877-9) FEW NONE [facility] PlanoUrine Epithelial Dghmy2458-48-86 21:37:00 * Test Item Value Reference Range Interpretation Comments Urine Epithelial Cells (test code = 02544-1) FEW NONE [facility] PlanoLactic Acid Cjhvg8679-52-50 21:25:00* Test Item Value Reference Range Interpretation Comments Lactic Acid Level (test code = Lactic Acid Level) 0.8 0.5- 2.0 [facility] PlanoTotal Saelsuhcx3676-92-06 20:17:00* Test Item Value Reference Range Interpretation Comments Total Bilirubin (test code = 1975-2) 0.3 0.2-1.2 [facility] PlanoAspartate Amino Transf (AST/SGOT) 2019-08-30 20:17:00* Test Item Value Reference Range Interpretation Comments Aspartate Amino Transf (AST/SGOT) (test code = Aspartate Amino Transf (AST/SGOT)) 17 5-34 [facility] PlanoAlanine Aminotransferase (ALT/SGPT) 2019-08-30 20:17:00* Test Item Value Reference Range Interpretation Comments Alanine Aminotransferase (ALT/SGPT) (test code = 1742-6) 8 0-55 [facility] PlanoTotal Aiyekan4202-11-06 20:17:00* Test Item Value Reference Range Interpretation Comments Total Protein (test code = 2885-2) 7.6 6.5-8.1 [facility] PlanoAlbumin2020-02-29 20:17:00* Test Item Value Reference Range Interpretation Comments Albumin (test code = 1751-7) 3.5 3.5-5.0 [facility] PlanoGlobulin2020-02-29 20:17:00* Test Item Value Reference Range Interpretation Comments Globulin (test code = 76462-7) 4.1 2.3-3.5 H [facility] PlanoAlbumin/Globulin Lxfnz3765-42-70 20:17:00 * Test Item Value Reference Range Interpretation Comments Albumin/Globulin Ratio (test code = 1759-0) 0.9 0.8-2.0 [facility] PlanoAlkaline Ecqqehzhvar3505-31-52 20:17:00* Test Item Value Reference Range Interpretation Comments Alkaline Phosphatase (test code = 6768-6) 103 40-150 [facility] PlanoCHEST SINGLE (PORTABLE)2019-08-30 19:44:00 [place] [address] Patient Name: MARGARITA EATON MR #: [id number] : 1945 Age/Sex: 73/F Req #: [id number] Adm Physician: Ordered by: CB CISNEROS DO Report #: [id number] Location: ER Room/Bed: Procedure: [id number] DX/CHEST SINGLE (PORTABLE) Exam Date: 08/30/19 Exam [...] 08/30/191945 COPY TO: CB CISNEROS, CHEST 2 URGQP0821-68-45 11:11:00 [place] [address] Patient Name: MARGARITA EATON MR #: [id number] : 1945 Age/Sex: 72/F Req #: [id number] [facility] Physician: WILLA LUIS MD Ordered by: DEONDRE ZIMMERMAN MD Report #: [id number] Location: MED/SURG3 Room/Bed: 293-1 Procedure: [id number] DX/C HEST 2 VIEWS Exam Date: 04/23/18 [...] FEDE ZIMMERMAN MD CHEST SINGLE (PORTABLE)2018-04-19 06:43:00 [place] [address] Patient Name: MARGARITA EATON MR #: [id number] : 1945 Age/Sex: 72/F Req #: [id number] Adm Physician: WILLA LUIS MD Ordered by: SUSANNA CERDA MD Report #: [id number] Location: ICU Room/Bed: ICU [facility] Procedure: [id number] DX/CH EST SINGLE (PORTABLE) Exam Date: Exam [...] SUSANNA CERDA MD CHEST SINGLE (PORTABLE)2018-04-17 06:43:00 [place] [address] Patient Name: MARGARITA EATON MR #: [id number] : 1945 Age/Sex: 72/F Req #: [id number] Adm Physician: WILLA LUIS MD Ordered by: WILLA LUIS MD Report #: [id number] Location: ICU Room/Bed: ICU [facility] Procedure: [id number] DX/ CHEST SINGLE (PORTABLE) Exam Date: 04/17/18 [...] TO: WILLA LUIS MD ABDOMEN-1VIEW (KUB)2018-04-16 17:19:00 [place] [address] Patient Name: MARGARITA EATON MR #: [id number] : 1945 Age/Sex: 72/F Req #: [id number] Adm Physician: WILLA LUIS MD Ordered by: DEONDER ZIMMERMAN MD Report #: [id number] Location: ICU Room/Bed: ICU [facility] Procedure: [id number] DX/A BDOMEN-1VIEW (KUB) Exam Date: 04/16/18 Exam [...] DEONDRE ZIMMERMAN MD CHEST SINGLE (PORTABLE)2018-04-16 06:34:00 [place] [address] Patient Name: MARGARITA EATON MR #: [id number] : 1945 Age/Sex: 72/F Req #: [id number] Adm Physician: WILLA LUIS MD Ordered by: DEONDRE ZIMMERMAN MD Report #: [id number] Location: ICU Room/Bed: ICU [facility] Procedure: [id number] DX/C HEST SINGLE (PORTABLE) Exam Date: Exam [...] DEONDRE ZIMMERMAN MD CHEST SINGLE (PORTABLE)2018-04-15 07:58:00 [place] [address] Patient Name: MARGARITA EATON MR #: [id number] : 1945 Age/Sex: 72/F Req #: [id number] Adm Physician: WILLA LUIS MD Ordered by: DEONDRE ZIMMERMAN MD Report #: [id number] Location: ICU Room/Bed: ICU [facility] Procedure: [id number] DX/OTTONIEL ST SINGLE (PORTABLE) Exam Date: 04/15/18 [...] COPY TO: DEONDRE ZIMMERMAN MD CT ABDOMEN/PELVIS PA6573-15-30 13:07:00 [place] [address] Patient Name: MARGARITA EATON MR #: [id number] : 1945 Age/Sex: 72/F Req #: [id number] Adm Physician: Ordered by: ASTRID MATIAS MD Report #: [id number] Location: ER Room /Bed: Procedure: [id number] CT/CT ABDOMEN/PELVIS WO E xam Date: 04/14/18 Exam Time: 1244 REPORT STATU S: Signed EXAM: CT ABDOMEN/PELVIS WO DATE: 04/14/2018 12:05 PM IND ICATION: COMPARISON: None FINDINGS: Please see CT [address] IMPRESSION: As above. Signed by: Dr. Gloria Zamudio MD on 2017 1:07 PM Dictated By: GLORIA ZAMUDIO MD 06 Transcribed By: IZZY on 04/14/181306 COPY TO: ASTRID MATIAS MD CT CHEST BS1023-82-16 13:01:00 [place] [address] Patient Name: MARGARITA EATON MR #: [id number] : 1945 Age/Sex: 72/F Req #: [id number] Adm Physician: Ordered by: ASTRID MATIAS MD Report #: [id number] Location: ER Room /Bed: Procedure: [id number] CT/CT CHEST WO Exam Date: 04/14/18 Exam [...] TO: ASTRID MATIAS MD CT CERVICAL SPINE ZA2773-28-67 11:27:00 [place] [address] Patient Name: MARGARITA EATON MR #: [id number] : 1945 Age/Sex: 72/F Req #: [id number] Adm Physician: Ordered by: ABHISHEK MENA NP Report #: [id number] Location: ER Room/Bed: Procedure: [id number] CT/CT CERVICAL SPINE WO Ex am Date: [...] COPY TO: ABHISHEK MENA NP CT BRAIN IJ9260-04-37 11:27:00 [place] [address] Patient Name: MARGARITA EATON MR #: [id number] : 1945 Age/Sex: 72/F Req #: [id number] Adm Physician: Ordered by: ABHISHEK MENA ANIMAL GROOMER Report #: [id number] Location: ER Room/ Bed: Procedure: [id number] CT/CT BRAIN WO Exam Date: 04/14/18 Exam [...] visualized IMPRESSION: Head CT: 1. No ac chilkoot intracranial hemorrhage or cortical infarct. 2. Persistent [...] 30 Transcribed By: IZZY on 04/14/18 113 [employer] Y TO: ABHISHEK MENA ANIMAL GROOMER CHEST SINGLE (PORTABLE)2018-04-14 10:33:00 [place] [address] Patient Name: MARGARITA EATON MR #: [id number] : 1945 Age/Sex: 72/F Req #: [id number] Adm Physician : Ordered by: ABHISHEK MENA ANIMAL GROOMER Report #: [id number] Location: ER Room/ Bed: Procedure: [id number] DX/CHEST SINGLE (PORTABLE) Exam Date: 04/14/18 Exam [...] 04/14/18 1033 COPY TO: ABHISHEK MENA Bedside Wpjhkyz4957-30-21 16:05:00* Test Item Value Reference Range Interpretation Comments Bedside Glucose (test code = 02133-8) 108 70-120 Meter ID: [id number] [facility] & [facility] PlanoUrine Culture 2017-12-07 09:00:00* Test Item Value Reference Range Interpretation Comments Urine Culture (test code = 630-4) Organism: ESCHERICHIA COLI [facility] Centerodium Jgbeb1591-29-01 07:42:00* Test Item Value Reference Range Interpretation Comments Sodium Level (test code = 2951-2) 142 136-145 [facility] PlanoPotassium Fhofr6089-17-84 07:42:00* Test Item Value Reference Range Interpretation Comments Potassium Level (test code = 2823-3) 3.0 3.5-5.1 L [facility] PlanoChloride Qiiee0396-00-21 07:42:00* Test Item Value Reference Range Interpretation Comments Chloride Level (test code = 2075-0) 104 98-107 [facility] PlanoCarbon Dioxide Riebg0911-30-98 07:42:00* Test Item Value Reference Range Interpretation Comments Carbon Dioxide Level (test code = 2028-9) 30 22-29 H [facility] PlanoAnion Wbv8881-36-14 07:42:00* Test Item Value Reference Range Interpretation Comments Anion Gap (test code = 86242-6) 11.0 8-16 [facility] PlanoBlood Urea Xftdpzzp8995-83-87 07:42:00* Test Item Value Reference Range Interpretation Comments Blood Urea Nitrogen (test code = 3094-0) 14 7-26 [facility] PlanoCreatinine2018-06-07 07:42:00* Test Item Value Reference Range Interpretation Comments Creatinine (test code = 2160-0) 1.51 0.57-1.11 H [facility] PlanoBUN/Creatinine Mhuuz0238-55-30 07:42:00* Test Item Value Reference Range Interpretation Comments BUN/Creatinine Ratio (test code = 3097-3) 9 6-25 [facility] PlanoEstimat Glomerular Filtration Rate 2017-12-06 07:42:00* Test Item Value Reference Range Interpretation Comments Estimat Glomerular Filtration Rate (test code = 43225-7) 34 >60 L Ranges were taken from the National Kidney Disease Education Program and the Critical access hospital Kidney Foundation literature.Reference ranges:60 or greater: Kdqcud51-54 ( for 3 consecutive months): Chronic kidney disease 15 or less: Kidney failureCHI Texas Scottish Rite Hospital For ChildrenGlucose Ooaey5668-55-38 07:42:00* Test Item Value Reference Range Interpretation Comments Glucose Level (test code = QGS1141) 86 74-118 [facility] PlanoCalcium Fspdo3375-26-58 07:42:00* Test Item Value Reference Range Interpretation Comments Calcium Level (test code = 12485-2) 7.9 8.4-10.2 L [facility] PlanoTotal Jfmvczqfk2157-45-53 07:42:00* Test Item Value Reference Range Interpretation Comments Total Bilirubin (test code = 1975-2) 0.3 0.2-1.2 [facility] PlanoAspartate Amino Transf (AST/SGOT) 2017-12-06 07:42:00* Test Item Value Reference Range Interpretation Comments Aspartate Amino Transf (AST/SGOT) (test code = Aspartate Amino Transf (AST/SGOT)) 17 5-34 [facility] PlanoAlanine Aminotransferase (ALT/SGPT) 2017-12-06 07:42:00* Test Item Value Reference Range Interpretation Comments Alanine Aminotransferase (ALT/SGPT) (test code = 1742-6) 15 0-55 [facility] PlanoTotal Bszodza3675-60-50 07:42:00* Test Item Value Reference Range Interpretation Comments Total Protein (test code = 2885-2) 5.0 6.5-8.1 L [facility] PlanoAlbumin2018-06-07 07:42:00* Test Item Value Reference Range Interpretation Comments Albumin (test code = 1751-7) 2.2 3.5-5.0 L [facility] PlanoGlobulin2018-06-07 07:42:00* Test Item Value Reference Range Interpretation Comments Globulin (test code = 58450-2) 2.8 2.3-3.5 [facility] PlanoAlbumin/Globulin Rbpdt7320-30-95 07:42:00 * Test Item Value Reference Range Interpretation Comments Albumin/Globulin Ratio (test code = 1759-0) 0.8 0.8-2.0 [facility] PlanoAlkaline Gjddiyziqqf3499-94-57 07:42:00* Test Item Value Reference Range Interpretation Comments Alkaline Phosphatase (test code = 6768-6) 74 40-150 [facility] PlanoWhite Blood Vflyj3853-75-39 07:35:00* Test Item Value Reference Range Interpretation Comments White Blood Count (test code = 6690-2) 10.05 4.8-10.8 [facility] PlanoRed Blood Ulkzf1887-10-93 07:35:00* Test Item Value Reference Range Interpretation Comments Red Blood Count (test code = 789-8) 2.94 3.6-5.1 L [facility] PlanoHemoglobin2018-06-07 07:35:00* Test Item Value Reference Range Interpretation Comments Hemoglobin (test code = 18316-0) 9.5 12.0-16.0 L [facility] PlanoHematocrit2018-06-07 07:35:00* Test Item Value Reference Range Interpretation Comments Hematocrit (test code = 4544-3) 29.4 34.2-44.1 L [facility] PlanoMean Corpuscular Exipuq3126-76-59 07:35:00* Test Item Value Reference Range Interpretation Comments Mean Corpuscular Volume (test code = 787-2) 100.0 81-99 H [facility] PlanoMean Corpuscular Ynkxptqqlq1084-14-05 07:35:00* Test Item Value Reference Range Interpretation Comments Mean Corpuscular Hemoglobin (test code = 785-6) 32.3 28-32 H [facility] PlanoMean Corpuscular Hemoglobin Concent 2017-12-06 07:35:00* Test Item Value Reference Range Interpretation Comments Mean Corpuscular Hemoglobin Concent (test code = 786-4) 32.3 31-35 [facility] PlanoRed Cell Distribution Bdnrs4353-60-17 07:35:00* Test Item Value Reference Range Interpretation Comments Red Cell Distribution Width (test code = 88320-2) 16.9 11.7 -14.4 H [facility] PlanoPlatelet Rddju5504-37-34 07:35:00* Test Item Value Reference Range Interpretation Comments Platelet Count (test code = 777-3) 384 140-360 H [facility] PlanoNeutrophils (%) (Auto)2017-12-06 07:35:00 * Test Item Value Reference Range Interpretation Comments Neutrophils (%) (Auto) (test code = 43097-7) 69.0 38.7-80.0 [facility] PlanoLymphocytes (%) (Auto)2017-12-06 07:35:00 * Test Item Value Reference Range Interpretation Comments Lymphocytes (%) (Auto) (test code = 736-9) 21.4 18.0-39.1 [facility] PlanoMonocytes (%) (Auto)2017-12-06 07:35:00* Test Item Value Reference Range Interpretation Comments Monocytes (%) (Auto) (test code = 5905-5) 7.4 4.4-11.3 [facility] PlanoEosinophils (%) (Auto)2017-12-06 07:35:00 * Test Item Value Reference Range Interpretation Comments Eosinophils (%) (Auto) (test code = 713-8) 1.4 0.0-6.0 [facility] PlanoBasophils (%) (Auto)2017-12-06 07:35:00* Test Item Value Reference Range Interpretation Comments Basophils (%) (Auto) (test code = 706-2) 0.5 0.0-1.0 [facility] PlanoIM GRANULOCYTES %2017-12-06 07:35:00* Test Item Value Reference Range Interpretation Comments IM GRANULOCYTES % (test code = IM GRANULOCYTES %) 0.3 0.0- 1.0 [facility]anoNeutrophils # (Auto)2017-12-06 07:35:00* Test Item Value Reference Range Interpretation Comments Neutrophils # (Auto) (test code = 751-8) 6.9 2.1-6.9 [facility] PlanoLymphocytes # (Auto)2017-12-06 07:35:00* Test Item Value Reference Range Interpretation Comments Lymphocytes # (Auto) (test code = 51765-6) 2.2 1.0-3.2 [facility]anoMonocytes # (Auto)2017-12-06 07:35:00* Test Item Value Reference Range Interpretation Comments Monocytes # (Auto) (test code = 742-7) 0.7 0.2-0.8 [facility]anoEosinophils # (Auto)2017-12-06 07:35:00* Test Item Value Reference Range Interpretation Comments Eosinophils # (Auto) (test code = 711-2) 0.1 0.0-0.4 [facility]anoBasophils # (Auto)2017-12-06 07:35:00* Test Item Value Reference Range Interpretation Comments Basophils # (Auto) (test code = 704-7) 0.1 0.0-0.1 [facility] PlanoAbsolute Immature Granulocyte (auto 2017-12-06 07:35:00* Test Item Value Reference Range Interpretation Comments Absolute Immature Granulocyte (auto (kehinde t code = Absolute Immature Granulocyte (auto) 0.03 0-0.1 [facility] PlanoUrine [id number] 20:09:00* Test Item Value Reference Range Interpretation Comments Urine WBC (test code = 5821-4) 21-50 0-5 H [facility] PlanoUrine QWF1151-76-24 20:09:00* Test Item Value Reference Range Interpretation Comments Urine RBC (test code = 64625-0) 0-5 0-5 [facility] PlanoUrine Bszidhat3673-50-08 20:09:00* Test Item Value Reference Range Interpretation Comments Urine Bacteria (test code = 68208-6) MANY NONE H [facility] PlanoUrine Epithelial Xrmvy6951-31-82 20:09:00 * Test Item Value Reference Range Interpretation Comments Urine Epithelial Cells (test code = 03246-9) RARE NONE [facility] PlanoUrine Hyaline Ihxix5469-03-94 20:09:00* Test Item Value Reference Range Interpretation Comments Urine Hyaline Casts (test code = 91259-1) 15- 0-1 H [facility]anoUrine Eyjqm8888-17-29 19:47:00* Test Item Value Reference Range Interpretation Comments Urine Color (test code = 5778-6) YELLOW YELLOW [facility]anoUrine Cwgxlaw4862-33-72 19:47:00* Test Item Value Reference Range Interpretation Comments Urine Clarity (test code = 52158-2) SL CLOUDY CLEAR [facility] PlanoUrine Specific Pyaywha3268-30-54 19:47:00 * Test Item Value Reference Range Interpretation Comments Urine Specific [place] (test code = 5811-5) 1.030 1.010-1.02 5 H [facility]anoUrine [id number] 19:47:00* Test Item Value Reference Range Interpretation Comments Urine pH (test code = 53718-3) 6 5-7 [facility]anoUrine Leukocyte Tfaqcldw1797-63-22 19:47:00* Test Item Value Reference Range Interpretation Comments Urine Leukocyte Esterase (test code = 5799-2) TRACE NEGATIVE [facility] Xopuram2550-52-82 19:47:00* Test Item Value Reference Range Interpretation Comments Urine Nitrite (test code = 30010-0) POSITIVE NEGATIVE [facility]evilleU[facility] Ecwzlxe8385-87-80 19:47:00* Test Item Value Reference Range Interpretation Comments Urine Protein (test code = 5804-0) TRACE NEGATIVE [facility]evilleU[facility] Glucose (UA)2017-12-05 19:47:00* Test Item Value Reference Range Interpretation Comments Urine Glucose (UA) (test code = 2349-9) NEGATIVE NEGATIVE [facility]anoUrine Lutbvnu3843-75-93 19:47:00* Test Item Value Reference Range Interpretation Comments Urine Ketones (test code = 93037-8) TRACE NEGATIVE H [facility]anoUrine Pimyqxxkenpy2886-53-68 19:47:00* Test Item Value Reference Range Interpretation Comments Urine Urobilinogen (test code = 73074-3) 0.2 0.2-1 [facility]anoUrine Wmdzexvrb9819-01-26 19:47:00* Test Item Value Reference Range Interpretation Comments Urine Bilirubin (test code = 1978-6) 1+ NEGATIVE H [facility]anoUrine Dssbg0617-40-83 19:47:00* Test Item Value Reference Range Interpretation Comments Urine Blood (test code = 70864-3) NEGATIVE NEGATIVE [facility] PlanoCreatine Vhndcp4447-83-33 19:16:00* Test Item Value Reference Range Interpretation Comments Creatine Kinase (test code = 2157-6) 72 29-168 [facility] PlanoCreatine Kinase JA1377-66-23 19:16:00* Test Item Value Reference Range Interpretation Comments Creatine Kinase MB (test code = 31895-6) 2.00 0-5.0 [facility] PlanoTroponin I6960-69-31 19:16:00* Test Item Value Reference Range Interpretation Comments Troponin I (test code = SLU3715) 0.018 0-0.300 [facility] PlanoProthrombin Abrf1583-20-86 18:56:00* Test Item Value Reference Range Interpretation Comments Prothrombin Time (test code = 5902-2) 26.5 11.9-14.5 H [facility] PlanoProthromb Time International Ratio 2017-12-05 18:56:00* Test Item Value Reference Range Interpretation Comments Prothromb Time International Ratio (test code = 6301-6) 2.64 Oral Anticoagulant Therapy INR Values:1. Low Intensity Therapy 1.5 - 2.02 . Moderate Intensity Therapy 2.0 - 3.03. High Intensity Therapy(1) 2.5 - 3. 54. High Intensity Therapy(2) 3.0 - 4.05. Panic Value INR > 5.0 [facility] PlanoActivated Partial Thromboplast Time 2017-12-05 18:56:00* Test Item Value Reference Range Interpretation Comments Activated Partial Thromboplast Time (test code = 08947-9) 35.3 23.8-35.5 [facility] ZO6989-85-68 18:54:00 [facility] [address] [address] Patient Name: MARGARITA EATON MR #: [id number] : 1945 Age/Sex: 71/F Req #: [id number] Adm Physician: Ordered by: ABHISHEK MENA ANIMAL GROOMER Report #: [id number] Location: ER Room/ Bed: Procedure: [id number] CT/CT PELVIS WO Exam Date: Exam Time: [...] SASKIA on 12/05/171853 COPY TO: ABHISHEK MENA ANIMAL GROOMER CHEST SINGLE (PORTABLE)2017-12-05 17:19:00 [address] [address] Patient Name: MARGARITA EATON MR #: [id number] : 1945 Age/Sex: 71/F Req #: [id number] Adm Physician: Ordered by: ABHISHEK MENA ANIMAL GROOMER Report #: [id number] Location: ER Room/Bed: Procedure: [id number] DX/CHEST SINGLE (PORTABLE) Exam Date: 12/05/17 Exam [...] 12/05/17 171 9 COPY TO: ABHISHEK MENA ANIMAL GROOMER HIP LEFT 2-3 VW (+/- PELVIS) 2017-12-05 17:17:00 [facility] [address] [address] Patient Name: MARGARITA EATON MR #: [id number] : 1945 Age/Sex: 71/F Req #: [id number] Adm Physician: Ordered by: ABHISHEK MENA ANIMAL GROOMER Report #: [id number] Location: ER Room/Bed: Procedure: [id number] DX/HIP LEFT 2-3 VW (+/- PEL VIS) [...] SASKIA on 1716 COPY TO: ABHISHEK MENA ANIMAL GROOMER Potassium Quyno8500-27-20 16:15:00* Test Item Value Reference Range Interpretation Comments Potassium Level (test code = 2823-3) 3.5 3.5-5.1 [facility] PlanoBedside Iipkkpw8375-49-16 16:15:00* Test Item Value Reference Range Interpretation Comments Bedside Glucose (test code = 12586-0) 137 70-120 H Meter ID: [id number] Heightsodium Level 2017-08-10 07:05:00* Test Item Value Reference Range Interpretation Comments Sodium Level (test code = 2951-2) 141 136-145 [facility] PlanoChloride Lmjfa2924-27-04 07:05:00* Test Item Value Reference Range Interpretation Comments Chloride Level (test code = 2075-0) 99 98-107 [facility] PlanoCarbon Dioxide Xzvgn4789-75-67 07:05:00* Test Item Value Reference Range Interpretation Comments Carbon Dioxide Level (test code = 2028-9) 29 22-29 [facility] PlanoAnion Nuj6909-41-14 07:05:00* Test Item Value Reference Range Interpretation Comments Anion Gap (test code = 99415-5) 15.9 8-16 [facility] PlanoBlood Urea Azytgrlh0606-17-79 07:05:00* Test Item Value Reference Range Interpretation Comments Blood Urea Nitrogen (test code = 3094-0) 20 7-26 [facility] PlanoCreatinine2018-02-09 07:05:00* Test Item Value Reference Range Interpretation Comments Creatinine (test code = 2160-0) 1.52 0.57-1.11 H [facility] PlanoBUN/Creatinine Jqnyk5418-75-28 07:05:00* Test Item Value Reference Range Interpretation Comments BUN/Creatinine Ratio (test code = 3097-3) 13 6-25 [facility] PlanoEstimat Glomerular Filtration Rate 2017-08-10 07:05:00* Test Item Value Reference Range Interpretation Comments Estimat Glomerular Filtration Rate (test code = 11107-6) 34 >60 L Ranges were taken from the National Kidney Disease Education Program and the [facility] Kid[facility] Foundation literature.Reference ranges:60 or greater: Lumwbd85-21 ( for 3 consecutive months): Chronic kidney disease 15 or less: Kidney failureBaylor Scott & [facility] – PlanoGlucose Sckef6875-61-46 07:05:00* Test Item Value Reference Range Interpretation Comments Glucose Level (test code = VZY3269) 86 74-118 [facility] PlanoCalcium Ewsfy7717-81-55 07:05:00* Test Item Value Reference Range Interpretation Comments Calcium Level (test code = 90027-8) 8.4 8.4-10.2 [facility] PlanoMagnesium Clohp8516-97-59 07:05:00* Test Item Value Reference Range Interpretation Comments Magnesium Level (test code = 59795-7) 2.0 1.3-2.1 [facility] PlanoTotal Wrbliujyr2957-18-54 07:05:00* Test Item Value Reference Range Interpretation Comments Total Bilirubin (test code = 1975-2) 0.4 0.2-1.2 [facility] PlanoAspartate Amino Transf (AST/SGOT) 2017-08-10 07:05:00* Test Item Value Reference Range Interpretation Comments Aspartate Amino Transf (AST/SGOT) (test code = Aspartate Amino Transf (AST/SGOT)) 20 5-34 [facility] PlanoAlanine Aminotransferase (ALT/SGPT) 2017-08-10 07:05:00* Test Item Value Reference Range Interpretation Comments Alanine Aminotransferase (ALT/SGPT) (test code = 1742-6) 14 0-55 [facility] Lnafkiw5444-81-40 07:05:00* Test Item Value Reference Range Interpretation Comments Total Protein (test code = 2885-2) 7.0 6.5-8.1 [facility] PlanoAlbumin2018-02-09 07:05:00* Test Item Value Reference Range Interpretation Comments Albumin (test code = 1751-7) 3.1 3.5-5.0 L [facility] PlanoGlobulin2018-02-09 07:05:00* Test Item Value Reference Range Interpretation Comments Globulin (test code = 58294-3) 3.9 2.3-3.5 H [facility] PlanoAlbumin/Globulin Zinea9063-36-75 07:05:00 * Test Item Value Reference Range Interpretation Comments Albumin/Globulin Ratio (test code = 1759-0) 0.8 0.8-2.0 [facility] PlanoAlkaline Sutakuwqiba6533-79-08 07:05:00* Test Item Value Reference Range Interpretation Comments Alkaline Phosphatase (test code = 6768-6) 68 40-150 [facility] PlanoMagnesium Qqsni7811-91-84 07:05:00* Test Item Value Reference Range Interpretation Comments Magnesium Level (test code = 74077-1) 2.0 1.3-2.1 [facility] PlanoWhite Blood Oxged8620-01-42 06:13:00* Test Item Value Reference Range Interpretation Comments White Blood Count (test code = 6690-2) 10.67 4.8-10.8 [facility] PlanoRed Blood Cmzsb2378-40-70 06:13:00* Test Item Value Reference Range Interpretation Comments Red Blood Count (test code = 789-8) 5.14 3.6-5.1 H [facility] PlanoHemoglobin2018-02-09 06:13:00* Test Item Value Reference Range Interpretation Comments Hemoglobin (test code = 35463-6) 12.4 12.0-16.0 [facility] PlanoHematocrit2018-02-09 06:13:00* Test Item Value Reference Range Interpretation Comments Hematocrit (test code = 4544-3) 41.2 34.2-44.1 [facility] PlanoMean Corpuscular Tzujri5341-47-40 06:13:00* Test Item Value Reference Range Interpretation Comments Mean Corpuscular Volume (test code = 787-2) 80.2 81-99 L [facility] PlanoMean Corpuscular Wfaprvorbr1081-17-28 06:13:00* Test Item Value Reference Range Interpretation Comments Mean Corpuscular Hemoglobin (test code = 785-6) 24.1 28-32 L [facility] PlanoMean Corpuscular Hemoglobin Concent 2017-08-10 06:13:00* Test Item Value Reference Range Interpretation Comments Mean Corpuscular Hemoglobin Concent (test code = 786-4) 30.1 31-35 L [facility] PlanoRed Cell Distribution Rruwq1521-96-93 06:13:00* Test Item Value Reference Range Interpretation Comments Red Cell Distribution Width (test code = 80918-3) 23.1 11.7 -14.4 H [facility] PlanoPlatelet Vaotp9741-61-38 06:13:00* Test Item Value Reference Range Interpretation Comments Platelet Count (test code = 777-3) 335 140-360 [facility] PlanoNeutrophils (%) (Auto)2017-08-10 06:13:00 * Test Item Value Reference Range Interpretation Comments Neutrophils (%) (Auto) (test code = 33136-6) 62.1 38.7-80.0 [facility] PlanoLymphocytes (%) (Auto)2017-08-10 06:13:00 * Test Item Value Reference Range Interpretation Comments Lymphocytes (%) (Auto) (test code = 736-9) 28.1 18.0-39.1 [facility] PlanoMonocytes (%) (Auto)2017-08-10 06:13:00* Test Item Value Reference Range Interpretation Comments Monocytes (%) (Auto) (test code = 5905-5) 7.8 4.4-11.3 [facility]anoEosinophils (%) (Auto)2017-08-10 06:13:00 * Test Item Value Reference Range Interpretation Comments Eosinophils (%) (Auto) (test code = 713-8) 0.9 0.0-6.0 [facility] PlanoBasophils (%) (Auto)2017-08-10 06:13:00* Test Item Value Reference Range Interpretation Comments Basophils (%) (Auto) (test code = 706-2) 0.7 0.0-1.0 [facility] PlanoIM GRANULOCYTES %2017-08-10 06:13:00* Test Item Value Reference Range Interpretation Comments IM GRANULOCYTES % (test code = IM GRANULOCYTES %) 0.4 0.0- 1.0 [facility] PlanoNeutrophils # (Auto)2017-08-10 06:13:00* Test Item Value Reference Range Interpretation Comments Neutrophils # (Auto) (test code = 751-8) 6.6 2.1-6.9 [facility] PlanoLymphocytes # (Auto)2017-08-10 06:13:00* Test Item Value Reference Range Interpretation Comments Lymphocytes # (Auto) (test code = 91340-4) 3.0 1.0-3.2 [facility] PlanoMonocytes # (Auto)2017-08-10 06:13:00* Test Item Value Reference Range Interpretation Comments Monocytes # (Auto) (test code = 742-7) 0.8 0.2-0.8 [facility]anoEosinophils # (Auto)2017-08-10 06:13:00* Test Item Value Reference Range Interpretation Comments Eosinophils # (Auto) (test code = 711-2) 0.1 0.0-0.4 [facility] PlanoBasophils # (Auto)2017-08-10 06:13:00* Test Item Value Reference Range Interpretation Comments Basophils # (Auto) (test code = 704-7) 0.1 0.0-0.1 [facility] PlanoAbsolute Immature Granulocyte (auto 2017-08-10 06:13:00* Test Item Value Reference Range Interpretation Comments Absolute Immature Granulocyte (auto (kehinde t code = Absolute Immature Granulocyte (auto) 0.04 0-0.1 [facility] PlanoUrine CTX8127-47-34 16:29:00* Test Item Value Reference Range Interpretation Comments Urine WBC (test code = 5821-4) NONE 0-5 [facility] PlanoUrine OHS6942-83-15 16:29:00* Test Item Value Reference Range Interpretation Comments Urine RBC (test code = 26794-5) NONE 0-5 [facility] PlanoUrine Rqnirsru1886-45-19 16:29:00* Test Item Value Reference Range Interpretation Comments Urine Bacteria (test code = 65357-1) FEW NONE [facility] PlanoUrine Epithelial Hwtrk9958-21-95 16:29:00 * Test Item Value Reference Range Interpretation Comments Urine Epithelial Cells (test code = 35894-2) MODERATE NONE [facility] PlanoUrine QSW8253-61-26 16:29:00* Test Item Value Reference Range Interpretation Comments Urine WBC (test code = 5821-4) NONE 0-5 [facility] PlanoUrine UMJ1726-89-84 16:29:00* Test Item Value Reference Range Interpretation Comments Urine RBC (test code = 42271-1) NONE 0-5 [facility] PlanoUrine Dyicgtuk8150-52-83 16:29:00* Test Item Value Reference Range Interpretation Comments Urine Bacteria (test code = 15824-1) FEW NONE [facility] PlanoUrine Epithelial Fyotg7041-44-70 16:29:00 * Test Item Value Reference Range Interpretation Comments Urine Epithelial Cells (test code = 16624-4) MODERATE NONE [facility] PlanoUrine Kehar9673-02-14 16:16:00* Test Item Value Reference Range Interpretation Comments Urine Color (test code = 5778-6) YELLOW YELLOW [facility] PlanoUrine Hrbgcoa5876-06-73 16:16:00* Test Item Value Reference Range Interpretation Comments Urine Clarity (test code = 35160-1) CLEAR CLEAR [facility] PlanoUrine Specific Hvbskrv7256-95-80 16:16:00 * Test Item Value Reference Range Interpretation Comments Urine Specific [place] (test code = 5811-5) 1.010 1.010-1.02 5 [facility] PlanoUrine tH0759-55-87 16:16:00* Test Item Value Reference Range Interpretation Comments Urine pH (test code = 68769-4) 5 5-7 [facility] PlanoUrine Leukocyte Gbkeeihf3935-83-16 16:16:00* Test Item Value Reference Range Interpretation Comments Urine Leukocyte Esterase (test code = 5799-2) NEGATIVE NEGATIVE [facility] PlanoUrine Kqkzlob8501-34-88 16:16:00* Test Item Value Reference Range Interpretation Comments Urine Nitrite (test code = 57576-6) NEGATIVE NEGATIVE [facility] PlanoUrine Xnloksm0057-86-35 16:16:00* Test Item Value Reference Range Interpretation Comments Urine Protein (test code = 5804-0) NEGATIVE NEGATIVE [facility] PlanoUrine Glucose (UA)2017-08-09 16:16:00* Test Item Value Reference Range Interpretation Comments Urine Glucose (UA) (test code = 2349-9) NEGATIVE NEGATIVE [facility] PlanoUrine Edqlnue6295-68-93 16:16:00* Test Item Value Reference Range Interpretation Comments Urine Ketones (test code = 46327-0) NEGATIVE NEGATIVE [facility] PlanoUrine Ozmdsgkcdakf3130-66-85 16:16:00* Test Item Value Reference Range Interpretation Comments Urine Urobilinogen (test code = 34000-2) 0.2 0.2-1 [facility] PlanoUrine Yglvagxom7687-73-31 16:16:00* Test Item Value Reference Range Interpretation Comments Urine Bilirubin (test code = 1978-6) NEGATIVE NEGATIVE [facility] PlanoUrine Yzouq6168-74-62 16:16:00* Test Item Value Reference Range Interpretation Comments Urine Blood (test code = 89561-2) NEGATIVE NEGATIVE [facility] PlanoUrine Kqnhb3040-69-22 16:16:00* Test Item Value Reference Range Interpretation Comments Urine Color (test code = 5778-6) YELLOW YELLOW [facility] PlanoUrine Utvcmsv5112-71-28 16:16:00* Test Item Value Reference Range Interpretation Comments Urine Clarity (test code = 45901-9) CLEAR CLEAR [facility] PlanoUrine Specific Jdgqbqr3226-55-00 16:16:00 * Test Item Value Reference Range Interpretation Comments Urine Specific [place] (test code = 5811-5) 1.010 1.010-1.02 5 [facility] PlanoUrine zT8851-83-63 16:16:00* Test Item Value Reference Range Interpretation Comments Urine pH (test code = 57917-6) 5 5-7 [facility]anoUrine Leukocyte Gwcrkwap7209-91-11 16:16:00* Test Item Value Reference Range Interpretation Comments Urine Leukocyte Esterase (test code = 5799-2) NEGATIVE NEGATIVE [facility] PlanoUrine Skhneut9777-76-52 16:16:00* Test Item Value Reference Range Interpretation Comments Urine Nitrite (test code = 33768-5) NEGATIVE NEGATIVE [facility] PlanoUrine Dyiridq1943-74-32 16:16:00* Test Item Value Reference Range Interpretation Comments Urine Protein (test code = 5804-0) NEGATIVE NEGATIVE [facility]anoUrine Glucose (UA)2017-08-09 16:16:00* Test Item Value Reference Range Interpretation Comments Urine Glucose (UA) (test code = 2349-9) NEGATIVE NEGATIVE [facility] PlanoUrine Gqpszjl5994-58-06 16:16:00* Test Item Value Reference Range Interpretation Comments Urine Ketones (test code = 85983-0) NEGATIVE NEGATIVE [facility] PlanoUrine Nalxaedzbhvo8280-68-74 16:16:00* Test Item Value Reference Range Interpretation Comments Urine Urobilinogen (test code = 07132-0) 0.2 0.2-1 [facility] PlanoUrine Pgdnrmmdt5077-22-45 16:16:00* Test Item Value Reference Range Interpretation Comments Urine Bilirubin (test code = 1978-6) NEGATIVE NEGATIVE [facility] PlanoUrine Nombf2284-54-02 16:16:00* Test Item Value Reference Range Interpretation Comments Urine Blood (test code = 26210-0) NEGATIVE NEGATIVE [facility] PlanoCreatine Kinase EX5943-05-20 12:45:00* Test Item Value Reference Range Interpretation Comments Creatine Kinase MB (test code = 59898-0) 2.00 0.00-5.00 [facility] PlanoTroponin F8100-26-50 12:45:00* Test Item Value Reference Range Interpretation Comments Troponin I (test code = 08211-3) 0.029 0-0.300 [facility] PlanoCreatine Kinase RR0710-81-25 12:45:00* Test Item Value Reference Range Interpretation Comments Creatine Kinase MB (test code = 54700-8) 2.00 0.00-5.00 [facility] PlanoTroponin V7749-99-56 12:45:00* Test Item Value Reference Range Interpretation Comments Troponin I (test code = 49828-5) 0.029 0-0.300 [facility] Cdtjr6700-99-21 12:41:00* Test Item Value Reference Range Interpretation Comments Sodium Level (test code = 2951-2) 137 136-145 [facility] PlanoPotassium Yqsrw8508-63-19 12:41:00* Test Item Value Reference Range Interpretation Comments Potassium Level (test code = 2823-3) 2.9 3.5-5.1 LL Results called to JANICE JON at 1240 on 08/09/17 by Aggie Lyles. RB [place].[facility] PlanoChloride Ljmvw8038-96-61 12:41:00* Test Item Value Reference Range Interpretation Comments Chloride Level (test code = 2075-0) 92 98-107 L [facility] PlanoCarbon Dioxide Bndot5146-55-08 12:41:00* Test Item Value Reference Range Interpretation Comments Carbon Dioxide Level (test code = 2028-9) 28 22-29 [facility] PlanoAnion Jia0444-21-58 12:41:00* Test Item Value Reference Range Interpretation Comments Anion Gap (test code = 16989-8) 19.9 8-16 H [facility] PlanoBlood Urea Hnwsinjw7612-76-65 12:41:00* Test Item Value Reference Range Interpretation Comments Blood Urea Nitrogen (test code = 3094-0) 23 7-26 [facility] PlanoCreatinine2018-02-08 12:41:00* Test Item Value Reference Range Interpretation Comments Creatinine (test code = 2160-0) 1.96 0.57-1.11 H [facility] PlanoBUN/Creatinine Wqcpx1111-29-64 12:41:00* Test Item Value Reference Range Interpretation Comments BUN/Creatinine Ratio (test code = 3097-3) 12 6-25 [facility] PlanoEstimat Glomerular Filtration Rate 2017-08-09 12:41:00* Test Item Value Reference Range Interpretation Comments Estimat Glomerular Filtration Rate (test code = 80136-3) 25 >60 L Ranges were taken from the National Kidney Disease Education Program and the [facility] literature.Reference ranges:60 or greater: Cprftg47-68 ( for 3 consecutive months): Chronic kidney disease 15 or less: Kidney failureB[facility] PlanoGlucose Wccvi0134-62-84 12:41:00* Test Item Value Reference Range Interpretation Comments Glucose Level (test code = SLU0981) 183 74-118 H [facility] PlanoCalcium Erfer2939-30-28 12:41:00* Test Item Value Reference Range Interpretation Comments Calcium Level (test code = 19496-0) 9.1 8.4-10.2 [facility] PlanoTotal Assmjgros1526-48-18 12:41:00* Test Item Value Reference Range Interpretation Comments Total Bilirubin (test code = 1975-2) 0.4 0.2-1.2 [facility] PlanoAspartate Amino Transf (AST/SGOT) 2017-08-09 12:41:00* Test Item Value Reference Range Interpretation Comments Aspartate Amino Transf (AST/SGOT) (test code = Aspartate Amino Transf (AST/SGOT)) 20 5-34 [facility] PlanoAlanine Aminotransferase (ALT/SGPT) 2017-08-09 12:41:00* Test Item Value Reference Range Interpretation Comments Alanine Aminotransferase (ALT/SGPT) (test code = 1742-6) 18 0-55 [facility] PlanoTotal Lwyvdfl7775-32-63 12:41:00* Test Item Value Reference Range Interpretation Comments Total Protein (test code = 2885-2) 8.0 6.5-8.1 [facility] PlanoAlbumin2018-02-08 12:41:00* Test Item Value Reference Range Interpretation Comments Albumin (test code = 1751-7) 3.6 3.5-5.0 [facility] PlanoGlobulin2018-02-08 12:41:00* Test Item Value Reference Range Interpretation Comments Globulin (test code = 87541-9) 4.4 2.3-3.5 H [facility] PlanoAlbumin/Globulin Rdmdn0084-09-24 12:41:00 * Test Item Value Reference Range Interpretation Comments Albumin/Globulin Ratio (test code = 1759-0) 0.8 0.8-2.0 [facility] PlanoAlkaline Kfpcpiicrea6575-43-14 12:41:00* Test Item Value Reference Range Interpretation Comments Alkaline Phosphatase (test code = 6768-6) 88 40-150 [facility] PlanoCreatine Ciupoq7248-58-11 12:41:00* Test Item Value Reference Range Interpretation Comments Creatine Kinase (test code = 2157-6) 94 29-168 [facility] PlanoCreatine Wykzkc3315-03-10 12:41:00* Test Item Value Reference Range Interpretation Comments Creatine Kinase (test code = 2157-6) 94 29-168 [facility] PlanoWhite Blood Fwuep8672-18-53 12:33:00* Test Item Value Reference Range Interpretation Comments White Blood Count (test code = 6690-2) 12.71 4.8-10.8 H [facility] PlanoRed Blood Mtvgv8555-88-73 12:33:00* Test Item Value Reference Range Interpretation Comments Red Blood Count (test code = 789-8) 5.89 3.6-5.1 H [facility]anoHemoglobin2018-02-08 12:33:00* Test Item Value Reference Range Interpretation Comments Hemoglobin (test code = 27049-4) 14.1 12.0-16.0 [facility] PlanoHematocrit2018-02-08 12:33:00* Test Item Value Reference Range Interpretation Comments Hematocrit (test code = 4544-3) 47.3 34.2-44.1 H [facility] PlanoMean Corpuscular Avpjyj2039-82-44 12:33:00* Test Item Value Reference Range Interpretation Comments Mean Corpuscular Volume (test code = 787-2) 80.3 81-99 L [facility] PlanoMean Corpuscular Hmumchwtec0946-67-20 12:33:00* Test Item Value Reference Range Interpretation Comments Mean Corpuscular Hemoglobin (test code = 785-6) 23.9 28-32 L [facility] PlanoMean Corpuscular Hemoglobin Concent 2017-08-09 12:33:00* Test Item Value Reference Range Interpretation Comments Mean Corpuscular Hemoglobin Concent (test code = 786-4) 29.8 31-35 L [facility] PlanoRed Cell Distribution Cmwfe6050-67-58 12:33:00* Test Item Value Reference Range Interpretation Comments Red Cell Distribution Width (test code = 15175-9) 23.4 11.7 -14.4 H [facility] PlanoPlatelet Ygbfy0371-01-34 12:33:00* Test Item Value Reference Range Interpretation Comments Platelet Count (test code = 777-3) 412 140-360 H [facility] PlanoNeutrophils (%) (Auto)2017-08-09 12:33:00 * Test Item Value Reference Range Interpretation Comments Neutrophils (%) (Auto) (test code = 74301-1) 71.5 38.7-80.0 [facility] PlanoLymphocytes (%) (Auto)2017-08-09 12:33:00 * Test Item Value Reference Range Interpretation Comments Lymphocytes (%) (Auto) (test code = 736-9) 20.0 18.0-39.1 [facility] PlanoMonocytes (%) (Auto)2017-08-09 12:33:00* Test Item Value Reference Range Interpretation Comments Monocytes (%) (Auto) (test code = 5905-5) 7.0 4.4-11.3 [facility]anoEosinophils (%) (Auto)2017-08-09 12:33:00 * Test Item Value Reference Range Interpretation Comments Eosinophils (%) (Auto) (test code = 713-8) 0.6 0.0-6.0 [facility]anoBasophils (%) (Auto)2017-08-09 12:33:00* Test Item Value Reference Range Interpretation Comments Basophils (%) (Auto) (test code = 706-2) 0.6 0.0-1.0 [facility] PlanoIM GRANULOCYTES %2017-08-09 12:33:00* Test Item Value Reference Range Interpretation Comments IM GRANULOCYTES % (test code = IM GRANULOCYTES %) 0.3 0.0- 1.0 [facility] PlanoNeutrophils # (Auto)2017-08-09 12:33:00* Test Item Value Reference Range Interpretation Comments Neutrophils # (Auto) (test code = 751-8) 9.1 2.1-6.9 H [facility] PlanoLymphocytes # (Auto)2017-08-09 12:33:00* Test Item Value Reference Range Interpretation Comments Lymphocytes # (Auto) (test code = 58586-1) 2.5 1.0-3.2 [facility] PlanoMonocytes # (Auto)2017-08-09 12:33:00* Test Item Value Reference Range Interpretation Comments Monocytes # (Auto) (test code = 742-7) 0.9 0.2-0.8 H [facility]anoEosinophils # (Auto)2017-08-09 12:33:00* Test Item Value Reference Range Interpretation Comments Eosinophils # (Auto) (test code = 711-2) 0.1 0.0-0.4 [facility]anoBasophils # (Auto)2017-08-09 12:33:00* Test Item Value Reference Range Interpretation Comments Basophils # (Auto) (test code = 704-7) 0.1 0.0-0.1 [facility] PlanoAbsolute Immature Granulocyte (auto 2017-08-09 12:33:00* Test Item Value Reference Range Interpretation Comments Absolute Immature Granulocyte (auto (kehinde t code = Absolute Immature Granulocyte (auto) 0.04 0-0.1 [facility] PlanoProthrombin Mues7763-15-53 12:32:00* Test Item Value Reference Range Interpretation Comments Prothrombin Time (test code = 5902-2) 22.6 11.9-14.5 H [facility] PlanoProthromb Time International Ratio 2017-08-09 12:32:00* Test Item Value Reference Range Interpretation Comments Prothromb Time International Ratio (test code = 6301-6) 1.88 Oral Anticoagulant Therapy INR Values:1. Low Intensity Therapy 1.5 - 2.02 . Moderate Intensity Therapy 2.0 - 3.03. High Intensity Therapy(1) 2.5 - 3. 54. High Intensity Therapy(2) 3.0 - 4.05. Panic Value INR > 5.0 [facility] PlanoActivated Partial Thromboplast Time 2017-08-09 12:32:00* Test Item Value Reference Range Interpretation Comments Activated Partial Thromboplast Time (test code = 59948-0) 34.0 23.8-35.5 [facility] PlanoProthrombin Idsj6921-36-27 12:32:00* Test Item Value Reference Range Interpretation Comments Prothrombin Time (test code = 5902-2) 22.6 11.9-14.5 H [facility] PlanoProthromb Time International Ratio 2017-08-09 12:32:00* Test Item Value Reference Range Interpretation Comments Prothromb Time International Ratio (test code = 6301-6) 1.88 Oral Anticoagulant Therapy INR Values:1. Low Intensity Therapy 1.5 - 2.02 . Moderate Intensity Therapy 2.0 - 3.03. High Intensity Therapy(1) 2.5 - 3. 54. High Intensity Therapy(2) 3.0 - 4.05. Panic Value INR > 5.0 [facility] PlanoActivated Partial Thromboplast Time 2017-08-09 12:32:00* Test Item Value Reference Range Interpretation Comments Activated Partial Thromboplast Time (test code = 50254-3) 34.0 23.8-35.5 [facility] PlanoUrine Amorphous Flawbqpm3137-52-91 20:21:00* Test Item Value Reference Range Interpretation Comments Urine Amorphous Sediment (test code = 8246-1) FEW FEW [facility] PlanoUrine Mvhyo5714-88-95 20:21:00* Test Item Value Reference Range Interpretation Comments Urine Mucus (test code = 8247-9) RARE RARE [facility] PlanoUrine Amorphous Inoipxai0532-68-07 20:21:00* Test Item Value Reference Range Interpretation Comments Urine Amorphous Sediment (test code = 8246-1) FEW FEW [facility] PlanoUrine Mbwli2538-92-21 20:21:00* Test Item Value Reference Range Interpretation Comments Urine Mucus (test code = 8247-9) RARE RARE [facility] (PORTABLE) [place] [address] Patient Name: MARGARITA EATON MR #: [id number] : 1945 Age/Sex: 71/F Req #: [id number] Adm Physician: Ordered by: GALLO MONTES MD Report #: [id number] Location: ER Room/Bed: Procedure: [id number] DX/CHEST SINGLE (PORTABLE ) Exam Date: 08/09/17 [...] TO: GALLO OSBORNE MD CT BRAIN WO [place] [address] Patient Name: MARGARITA EATON MR #: [id number] : 1945 Age/Sex: 71/F Req #: [id number] Adm Physician: Ordered by: GALLO MONTES MD Report #: [id number] Location: ER Room/Bed: Procedure: [id number] CT/CT BRAIN WO Exam Date : 08/09/17 [...]
[2020-02-23] MEDS: PROPOFOL IV EMULSION 10MG/ML 100 ML IV SCH (14:53)
[2020-02-23] MEDS ORDERED: MIDAZOLAM HCL 2 MG/2 ML VIAL ONE ×2 (14:53→19:56)
[2020-02-23] MEDS ORDERED: MIDAZOLAM HCL 5MG/ML 10ML VIAL 100 ML IV PRN (15:15)
[2020-02-23 15:56] LABS: ABG HCO3 30 mmol/L (22-26); ABG PCO2 40 mmHg (35-45); ABG PH 7.49 (7.35-7.45); ABG PO2 142 mmHg (80-105); ABG TCO2 31
[2020-02-23] MEDS ORDERED: PROPOFOL IV EMULSION 10MG/ML 100 ML IV STA (15:56)
[2020-02-23] MEDS ORDERED: ETOMIDATE 40 MG/ 20ML VIAL IV STA (16:07)
--- NOTE | 2020-02-23 16:10 | Diagnostic Imaging Report ---
TECHNIQUE: Frontal view of the chest. INDICATION: ^Y ^S/P INTUBATION/CENTRAL LINE COMPARISON: 08/30/2019 02/23/2020 DISCUSSION: Limited evaluation due to portable technique. Lines and hardware: Interval placement of endotracheal tube is noted with tip terminating 5.2 cm above the keely. Interval placement of right internal jugular nontunneled central venous catheter is noted with tip projecting at the mid SVC. Overlying EKG leads are noted. Stable left chest wall pacemaker device. Heart and mediastinum: Stable cardiomegaly and central vascular congestion. Lungs and pleura: Stable prominent interstitial markings and blunting of the costophrenic angle on the right. Negative for large pneumothorax. Soft tissues and bones: No acute abnormality. Surgical clips are noted in the right upper quadrant. IMPRESSION: 1. Interval placement of endotracheal tube and right internal jugular central venous catheter. Negative for pneumothorax 2. Stable cardiomegaly, vascular congestion and prominent interstitial markings a small right pleural effusion. Signed by: Anibal Li MD on 02/23/2020 4:06 PM
--- NOTE | 2020-02-23 17:14 | Consultation ---
DATE OF CONSULTATION: Pulmonary Critical Care Consultation ADDITIONAL ATTENDING PHYSICIAN: John Hunter MD. CHIEF COMPLAINT: Chest pain, abnormal discharge of AICD, ventricular tachycardia, and chronic renal disease, stage 3. HISTORY OF PRESENT ILLNESS: The patient is a 74-year-old woman. She has a prior history of cardiac disease. She had a STEMI that required stents. She also had a pacemaker and AICD placed. She came to the emergency department complaining of her AICD being discharged. After arrival, she was found to have some ventricular tachycardia. She received amiodarone as a loading protocol followed by lidocaine twice. She continued to have some ventricular tachycardia that was discharging her AICD. The patient did not complain of fevers or chest pain apart from the AICD. She did not complain of dyspnea or cough. PAST SURGICAL HISTORY: 1. Status post knee replacement. 2. Status post left lobectomy for possible lung cancer. 3. History of cholecystectomy. 4. History of tonsillectomy. PAST MEDICAL HISTORY: 1. Prior lung cancer as noted above. 2. Atrial fibrillation. 3. Coronary artery disease. 4. Hypertension. 5. COPD. 6. Chronic renal failure, stage 3. SOCIAL HISTORY: The patient was a prior smoker. She was a prior drinker. ALLERGIES: THE PATIENT IS ALLERGIC TO CODEINE. REVIEW OF SYSTEMS: She did not complain of fever. She had no headache. She did not complain of cough or dyspnea. She had abnormal discharges of her AICD. She had no nausea or vomiting. She has no leg edema. PHYSICAL EXAMINATION: VITAL SIGNS: The patient's blood pressure is 116/46 and saturation is 100% on 2 L. The respiratory rate is 17. HEENT: Shows no facial swelling or erythema. LYMPHATIC: Shows no submandibular, cervical, or supraclavicular adenopathy. CARDIAC: Reveals regular rate and rhythm with normal S1 and S2. LUNGS: Auscultation of lungs reveals rhonchorous breath sounds bilaterally. There is no wheezing. ABDOMEN: Soft and nontender. There is no rebound or guarding. EXTREMITIES: Shows no leg edema or calf tenderness. There is no cyanosis or clubbing. SKIN: Shows no rashes. NEUROLOGICAL: Shows no focal abnormalities. LABORATORY DATA: The BUN to creatinine ratio is 51 to 3.07 and the potassium is 2.3. The albumin is 3.3. The BNP is 438. The white blood cell count is 24.5 and the hemoglobin is 13.1. The platelet count is 360. RADIOGRAPHIC DATA: Chest x-ray shows cardiomegaly with interstitial markings and a small right pleural effusion. IMPRESSION: 1. Chronic obstructive pulmonary disease. 2. Chronic renal failure, stage 4. 3. Recurrent ventricular tachycardia leading to discharge of her AICD. 4. Chronic systolic congestive heart failure. 5. Hypokalemia. PLAN: 1. The patient has received amiodarone and lidocaine. 2. The patient is intubated at the request of Cardiology and started on Versed drip. 3. Replace potassium. 4. Continue to monitor electrolytes, BUN and creatinine. 5. Echocardiogram. See Alex MD [facility]/MODL /[id number]
--- NOTE | 2020-02-23 17:19 | Operative Report ---
DATE OF PROCEDURE: SURGEON: See Alex MD PROCEDURE: Central line placement under ultrasound guidance. PREOPERATIVE DIAGNOSIS: Hypokalemia. POSTOPERATIVE DIAGNOSIS: Hypokalemia. CONSENT: Consent was deemed emergent due to ventricular tachycardia and low potassium. MEDICATIONS: 1% lidocaine for local anesthesia. PROCEDURE IN DETAIL: The right neck was prepped sterilely with chlorhexidine. A full length sterile drape was used as well as sterile mask, sterile gown, and sterile gloves. An ultrasound machine was used to locate the right internal jugular vein. The vein was cannulated under direct visualization with a 16-gauge needle on the first attempt. A wire was passed through the needle. A dilator was used to open the skin. A triple-lumen catheter was placed over the wire by the Seldinger technique. All the ports flushed. COMPLICATIONS: None. ESTIMATED BLOOD LOSS: None. See Alex MD [facility]/MODL /[id number]
--- NOTE | 2020-02-23 17:19 | Operative Report ---
DATE OF PROCEDURE: SURGEON: See Alex MD PROCEDURE: Endotracheal intubation with GlideScope. PREOPERATIVE DIAGNOSIS: Ventricular tachycardia. POSTOPERATIVE DIAGNOSIS: Ventricular tachycardia. CONSENT: Consent was obtained from the patient. MEDICATIONS: Versed 2 mg, etomidate 20 mg, and succinylcholine 100 mg. PROCEDURE IN DETAIL: The patient was preoxygenated with high-flow nasal cannula. Her saturations were in the high 90s. She received 1 mg of Versed twice. She then received some etomidate followed by succinylcholine. A 3.0 Mac blade was used to visualize the glottis with the GlideScope. A 7.5 endotracheal tube was passed on the first attempt. There was good CO2 return. There were equal breath sounds bilaterally. The patient's blood pressure remained stable throughout the procedure. The saturation remained above 90%. COMPLICATIONS: None. ESTIMATED BLOOD LOSS: None. See Alex MD [facility]/MODL /[id number]
--- NOTE | 2020-02-23 17:55 | NUR ---
GREEN SHEET ON CHART FOR SEPSIS PEREZ AND CENTRAL LINE SHEETS FILLED OUT ALL PER POLICIY
[2020-02-23] MEDS: SODIUM CHLORIDE 0.9% 250ML IRRIG IR SCH (18:00)
[2020-02-23 18:32] LABS: AMPHETAMINES SCREEN,URINE NEGATIVE (NEGATIVE); BENZODIAZEPINES SCREEN,URINE NEGATIVE (NEGATIVE); PHENCYCLIDINE SCREEN,URINE NEGATIVE (NEGATIVE)
--- NOTE | 2020-02-23 18:54 | NUR ---
Daughter fab Cruz [phone]
--- NOTE | 2020-02-23 19:20 | NUR ---
Handoff report received from Teressa HUGHES. Pt resting, laying on her right side on a vent 02 35, Peep 5 Rate 16, VSS. Versed 5mg/ml drip at 6mg/hr, pt tolerated it well. Awaiting ICU bed at this time.
[2020-02-23 19:46] LABS: ANION GAP 15.8 mmol/L (8-16); CALCIUM 8.5 mg/dL (8.4-10.2); CREATININE, SERUM 2.63 mg/dL (0.57-1.11)
[2020-02-23 19:51] LABS: POTASSIUM 2.8 mmol/L (3.5-5.1)
[2020-02-23 19:52] LABS: CREATINE KINASE MB 15.4 ng/mL (0-5.0)
[2020-02-23] MEDS ORDERED: ETOMIDATE 2 MG/ML 10 ML INJ IV ONE (19:56)
[2020-02-23] MEDS ORDERED: SUCCINYLCHOLINE CHLORIDE 20 MG/ML 10ML VIAL ONE (19:56)
--- NOTE | 2020-02-23 20:05 | NUR ---
Patient slightly moving finger but goes back to sleep, Versed at 4mg/hr at this time. will continue to monitor patient.
--- NOTE | 2020-02-23 22:36 | NUR ---
Patient was not staying sedated with 6mg/hr of Versed drip when drip rate incresed to 8mg/hr her BP drop drastically, will hold meds 7 change it to propofol at 20mcg/hr
[2020-02-23 23:00] VITALS: BP 119/57
--- NOTE | 2020-02-23 23:05 | NUR ---
Patient arrived to ICU room 191 from ER. Patient is intubated, sedated with propofol at 20mcg. Bilateral soft restraints and massey catheter noted. Vitals are stable with NSR on the monitor. RN report received from Nathan.
[2020-02-24] VITALS (25 sets, daily range): BP systolic 107–139; BP diastolic 42–103
[2020-02-24] MEDS: SODIUM CHLORIDE 0.9% 250ML IRRIG IR SCH ×7 (00:11→20:44)
--- NOTE | 2020-02-24 00:13 | NUR ---
Dr. Torres called and notified of patient's admission. No new orders received.
--- NOTE | 2020-02-24 04:02 | Consultation ---
DATE OF CONSULTATION: 02/23/2020 REASON FOR CONSULT: Ventricular tachycardia. 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 She continued to have VT storm about 10 shocks successfully converted to sinus rhythm. However, she finally got intubated and sedated and currently maintaining sinus rhythm. The workup has been unremarkable except for hypokalemia, potassium down in the 2 range, otherwise negative. The patient is currently sedated and intubated. REVIEW OF SYSTEMS: Unable to obtain. The patient is intubated and sedated. PAST MEDICAL HISTORY: As per HPI. Unable to obtain further details at this time. PHYSICAL EXAMINATION: VITAL SIGNS: Blood pressure 100/60, pulse 90, respirations 20, and O2 saturation 99%. GENERAL: Sedated and intubated. CARDIOVASCULAR: Regular. Extremities: 2+ pedal pulses. IMPRESSION: 1. Ventricular tachycardia storm successfully treated with multiple shocks from ICD. 2. History of ischemic cardiomyopathy. 3. Dual-chamber ICD placed. RECOMMENDATIONS: At this time, I agree with current management with amiodarone and lidocaine, aggressively replace the electrolyte imbalance and we set the rate on the defibrillator at 90. Hopefully, we can over try any ventricular arrhythmia, however, by correcting the electrolyte, expect the ventricular tachycardia to improve. We will continue to follow up if any farther ventricular arrhythmias evolve. Thank you for the opportunity to participate in Ms. Cruz's [facility]. MD FARIDEH Emanuel/MODL /[id number]
[2020-02-24 04:50] LABS: BASOPHILS # (AUTO) 0.1 (0.0-0.1); BASOPHILS % 0.5 % (0.0-1.0); EOSINOPHILS # (AUTO) 0.2 (0.0-0.4); EOSINOPHILS % 1.7 % (0.0-6.0); HEMATOCRIT 34.7 % (34.2-44.1); HEMOGLOBIN 11.5 g/dL (12.0-16.0); LYMPHOCYTES # (AUTO) 2.8 (1.0-3.2); LYMPHOCYTES % 22.4 % (18.0-39.1); MEAN CORPUSCULAR HEMOGLOBIN 29.6 pg (28-32); MEAN CORPUSCULAR HGB CONC 33.1 g/dL (31-35); MEAN CORPUSCULAR VOLUME 89.2 fL (81-99); MONOCYTES # (AUTO) 0.7 (0.2-0.8); MONOCYTES % 5.3 % (4.4-11.3); NEUTROPHILS # (AUTO) 8.8 (2.1-6.9); NEUTROPHILS % 69.7 % (38.7-80.0); PLATELET COUNT 302 x10e3/uL (140-360); RED BLOOD COUNT 3.89 x10e6/uL (3.6-5.1); RED CELL DISTRIBUTION WIDTH 16.6 % (11.7-14.4)
[2020-02-24 05:36] LABS: ALBUMIN 2.8 g/dL (3.5-5.0); ALBUMIN/GLOBULIN RATIO 0.8 (0.8-2.0); ANION GAP 14.4 mmol/L (8-16); CALCIUM 8.7 mg/dL (8.4-10.2); CREATININE, SERUM 2.27 mg/dL (0.57-1.11)
[2020-02-24 05:38] LABS: POTASSIUM 2.4 mmol/L (3.5-5.1)
[2020-02-24] MEDS ORDERED: DEXTROSE 50% SYRINGE 50 ML IV STA (05:48)
--- NOTE | 2020-02-24 05:48 | NUR ---
Critical lab results of Potassium of 2.4 and Blood glucose of 40 received from the lab. Finger stick blood sugar of [address] Torres notified, orders received for Amp D50 IVP and 100 mEq IV potassium to infuse over 10hrs.
[2020-02-24] MEDS ORDERED: DEXTROSE 50% SYRINGE 50 ML IV ONE (05:50)
--- NOTE | 2020-02-24 06:20 | NUR ---
Repeat finger stick blood sugar result of 200 after Amp of D50
[2020-02-24] MEDS: POTASSIUM CHLORIDE 20MEQ/100ML 100 ML IV SCH ×3 (06:29→10:06)
[2020-02-24] MEDS: PROPOFOL IV EMULSION 10MG/ML 100 ML IV SCH (06:50)
--- NOTE | 2020-02-24 08:53 | Progress Note ---
DATE: Pulmonary Critical Care Progress Note SUBJECTIVE: The patient has remained on propofol and Versed overnight. This morning, the patient was placed on spontaneous breathing trial and extubated. She still has low potassium despite receiving significant amounts of potassium during the night. She was seen by electrophysiology yesterday. PHYSICAL EXAMINATION: VITAL SIGNS: The patient is afebrile. The blood pressure is 137/55 and the respiratory rate is 18. Saturation is 100% on 4 L. HEENT: Shows no facial swelling or erythema. The oropharynx is normal. LYMPHATIC: Shows no submandibular, cervical, or supraclavicular adenopathy. CARDIAC: Reveals a regular rate and rhythm with normal S1 and S2. LUNGS: Auscultation of lungs reveals crackles and rhonchi at the bases. There is no wheezing. ABDOMEN: Soft and nontender. There is no rebound or guarding. EXTREMITIES: Shows no leg edema or calf tenderness. There is no cyanosis or clubbing. SKIN: Shows no rashes. NEUROLOGICAL: Shows no focal abnormalities. LABORATORY DATA: The troponin I is 2.375. The potassium is 2.4. The BUN to creatinine ratio is 36 to 2.27. Albumin is 2.8. White blood cell count is 12.6 and hemoglobin is 11.5. The platelet count is 302. IMPRESSION: 1. Chronic obstructive pulmonary disease. 2. Chronic renal failure, stage 4. 3. Persistent hypokalemia. 4. Recurrent ventricular tachycardia leading to discharge of AICD. 5. Elevated troponins. 6. Chronic systolic congestive heart failure. PLAN: 1. Continue nasal cannula. 2. Continue to replace potassium. 3. Nephrology consultation. 4. Continue amiodarone. 5. Continue lidocaine. 6. Continue to follow recommendations of electrophysiology. See Alex MD [facility]/MODL /[id number]
--- NOTE | 2020-02-24 10:02 | Diagnostic Imaging Report ---
EXAMINATION: CHEST SINGLE (PORTABLE) INDICATION: CHF COMPARISON: Chest radiograph of 02/23/2020 FINDINGS: LINES/TUBES:Interval placement of enteric tube which projects below the diaphragm with tip not visualized. Endotracheal tube is not well visualized, possibly due to overlap with the enteric tube. Right IJ central venous catheter terminates in the superior vena cava. Left chest AICD unchanged. EKG leads overlie the chest. LUNGS:The lungs are moderately inflated. Mild bibasilar subsegmental atelectasis. No focal consolidation or airspace edema. PLEURA:Trace right pleural effusion. No pneumothorax. MEDIASTINUM:The cardiomediastinal silhouette appears unchanged in size and shape. Atherosclerotic calcifications of the thoracic aorta. Surgical clips project over the right hilum. BONES/SOFT TISSUES:No acute osseous injury. ABDOMEN:No free air under the diaphragm. IMPRESSION: Mild bibasilar subsegmental atelectasis and unchanged trace right pleural effusion. Signed by: Cynthia Mortensen MD on 02/24/2020 9:58 AM
--- NOTE | 2020-02-24 10:15 | Diagnostic Imaging Report ---
EXAM: Renal Ultrasound INDICATION: ^renal failure ^[id number] ^[id number] COMPARISON: Renal ultrasound of 08/31/2019 and 10/16/2019 TECHNIQUE: Transverse and longitudinal images of the kidneys and bladder were obtained. FINDINGS: Right Kidney: Length: 9.5 cm Appearance: Normal echogenicity. Collecting system: No hydronephrosis Stones: None Cyst/Mass: None Left Kidney: Length: 7.7 cm Appearance: Normal echogenicity. Collecting system: No hydronephrosis Stones: None Cyst/Mass: None Bladder: Christine catheter in the decompressed bladder. IMPRESSION: No hydronephrosis or renal calculi. Limited evaluation of the bladder due to indwelling Christine catheter and underdistention. Signed by: Cynthia Mortensen MD on 02/24/2020 10:12 AM
[2020-02-24 11:11] LABS: CLARITY,URINE HAZY (CLEAR); COLOR,URINE YELLOW (YELLOW)
[2020-02-24 11:12] LABS: BILIRUBIN,URINE NEGATIVE (NEGATIVE); KETONES,URINE NEGATIVE (NEGATIVE); LEUKOCYTE ESTERASE ,URINE SMALL (NEGATIVE); NITRITE,URINE POSITIVE (NEGATIVE); PROTEIN,URINE DIPSTICK NEGATIVE (NEGATIVE); URINE UROBILINOGEN 0.2 mg/dL (0.2 - 1)
[2020-02-24 11:16] LABS: BACTERIA,URINE MANY /HPF; EPITHELIAL CELLS,URINE FEW /LPF; RBC,URINE 0-5 /HPF (0-5); WBC,URINE (MAN) >50 /HPF (0-5)
[2020-02-24 11:17] LABS: ANION GAP 16.1 mmol/L (8-16); CALCIUM 8.9 mg/dL (8.4-10.2); CREATININE, SERUM 2.24 mg/dL (0.57-1.11); POTASSIUM 4.1 mmol/L (3.5-5.1)
[2020-02-24] MEDS ORDERED: AMIODARONE HCL 900 MG in DEXTROSE 5% 500ML 500 ML IV SCH ×2 (11:30→17:30)
--- NOTE | 2020-02-24 12:34 | NUR ---
Optometrist Assistant called pt's , Carlos ([phone]) to offer emotional/spiritual support. Pt's frustrated from desire for more communication. Pt's states he feels "in the dark." Optometrist Assistant provided empathic listening and service recovery. ARIADNE Pink Spiritual Care Department O: [phone]
[2020-02-24] MEDS: DEXTROSE 5%/0.45% SOD CHL 1,000 ML IV SCH (13:00)
[2020-02-24] MEDS ORDERED: FENTANYL1 EAC1 TOP (13:14)
[2020-02-24] MEDS ORDERED: FENTANYL 25 MCG/HR PATCH TOP SCH (13:15)
--- NOTE | 2020-02-24 14:42 | NUR ---
Patient extubated at [address] Ash Alex and placed on 4L NC. Dr. Ramachandran informed of new consult. Orders given to d/c IV potassium, renal US, repeat BMP, and urinalysis. Patient restarted on amiodarone drip per Dr. Delaney MD informed of runs of Vtach. Patient complaining of back pain, per daughter patient uses fentanyl patch [address] Ash Alex gave orders to restart fentanyl patch. New patch placed to lower back and old patch removed.
--- NOTE | 2020-02-24 14:49 | Consultation ---
DATE OF CONSULTATION: 02/24/2020 HISTORY OF PRESENT ILLNESS: A 74-year-old female with underlying history of lung cancer, status post lobectomy, possible COPD, tobacco addiction, chronic kidney disease stage 3, prior PCI stenting as well as AICD placement, history of congestive heart failure, has been admitted with respiratory symptoms. She is currently in the ICU. Renal has been consulted for management of underlying kidney failure. She was found to be in atrial fibrillation, has underlying diabetes, history of kidney stones. Most of this history is from chart and electronic record. The patient is a poor historian. She did not answer whether she ever smoked in the past, etc. She has some backache at this point in time. Does not appear to be in any respiratory distress. She is awake, alert, and oriented though, but very thin built female. Poor muscle mass with poor skin turgor. She has prior history of cholecystectomy, hysterectomy, left knee replacement, right upper lobectomy, partial colon resection, and cataract surgery. She has been maintained on warfarin at home including metolazone, metoprolol, glimepiride, donepezil, atorvastatin, alendronate, and Fosamax. SOCIAL HISTORY: Probably quit smoking. Does not drink. ALLERGIES: TO CODEINE, PINEAPPLE, AND COCONUT. CURRENT MEDICATIONS: The patient received amiodarone once, wide open LR once 1 L, was quite hypokalemic earlier, has been aggressively replaced. Repeat potassium within normal range. Otherwise, she was intubated actually and now she is extubated. RADIOGRAPHIC DATA: Chest x-ray; please see official report, shows mild bibasilar segment atelectasis, unchanged trace right pleural effusion. Renal ultrasound, which I had ordered showed 9.5 and 7.7 cm kidneys. No hydro or renal calculus. LABORATORY TESTS: Shows urinalysis; specific gravity 1.015, pH 6, blood trace 0-5 rbc's, more than 50 wbc. Chemistry; sodium 137, potassium 4.1, bicarb 26, BUN 31, and creatinine 2.24. Magnesium 2.4. Last blood gas; 7.29, 40, 142, 40% FiO2 that is why she was intubated. White count is significantly dropped from 24,000 to 12.5, hemoglobin 11.5, and platelets 302. Cultures; I do not see any cultures, which have been sent. PHYSICAL EXAMINATION: GENERAL: The patient lying supine, in no apparent distress. VITAL SIGNS: Blood pressure 113/51, pulse rate 86, sinus rhythm, and oxygen saturation 100%. She is on nasal cannula. HEAD AND NECK: Arcus senilis noted, thin built female. Poor muscle mass. Skin dried. LUNGS: Harsh vesicular breath sounds relatively clear. HEART: S1 and S2 audible. ABDOMEN: Otherwise soft and nontender. EXTREMITIES: Lower extremity examination shows no edema. IMPRESSION: Tjjlh-hb-jraczsk kidney failure, hypokalemia, severe dehydration, multiple comorbidities. Nurses report hypoglycemia. The patient's blood sugars have been running low. White count is improved. Serum creatinine close to baseline. There is mild acidosis noted. Magnesium within normal range. Has asymmetric kidneys with atrophic left kidney. She essentially has a solitary functioning kidney. PLAN: On gentle IV hydration. I believe echo has been ordered. If not, I will order one to see what her ejection fraction is. In the meantime, we will start D5 half. If her blood sugar still drops, we will change to dextrose 10%. Please see orders. MD GERA Buckley/ASH /[id number]
[2020-02-24 16:12] LABS: ANION GAP 16.5 mmol/L (8-16); CALCIUM 8.4 mg/dL (8.4-10.2); CREATININE, SERUM 2.22 mg/dL (0.57-1.11); POTASSIUM 3.5 mmol/L (3.5-5.1)
[2020-02-24] MEDS ORDERED: POTASSIUM CHLORIDE 20MEQ/100ML 100 ML IV ONE (17:00)
--- NOTE | 2020-02-24 18:13 | NUR ---
Dr. Baltazar aware of patient's sustained run's of VTACH. Orders given for PIV BMP.
[2020-02-24 18:54] LABS: ANION GAP 18.1 mmol/L (8-16); CALCIUM 8.6 mg/dL (8.4-10.2); CREATININE, SERUM 2.23 mg/dL (0.57-1.11); POTASSIUM 4.1 mmol/L (3.5-5.1)
[2020-02-24 19:15] LABS: CREATINE KINASE MB 2.5 ng/mL (0-5.0)
--- NOTE | 2020-02-24 20:41 | Consultation ---
DATE OF CONSULTATION: 02/24/2020 Cardiology Consultation REQUESTING PHYSICIAN: Lyndon Torres MD. REASON FOR CONSULTATION: VT storm. HISTORY OF PRESENT ILLNESS: This is a 74-year-old woman with history of coronary artery disease, status post myocardial infarction and PCI, chronic systolic heart failure, status post [place] ICD, atrial fibrillation, hypertension, and diabetes mellitus, who presented after multiple ICD shocks. The patient reports that she had gotten up early yesterday morning to go to the bathroom when she felt her legs give out and then her ICD fire. She denied any chest pain, shortness of breath, lightheadedness, or palpitations. Her ICD fired multiple times and she was seen in Cardiology Clinic yesterday morning. ICD was interrogated at that time showing multiple VT and VF episodes. Amiodarone was increased. However, after she left the office, she had multiples additional shocks, so she was instructed to present to the ER for further evaluation. Once in the ER, she was noted to have multiple episodes of ventricular tachycardia for which she was given amiodarone and lidocaine. Due to VT storm, she was intubated overnight. Labs in the ER revealed significant hypokalemia. The patient was admitted for further care. The patient has successfully been extubated this morning and is currently denying any complaints. Of note, she does indicate that she has not been eating well over the last few days due to significant constipation. She has attempted enemas without success. She denies edema, orthopnea, or PND. REVIEW OF SYSTEMS: Negative except as per HPI. PAST MEDICAL HISTORY: 1. Coronary artery disease, status post myocardial infarction and PCI. 2. Chronic systolic heart failure LVEF 20-25%. 3. Status post ICD. 4. Atrial fibrillation. 5. Hypertension with diabetes mellitus. 6. Osteoporosis. 7. Hyperlipidemia. PAST SURGICAL HISTORY: 1. Hysterectomy. 2. Cholecystectomy. 3. Left knee replacement. 4. Right upper lobe lobectomy. ALLERGIES: PLEASE SEE EMR. MEDICATIONS: Please see medication list. SOCIAL HISTORY: Smokes a pack a day. No alcohol. FAMILY HISTORY: Noncontributory to current illness. PHYSICAL EXAMINATION: VITAL SIGNS: Temperature 98 degrees, pulse 86, respiratory rate 18, blood pressure 113/47, and oxygen saturation 99% on 4 L nasal cannula. GENERAL: Chronically ill-appearing elderly woman, frail no acute distress. Awake and alert. HEENT: Normocephalic, atraumatic. Pupils equal. No scleral icterus. NECK: Supple. No thyromegaly. No cervical lymphadenopathy. No carotid bruits. LUNGS: Clear to auscultation bilaterally. No wheezes or crackles. CARDIOVASCULAR: Normal rate, regular rhythm. No murmur. Normal S1, S2. ABDOMEN: Soft, nontender. EXTREMITIES: No edema. NEUROLOGIC: Nonfocal exam. LABORATORY DATA: WBC 12.58, hemoglobin 11.5, hematocrit 34.7, and platelets 302. Sodium 137, potassium 4.1, chloride 99, CO2 of 26, BUN 31, and creatinine 2.24. Troponin 2.375. IMPRESSION: 1. Ventricular tachycardia storm. 2. Elevated troponin, type 2 myocardial infarction secondary to ventricular tachycardia, status post defibrillation. 3. Acute kidney injury. 4. Chronic systolic heart failure, left ventricular ejection fraction 20-25%. 5. Status post implantable cardioverter defibrillator. 6. Coronary artery disease, status post myocardial infarction and percutaneous coronary intervention. 7. Hypertension. 8. Hyperlipidemia. 9. Diabetes mellitus. RECOMMENDATIONS: Aggressive repletion of potassium. Maintain K above 4 and magnesium above 2. Continue amiodarone drip. Appreciate EP adjustment of ICD settings. She will need cardiac catheterization once her renal function improves. Continue supportive care. Resume aspirin and statin. Management of constipation per primary. Thank you for this consult. We will continue to follow. Heavenly Baltazar MD ABS/MODL /[id number]
[2020-02-24 22:37] LABS: CREATININE,URINE RANDOM 76.51 mg/dL (47-110); TOTAL PROTEIN, URINE 17.2 mg/dL (1-14)
--- NOTE | 2020-02-24 23:06 | NUR ---
Patient continues to have runs of V-tachy, last one was [address] Baltazar notified, orders to maintain current amiodarone drip infusing at 0.5mg and to keep patient in the ICU.
[2020-02-25] VITALS (21 sets, daily range): BP systolic 86–130; BP diastolic 39–99
[2020-02-25] MEDS: SODIUM CHLORIDE 0.9% 250ML IRRIG IR SCH ×6 (02:00→20:30)
[2020-02-25] MEDS: DEXTROSE 5%/0.45% SOD CHL 1,000 ML IV SCH ×3 (02:34→21:08)
[2020-02-25 06:05] LABS: ALBUMIN 2.6 g/dL (3.5-5.0); ALBUMIN/GLOBULIN RATIO 0.7 (0.8-2.0); ANION GAP 16.2 mmol/L (8-16); CALCIUM 8.2 mg/dL (8.4-10.2); CREATININE, SERUM 2.05 mg/dL (0.57-1.11); POTASSIUM 3.2 mmol/L (3.5-5.1)
--- NOTE | 2020-02-25 08:42 | Diagnostic Imaging Report ---
Exam: KUB - 2 views Indication: Abdominal Pain Comparison: CT abdomen and pelvis of 10/24/2019 Findings: NG tube with tip in the pyloric region and side-port in the body of the stomach. Partially visualized AICD leads and EKG leads. Nonobstructive bowel gas pattern. No free air. Status post cholecystectomy. No acute osseous injury. Degenerative changes of the visualized spine. Partially visualized lung bases appear clear. Surgical sutures in the left lower abdomen. 4 mm left renal calculus. Impression: NG tube terminates in the pyloric region with side port in the body of the stomach. Nonobstructive bowel gas pattern. No free air. 4 mm left renal calculus. Signed by: Cynthia Mortensen MD on 02/25/2020 8:39 AM
[2020-02-25] MEDS ORDERED: POTASSIUM CHLORIDE 20MEQ/100ML 200 ML IV ONE (09:00)
[2020-02-25] MEDS: AMIODARONE HCL 200 MG TAB PO SCH ×2 (11:00→20:30)
--- NOTE | 2020-02-25 11:15 | Progress Note ---
DATE: 02/25/2020 Cardiology Progress Note SUBJECTIVE: The patient complains of chest pain and shortness of breath. She continues to have brief episodes of slow ventricular tachycardia. OBJECTIVE: VITAL SIGNS: Temperature 98.4 degrees, pulse 89, respiratory rate 16, blood pressure 90/44, and oxygen saturation 98% on 4 L nasal cannula. GENERAL: An elderly woman, chronically ill-appearing, frail, awake and alert, in no acute distress. LUNGS: Clear to auscultation bilaterally. No wheezes or crackles. CARDIAC: Normal rate, regular rhythm. No murmur. Normal S1, S2. ABDOMEN: Soft, tender to palpation. EXTREMITIES: No edema. CARDIAC MEDICATIONS: Amiodarone drip. LABORATORY DATA: Sodium 137, potassium 3.2, chloride 100, CO2 of 24, BUN 26, and creatinine 2.05. TELEMETRY: Telemetry was personally reviewed and interpreted revealing atrial paced rhythm with episodes of slow ventricular tachycardia. IMPRESSION: 1. Ventricular tachycardia storm. 2. Elevated troponin, type 2 myocardial infarction secondary to ventricular tachycardia, status post multiple defibrillation. 3. Acute kidney injury. 4. Chronic systolic heart failure, LVEF 20-25%. 5. Status post implantable cardioverter defibrillator. 6. Coronary artery disease status post myocardial infarction and percutaneous coronary intervention. 7. Hypertension. 8. Diabetes mellitus. RECOMMENDATIONS: Aggressive repletion of potassium. Maintain potassium above 4, preferably 4.5, and magnesium above 2. Change to p.o. amiodarone, 400 mg p.o. b.i.d. She will need cardiac catheterization once her renal function improves. Continue supportive care. Resume aspirin and statin. Management of constipation per primary. In the meantime, we will trend troponin as well as repeat EKG. Thank you for this consult. We will continue to follow. Heavenly Baltazar MD ABS/MODL /[id number]
[2020-02-25] MEDS ORDERED: NITROGLYCERIN 0.4 MG SUBL ONE (12:39)
[2020-02-25] MEDS ORDERED: ASPIRIN 81 MG CHEW TAB ONE (12:40)
[2020-02-25] MEDS ORDERED: ASPIRIN 81 MG CHEW TAB PO SCH (12:50)
[2020-02-25] MEDS: NITROGLYCERIN 0.4 MG SUBL SL PRN ×2 (12:55→13:00)
--- NOTE | 2020-02-25 16:00 | Progress Note ---
DATE: SUBJECTIVE: The patient was extubated yesterday. She has had some intermittent nonsustained ventricular tachycardia. Her potassium is being repleted. She was seen by Nephrology. PHYSICAL EXAMINATION: VITAL SIGNS: The patient is on 4 L. Saturation is 98%. Blood pressure is 94/43 and her pulse is 82. HEENT: Shows no facial swelling or erythema. Oropharynx is normal. LYMPHATIC: Shows no submandibular, cervical, or supraclavicular adenopathy. CARDIAC: Reveals regular rate and rhythm with normal S1 and S2. LUNGS: Auscultation of lungs reveals rhonchorous breath sounds bilaterally. There is no wheezing. ABDOMEN: Soft and nontender. There is no rebound or guarding. EXTREMITIES: Shows no leg edema or calf tenderness. There is no cyanosis or clubbing. SKIN: Shows no rashes. LABORATORY DATA: BUN to creatinine ratio was 26 to 2.05. The potassium is 3.2. The other electrolytes are within normal limits. The albumin is 2.6. White blood cell count is 12.6 and the hemoglobin is 11.5. The platelet count is 302. IMPRESSION: 1. Chronic obstructive pulmonary disease. 2. Chronic renal failure, stage 4. 3. Hypokalemia. 4. Recurrent ventricular tachycardia. 5. Elevated troponins. 6. Chronic systolic congestive heart failure. PLAN: 1. Continue to replace potassium. 2. Continue to follow recommendations of Cardiology and Nephrology. 3. The patient is scheduled for cardiac cath. 4. Continue amiodarone. See Alex MD [facility]/[place] /[id number]
[2020-02-25 18:18] LABS: ANION GAP 16.5 mmol/L (8-16); CALCIUM 8.3 mg/dL (8.4-10.2); CREATININE, SERUM 1.91 mg/dL (0.57-1.11); POTASSIUM 3.5 mmol/L (3.5-5.1)
[2020-02-25] MEDS ORDERED: POTASSIUM CHLORIDE 20MEQ/100ML 300 ML IV ONE (19:30)
[2020-02-26] VITALS (17 sets, daily range): BP systolic 80–127; BP diastolic 37–70
[2020-02-26] MEDS: ONDANSETRON HCL INJ 2MG/ML 2ML 2 MG/ML VIAL IV PRN ×2 (00:30→17:34)
[2020-02-26 05:35] LABS: BASOPHILS # (AUTO) 0.1 (0.0-0.1); BASOPHILS % 0.5 % (0.0-1.0); EOSINOPHILS # (AUTO) 0.3 (0.0-0.4); EOSINOPHILS % 1.7 % (0.0-6.0); HEMATOCRIT 36.4 % (34.2-44.1); HEMOGLOBIN 11.8 g/dL (12.0-16.0); LYMPHOCYTES # (AUTO) 2.6 (1.0-3.2); LYMPHOCYTES % 17.7 % (18.0-39.1); MEAN CORPUSCULAR HEMOGLOBIN 29.9 pg (28-32); MEAN CORPUSCULAR HGB CONC 32.4 g/dL (31-35); MEAN CORPUSCULAR VOLUME 92.4 fL (81-99); MONOCYTES # (AUTO) 0.8 (0.2-0.8); MONOCYTES % 5.5 % (4.4-11.3); NEUTROPHILS # (AUTO) 10.9 (2.1-6.9); NEUTROPHILS % 74.1 % (38.7-80.0); PLATELET COUNT 307 x10e3/uL (140-360); RED BLOOD COUNT 3.94 x10e6/uL (3.6-5.1); RED CELL DISTRIBUTION WIDTH 16.7 % (11.7-14.4)
[2020-02-26 06:04] LABS: ANION GAP 15.4 mmol/L (8-16); CALCIUM 8.5 mg/dL (8.4-10.2); CREATININE, SERUM 1.93 mg/dL (0.57-1.11); POTASSIUM 4.4 mmol/L (3.5-5.1)
--- NOTE | 2020-02-26 07:49 | Consultation ---
DATE OF CONSULTATION: SUBJECTIVE: The patient had no new events overnight. OBJECTIVE: VITAL SIGNS: Temperature 98.3, pulse 86, blood pressure 97/56, sats 97%. GENERAL: She is in no apparent distress, lying in bed. CARDIOVASCULAR: Regular rate and rhythm. LUNGS: Decreased breath sounds bilaterally. ABDOMEN: Good bowel sounds. Soft, nontender. EXTREMITIES: No clubbing or cyanosis. NEUROLOGIC: Moves all extremities x4. LABORATORY DATA: Does show evidence of urinary tract infection. ASSESSMENT AND PLAN: 1. Urinary tract infection. We will start her on some Rocephin per the culture and sensitivity. 2. Ventricular tachycardia. Continue with amiodarone per EP doctor. 3. Kdlcj-ym-uztlsle systolic heart failure. Continue with current care per Cardiology. 4. Leukocytosis. Continue to monitor. 5. Chronic kidney disease stage 3. She is doing better with hydration. 6. Electrolyte imbalance. We will continue to monitor the electrolytes and replace as necessary. 7. Chronic obstructive pulmonary disease. Continue to monitor. 8. Tobacco abuser. Unfortunately, I have had multiple discussions with the patient that she needs to discontinue off smoking, but she refuses. Please see hospital chart for details. MD QUINN Carver/ASH /[id number]
[2020-02-26] MEDS: AMIODARONE HCL 200 MG TAB PO SCH ×2 (09:55→21:00)
[2020-02-26] MEDS: CEFTRIAXONE SOD 1 GM/NS 50 ML 50 ML IV SCH (09:55)
--- NOTE | 2020-02-26 11:55 | Progress Note ---
DATE: 02/26/2020 Cardiology Progress Note SUBJECTIVE: The patient denies chest pain or shortness of breath. OBJECTIVE: VITAL SIGNS: Temperature 98.4 degrees, pulse 91, respiratory rate 20, blood pressure 114/44, and oxygen saturation 98% on room air. GENERAL: Elderly woman, chronically ill-appearing, frail, no acute distress. Awake and alert. LUNGS: Clear to auscultation bilaterally. No wheezes or crackles. CARDIOVASCULAR: Normal rate. Regular rhythm. No murmur. Normal S1 and S2. ABDOMEN: Soft and nontender. EXTREMITIES: No edema. CARDIAC MEDICATIONS: Amiodarone 40 mg p.o. q.12 hours. LABORATORY DATA: WBC 14.75, hemoglobin 11.8, hematocrit 36.4, and platelets 307. Sodium 135, potassium 4.4, chloride 102, CO2 22, BUN 18, and creatinine 1.93. Troponin 0.828 overnight. Telemetry was personally reviewed and interpreted, revealing paced rhythm. IMPRESSION: 1. Ventricular tachycardia storm. 2. Elevated troponin and type 2 myocardial infarction secondary to ventricular tachycardia, status post defibrillation. 3. Acute kidney injury, improved. 4. Chronic systolic heart failure, LVEF 20% to 25%. 5. Status post ICD. 6. Coronary artery disease, status post myocardial infarction and percutaneous coronary intervention. 7. Hypertension. 8. Diabetes mellitus. RECOMMENDATIONS: Continue repletion of potassium. Goal is to maintain potassium above 4.5. Keep magnesium above 2. Continue amiodarone at current dose. She will need cardiac catheterization. We will discuss with Renal if she is ready to proceed at this point. Continue supportive care. Resume aspirin and statin. Management of constipation per primary. Thank you for this consult. We will continue to follow. Heavenly Baltazar MD ABS/MODL /[id number]
--- NOTE | 2020-02-26 16:15 | NUR ---
Dr Ramachandran at bedside. Per patricia KAPLAN for heart cath tomorrow. All questions answered by Dr Ramachandran, patient has no other questions at this time.
[2020-02-26] MEDS: DEXTROSE 5%/0.45% SOD CHL 1,000 ML IV SCH (16:58)
[2020-02-26] MEDS ORDERED: ACETYLCYSTEINE 200 MG/ML 4ML VIAL PO SCH (17:00)
[2020-02-26] MEDS: PRAVASTATIN 20 MG TAB PO SCH (21:00)
[2020-02-27] VITALS (8 sets, daily range): BP systolic 90–132; BP diastolic 48–61
[2020-02-27] MEDS: ONDANSETRON HCL INJ 2MG/ML 2ML 2 MG/ML VIAL IV PRN
[2020-02-27] MEDS: DEXTROSE 5%/0.45% SOD CHL 1,000 ML IV SCH ×2 (01:00→14:13)
[2020-02-27 04:31] LABS: BASOPHILS # (AUTO) 0.1 (0.0-0.1); BASOPHILS % 0.7 % (0.0-1.0); EOSINOPHILS # (AUTO) 0.6 (0.0-0.4); EOSINOPHILS % 4.7 % (0.0-6.0); HEMATOCRIT 33.1 % (34.2-44.1); HEMOGLOBIN 10.6 g/dL (12.0-16.0); LYMPHOCYTES # (AUTO) 2.8 (1.0-3.2); LYMPHOCYTES % 24.2 % (18.0-39.1); MEAN CORPUSCULAR HEMOGLOBIN 29.7 pg (28-32); MEAN CORPUSCULAR VOLUME 92.7 fL (81-99); MONOCYTES # (AUTO) 0.7 (0.2-0.8); MONOCYTES % 6.1 % (4.4-11.3); NEUTROPHILS # (AUTO) 7.5 (2.1-6.9); NEUTROPHILS % 63.9 % (38.7-80.0); PLATELET COUNT 276 x10e3/uL (140-360); RED BLOOD COUNT 3.57 x10e6/uL (3.6-5.1); RED CELL DISTRIBUTION WIDTH 16.7 % (11.7-14.4)
[2020-02-27 04:48] LABS: ANION GAP 13.5 mmol/L (8-16); CREATININE, SERUM 1.92 mg/dL (0.57-1.11); POTASSIUM 3.5 mmol/L (3.5-5.1)
[2020-02-27] MEDS: CEFTRIAXONE SOD 1 GM/NS 50 ML 50 ML IV SCH (08:42)
[2020-02-27] MEDS: AMIODARONE HCL 200 MG TAB PO SCH ×2 (09:00→21:26)
[2020-02-27] MEDS: ASPIRIN 81 MG ENTERIC COATED PO SCH (09:00)
[2020-02-27] MEDS ORDERED: MIDAZOLAM HCL 2 MG/2 ML VIAL ONE ×2 (12:19→15:43)
[2020-02-27] MEDS ORDERED: LIDOCAINE HCL 2% LOCAL 20 ML VIAL ONE (12:19)
[2020-02-27] MEDS ORDERED: FENTANYL CITRATE/PF 100MCG/2 ML INJ ONE ×2 (12:19→15:48)
[2020-02-27] MEDS ORDERED: IOPAMIDOL 370 MG/ML 200 ML INFUS..BTL INJ ONE (12:21)
[2020-02-27] MEDS ORDERED: HEPARIN SOD/SOD CHLORIDE 2,000 ML ONE (12:21)
[2020-02-27] MEDS ORDERED: SODIUM CHLORIDE 0.9% 1000ML 1,000 ML ONE ×2 (12:21→15:35)
[2020-02-27] MEDS ORDERED: PHENYLEPHRINE HCL 1% 10 MG/ML VIAL ONE (15:16)
[2020-02-27] MEDS ORDERED: SODIUM CHLORIDE 0.9% 100 ML ONE (15:17)
[2020-02-27] MEDS ORDERED: ONDANSETRON HCL INJ 2MG/ML 2ML 2 MG/ML VIAL ONE (15:59)
[2020-02-27] MEDS ORDERED: ACETYLCYSTEINE 200 MG/ML 4ML VIAL PO SCH (16:00)
[2020-02-27] MEDS ORDERED: ASPIRIN 325 MG TAB ONE (16:43)
[2020-02-27] MEDS ORDERED: CLOPIDOGREL BISULFATE 75 MG TAB ONE (16:43)
[2020-02-27] MEDS ORDERED: ELIQUIS2.5 MG PO (17:59)
--- NOTE | 2020-02-27 18:45 | Progress Note ---
DATE: 02/27/2020 Cardiology Progress Note SUBJECTIVE: No major events. Had PCI to the RCA earlier today complaining about back pain. Otherwise, she says she feels okay. OBJECTIVE: VITAL SIGNS: Temperature afebrile, pulse 82, respiratory rate 14, blood pressure is 110/56, saturating 98% on nasal cannula. GENERAL: Elderly female, in no acute distress. CARDIOVASCULAR: Regular rate and rhythm. No murmurs, rubs, or gallops. LUNGS: Clear to auscultation anteriorly. ABDOMEN: Soft, nontender, nondistended. NEURO AND PSYCH: Alert and oriented to person, place, and time. Normal affect. INPATIENT MEDICATIONS: Reviewed. LABORATORY DATA: Reviewed. TELEMETRY DATA: Reviewed, shows normal sinus rhythm with intermittent episodes of pacing. ASSESSMENT/PLAN: 1. Non-ST elevation myocardial infarction. 2. History of coronary artery disease, status post PCI. 3. Chronic systolic congestive heart failure, EF less than 20%. 4. Ventricular tachycardia, status post ICD shock. PLAN: Had PCI to the RCA today. Continue medical therapy for CHF and replete potassium as needed. Start aspirin 81 mg daily and Plavix 75 mg daily along with her Eliquis 2.5 mg b.i.d. Continue triple therapy for 30 days followed by stopping aspirin 81 mg daily after 30 days. MD MAKAYLA Henry/MARIANNEL /[id number]
[2020-02-27] MEDS: PANTOPRAZOLE SOD 40 MG TABEC PO SCH (19:51)
--- NOTE | 2020-02-27 20:01 | Operative Report ---
DATE OF PROCEDURE: 02/27/2020 SURGEON: Lexx Li MD CARDIAC CATHETERIZATION REPORT INDICATION FOR PROCEDURE: Non-ST elevation PR, ventricular tachycardia. History of coronary artery disease. PREPROCEDURE ASSESSMENT: The risks, benefits, and alternatives to treatment explained to the patient prior to the procedure. The patient was deemed to be appropriate candidate for moderate sedation. Based on review social history, medical history and prior experience with anesthesia, informed consent was obtained and documented in the medical records. MEDICATIONS: Please see nursing notes for medications administered throughout the procedure. PROCEDURES PERFORMED: 1. Coronary angiography right femoral approach. 2. Left heart catheterization. 3. Arthrectomy of RCA with CSI orbital arthrectomy system. 4. Stenting of the RCA with drug-eluting stent x2. 5. Femoral angiography. 6. Vascular closure device ProGlide. 7. Moderate sedation time, approximately 120 minute. PROCEDURE DETAILS: The patient was brought to the cardiac catheterization laboratory in a fasting state. Right groin was prepped and draped in a sterile fashion. A 6-[place]awk Slender sheath was inserted in the right common femoral artery under ultrasound guidance using micropuncture equipment. There was severe calcification present in the distal common femoral artery going into the ostium of the SFA. Coronary angiography was performed using 5-Mohawk JR4 and JL4 diagnostic catheters. Multiple orthogonal views were taken. Left heart catheterization was performed using a JR4 catheter. This demonstrated severely calcified 90% tandem lesions in the mid and distal RCA and patent LAD stent. We decided to proceed with PCI. PCI of the RCA. A 6-Mohawk multipurpose guide was used, which provided fairly adequate support. It was very difficult to engage the RCA ostium due to the angulation of the takeoff as well as tortuosity of the aorta and severe calcification around the ostium. After some effort, we were able to engage the RCA ostium and passed the wire into the mid RCA with assistance of a 2.0 x 15 mm balloon. We were able to advance the wire into the distal RCA. We attempted to pre-dilate the lesions using the 2.0 x 15 mm balloon. However, despite 20 atmospheres of pressure, the lesion was severely calcified and did not dilate at all. We decided to proceed with an arthrectomy. For arthrectomy run-through wire, which we used initially to cross into the distal RCA was exchanged for a Viper wire over a teleport microcatheter. Two passes were performed at low rpm to both the tandem lesions of the RCA. A dose of 50 of Jared-Synephrine had to be given to maintain pressure over 100 systolic. Once arthrectomy was completed, the guidewire was once again exchanged for a run-through wire over the same palpable catheter that was used previously. The pre-dilated the lesions using a 2.5 x 15 mm compliant balloon passing the stent was extremely difficult due to diffuse calcification and tortuosity and so a GuideLiner had to be used and was advanced to the mid RCA. With help of the GuideLiner were able to advance the stent distally and perform stenting with two 5 x 12 mm stent for the distal RCA lesion and a 2.5 x 20 mm stent for the mid RCA lesion. This provided excellent angiographic result without any significant residual dissection, thrombus, or spasm. All catheters were removed over a wire. Femoral angiography demonstrated access site in the common femoral artery. A ProGlide vascular closure device was deployed successfully and hemostasis was achieved. Loading dose of aspirin and Plavix was given at the end of the case. The patient tolerated the procedure well. There were no immediate complications. SIGNIFICANT FINDINGS: Left main large vessel calcified. No significant stenoses. LAD, large vessel goes to the apex. Patent stent in the proximal LAD. Nondominant left circumflex with one significant OM branch. There is about 40% calcified stenosis of the ostial and proximal left circumflex artery. RCA; large dominant RCA severely calcified diffusely. There is 90% mid and 90% distal RCA lesions and both severely calcified. There is a medium size RPDA and a large RPLV. Left heart catheterization demonstrated LVEDP of 22 with no gradient across aortic valve. GRAFTS AND IMPLANTS: Drug-eluting stent x2, ProGlide vascular closure device. SPECIMEN REMOVED: None. ESTIMATED BLOOD LOSS: 20 mL. COMPLICATIONS: None. FINAL RECOMMENDATIONS: 1. Continue aspirin 81 mg daily and Plavix 75 mg daily along with her Eliquis 2.5 mg b.i.d. for 30 days followed by Plavix 75 mg daily and Eliquis 2.5 mg b.i.d. for life. 2. Optimal medical therapy and risk factor control for CHF and CAD. 3. Follow up in clinic in 2 weeks postprocedure. MD MAKAYLA Henry/MARIANNEL /[id number]
[2020-02-27] MEDS: PRAVASTATIN 20 MG TAB PO SCH (21:26)
--- NOTE | 2020-02-27 22:20 | NUR ---
Pt. bleeding from R groin cath insertion site. Applied pressure for 15 minutes and applied a pressure dressing. Notified Trey, charge nurse.
--- NOTE | 2020-02-27 22:46 | NUR ---
Paged Yogesh Powell.
--- NOTE | 2020-02-27 23:39 | NUR ---
I was able to call Yogesh Powell on his cell phone . Obtained cell phone number from ER nurse. I was able to notify him pt. was bleeding from the cath insertion site on her R groin and that I applied pressure on it for 15 minutes and I applied a pressure dressing.
[2020-02-28] VITALS (7 sets, daily range): BP systolic 107–127; BP diastolic 49–84
--- NOTE | 2020-02-28 05:50 | NUR ---
Dr. Torres here notified him pt. groin was bleeding that I applied pressure for 15 minutes and then applied a pressure dressing. Pressure dressing is clean, dry, intact.
[2020-02-28] MEDS: ACETYLCYSTEINE 200 MG/ML 4ML VIAL PO SCH ×2 (05:54→17:14)
[2020-02-28 06:06] LABS: BASOPHILS # (AUTO) 0.1 (0.0-0.1); BASOPHILS % 0.7 % (0.0-1.0); EOSINOPHILS # (AUTO) 0.5 (0.0-0.4); EOSINOPHILS % 3.7 % (0.0-6.0); HEMATOCRIT 31.2 % (34.2-44.1); HEMOGLOBIN 10.4 g/dL (12.0-16.0); LYMPHOCYTES # (AUTO) 1.7 (1.0-3.2); LYMPHOCYTES % 14.2 % (18.0-39.1); MEAN CORPUSCULAR HEMOGLOBIN 31.9 pg (28-32); MEAN CORPUSCULAR HGB CONC 33.3 g/dL (31-35); MEAN CORPUSCULAR VOLUME 95.7 fL (81-99); MONOCYTES # (AUTO) 0.8 (0.2-0.8); MONOCYTES % 6.3 % (4.4-11.3); NEUTROPHILS # (AUTO) 9.1 (2.1-6.9); NEUTROPHILS % 74.7 % (38.7-80.0); PLATELET COUNT 243 x10e3/uL (140-360); RED BLOOD COUNT 3.26 x10e6/uL (3.6-5.1); RED CELL DISTRIBUTION WIDTH 17.1 % (11.7-14.4)
--- NOTE | 2020-02-28 06:30 | NUR ---
Pressure dressing on her R groin is clean,dry,intact. No bleeding noted.
[2020-02-28 06:34] LABS: ALBUMIN 2.4 g/dL (3.5-5.0); ALBUMIN/GLOBULIN RATIO 0.7 (0.8-2.0); ANION GAP 14.1 mmol/L (8-16); CALCIUM 8.1 mg/dL (8.4-10.2); CREATININE, SERUM 1.9 mg/dL (0.57-1.11); POTASSIUM 3.1 mmol/L (3.5-5.1)
[2020-02-28] MEDS: PANTOPRAZOLE SOD 40 MG TABEC PO SCH ×2 (07:46→17:14)
[2020-02-28] MEDS: CEFTRIAXONE SOD 1 GM/NS 50 ML 50 ML IV SCH (07:47)
[2020-02-28] MEDS ORDERED: ASPIRIN 81 MG ENTERIC COATED PO SCH (09:00)
[2020-02-28] MEDS: ASPIRIN 81 MG ENTERIC COATED PO SCH (09:04)
[2020-02-28] MEDS: ONDANSETRON HCL INJ 2MG/ML 2ML 2 MG/ML VIAL IV PRN ×2 (09:15→14:45)
[2020-02-28] MEDS: AMIODARONE HCL 200 MG TAB PO SCH ×2 (09:45→21:55)
[2020-02-28] MEDS: FENTANYL 25 MCG/HR PATCH TOP SCH (10:11)
[2020-02-28] MEDS: CLOPIDOGREL BISULFATE 75 MG TAB PO SCH (11:22)
--- NOTE | 2020-02-28 11:31 | NUR ---
Muriel CORREA with Dr Marline Cortes has been in with pt and evaluated heart cath puncture site. She has advised to give the plavix and do not remove the pressure dressing from the site until after 4:30 pm tomorrow.
[2020-02-28] MEDS ORDERED: POTASSIUM CHLORIDE 20 MEQ TAB CR PO ONE (12:30)
[2020-02-28] MEDS: CARVEDILOL 3.125 MG TAB PO SCH (13:13)
[2020-02-28] MEDS: APIXAB 2.5 MG TABLET PO SCH ×2 (13:14→21:39)
[2020-02-28] MEDS: DEXTROSE 5%/0.45% SOD CHL 1,000 ML IV SCH (13:14)
--- NOTE | 2020-02-28 13:34 | Progress Note ---
DATE: SUBJECTIVE: The patient had a cath and angioplasty of the right coronary artery yesterday. She has no new complaints this morning, although she does have some discoloration at the groin site. PHYSICAL EXAMINATION: VITAL SIGNS: Blood pressure is 127/84, saturation is 100% on 2 L and the pulse is 88. HEENT: Shows no facial swelling or erythema. LYMPHATIC: Shows no submandibular, cervical, or supraclavicular adenopathy. CARDIAC: Reveals regular rate and rhythm with normal S1 and S2. LUNGS: Auscultation of lungs reveals rhonchorous breath sounds bilaterally. There is no wheezing. ABDOMEN: Soft and nontender. There is no rebound or guarding. EXTREMITIES: Shows no leg edema or calf tenderness. There is no cyanosis or clubbing. SKIN: Shows no rashes. NEUROLOGICAL: Shows no focal abnormalities. LABORATORY DATA: White blood cell count 12.12 and hemoglobin is 10.4. The platelet count is 243. The potassium is 3.1 and the BUN to creatinine ratio is 13 to 1.9. The other electrolytes are within normal limits. Albumin is 2.4. IMPRESSION: 1. Chronic obstructive pulmonary disease. 2. Chronic renal failure, stage 3. 3. Hypokalemia. 4. Coronary artery disease. 5. Chronic systolic congestive heart failure. PLAN: 1. Continue to replace potassium. 2. Monitor blood counts and groin site. 3. Continue current cardiac regimen. See Alex MD LM/MODL /[id number]
--- NOTE | 2020-02-28 13:36 | NUR ---
Nutrition Screen Note RD Recommendation for Physician: Continue diet as ordered Plan of Care: RD following monitoring for tolerance and adequacy Nutrition reason for involvement: LOS Primary Diagnose(s): Chest pain PMH: T2DM, COPD, CKD stage 3, atrial fibrillation with AICD, hx of lung cancer with left lobectomy, [place], CAD, systolic heart failure Ht:65 in Wt: 152 lbs BMI:25.3 kg/m2 IBW:[address] Assessment: Initial encounter with patient. Good PO intake/appetite. Pt has some nausea currently. Pt denies any difficulty chewing or swallowing. Pt is allergic to pineapple and coconut. The Pt is able to feed herself. Pt has missing teeth. Current Diet: 1200 calorie ADA Malnutrition Evaluation (02/28/2020) The patient does not meet criteria for a specified degree of malnutrition at this time. Will re-evaluate at follow-up as appropriate. Diet Education Needs Assessment: Diet education not indicated at this time, pt is familiar with therapeutic diet. Diet tolerance: diet is well tolerated Nutrition Care Level: aashish Adame RD, LD, [facility]
[2020-02-28] MEDS ORDERED: POTASSIUM CHLORIDE 20MEQ/100ML 300 ML IV ONE (13:45)
--- NOTE | 2020-02-28 15:28 | NUR ---
Renal Progress Note SUBJECTIVE: chart reviewed, events noted. s/p heart cath and RCA angioplasty PHYSICAL EXAMINATION: VITAL SIGNS: Blood pressure is 127/84, saturation is 100% on 2 L and the pulse is 88. HEENT: Shows no facial swelling or erythema. LYMPHATIC: Shows no submandibular, cervical, or supraclavicular adenopathy. CARDIAC: RRR LUNGS: CTAB ABDOMEN: soft, NT/ND EXTREMITIES: Shows no leg edema or calf tenderness. There is no cyanosis or clubbing. SKIN: Shows no rashes. NEUROLOGICAL: Shows no focal abnormalities. LABORATORY DATA: White blood cell count 12.12 and hemoglobin is 10.4. The platelet count is 243. The potassium is 3.1 and the BUN to creatinine ratio is 13 to 1.9. The other electrolytes are within normal limits. Albumin is 2.4. A& P DURAN on CKD CAD HTN Hypokalemia - no change in current management from renal standpoint - creatinine stabilizing now - non oliguric - strict I & O - avoid nephrotoxins like NSAID and contrast unless absolute necessity - replace K with KCL 60 meq rest as per primary and consulting team
--- NOTE | 2020-02-28 19:45 | NUR ---
Pt. alert and oriented. Respirations are even and unlabored. Dressing on her R groin in clean,dry,intact. No hematoma or bleeding noted .
[2020-02-28] MEDS: POLYETHYLENE GLYCOL 3350 17 GM PACK PO SCH (20:22)
[2020-02-28] MEDS: ATORVASTATIN 20 MG TAB PO SCH (21:55)
[2020-02-29] VITALS (12 sets, daily range): BP systolic 111–133; BP diastolic 43–75
[2020-02-29] MEDS: DEXTROSE 5%/0.45% SOD CHL 1,000 ML IV SCH ×2 (03:18→12:15)
[2020-02-29] MEDS ORDERED: MAGNESIUM SULFATE 2GM/50ML 50 ML IV ONE (05:15)
[2020-02-29 06:20] LABS: BASOPHILS # (AUTO) 0.1 (0.0-0.1); BASOPHILS % 0.6 % (0.0-1.0); EOSINOPHILS # (AUTO) 0.4 (0.0-0.4); EOSINOPHILS % 4.6 % (0.0-6.0); HEMATOCRIT 29.4 % (34.2-44.1); HEMOGLOBIN 9.6 g/dL (12.0-16.0); LYMPHOCYTES # (AUTO) 1.9 (1.0-3.2); LYMPHOCYTES % 21.9 % (18.0-39.1); MEAN CORPUSCULAR HEMOGLOBIN 30.1 pg (28-32); MEAN CORPUSCULAR HGB CONC 32.7 g/dL (31-35); MEAN CORPUSCULAR VOLUME 92.2 fL (81-99); MONOCYTES # (AUTO) 0.5 (0.2-0.8); MONOCYTES % 6.3 % (4.4-11.3); NEUTROPHILS # (AUTO) 5.7 (2.1-6.9); NEUTROPHILS % 66.1 % (38.7-80.0); PLATELET COUNT 274 x10e3/uL (140-360); RED BLOOD COUNT 3.19 x10e6/uL (3.6-5.1); RED CELL DISTRIBUTION WIDTH 16.5 % (11.7-14.4)
[2020-02-29 06:48] LABS: ALBUMIN 2.3 g/dL (3.5-5.0); ALBUMIN/GLOBULIN RATIO 0.7 (0.8-2.0); ANION GAP 13.5 mmol/L (8-16); CALCIUM 8.1 mg/dL (8.4-10.2); CREATININE, SERUM 1.79 mg/dL (0.57-1.11); POTASSIUM 3.5 mmol/L (3.5-5.1)
[2020-02-29] MEDS: CEFTRIAXONE SOD 1 GM/NS 50 ML 50 ML IV SCH (08:13)
[2020-02-29] MEDS: PANTOPRAZOLE SOD 40 MG TABEC PO SCH ×2 (08:13→17:49)
[2020-02-29] MEDS: AMIODARONE HCL 200 MG TAB PO SCH ×2 (09:56→20:59)
[2020-02-29] MEDS: ASPIRIN 81 MG ENTERIC COATED PO SCH (09:56)
[2020-02-29] MEDS: LINACLOTIDE 145 MCG CAPSULE PO SCH (09:56)
[2020-02-29] MEDS: POLYETHYLENE GLYCOL 3350 17 GM PACK PO SCH (09:56)
[2020-02-29] MEDS: CARVEDILOL 3.125 MG TAB PO SCH (09:57)
[2020-02-29] MEDS: APIXAB 2.5 MG TABLET PO SCH ×2 (09:57→20:59)
[2020-02-29] MEDS: CLOPIDOGREL BISULFATE 75 MG TAB PO SCH (09:58)
[2020-02-29] MEDS ORDERED: POTASSIUM CHLORIDE 20 MEQ TAB CR PO ONE (11:30)
--- NOTE | 2020-02-29 12:17 | Progress Note ---
DATE: Cardiology Progress Note SUBJECTIVE: The patient reports that defibrillator went off yesterday around 7 o'clock in the evening. She does report that the shock felt less than prior. Denies any chest pain, palpitation, or shortness of breath. OBJECTIVE: VITAL SIGNS: Temperature 98.3, pulse 86, respiratory rate 20, blood pressure 133/68, and oxygen saturation 99% on 1 L nasal cannula. GENERAL: Alert and oriented x3. Resting comfortably in the bed. Does not appear to be in any acute distress. NECK: Supple. No JVD noted. CARDIOVASCULAR: Irregular rate and rhythm. Normal S1 and S2. ABDOMEN: Soft and nontender. EXTREMITIES: Lower extremities, no edema. LUNGS: Clear to auscultation throughout. No wheezing. No rhonchi or crackles. CARDIOVASCULAR MEDICATIONS: Plavix 75 mg p.o. daily, apixaban 2.5 mg p.o. q.12 hours, Coreg 3.125 mg p.o. daily, aspirin 81 mg p.o. daily, amiodarone 400 mg p.o. b.i.d., and atorvastatin 40 mg p.o. at bedtime. LABORATORY DATA: WBC 8.55, hemoglobin 9.6, hematocrit 29.4, and platelets 274. Sodium 139, potassium 3.5, BUN 10, and creatinine 1.79. I have personally reviewed telemetry, which reflects atrially paced rhythm. IMPRESSION: 1. Ventricular tachycardia storm. 2. Elevated troponin and type 2 myocardial infarction secondary to ventricular tachycardia and status post defibrillation. 3. [id number] kidney injury. 4. Chronic systolic heart failure, left ventricular ejection fraction of 20% of 25%. 5. Status post ICD. 6. Coronary artery disease, status post myocardial infarction and percutaneous coronary intervention. 7. Hypertension. 8. Diabetes mellitus. RECOMMENDATIONS: Continue with the above-listed cardiac medications. Defibrillator will be interrogated again today. Maintain potassium greater than 4 and magnesium greater than 2. Continue aspirin and Plavix along with Eliquis daily for 30 days, then following that she will require 75 mg of Plavix and Eliquis 2.5 mg b.i.d. for the rest of her life. Continue optimal medical management of the above. We will continue to follow this patient at all times. Dictated by Muriel Coleman, MADELINE MD RIKI Bueno/ASH /[id number]
--- NOTE | 2020-02-29 15:49 | NUR ---
Handoff report to nurse verbalized understanding patient is 1 stand by assist and transfers from bed to bedside commode, nurse made aware, cardiology was informed this morning when SADDLE MECHANIC rounded, patient reported feeling a shock yesterday, cardiology no new orders received
[2020-02-29] MEDS: ATORVASTATIN 20 MG TAB PO SCH (20:59)
[2020-03-01] VITALS (7 sets, daily range): BP systolic 111–124; BP diastolic 52–58
--- NOTE | 2020-03-01 02:54 | Progress Note ---
DATE: 02/28/2020 CARDIOLOGY PROGRESS NOTE: SUBJECTIVE: The patient is without any new complaints this morning. She does endorse some back pain. Denies any chest pain, shortness of breath or palpitations. OBJECTIVE: VITAL SIGNS: Temperature 98.8, pulse 88, respiratory rate 23, blood pressure 127/87, oxygen 100% on 2 L nasal cannula. GENERAL: Alert and oriented x3. Resting comfortably in bed. Does not appear to be in any acute distress. NECK: Supple. No JVD noted. CARDIOVASCULAR: Regular rate and rhythm. Normal S1, S2. S4 noted. ABDOMEN: Soft and nontender. LOWER EXTREMITIES: No edema. LUNGS: Diminished breath sounds anterior lower lobes, otherwise clear to auscultation. No wheezing. No crackles or rhonchi. CARDIOVASCULAR MEDICATIONS: 1. Plavix 75 mg p.o. daily. 2. Amiodarone 400 mg p.o. b.i.d. 3. Aspirin 81 p.o. daily. LABORATORY DATA: WBC 12.12, hemoglobin 10.4, hematocrit 31.2, platelets 243. Sodium 138, potassium 3.1, BUN 13, and creatinine 1.90, glucose 110, AST 22, ALT 18. Left heart cath yesterday with atherectomy of RCA CSI and stenting of RCA with two drug-eluting stents. IMPRESSION: 1. Ventricular tachycardia storm. 2. Elevated troponin and type 2 myocardial infarction secondary to VT status post defibrillation. 3. Acute kidney injury that is improving. 4. Chronic systolic heart failure with left ventricular ejection fraction of 20% to 25%. 5. Status post ICD. 6. Coronary artery disease status post myocardial infarction and percutaneous coronary intervention of the RCA with two stents yesterday. 7. Hypertension. 8. Diabetes mellitus. 9. Atrial fibrillation. RECOMMENDATIONS: Continue with the above-listed cardiac medications. The patient will require to be on aspirin, Plavix, and also Eliquis for next 30 days and then continuing from their Plavix and Eliquis for life time. Maintain on telemetry at all time. Medications adjusted accordingly. Monitor renal function closely. Continue supportive care as needed. Dictated by Muriel Coleman NP MD RIKI Bueno/MODL /[id number]
--- NOTE | 2020-03-01 02:59 | Progress Note ---
DATE: 02/29/2020 Cardiology Progress Note SUBJECTIVE: The patient is without any new complaints this morning. However, she does report her ICD defibrillating going off last night around 7 o'clock in the evening. She reports that she did not lose consciousness and the shock felt less than prior. Denies any chest pain or palpitation. No shortness of breath presently. OBJECTIVE: VITAL SIGNS: Temperature 98.3, pulse 86, respiratory rate 20, blood pressure 133/68. DICTATION ENDS HERE. Dictated by Muriel Coleman, VENEER JOINTER OFFBEARER MD HUGO BuenoV/ASH /[id number]
--- NOTE | 2020-03-01 06:54 | NUR ---
RECEIVED BEDSIDE SHIFT REPORT FROM OFF GOING NURSE. PATIENT IS RESTING IN BED. NO ACUTE DISTRESS NOTED. CALL LIGHT WITHIN REACH. BED IN THE LOWEST POSITION.
[2020-03-01 07:37] LABS: ALBUMIN 2.5 g/dL (3.5-5.0); ALBUMIN/GLOBULIN RATIO 0.8 (0.8-2.0); ANION GAP 12.9 mmol/L (8-16); CALCIUM 8.2 mg/dL (8.4-10.2); CREATININE, SERUM 1.83 mg/dL (0.57-1.11); MAGNESIUM 1.8 MG/DL (1.3-2.1); POTASSIUM 3.9 mmol/L (3.5-5.1)
[2020-03-01 07:41] LABS: BASOPHILS # (AUTO) 0.1 (0.0-0.1); EOSINOPHILS # (AUTO) 0.4 (0.0-0.4); EOSINOPHILS % 4.3 % (0.0-6.0); HEMATOCRIT 32.1 % (34.2-44.1); HEMOGLOBIN 10.2 g/dL (12.0-16.0); LYMPHOCYTES # (AUTO) 2.2 (1.0-3.2); LYMPHOCYTES % 22.9 % (18.0-39.1); MEAN CORPUSCULAR HEMOGLOBIN 29.7 pg (28-32); MEAN CORPUSCULAR HGB CONC 31.8 g/dL (31-35); MEAN CORPUSCULAR VOLUME 93.6 fL (81-99); MONOCYTES # (AUTO) 0.5 (0.2-0.8); MONOCYTES % 5.3 % (4.4-11.3); NEUTROPHILS # (AUTO) 6.2 (2.1-6.9); NEUTROPHILS % 66.1 % (38.7-80.0); PLATELET COUNT 297 x10e3/uL (140-360); RED BLOOD COUNT 3.43 x10e6/uL (3.6-5.1); RED CELL DISTRIBUTION WIDTH 16.5 % (11.7-14.4)
[2020-03-01] MEDS: PANTOPRAZOLE SOD 40 MG TABEC PO SCH ×2 (09:00→15:49)
[2020-03-01] MEDS: CEFTRIAXONE SOD 1 GM/NS 50 ML 50 ML IV SCH (09:00)
[2020-03-01] MEDS: ONDANSETRON HCL INJ 2MG/ML 2ML 2 MG/ML VIAL IV PRN (09:32)
[2020-03-01] MEDS ORDERED: SODIUM CHLORIDE 0.9% 250ML 250 ML ONE (09:41)
[2020-03-01] MEDS: POLYETHYLENE GLYCOL 3350 17 GM PACK PO SCH (09:47)
[2020-03-01] MEDS: CLOPIDOGREL BISULFATE 75 MG TAB PO SCH (09:47)
[2020-03-01] MEDS: APIXAB 2.5 MG TABLET PO SCH ×2 (09:47→21:25)
[2020-03-01] MEDS: LINACLOTIDE 145 MCG CAPSULE PO SCH (09:47)
[2020-03-01] MEDS: POTASSIUM CHLORIDE 20 MEQ TAB CR PO SCH (09:47)
[2020-03-01] MEDS: CARVEDILOL 3.125 MG TAB PO SCH (09:48)
[2020-03-01] MEDS: AMIODARONE HCL 200 MG TAB PO SCH ×2 (09:48→21:25)
[2020-03-01] MEDS: ASPIRIN 81 MG ENTERIC COATED PO SCH (09:48)
--- NOTE | 2020-03-01 10:25 | NUR ---
PEREZ DISCONTINUED WITH TIP INTACT ORDERED. PATIENT TOLERATED IT WELL.
--- NOTE | 2020-03-01 19:11 | NUR ---
BEDSIDE SHIFT REPORT GIVEN TO ONCOMING NURSE. PATIENT IS IN STABLE CONDITION. CALL LIGHT WITHIN REACH. BED IN THE LOWEST POSITION. BED ALARM ON.
[2020-03-01] MEDS: ATORVASTATIN 20 MG TAB PO SCH (21:25)
[2020-03-02] VITALS: BP 127/54
--- NOTE | 2020-03-02 03:20 | Progress Note ---
DATE: 03/01/2020 Cardiology Progress Note SUBJECTIVE: No major events overnight. OBJECTIVE: VITAL SIGNS: Temperature afebrile, pulse 85, respiratory rate 19, blood pressure 111/57, saturating 100% on room air. GENERAL: A 74-year-old female, in no acute distress. CARDIOVASCULAR: Regular rate and rhythm. No murmurs, rubs, or gallops. LUNGS: Clear to auscultation bilaterally. ABDOMEN: Soft, nontender, nondistended. NEURO AND PSYCH: Alert, oriented to person, place, and time. Normal affect. INPATIENT MEDICATIONS: Reviewed. LABORATORY DATA: Reviewed. Creatinine stable at 1.8. TELEMETRY DATA: Reviewed, shows paced rhythm. ASSESSMENT AND PLAN: 1. Chronic systolic congestive heart failure. 2. Ventricular tachycardia, sustained. 3. Non-ST elevation myocardial infarction. 4. Status post AICD placement. 5. Status post PCI to the RCA with drug-eluting stent x2. 6. Hypertension. 7. Diabetes. 8. Atrial fibrillation, on Eliquis. RECOMMENDATIONS: The patient is doing well from cardiovascular standpoint. Creatinine remains stable after the heart catheterization. She has easy bruising and bleeding with aspirin, Plavix, and Eliquis. We will continue triple therapy only for one month and then discontinue aspirin. If she continues to have issues with bleeding, we will consider outpatient referral for possible Watchman device. Otherwise, continue current cardiovascular medications. The patient is okay to go home from a cardiovascular standpoint on current medical regimen with a close outpatient followup one week post discharge. MD MAKAYLA Henry/ASH /[id number]
[2020-03-02 04:00] VITALS: BP 121/52
--- NOTE | 2020-03-02 06:44 | NUR ---
RECEIVED BEDSIDE SHIFT REPORT FROM OFF GOING NURSE. PATIENT IS RESTING IN BED. NO ACUTE DISTRESS NOTED AT THIS TIME. DENIES PAIN OR DISCOMFORT AT THIS TIME. CALL LIGHT WITHIN REACH. BED IN THE LOWEST POSITION.
--- NOTE | 2020-03-02 07:05 | NUR ---
NOTIFIED DR. LUIS THAT PATIENT HAS AN ACTIVE ORDER FOR WOUND CARE AND NOT BEEN SEEN YET, PER MD SEND PATIENT HOME ANYWAY.
[2020-03-02] MEDS: CEFTRIAXONE SOD 1 GM/NS 50 ML 50 ML IV SCH (07:10)
[2020-03-02] MEDS: PANTOPRAZOLE SOD 40 MG TABEC PO SCH (07:10)
--- NOTE | 2020-03-02 07:41 | Discharge Summary ---
DISCHARGE DIAGNOSES: 1. Coronary artery disease, status post stent to the RCA. 2. Sustained ventricular tachycardia, status post ICD firing. 3. Electrolyte imbalance with hypokalemia and hypomagnesium. 4. Chronic kidney disease stage 3. 5. Chronic systolic heart failure. 6. Hypertension. 7. Urinary tract infection. 8. Reflux disease. HISTORY OF PRESENT ILLNESS AND HOSPITAL COURSE: The patient is a lady, who continues to be noncompliant with history of hypertension, chronic systolic heart failure, coronary artery disease, chronic kidney disease stage 3, presented with multiple firings of her ICD, where she was found to have sustained ventricular tachycardia requiring multiple firings, where she was noticed to have significant worsening of her chronic kidney disease as well as evidence of dehydration and electrolyte imbalance with low potassium and low magnesium. She was brought into the ICU, placed on amiodarone drip and was seen by both Cardiology and EP, where they adjusted her ICD. Electrolytes were replaced. She was given hydration. Her kidneys were back to her baseline. Once all this was achieved, her ICD substantially reduced and she did have a heart catheterization done, which showed blockage in the RCA that was successfully stented. Post stenting, she did very well with only one more firing and she did not have any firing about 3 hours. Prior to discharge, her electrolytes were back to normal. She was really wanting to go home, so once she was cleared by Cardiology, she was discharged home with a new medication being Plavix and continuation of her home medicines. She will follow up in 1 to 2 weeks with me as well as with Cardiology and the patient was once again instructed she needs to quit smoking or she will continue to deteriorate and eventually sooner prior rather than later. Please see hospital chart for full details. MD QUINN Carver/ASH /[id number]
[2020-03-02 09:02] VITALS: BP 121/51
[2020-03-02] MEDS: AMIODARONE HCL 200 MG TAB PO SCH (09:40)
[2020-03-02] MEDS: ASPIRIN 81 MG ENTERIC COATED PO SCH (09:40)
[2020-03-02] MEDS: LINACLOTIDE 145 MCG CAPSULE PO SCH (09:41)
[2020-03-02] MEDS: APIXAB 2.5 MG TABLET PO SCH (09:41)
[2020-03-02] MEDS: CARVEDILOL 3.125 MG TAB PO SCH (09:41)
[2020-03-02] MEDS: CLOPIDOGREL BISULFATE 75 MG TAB PO SCH (09:41)
[2020-03-02] MEDS: POLYETHYLENE GLYCOL 3350 17 GM PACK PO SCH (09:41)
[2020-03-02] MEDS: POTASSIUM CHLORIDE 20 MEQ TAB CR PO SCH (09:41)
[2020-03-02] MEDS: FENTANYL 25 MCG/HR PATCH TOP SCH (09:43)
[2020-03-02 09:53] VITALS: BP 121/51
[2020-03-02 12:28] VITALS: BP 109/71
--- NOTE | 2020-03-02 12:42 | NUR ---
RECEIVED DC ORDER FROM MD. PATIENT IS IN STABLE CONDITION. IV LINE TO RIGHT HAND DCD WITH TIP INTACT, PRESSURE DRESSING APPLIED TO SITE. RIGHT IJ DISCONTINUED WITH TIP INTACT, PRESSURE DRESSING APPLIED. DISCHARGE TEACHING PROVIDED TO PATIENT, SHE VERBALIZED UNDERSTANDING. TRANSFER OF CARE FOLDER WITH DC PAPERWORK/PRESCRIPTIONS AND PERSONAL ITEMS ON HAND. PATIENT ACCOMPANIED TO PRIVATE AUTO VIA WHEELCHAIR BY STAFF.
== END 2020-03-02 12:42 | disposition home or self-care (01) | DRG 246 ==
LOC: ER 14:12 → ERHOLD 14:36 → ICU 02-24 00:36 → IMCU 02-26 14:19 → MED/SURG3 02-29 16:06
PROVIDERS: ADMIT Internal Medicine; ATTEND Internal Medicine
PROC: 0BH18EZ Insertion of Endotracheal Airway into Trachea, Via Natural or Artificial Opening Endoscopic (ICD-10-PCS; 2020-02-23)
PROC: 5A1935Z Respiratory Ventilation, Less than 24 Consecutive Hours (ICD-10-PCS; 2020-02-23)
PROC: 02HV33Z Insertion of Infusion Device into Superior Vena Cava, Percutaneous Approach (ICD-10-PCS; 2020-02-23)
PROC: 027035Z Dilation of Coronary Artery, One Artery with Two Drug-eluting Intraluminal Devices, Percutaneous Approach (ICD-10-PCS; principal; 2020-02-27)
PROC: X2C0361 Extirpation of Matter from Coronary Artery, One Artery using Orbital Atherectomy Technology, Percutaneous Approach, New Technology Group 1 (ICD-10-PCS; 2020-02-27)
PROC: 4A023N7 Measurement of Cardiac Sampling and Pressure, Left Heart, Percutaneous Approach (ICD-10-PCS; 2020-02-27)
PROC: B2111ZZ Fluoroscopy of Multiple Coronary Arteries using Low Osmolar Contrast (ICD-10-PCS; 2020-02-27)
PROC: B2151ZZ Fluoroscopy of Left Heart using Low Osmolar Contrast (ICD-10-PCS; 2020-02-27)
PROC: B41D1ZZ Fluoroscopy of Aorta and Bilateral Lower Extremity Arteries using Low Osmolar Contrast (ICD-10-PCS; 2020-02-27)
DX: I47.2 Ventricular tachycardia (principal); I21.4 Non-ST elevation (NSTEMI) myocardial infarction; I50.22 Chronic systolic (congestive) heart failure; I13.0 Hypertensive heart and chronic kidney disease with heart failure and stage 1 through stage 4 chronic kidney disease, or unspecified chronic kidney disease; N39.0 Urinary tract infection, site not specified; N17.9 Acute kidney failure, unspecified; N18.4 Chronic kidney disease, stage 4 (severe); E87.2 Acidosis; J44.9 Chronic obstructive pulmonary disease, unspecified; K21.9 Gastro-esophageal reflux disease without esophagitis; E87.6 Hypokalemia; E83.42 Hypomagnesemia; I25.10 Atherosclerotic heart disease of native coronary artery without angina pectoris; E11.9 Type 2 diabetes mellitus without complications; Z95.810 Presence of automatic (implantable) cardiac defibrillator; Z96.642 Presence of left artificial hip joint; Z85.038 Personal history of other malignant neoplasm of large intestine; E86.0 Dehydration
CPT/HCPCS: 31500; 36415; 36555; 51700; 71045; 74018; 76770; 80048; 80053; 80307; 81001; 82550; 82553; 82570; 82805; 82948; 83605; 83735; 83880; 84156; 84443; 84484; 85025; 85379; 87040; 87086; 87186; 92933; 93005; 93306; 93454; 94002; 94003; 97139; 99152; 99153; 99285; C1725; C1760; C1769; C1874; C1887; C1894; J0330; J0696; J2001; J2250; J2370; J2405; J3010; J3475; J3480; J7030; J7050; J7060; J7121; J7799; Q9967; U0002

== ENCOUNTER 2020-03-29 20:18 | Inpatient (IN) | payer MEDICARE, OTHER ==
[~2020-03-29] VITALS: Ht 162.6 cm; Wt 60.4 kg
[~2020-03-29 20:18] MED LIST changes: +ELIQUIS2.5 MG PO; +FENTANYL1 EAC1 TOP
[2020-03-29] MEDS ORDERED: ONDANSETRON HCL INJ 2MG/ML 2ML 2 MG/ML VIAL IV STA (20:51)
[2020-03-29 20:59] LABS: BASOPHILS # (AUTO) 0.1 (0.0-0.1); BASOPHILS % 0.4 % (0.0-1.0); EOSINOPHILS # (AUTO) 0.1 (0.0-0.4); EOSINOPHILS % 0.6 % (0.0-6.0); HEMATOCRIT 31.9 % (34.2-44.1); HEMOGLOBIN 9.9 g/dL (12.0-16.0); LYMPHOCYTES # (AUTO) 3.1 (1.0-3.2); LYMPHOCYTES % 17.6 % (18.0-39.1); MEAN CORPUSCULAR HEMOGLOBIN 28.4 pg (28-32); MEAN CORPUSCULAR VOLUME 91.4 fL (81-99); MONOCYTES # (AUTO) 1.1 (0.2-0.8); MONOCYTES % 6.1 % (4.4-11.3); NEUTROPHILS # (AUTO) 13.3 (2.1-6.9); NEUTROPHILS % 74.6 % (38.7-80.0); PLATELET COUNT 480 x10e3/uL (140-360); RED BLOOD COUNT 3.49 x10e6/uL (3.6-5.1); RED CELL DISTRIBUTION WIDTH 15.5 % (11.7-14.4)
[2020-03-29] MEDS ORDERED: ONDANSETRON HCL INJ 2MG/ML 2ML 2 MG/ML VIAL ONE (21:00)
[2020-03-29 21:09] LABS: INR 1.04; PROTHROMBIN TIME 14.1 seconds (11.9-14.5)
[2020-03-29 21:10] LABS: PARTIAL THROMBOPLASTIN TIME 29.5 seconds (23.8-35.5)
[2020-03-29 21:16] LABS: AMYLASE 167 U/L (25-125); LIPASE 48 U/L (8-78)
[2020-03-29 21:19] LABS: ALBUMIN 4.2 g/dL (3.5-5.0); ALBUMIN/GLOBULIN RATIO 1.2 (0.8-2.0); CALCIUM 9.1 mg/dL (8.4-10.2); CREATININE, SERUM 2.29 mg/dL (0.57-1.11)
[2020-03-29 21:25] LABS: CREATINE KINASE MB 1.1 ng/mL (0-5.0)
[2020-03-29] MEDS ORDERED: DIATRIZOATE MEGL/DIATRIZOA SOD 30 ML BTL PO ONE (22:34)
[2020-03-29 22:37] LABS: BILIRUBIN,URINE NEGATIVE (NEGATIVE); CLARITY,URINE CLEAR (CLEAR); COLOR,URINE YELLOW (YELLOW); KETONES,URINE NEGATIVE (NEGATIVE); LEUKOCYTE ESTERASE ,URINE NEGATIVE (NEGATIVE); NITRITE,URINE NEGATIVE (NEGATIVE); PROTEIN,URINE DIPSTICK NEGATIVE (NEGATIVE); URINE UROBILINOGEN 0.2 mg/dL (0.2 - 1)
[2020-03-29 22:45] LABS: BACTERIA,URINE FEW /HPF; EPITHELIAL CELLS,URINE MODERATE /LPF; RBC,URINE 0-5 /HPF (0-5); WBC,URINE (MAN) 0-5 /HPF (0-5)
[2020-03-30] VITALS (8 sets, daily range): BP systolic 107–156; BP diastolic 51–67
[2020-03-30] MEDS ORDERED: ONDANSETRON HCL INJ 2MG/ML 2ML 2 MG/ML VIAL IV PRN (01:30)
[2020-03-30] MEDS ORDERED: SODIUM CHLORIDE 0.9% 1000ML 1,000 ML IV ONE (01:30)
[2020-03-30] MEDS ORDERED: MORPHINE SULFATE 2 MG/ML SYR 1ML IV PRN (01:45)
[2020-03-30] MEDS: LEVOFLOXACIN 500MG/D5W 100ML IV SCH (02:01)
[2020-03-30] MEDS: METRONIDAZOLE 500MG/NS 100ML IV SCH ×4 (03:40→17:51)
[2020-03-30] MEDS ORDERED: COLACE100 MG PO (04:47)
[2020-03-30] MEDS ORDERED: PLAVIX75 MG PO (04:47)
[2020-03-30] MEDS ORDERED: MIRALAX17 GM PO (04:47)
[2020-03-30] MEDS: PANTOPRAZOLE SOD 40 MG TABEC PO SCH (08:05)
[2020-03-30] MEDS ORDERED: ISOSORBIDE MONONITRATE 30 MG TAB CR PO SCH (09:00)
[2020-03-30] MEDS: APIXAB 2.5 MG TABLET PO SCH ×2 (09:03→17:25)
[2020-03-30] MEDS: ASPIRIN 81 MG CHEW TAB PO SCH (09:03)
[2020-03-30] MEDS: DOCUSATE SODIUM 100 MG CAP PO SCH (09:03)
[2020-03-30] MEDS: POLYETHYLENE GLYCOL 3350 17 GM PACK PO SCH (09:04)
[2020-03-30] MEDS: METOPROLOL SUCCINATE 50 MG TAB XL PO SCH (09:04)
[2020-03-30] MEDS: CLOPIDOGREL BISULFATE 75 MG TAB PO SCH (09:04)
[2020-03-30 10:22] LABS: CREATINE KINASE MB 1.3 ng/mL (0-5.0)
[2020-03-30] MEDS: ISOSORBIDE MONONITRATE 30 MG TAB CR PO SCH (13:00)
[2020-03-30] MEDS: RANOLAZINE 500 MG TABSR PO SCH ×2 (13:00→21:27)
[2020-03-30 19:02] LABS: CREATINE KINASE MB 1.2 ng/mL (0-5.0)
[2020-03-30] MEDS ORDERED: ATORVASTATIN 20 MG TAB PO SCH (21:00)
[2020-03-30] MEDS ORDERED: MONTELUKAST SODIUM 10 MG TAB PO SCH (21:00)
[2020-03-31] VITALS: BP 131/58
[2020-03-31] MEDS: METRONIDAZOLE 500MG/NS 100ML IV SCH ×3 (00:20→11:13)
[2020-03-31] MEDS: LEVOFLOXACIN 500MG/D5W 100ML IV SCH (02:15)
[2020-03-31 04:00] VITALS: BP 125/61
[2020-03-31 06:03] LABS: BASOPHILS # (AUTO) 0.1 (0.0-0.1); BASOPHILS % 0.4 % (0.0-1.0); EOSINOPHILS # (AUTO) 0.1 (0.0-0.4); EOSINOPHILS % 0.7 % (0.0-6.0); HEMATOCRIT 27.9 % (34.2-44.1); HEMOGLOBIN 9.1 g/dL (12.0-16.0); LYMPHOCYTES # (AUTO) 2.4 (1.0-3.2); LYMPHOCYTES % 19.9 % (18.0-39.1); MEAN CORPUSCULAR HEMOGLOBIN 30.5 pg (28-32); MEAN CORPUSCULAR HGB CONC 32.6 g/dL (31-35); MEAN CORPUSCULAR VOLUME 93.6 fL (81-99); MONOCYTES # (AUTO) 0.7 (0.2-0.8); MONOCYTES % 5.4 % (4.4-11.3); NEUTROPHILS # (AUTO) 8.9 (2.1-6.9); NEUTROPHILS % 73.2 % (38.7-80.0); PLATELET COUNT 371 x10e3/uL (140-360); RED BLOOD COUNT 2.98 x10e6/uL (3.6-5.1); RED CELL DISTRIBUTION WIDTH 15.4 % (11.7-14.4)
[2020-03-31 06:29] LABS: ALBUMIN 3.8 g/dL (3.5-5.0); ALBUMIN/GLOBULIN RATIO 1.3 (0.8-2.0); ANION GAP 13.9 mmol/L (8-16); CREATININE, SERUM 1.87 mg/dL (0.57-1.11); POTASSIUM 3.9 mmol/L (3.5-5.1)
[2020-03-31 07:49] VITALS: BP 145/61
[2020-03-31 08:01] VITALS: BP 145/61
[2020-03-31] MEDS: ISOSORBIDE MONONITRATE 30 MG TAB CR PO SCH (09:21)
[2020-03-31] MEDS: APIXAB 2.5 MG TABLET PO SCH (09:21)
[2020-03-31] MEDS: ASPIRIN 81 MG CHEW TAB PO SCH (09:21)
[2020-03-31] MEDS: DOCUSATE SODIUM 100 MG CAP PO SCH (09:21)
[2020-03-31] MEDS: PANTOPRAZOLE SOD 40 MG TABEC PO SCH (09:21)
[2020-03-31] MEDS: METOPROLOL SUCCINATE 50 MG TAB XL PO SCH (09:22)
[2020-03-31] MEDS: RANOLAZINE 500 MG TABSR PO SCH (09:22)
[2020-03-31] MEDS: CLOPIDOGREL BISULFATE 75 MG TAB PO SCH (09:22)
[2020-03-31] MEDS: POLYETHYLENE GLYCOL 3350 17 GM PACK PO SCH (09:22)
[2020-03-31 11:39] VITALS: BP 124/58
[2020-03-31] MEDS ORDERED: RANEXA500 MG PO (13:04)
[2020-03-31] MEDS ORDERED: IMDUR PO (13:04)
== END 2020-03-31 14:26 | disposition home or self-care (01) | DRG 392 ==
LOC: ER 20:35 → ERHOLD 03-30 01:35 → MED/SURG3 03-30 03:41
PROVIDERS: ADMIT Internal Medicine; ATTEND Internal Medicine
DX: K57.32 Diverticulitis of large intestine without perforation or abscess without bleeding (principal); I50.22 Chronic systolic (congestive) heart failure; I13.0 Hypertensive heart and chronic kidney disease with heart failure and stage 1 through stage 4 chronic kidney disease, or unspecified chronic kidney disease; R07.89 Other chest pain; I48.0 Paroxysmal atrial fibrillation; Z95.5 Presence of coronary angioplasty implant and graft; Z95.810 Presence of automatic (implantable) cardiac defibrillator; I25.2 Old myocardial infarction; Z96.652 Presence of left artificial knee joint; I25.10 Atherosclerotic heart disease of native coronary artery without angina pectoris; Z88.5 Allergy status to narcotic agent; Z91.018 Allergy to other foods; Z11.59 Encounter for screening for other viral diseases; Z82.49 Family history of ischemic heart disease and other diseases of the circulatory system; N18.3 Chronic kidney disease, stage 3 (moderate); E11.22 Type 2 diabetes mellitus with diabetic chronic kidney disease; D64.9 Anemia, unspecified; Z79.82 Long term (current) use of aspirin; Z79.84 Long term (current) use of oral hypoglycemic drugs
CPT/HCPCS: 36415; 71045; 74176; 80053; 81001; 82150; 82550; 82553; 82948; 83690; 83735; 84484; 85025; 85610; 85730; 93005; 99284; J1956; J2270; J2405; J7030; U0002

== ENCOUNTER 2020-06-21 17:07 | Observation (INO) | payer MEDICARE ==
[~2020-06-21] VITALS: Ht 162.6 cm; Wt 60.3 kg
[~2020-06-21 17:07] MED LIST changes: +COLACE100 MG PO; +IMDUR PO; +MIRALAX17 GM PO; +PLAVIX75 MG PO; +RANEXA500 MG PO
[2020-06-21 17:42] LABS: BASOPHILS # (AUTO) 0.1 (0.0-0.1); BASOPHILS % 0.5 % (0.0-1.0); EOSINOPHILS # (AUTO) 0.1 (0.0-0.4); EOSINOPHILS % 1.5 % (0.0-6.0); HEMATOCRIT 26.5 % (34.2-44.1); HEMOGLOBIN 7.7 g/dL (12.0-16.0); LYMPHOCYTES # (AUTO) 2.2 (1.0-3.2); LYMPHOCYTES % 23.7 % (18.0-39.1); MEAN CORPUSCULAR HEMOGLOBIN 22.5 pg (28-32); MEAN CORPUSCULAR HGB CONC 29.1 g/dL (31-35); MEAN CORPUSCULAR VOLUME 77.5 fL (81-99); MONOCYTES # (AUTO) 0.7 (0.2-0.8); MONOCYTES % 7.4 % (4.4-11.3); NEUTROPHILS # (AUTO) 6.1 (2.1-6.9); NEUTROPHILS % 66.6 % (38.7-80.0); PLATELET COUNT 303 x10e3/uL (140-360); RED BLOOD COUNT 3.42 x10e6/uL (3.6-5.1); RED CELL DISTRIBUTION WIDTH 17.9 % (11.7-14.4)
[2020-06-21] MEDS ORDERED: AMIODARONE HCL 150 MG/100 ML BAG IV ONE (17:45)
[2020-06-21 17:51] LABS: INR 1.02; PROTHROMBIN TIME 13.9 seconds (11.9-14.5)
[2020-06-21 17:52] LABS: PARTIAL THROMBOPLASTIN TIME 31.1 seconds (23.8-35.5)
[2020-06-21] MEDS ORDERED: AMIODARONE HCL 150MG 100 ML ONE (17:57)
[2020-06-21 17:58] LABS: ALBUMIN 3.3 g/dL (3.5-5.0); ALBUMIN/GLOBULIN RATIO 0.8 (0.8-2.0); ANION GAP 15.2 mmol/L (8-16); CREATININE, SERUM 2.03 mg/dL (0.57-1.11); POTASSIUM 3.2 mmol/L (3.5-5.1)
[2020-06-21] MEDS ORDERED: AMIODARONE HCL 150 MG in DEXTROSE 5% 100ML 100 ML IV SCH (18:00)
[2020-06-21 18:05] LABS: CREATINE KINASE MB 1.4 ng/mL (0-5.0)
[2020-06-21] MEDS ORDERED: ONDANSETRON HCL INJ 2MG/ML 2ML 2 MG/ML VIAL IV STA (18:14)
[2020-06-21] MEDS ORDERED: ASPIRIN 81 MG CHEW TAB PO ONE (21:00)
[2020-06-21] MEDS ORDERED: NITROGLYCERIN 0.4 MG SUBL SL PRN (21:00)
[2020-06-21] MEDS: ONDANSETRON HCL INJ 2MG/ML 2ML 2 MG/ML VIAL IV PRN (22:39)
[2020-06-21] MEDS: MORPHINE SULFATE 2 MG/ML SYR 1ML IV PRN (22:41)
[2020-06-21 23:22] VITALS: BP 119/50
[2020-06-21 23:30] VITALS: BP 119/50
[2020-06-22] MEDS ORDERED: WARFARIN SODIUM5 MG PO (00:14)
[2020-06-22] MEDS ORDERED: POTASSIUM CHLO10 ME1 PO (00:15)
[2020-06-22] MEDS ORDERED: NITROGLYCERIN 0.4 MG SUBL SL SCH (04:00)
[2020-06-22] MEDS ORDERED: ONDANSETRON HCL 4 MG ORAL DISINTEGRATING TAB PO PRN (04:00)
[2020-06-22] MEDS ORDERED: POLYETHYLENE GLYCOL 3350 17 GM PACK PO PRN (04:00)
[2020-06-22] MEDS: MORPHINE SULFATE 2 MG/ML SYR 1ML IV PRN ×2 (04:20→10:19)
[2020-06-22] MEDS: ONDANSETRON HCL INJ 2MG/ML 2ML 2 MG/ML VIAL IV PRN (04:20)
[2020-06-22 04:53] LABS: BASOPHILS % 0.5 % (0.0-1.0); EOSINOPHILS # (AUTO) 0.1 (0.0-0.4); EOSINOPHILS % 1.4 % (0.0-6.0); HEMATOCRIT 25.6 % (34.2-44.1); HEMOGLOBIN 7.3 g/dL (12.0-16.0); LYMPHOCYTES # (AUTO) 1.8 (1.0-3.2); LYMPHOCYTES % 19.9 % (18.0-39.1); MEAN CORPUSCULAR HEMOGLOBIN 22.2 pg (28-32); MEAN CORPUSCULAR HGB CONC 28.5 g/dL (31-35); MEAN CORPUSCULAR VOLUME 77.8 fL (81-99); MONOCYTES # (AUTO) 0.6 (0.2-0.8); MONOCYTES % 6.3 % (4.4-11.3); NEUTROPHILS # (AUTO) 6.3 (2.1-6.9); NEUTROPHILS % 71.6 % (38.7-80.0); PLATELET COUNT 264 x10e3/uL (140-360); RED BLOOD COUNT 3.29 x10e6/uL (3.6-5.1); RED CELL DISTRIBUTION WIDTH 17.7 % (11.7-14.4)
[2020-06-22 04:55] VITALS: BP 133/48
[2020-06-22 05:16] LABS: ALBUMIN 2.9 g/dL (3.5-5.0); ALBUMIN/GLOBULIN RATIO 0.8 (0.8-2.0); ANION GAP 12.3 mmol/L (8-16); CALCIUM 8.5 mg/dL (8.4-10.2); MAGNESIUM 1.9 MG/DL (1.3-2.1); POTASSIUM 3.3 mmol/L (3.5-5.1)
[2020-06-22 05:54] LABS: CREATINE KINASE MB 1.4 ng/mL (0-5.0)
[2020-06-22 06:11] LABS: CHOL/HDL RATIO 2.8 (3.0-3.6)
[2020-06-22] MEDS ORDERED: PANTOPRAZOLE SOD 40 MG TABEC PO SCH (07:30)
[2020-06-22 08:14] VITALS: BP 120/51
[2020-06-22] MEDS ORDERED: RANOLAZINE 500 MG TABSR PO SCH (09:00)
[2020-06-22] MEDS ORDERED: DOCUSATE SODIUM 100 MG CAP PO SCH (09:00)
[2020-06-22] MEDS ORDERED: ASPIRIN 81 MG CHEW TAB PO SCH (09:00)
[2020-06-22] MEDS ORDERED: POTASSIUM CHLORIDE 10MEQ EA PO SCH (09:00)
[2020-06-22] MEDS ORDERED: METOLAZONE 5 MG TAB PO SCH (09:00)
[2020-06-22] MEDS ORDERED: CLOPIDOGREL BISULFATE 75 MG TAB PO SCH (09:00)
[2020-06-22] MEDS ORDERED: ISOSORBIDE MONONITRATE 30 MG TAB CR PO SCH (09:00)
[2020-06-22] MEDS ORDERED: METOPROLOL SUCCINATE 50 MG TAB XL PO SCH (09:00)
[2020-06-22] MEDS ORDERED: MULTIVITAMINS/MINERALS TAB PO SCH (09:00)
[2020-06-22] MEDS ORDERED: GLIMEPIRIDE 2 MG TAB PO SCH (09:00)
[2020-06-22 09:30] VITALS: BP 120/51
[2020-06-22 12:15] VITALS: BP 94/47
[2020-06-22 12:16] VITALS: BP 105/43
[2020-06-22 14:03] LABS: CREATINE KINASE MB 1.4 ng/mL (0-5.0)
[2020-06-22] MEDS ORDERED: WARFARIN SOD 5 MG TAB PO SCH (17:00)
== END 2020-06-22 14:01 | disposition home or self-care (01) ==
LOC: ER 17:20 → ERHOLD 21:29 → MED/SURG 22:03
PROVIDERS: ADMIT Internal Medicine; ATTEND Internal Medicine
DX: I25.118 Atherosclerotic heart disease of native coronary artery with other forms of angina pectoris (principal); I48.0 Paroxysmal atrial fibrillation; Z79.01 Long term (current) use of anticoagulants; I11.0 Hypertensive heart disease with heart failure; I50.22 Chronic systolic (congestive) heart failure; Z95.810 Presence of automatic (implantable) cardiac defibrillator; D64.9 Anemia, unspecified; Z20.828 Contact with and (suspected) exposure to other viral communicable diseases; E78.5 Hyperlipidemia, unspecified
CPT/HCPCS: 36415 ×2; 71045; 80053 ×2; 80061; 82550 ×2; 82553 ×2; 82948; 83735; 84484 ×2; 85025 ×2; 85610; 85730; 93005; 99285; G0378 ×2; J2270 ×2; J2405 ×2; S0164; U0002

== ENCOUNTER → 2020-08-18 | Day surgery (SDC) | payer MEDICARE ==
[2020-08-13 10:14] LABS: BASOPHILS # (AUTO) 0.1 (0.0-0.1); BASOPHILS % 0.4 % (0.0-1.0); EOSINOPHILS # (AUTO) 0.1 (0.0-0.4); EOSINOPHILS % 0.6 % (0.0-6.0); HEMATOCRIT 38.8 % (34.2-44.1); HEMOGLOBIN 11.6 g/dL (12.0-16.0); LYMPHOCYTES # (AUTO) 2.2 (1.0-3.2); LYMPHOCYTES % 18.2 % (18.0-39.1); MEAN CORPUSCULAR HEMOGLOBIN 25.1 pg (28-32); MEAN CORPUSCULAR HGB CONC 29.9 g/dL (31-35); MEAN CORPUSCULAR VOLUME 83.8 fL (81-99); MONOCYTES # (AUTO) 0.8 (0.2-0.8); MONOCYTES % 6.4 % (4.4-11.3); PLATELET COUNT 311 x10e3/uL (140-360); RED BLOOD COUNT 4.63 x10e6/uL (3.6-5.1)
[2020-08-13 10:22] LABS: ANION GAP 16.8 mmol/L (8-16); CALCIUM 9.4 mg/dL (8.4-10.2); CREATININE, SERUM 2.38 mg/dL (0.57-1.11)
[2020-08-13 10:28] LABS: POTASSIUM 2.8 mmol/L (3.5-5.1)
[2020-08-13 10:43] LABS: INR 1.3; PROTHROMBIN TIME 17.1 seconds (11.9-14.5)
[2020-08-18] VITALS (9 sets, daily range): BP systolic 116–159; BP diastolic 57–89
[~2020-08-18] VITALS: Ht 167.6 cm; Wt 64.9 kg
[~2020-08-18] MED LIST changes: +ATORVASTATIN CA20 MG PO; +CEFAZOLIN SOD 2 GM/D5W 50ML 50 ML IV ONE; +FENTANYL CITRATE/PF 100MCG/2 ML INJ ONE; +GENTAMICIN SULFATE 40 MG/ML 2 ML VIAL ONE; +LIDOCAINE HCL 2% LOCAL 20 ML VIAL ONE; +MIDAZOLAM HCL 2 MG/2 ML VIAL ONE; +POTASSIUM CHLO10 ME1 PO; +SODIUM CHLORIDE 0.9% 1000ML 2,000 ML ONE; +SODIUM CHLORIDE 0.9% 500ML 500 ML ONE; +VANCOMYCIN 1GM/NS 250 ML 250 ML ONE; +WARFARIN SODIUM5 MG PO
== END | disposition home or self-care (01) ==
LOC: CATH LAB 07:04
PROVIDERS: ATTEND Internal Medicine
DX: Z45.010 Encounter for checking and testing of cardiac pacemaker pulse generator [battery] (principal); I42.8 Other cardiomyopathies; I50.42 Chronic combined systolic (congestive) and diastolic (congestive) heart failure; I25.2 Old myocardial infarction; I48.0 Paroxysmal atrial fibrillation; I47.2 Ventricular tachycardia; E11.9 Type 2 diabetes mellitus without complications; Z88.6 Allergy status to analgesic agent; Z88.1 Allergy status to other antibiotic agents; Z01.812 Encounter for preprocedural laboratory examination; Z20.822 Contact with and (suspected) exposure to COVID-19; Z79.01 Long term (current) use of anticoagulants; Z79.82 Long term (current) use of aspirin; Z79.02 Long term (current) use of antithrombotics/antiplatelets; Z79.84 Long term (current) use of oral hypoglycemic drugs
CPT/HCPCS: 33263; 36415; 80048; 85025; 85610; C1721; C1763; C1769; J0690; J1580; J2001; J2250; J3010; J3370; J7030; J7040; U0002; 99152; 99153

== ENCOUNTER → 2020-08-30 | Outpatient (CLI) | payer MEDICARE ==
[~2020-08-30] MED LIST changes: -CEFAZOLIN SOD 2 GM/D5W 50ML 50 ML IV ONE; -FENTANYL CITRATE/PF 100MCG/2 ML INJ ONE; -GENTAMICIN SULFATE 40 MG/ML 2 ML VIAL ONE; -LIDOCAINE HCL 2% LOCAL 20 ML VIAL ONE; -MIDAZOLAM HCL 2 MG/2 ML VIAL ONE; -SODIUM CHLORIDE 0.9% 1000ML 2,000 ML ONE; -SODIUM CHLORIDE 0.9% 500ML 500 ML ONE; -VANCOMYCIN 1GM/NS 250 ML 250 ML ONE
== END ==
LOC: RAD 10:42
PROVIDERS: ATTEND Internal Medicine
DX: M25.551 Pain in right hip (principal)

== ENCOUNTER 2020-09-15 00:33 | Inpatient (IN) | payer MEDICARE ==
[~2020-09-15] VITALS: Ht 167.6 cm; Wt 61.0 kg
[2020-09-15] VITALS (26 sets, daily range): BP systolic 92–124; BP diastolic 42–75
[2020-09-15 01:02] LABS: BASOPHILS # (AUTO) 0.1 (0.0-0.1); BASOPHILS % 0.3 % (0.0-1.0); EOSINOPHILS % 0.1 % (0.0-6.0); HEMATOCRIT 42.9 % (34.2-44.1); HEMOGLOBIN 13.6 g/dL (12.0-16.0); LYMPHOCYTES # (AUTO) 1.6 (1.0-3.2); LYMPHOCYTES % 9.4 % (18.0-39.1); MEAN CORPUSCULAR HGB CONC 31.7 g/dL (31-35); MEAN CORPUSCULAR VOLUME 85.1 fL (81-99); MONOCYTES % 5.9 % (4.4-11.3); NEUTROPHILS # (AUTO) 14.4 (2.1-6.9); NEUTROPHILS % 83.9 % (38.7-80.0); PLATELET COUNT 332 x10e3/uL (140-360); RED BLOOD COUNT 5.04 x10e6/uL (3.6-5.1)
[2020-09-15 01:12] LABS: INR 3.46; PARTIAL THROMBOPLASTIN TIME 42.4 seconds (23.8-35.5); PROTHROMBIN TIME 37.9 seconds (11.9-14.5)
[2020-09-15 01:19] LABS: ALBUMIN 2.7 g/dL (3.5-5.0); ALBUMIN/GLOBULIN RATIO 0.6 (0.8-2.0); ANION GAP 19.7 mmol/L (8-16); CALCIUM 8.8 mg/dL (8.4-10.2); CREATININE, SERUM 2.16 mg/dL (0.57-1.11)
[2020-09-15 01:22] LABS: POTASSIUM 2.7 mmol/L (3.5-5.1)
[2020-09-15] MEDS ORDERED: POTASSIUM CHLORIDE 20MEQ/100ML 100 ML IV STA (01:23)
[2020-09-15] MEDS ORDERED: POTASSIUM CHLORIDE 20 MEQ TAB CR PO STA (01:23)
[2020-09-15 01:26] LABS: CREATINE KINASE MB 3.6 ng/mL (0-5.0)
[2020-09-15] MEDS ORDERED: CEFTRIAXONE SOD 1 GM/50 ML BAG IV ONE (02:15)
[2020-09-15] MEDS ORDERED: CEFTRIAXONE SOD 1 GM VIAL ONE (02:25)
[2020-09-15] MEDS ORDERED: CEFTRIAXONE SOD 1 GM in SODIUM CHLORIDE 0.9% 50ML 50 ML IV ONE (02:30)
[2020-09-15 02:40] LABS: CLARITY,URINE SL CLOUDY (CLEAR); COLOR,URINE YELLOW (YELLOW); KETONES,URINE NEGATIVE (NEGATIVE); LEUKOCYTE ESTERASE ,URINE NEGATIVE (NEGATIVE); NITRITE,URINE NEGATIVE (NEGATIVE); PROTEIN,URINE DIPSTICK TRACE (NEGATIVE); URINE UROBILINOGEN 0.2 mg/dL (0.2 - 1)
[2020-09-15] MEDS ORDERED: AMIODARONE HCL 900 MG in DEXTROSE 5% 500ML 500 ML IV SCH (02:45)
[2020-09-15] MEDS ORDERED: AMIODARONE HCL 150 MG/100 ML BAG IV ONE (02:45)
[2020-09-15 02:49] LABS: AMORPHOUS SEDIMENT,URINE FEW (FEW); BACTERIA,URINE FEW /HPF; EPITHELIAL CELLS,URINE MODERATE /LPF; RBC,URINE 0-5 /HPF (0-5); WBC,URINE (MAN) 0-5 /HPF (0-5)
[2020-09-15] MEDS ORDERED: AMIODARONE 900MG 500 ML IV ONE (02:57)
[2020-09-15] MEDS ORDERED: AMIODARONE HCL 150MG 100 ML ONE (02:57)
[2020-09-15] MEDS: METRONIDAZOLE 500MG/NS 100ML 100 ML IV SCH ×4 (05:14→20:46)
[2020-09-15] MEDS: ONDANSETRON HCL INJ 2MG/ML 2ML 2 MG/ML VIAL IV PRN ×5 (05:20→23:10)
[2020-09-15] MEDS: HYDROCODONE/APAP 10MG-325MG TAB PO PRN ×4 (06:30→23:11)
[2020-09-15] MEDS: CLOPIDOGREL BISULFATE 75 MG TAB PO SCH (08:22)
[2020-09-15] MEDS: PANTOPRAZOLE SOD 40 MG TABEC PO SCH (08:22)
[2020-09-15] MEDS: MONTELUKAST SODIUM 10 MG TAB PO SCH (08:23)
[2020-09-15] MEDS: METOPROLOL SUCCINATE 50 MG TAB XL PO SCH (09:30)
[2020-09-15] MEDS: ISOSORBIDE MONONITRATE 30 MG TAB CR PO SCH (14:49)
[2020-09-15] MEDS: AMIODARONE HCL 200 MG TAB PO SCH (17:46)
[2020-09-15 17:53] LABS: CREATINE KINASE MB 5.6 ng/mL (0-5.0)
[2020-09-15] MEDS: SODIUM CHLORIDE FLUSH 10 ML SYR INJ PRN (18:55)
[2020-09-15] MEDS ORDERED: CEFTRIAXONE SOD 1 GM/50 ML BAG IV SCH (21:00)
[2020-09-15] MEDS: ATORVASTATIN 40 MG TAB PO SCH (21:49)
[2020-09-15] MEDS: CEFTRIAXONE SOD 1 GM in SODIUM CHLORIDE 0.9% 50ML 50 ML IV SCH (21:49)
[2020-09-15] MEDS: IPRATROPIUM BROMIDE 0.02% 2.5 ML NEB NEB SCH (23:00)
[2020-09-16] VITALS (27 sets, daily range): BP systolic 88–153; BP diastolic 46–69
[2020-09-16] MEDS: METRONIDAZOLE 500MG/NS 100ML 100 ML IV SCH ×4 (03:08→21:04)
[2020-09-16] MEDS: HYDROCODONE/APAP 10MG-325MG TAB PO PRN ×4 (03:30→20:18)
[2020-09-16] MEDS: ONDANSETRON HCL INJ 2MG/ML 2ML 2 MG/ML VIAL IV PRN ×5 (03:30→20:27)
[2020-09-16 04:53] LABS: BASOPHILS # (AUTO) 0.1 (0.0-0.1); BASOPHILS % 0.4 % (0.0-1.0); EOSINOPHILS # (AUTO) 0.1 (0.0-0.4); EOSINOPHILS % 0.9 % (0.0-6.0); HEMATOCRIT 38.4 % (34.2-44.1); HEMOGLOBIN 12.2 g/dL (12.0-16.0); LYMPHOCYTES # (AUTO) 1.8 (1.0-3.2); MEAN CORPUSCULAR HEMOGLOBIN 27.2 pg (28-32); MEAN CORPUSCULAR HGB CONC 31.8 g/dL (31-35); MEAN CORPUSCULAR VOLUME 85.7 fL (81-99); MONOCYTES # (AUTO) 0.9 (0.2-0.8); MONOCYTES % 6.8 % (4.4-11.3); NEUTROPHILS # (AUTO) 10.5 (2.1-6.9); NEUTROPHILS % 78.4 % (38.7-80.0); PLATELET COUNT 300 x10e3/uL (140-360); RED BLOOD COUNT 4.48 x10e6/uL (3.6-5.1); RED CELL DISTRIBUTION WIDTH 22.4 % (11.7-14.4)
[2020-09-16 05:04] LABS: INR 3.79
[2020-09-16 05:11] LABS: PROTHROMBIN TIME 40.8 seconds (11.9-14.5)
[2020-09-16 05:17] LABS: ALBUMIN 2.5 g/dL (3.5-5.0); ALBUMIN/GLOBULIN RATIO 0.6 (0.8-2.0); ANION GAP 12.8 mmol/L (8-16); CALCIUM 8.4 mg/dL (8.4-10.2); CREATININE, SERUM 1.82 mg/dL (0.57-1.11)
[2020-09-16 05:41] LABS: POTASSIUM 2.8 mmol/L (3.5-5.1)
[2020-09-16] MEDS ORDERED: POTASSIUM CHLORIDE 20 MEQ TAB CR PO STA (06:02)
[2020-09-16] MEDS: IPRATROPIUM BROMIDE 0.02% 2.5 ML NEB NEB SCH ×2 (07:00→15:00)
[2020-09-16] MEDS: MONTELUKAST SODIUM 10 MG TAB PO SCH (09:55)
[2020-09-16] MEDS: CLOPIDOGREL BISULFATE 75 MG TAB PO SCH (09:56)
[2020-09-16] MEDS: AMIODARONE HCL 200 MG TAB PO SCH ×2 (09:56→18:25)
[2020-09-16] MEDS: PANTOPRAZOLE SOD 40 MG TABEC PO SCH (09:56)
[2020-09-16] MEDS: SODIUM CHLORIDE FLUSH 10 ML SYR INJ PRN ×2 (09:56→18:36)
[2020-09-16] MEDS ORDERED: POTASSIUM CHLORIDE 20 MEQ TAB CR PO ONE (10:00)
[2020-09-16] MEDS: METOPROLOL SUCCINATE 50 MG TAB XL PO SCH (10:32)
[2020-09-16] MEDS ORDERED: PROMETHAZINE 12.5MG/ NACL 0.9% 12.5 MG/50 ML BAG IV PRN (12:15)
[2020-09-16] MEDS ORDERED: SODIUM CHLORIDE 0.9% 250ML 250 ML ONE (12:39)
[2020-09-16] MEDS: ISOSORBIDE MONONITRATE 30 MG TAB CR PO SCH (13:27)
[2020-09-16] MEDS ORDERED: POTASSIUM CHLORIDE 20MEQ/100ML 100 ML IV ONE ×2 (13:30→17:00)
[2020-09-16] MEDS: ATORVASTATIN 40 MG TAB PO SCH (21:04)
[2020-09-16] MEDS: CEFTRIAXONE SOD 1 GM in SODIUM CHLORIDE 0.9% 50ML 50 ML IV SCH (21:54)
[2020-09-17] VITALS (15 sets, daily range): BP systolic 92–124; BP diastolic 50–90
[2020-09-17] MEDS: ONDANSETRON HCL INJ 2MG/ML 2ML 2 MG/ML VIAL IV PRN ×3 (00:23→21:28)
[2020-09-17] MEDS: HYDROCODONE/APAP 10MG-325MG TAB PO PRN ×3 (00:24→16:14)
[2020-09-17] MEDS: METRONIDAZOLE 500MG/NS 100ML 100 ML IV SCH ×4 (02:53→21:48)
[2020-09-17 04:53] LABS: BASOPHILS # (AUTO) 0.1 (0.0-0.1); BASOPHILS % 0.5 % (0.0-1.0); EOSINOPHILS # (AUTO) 0.1 (0.0-0.4); EOSINOPHILS % 0.5 % (0.0-6.0); HEMATOCRIT 40.6 % (34.2-44.1); HEMOGLOBIN 13.1 g/dL (12.0-16.0); LYMPHOCYTES # (AUTO) 1.8 (1.0-3.2); LYMPHOCYTES % 12.6 % (18.0-39.1); MEAN CORPUSCULAR HEMOGLOBIN 29.4 pg (28-32); MEAN CORPUSCULAR HGB CONC 32.3 g/dL (31-35); MEAN CORPUSCULAR VOLUME 91.2 fL (81-99); MONOCYTES # (AUTO) 0.9 (0.2-0.8); MONOCYTES % 6.4 % (4.4-11.3); NEUTROPHILS # (AUTO) 11.6 (2.1-6.9); NEUTROPHILS % 79.5 % (38.7-80.0); PLATELET COUNT 303 x10e3/uL (140-360); RED BLOOD COUNT 4.45 x10e6/uL (3.6-5.1); RED CELL DISTRIBUTION WIDTH 22.7 % (11.7-14.4)
[2020-09-17 05:04] LABS: INR 3.12; PROTHROMBIN TIME 34.8 seconds (11.9-14.5)
[2020-09-17 05:30] LABS: ALBUMIN 2.5 g/dL (3.5-5.0); ALBUMIN/GLOBULIN RATIO 0.6 (0.8-2.0); ANION GAP 14.1 mmol/L (8-16); CALCIUM 8.5 mg/dL (8.4-10.2); CREATININE, SERUM 1.79 mg/dL (0.57-1.11); MAGNESIUM 1.7 MG/DL (1.3-2.1); POTASSIUM 4.1 mmol/L (3.5-5.1)
[2020-09-17] MEDS ORDERED: DEXTROSE 50% SYRINGE 50 ML IV STA (05:55)
[2020-09-17] MEDS: IPRATROPIUM BROMIDE 0.02% 2.5 ML NEB NEB SCH ×2 (07:00→15:00)
[2020-09-17] MEDS: AMIODARONE HCL 200 MG TAB PO SCH ×2 (08:39→16:14)
[2020-09-17] MEDS: ISOSORBIDE MONONITRATE 30 MG TAB CR PO SCH (08:39)
[2020-09-17] MEDS: PANTOPRAZOLE SOD 40 MG TABEC PO SCH (08:39)
[2020-09-17] MEDS: METOPROLOL SUCCINATE 50 MG TAB XL PO SCH (08:39)
[2020-09-17] MEDS: CLOPIDOGREL BISULFATE 75 MG TAB PO SCH (08:39)
[2020-09-17] MEDS: MONTELUKAST SODIUM 10 MG TAB PO SCH (08:39)
[2020-09-17] MEDS ORDERED: PHYTONADIONE 10 MG/ML AMP SC ONE (15:00)
[2020-09-17] MEDS: CEFTRIAXONE SOD 1 GM in SODIUM CHLORIDE 0.9% 50ML 50 ML IV SCH (20:15)
[2020-09-17] MEDS: ATORVASTATIN 40 MG TAB PO SCH (20:16)
[2020-09-17] MEDS ORDERED: SODIUM CHLORIDE 0.9% 250ML 250 ML ONE (20:22)
[2020-09-18] VITALS (8 sets, daily range): BP systolic 95–116; BP diastolic 50–71
[2020-09-18] MEDS: HYDROCODONE/APAP 10MG-325MG TAB PO PRN ×2 (00:23→12:53)
[2020-09-18] MEDS: METRONIDAZOLE 500MG/NS 100ML 100 ML IV SCH ×4 (04:00→22:00)
[2020-09-18 04:52] LABS: BASOPHILS # (AUTO) 0.1 (0.0-0.1); BASOPHILS % 0.5 % (0.0-1.0); EOSINOPHILS # (AUTO) 0.1 (0.0-0.4); EOSINOPHILS % 0.8 % (0.0-6.0); HEMATOCRIT 39.2 % (34.2-44.1); LYMPHOCYTES # (AUTO) 1.5 (1.0-3.2); LYMPHOCYTES % 9.8 % (18.0-39.1); MEAN CORPUSCULAR HEMOGLOBIN 27.3 pg (28-32); MEAN CORPUSCULAR HGB CONC 30.6 g/dL (31-35); MEAN CORPUSCULAR VOLUME 89.1 fL (81-99); MONOCYTES # (AUTO) 0.9 (0.2-0.8); NEUTROPHILS # (AUTO) 12.8 (2.1-6.9); NEUTROPHILS % 82.5 % (38.7-80.0); PLATELET COUNT 301 x10e3/uL (140-360); RED CELL DISTRIBUTION WIDTH 22.5 % (11.7-14.4)
[2020-09-18 05:01] LABS: INR 2.3; PROTHROMBIN TIME 27.2 seconds (11.9-14.5)
[2020-09-18 05:16] LABS: ANION GAP 12.2 mmol/L (8-16); CALCIUM 8.3 mg/dL (8.4-10.2); CREATININE, SERUM 1.76 mg/dL (0.57-1.11); POTASSIUM 3.2 mmol/L (3.5-5.1)
[2020-09-18] MEDS: IPRATROPIUM BROMIDE 0.02% 2.5 ML NEB NEB SCH ×2 (07:00→15:00)
[2020-09-18] MEDS: MONTELUKAST SODIUM 10 MG TAB PO SCH (09:28)
[2020-09-18] MEDS: CLOPIDOGREL BISULFATE 75 MG TAB PO SCH (09:28)
[2020-09-18] MEDS: PANTOPRAZOLE SOD 40 MG TABEC PO SCH (09:28)
[2020-09-18] MEDS: AMIODARONE HCL 200 MG TAB PO SCH ×2 (09:28→16:39)
[2020-09-18] MEDS: METOPROLOL SUCCINATE 50 MG TAB XL PO SCH (09:28)
[2020-09-18] MEDS: ISOSORBIDE MONONITRATE 30 MG TAB CR PO SCH (09:28)
[2020-09-18] MEDS: ONDANSETRON HCL INJ 2MG/ML 2ML 2 MG/ML VIAL IV PRN ×2 (13:17→22:32)
[2020-09-18] MEDS: ATORVASTATIN 40 MG TAB PO SCH (20:23)
[2020-09-18] MEDS: CEFTRIAXONE SOD 1 GM in SODIUM CHLORIDE 0.9% 50ML 50 ML IV SCH (20:24)
[2020-09-18] MEDS ORDERED: WARFARIN SOD 5 MG TAB PO ONE (21:00)
[2020-09-18] MEDS ORDERED: POTASSIUM CHLORIDE 10MEQ EA PO ONE (21:00)
[2020-09-18] MEDS ORDERED: MAGNESIUM SULFATE 2GM/50ML 100 ML IV ONE (21:00)
[2020-09-19 00:40] VITALS: BP 106/49
[2020-09-19] MEDS: METRONIDAZOLE 500MG/NS 100ML 100 ML IV SCH ×4 (03:45→21:57)
[2020-09-19 04:00] VITALS: BP 120/48
[2020-09-19 06:31] LABS: BASOPHILS # (AUTO) 0.1 (0.0-0.1); BASOPHILS % 0.4 % (0.0-1.0); EOSINOPHILS # (AUTO) 0.1 (0.0-0.4); EOSINOPHILS % 0.4 % (0.0-6.0); HEMATOCRIT 36.3 % (34.2-44.1); HEMOGLOBIN 11.9 g/dL (12.0-16.0); LYMPHOCYTES # (AUTO) 1.7 (1.0-3.2); LYMPHOCYTES % 11.9 % (18.0-39.1); MEAN CORPUSCULAR HEMOGLOBIN 30.1 pg (28-32); MEAN CORPUSCULAR HGB CONC 32.8 g/dL (31-35); MEAN CORPUSCULAR VOLUME 91.9 fL (81-99); MONOCYTES # (AUTO) 0.8 (0.2-0.8); MONOCYTES % 5.9 % (4.4-11.3); NEUTROPHILS # (AUTO) 11.2 (2.1-6.9); PLATELET COUNT 248 x10e3/uL (140-360); RED BLOOD COUNT 3.95 x10e6/uL (3.6-5.1); RED CELL DISTRIBUTION WIDTH 23.5 % (11.7-14.4)
[2020-09-19 06:36] LABS: INR 1.32; PROTHROMBIN TIME 17.3 seconds (11.9-14.5)
[2020-09-19 07:04] LABS: ANION GAP 11.9 mmol/L (8-16); CALCIUM 8.3 mg/dL (8.4-10.2); CREATININE, SERUM 1.77 mg/dL (0.57-1.11); POTASSIUM 3.9 mmol/L (3.5-5.1)
[2020-09-19] MEDS: AMIODARONE HCL 200 MG TAB PO SCH ×2 (08:38→16:22)
[2020-09-19] MEDS: CLOPIDOGREL BISULFATE 75 MG TAB PO SCH (08:38)
[2020-09-19] MEDS: MONTELUKAST SODIUM 10 MG TAB PO SCH (08:38)
[2020-09-19] MEDS: PANTOPRAZOLE SOD 40 MG TABEC PO SCH (08:38)
[2020-09-19] MEDS: METOPROLOL SUCCINATE 50 MG TAB XL PO SCH (08:40)
[2020-09-19] MEDS: ISOSORBIDE MONONITRATE 30 MG TAB CR PO SCH (08:40)
[2020-09-19 09:55] VITALS: BP 124/59
[2020-09-19 12:00] VITALS: BP 109/50
[2020-09-19] MEDS: HYDROCODONE/APAP 10MG-325MG TAB PO PRN (15:00)
[2020-09-19 16:08] VITALS: BP 112/51
[2020-09-19 20:00] VITALS: BP 115/50
[2020-09-19] MEDS ORDERED: CEFTRIAXONE SOD 1 GM VIAL ONE (20:43)
[2020-09-19] MEDS: ATORVASTATIN 40 MG TAB PO SCH (21:00)
[2020-09-19] MEDS: CEFTRIAXONE SOD 1 GM in SODIUM CHLORIDE 0.9% 50ML 50 ML IV SCH (21:04)
[2020-09-19] MEDS ORDERED: SODIUM CHLORIDE 0.9% 50ML 50 ML ONE (21:09)
[2020-09-20] VITALS: BP 122/48
[2020-09-20] MEDS: METRONIDAZOLE 500MG/NS 100ML 100 ML IV SCH ×2 (03:07→08:54)
[2020-09-20] MEDS: ONDANSETRON HCL INJ 2MG/ML 2ML 2 MG/ML VIAL IV PRN (03:07)
[2020-09-20 04:00] VITALS: BP 125/53
[2020-09-20 07:33] VITALS: BP 125/53
[2020-09-20 08:08] VITALS: BP 128/51
[2020-09-20] MEDS: AMIODARONE HCL 200 MG TAB PO SCH (09:14)
[2020-09-20] MEDS: CLOPIDOGREL BISULFATE 75 MG TAB PO SCH (09:15)
[2020-09-20] MEDS: METOPROLOL SUCCINATE 50 MG TAB XL PO SCH (09:15)
[2020-09-20] MEDS: PANTOPRAZOLE SOD 40 MG TABEC PO SCH (09:15)
[2020-09-20] MEDS: MONTELUKAST SODIUM 10 MG TAB PO SCH (09:15)
[2020-09-20] MEDS: ISOSORBIDE MONONITRATE 30 MG TAB CR PO SCH (09:15)
[2020-09-20] MEDS ORDERED: POTASSIUM CHLO20 ME1 PO (09:19)
[2020-09-20] MEDS ORDERED: ZOFRAN4 MG PO (09:20)
== END 2020-09-20 10:05 | disposition home or self-care (01) | DRG 291 ==
LOC: ER 00:35 → ERHOLD 03:27 → ICU 04:35 → MED/SURG 09-18 22:39
PROVIDERS: ADMIT Internal Medicine; ATTEND Internal Medicine
DX: I13.0 Hypertensive heart and chronic kidney disease with heart failure and stage 1 through stage 4 chronic kidney disease, or unspecified chronic kidney disease (principal); I50.23 Acute on chronic systolic (congestive) heart failure; I47.2 Ventricular tachycardia; K57.92 Diverticulitis of intestine, part unspecified, without perforation or abscess without bleeding; I50.22 Chronic systolic (congestive) heart failure; T82.897A Other specified complication of cardiac prosthetic devices, implants and grafts, initial encounter; E87.6 Hypokalemia; E86.0 Dehydration; N28.89 Other specified disorders of kidney and ureter; E11.9 Type 2 diabetes mellitus without complications; D72.829 Elevated white blood cell count, unspecified; N18.30 Chronic kidney disease, stage 3 unspecified; J44.9 Chronic obstructive pulmonary disease, unspecified; Z95.810 Presence of automatic (implantable) cardiac defibrillator; I25.10 Atherosclerotic heart disease of native coronary artery without angina pectoris; I48.0 Paroxysmal atrial fibrillation; Z79.01 Long term (current) use of anticoagulants; Z20.822 Contact with and (suspected) exposure to COVID-19
CPT/HCPCS: 36415; 71045; 80048; 80053; 80061; 81001; 82550; 82553; 82948; 83605; 83735; 83880; 84132; 84484; 85025; 85610; 85730; 87040; 93005; 93306; 99284; J0696; J2405; J2550; J3430; J3475; J3480; J7050; J7799; U0002